=== PATIENT | female | born 1965 | race Caucasian/White ===

== ENCOUNTER → 2018-06-18 11:02 | Outpatient (CLI) | payer OTHER, SELFPAY ==
--- NOTE | 2018-06-18 11:03 | DI.RAD.S_ITS ---
PROCEDURE: XR FOOT LT MIN 3V INDICATIONS: heel pain TECHNIQUE: 3 views of the foot were acquired. COMPARISON: None. FINDINGS: Bones: No fractures or dislocations. No suspicious bony lesions. Small os navicularis is seen. Tiny plantar enthesophyte is seen. Soft tissues: No tibiotalar joint effusion. Achilles tendon appears normal. IMPRESSION: Tiny plantar calcaneal enthesophyte. Otherwise unremarkable radiographic examination of left foot. Dictated by: Mehul Quevedo M.D. on 06/18/2018 at 12:14 Approved by: Mehul Quevedo M.D. on 06/18/2018 at 12:18
--- NOTE | 2018-06-18 11:03 | DI.RAD.S_ITS ---
PROCEDURE: XR FOOT RT MIN 3V INDICATIONS: heel pain TECHNIQUE: 3 views of the foot were acquired. COMPARISON: None. FINDINGS: Bones: No fractures or dislocations. No suspicious bony lesions. Corticated calcification adjacent to medial aspect of talonavicular joint, likely representing small ossicle versus old avulsion injury. Small plantar calcaneal enthesophyte is seen. Soft tissues: No tibiotalar joint effusion. Achilles tendon appears normal. IMPRESSION: No acute fracture or dislocation. Small plantar calcaneal enthesophyte. Old injury versus accessory ossicle adjacent to medial aspect of talonavicular joint. Dictated by: Mehul Quevedo M.D. on 06/18/2018 at 12:09 Approved by: Mehul Quevedo M.D. on 06/18/2018 at 12:14
== END ==
PROVIDERS: PCP Internal Medicine; Visit Provider Physician Assistant
DX: M79.672 Pain in left foot (principal); M79.671 Pain in right foot; M77.51 Other enthesopathy of right foot and ankle; M77.52 Other enthesopathy of left foot and ankle
CPT/HCPCS: 73630

== ENCOUNTER → 2018-09-14 08:26 | Outpatient (CLI) | payer OTHER, SELFPAY ==
[2018-09-14 09:19] LABS: Add Manual Diff / Slide Review NO; Basophils Percent Auto 0.4 % (0-2); Eosinophils Percent Auto 1.9 % (2-4); Hematocrit 42.7 % (36-46); Hemoglobin 14.2 g/dL (12.0-16.0); Lymphocytes Percent Auto 23.8 % (25-40); Mean Corpuscular HGB Conc 33.3 % (30-36); Mean Corpuscular Hemoglobin 31.3 PG (26-34); Monocytes Percent Auto 7.2 % (3-14); Neutrophils Absolute Auto 4500 /uL (3000-5900); Neutrophils Percent Auto 66.7 % (50-75); Platelet Count 285 X10^3/uL (150-400); Red Blood Cell Count 4.54 X10^6/uL (4.0-5.2); Red Cell Distribution Width 13.1 % (11.6-14.8); White Blood Cell Count 6.7 X10^3/uL (4.5-11.0)
[2018-09-14 09:39] LABS: Alanine Aminotransferase 26 IU/L (9-52); Albumin 4.3 g/dL (3.5-5.0); Albumin Globulin Ratio 1.3 (1.0-2.8); Alkaline Phosphatase 54 U/L (38-126); Aspartate Aminotransferase 21 IU/L (14-36); BUN Creatinine Ratio 13.8 (6-22); Bilirubin Total 0.6 mg/dL (0.2-1.3); Blood Urea Nitrogen 11 mg/dL (7-17); Carbon Dioxide 24 mmol/L (22-32); Chloride 106 mmol/L (98-107); Estimated Glomerular Filt Rate > 60.0 mL/min (>60); Globulin 3.3 g/dL (1.7-4.1); Glucose 109 mg/dL (70-100); HEMOLYSIS < 15 (0-50); Potassium 4.2 mmol/L (3.4-5.1); Sodium 142 mmol/L (137-145); Total Protein 7.6 g/dL (6.3-8.2)
[2018-09-14 10:08] LABS: Thyroid Stimulating Hormone 1.37 uIU/mL (0.47-4.68)
== END ==
PROVIDERS: PCP Internal Medicine; Visit Provider Specialist
DX: I49.3 Ventricular premature depolarization (principal); R06.09 Other forms of dyspnea
CPT/HCPCS: 36415; 80053; 84443; 85025

== ENCOUNTER → 2019-01-25 09:13 | Outpatient (CLI) | payer OTHER, SELFPAY ==
--- NOTE | 2019-01-25 10:01 | DI.RAD.S_ITS ---
PROCEDURE: XR CHEST 2V INDICATIONS: cough with pain in L lower lung TECHNIQUE: 2 views of the chest were acquired. COMPARISON: [facility], , CHEST 1 VIEW, 09/16/2017, 14:42. FINDINGS: Surgical changes and devices: None. Lungs and pleura: Lungs are clear. No pleural effusions or pneumothorax. Mediastinum: Mediastinal contours are normal. Heart size is normal. Bones and chest wall: No suspicious bony abnormalities. Soft tissues appear unremarkable. IMPRESSION: No acute cardiopulmonary disease. Dictated by: Trey Ambrosio M.D. on 01/25/2019 at 10:29 Approved by: Trey Ambrosio M.D. on 01/25/2019 at 10:30
[2019-01-25 10:26] LABS: Influenza A and B by PCR Rapid Negative (Negative)
[2019-01-25 10:34] LABS: Add Manual Diff / Slide Review NO; Basophils Absolute Auto 0 /uL (0-100); Basophils Percent Auto 0.4 % (0-2); Eosinophils Absolute Auto 200 /uL (0-450); Eosinophils Percent Auto 2.2 % (2-4); Hematocrit 42.7 % (36-46); Hemoglobin 14.2 g/dL (12.0-16.0); Lymphocytes Absolute Auto 1800 /uL (1100-4500); Lymphocytes Percent Auto 23.9 % (25-40); Mean Corpuscular HGB Conc 33.3 % (30-36); Mean Corpuscular Volume 92.9 fL (80-100); Monocytes Absolute Auto 600 /uL (0-900); Neutrophils Absolute Auto 5000 /uL (1500-7000); Neutrophils Percent Auto 65.5 % (50-75); Platelet Count 300 X10^3/uL (150-400); Red Cell Distribution Width 12.7 % (11.6-14.8); White Blood Cell Count 7.7 X10^3/uL (4.5-11.0)
[2019-01-25 10:50] LABS: Alanine Aminotransferase 23 IU/L (9-52); Albumin 4.5 g/dL (3.5-5.0); Albumin Globulin Ratio 1.3 (1.0-2.8); Alkaline Phosphatase 62 U/L (38-126); Aspartate Aminotransferase 20 IU/L (14-36); BUN Creatinine Ratio 13.3 (6-22); Bilirubin Total 0.5 mg/dL (0.2-1.3); Blood Urea Nitrogen 12 mg/dL (7-17); Calcium 9.5 mg/dL (8.4-10.2); Carbon Dioxide 29 mmol/L (22-32); Chloride 102 mmol/L (98-107); Estimated Glomerular Filt Rate > 60.0 mL/min (>60); Globulin 3.6 g/dL (1.7-4.1); Glucose 75 mg/dL (70-100); HEMOLYSIS < 15 (0-50); Lipase 65 U/L (23-300); Potassium 4.1 mmol/L (3.4-5.1); Sodium 139 mmol/L (137-145); Total Protein 8.1 g/dL (6.3-8.2)
[2019-01-25 10:59] LABS: Erythrocyte Sedimentation Rate 28 MM/HR (0-20)
== END ==
PROVIDERS: PCP Internal Medicine; Visit Provider Physician Assistant
DX: R05 Cough (principal); R10.13 Epigastric pain
CPT/HCPCS: 36415; 71046; 80053; 83690; 85025; 85651; 86140; 87400

== ENCOUNTER → 2019-01-25 13:20 | Outpatient (CLI) | payer OTHER, SELFPAY ==
--- NOTE | 2019-01-25 13:21 | DI.US.S_ITS ---
PROCEDURE: US ABDOMEN COMPLETE INDICATIONS: LEFT UPPER QUADRANT PAIN WITH EPIGASTRIC PAIN TECHNIQUE: Real-time scanning was performed of the abdominal and retroperitoneal organs, with image documentation. COMPARISON: None. FINDINGS: Liver: Liver is normal in size and homogeneous in echotexture. Gallbladder: The gallbladder is within normal limits without cholelithiasis or gallbladder wall inflammation. Biliary ducts: Intrahepatic bile ducts are non-dilated. Extrahepatic bile duct caliber measures 3 mm. Normal is 6-7 mm or less in diameter, or 10 mm or less post-cholecystectomy. Pancreas: The pancreas was not adequately seen related to overlying bowel gas. Spleen: Spleen is normal in size and homogeneous in echotexture. Kidneys: Kidneys are normal in size and echotexture. Right kidney measures 10.1 cm long; left kidney measures 10.5 cm long. No hydronephrosis or shadowing nephrolithiasis. No solid masses. Aorta: Visualized aorta is normal in caliber at less than 3 cm. Iliacs: Proximal common iliac arteries are normal in caliber at less than 2.5 cm. IVC: Intrahepatic inferior vena cava is patent. Miscellaneous: No free abdominal fluid. IMPRESSION: Unremarkable abdominal ultrasound. No acute process is suspected. There is no cholelithiasis or cholecystitis. No hydronephrosis. Dictated by: Champ Tran M.D. on 01/25/2019 at 13:35 Approved by: Champ Tran M.D. on 01/25/2019 at 13:36
== END ==
PROVIDERS: PCP Internal Medicine; Visit Provider Physician Assistant
DX: R10.12 Left upper quadrant pain (principal); R10.13 Epigastric pain
CPT/HCPCS: 36415; 71046; 76700; 80053; 83690; 85025; 85651; 86140; 87400

== ENCOUNTER 2019-01-25 15:35 | Emergency (ER) | payer OTHER, SELFPAY ==
[2019-01-25 15:37] VITALS: BP 130/79; PULSE 96; RESP 20; TEMP 36.8; O2SAT 98
--- NOTE | 2019-01-25 17:14 | ED.ABDPAIN ---
HPI - Abdominal Pain <YOBANI Knight - Last Filed: 01/25/19 21:25> General Chief Complaint: Abdominal Pain Stated Complaint: PAIN LEFT UPPER SIDE Time Seen by Provider: 01/25/19 17:14 Source: patient Mode of arrival: ambulatory Limitations: no limitations History of Present Illness HPI narrative: 53-year-old female with history of asthma and is a nonsmoker for complaint of pain into her left lower rib cage and lateral rib cage over the past few days. She has recently been diagnosed with bronchitis and has had a cough for over the last week. She denies any fever. No trauma to the area. She denies any productive cough the she has had only a dry cough. She is tolerating p.o. intake well. No nausea or vomiting. she reports increased pain with palpation to the area. She also reports increased pain with cough. She is able speak full sentences. No acute distress. No other concerns or complaints. she was seen at the walk-in clinic earlier today and obtained a chest x-ray and also an abdominal ultrasound which were negative for any acute findings. She was sent here for further evaluation. Related Data Home Medications Medication Instructions Recorded Confirmed epinephrine 0.3 mg/0.3 mL 0.3 mg IM ONCE 06/18/18 01/25/19 injection, auto-injector montelukast 10 mg tablet 10 mg PO QPM 01/25/19 01/25/19 Previous Rx's Medication Instructions Recorded albuterol sulfate [Proventil HFA] 2 puff INH Q4HP PRN #1 inh 06/09/17 fluticasone propionate [Flonase 0 INTRANASAL QDAY #1 bot 06/09/17 Allergy Relief] norgestimate-ethinyl estradiol 1 tab PO QDAY #3 pac 06/09/17 [Tri-Sprintec (28)] Allergies Allergy/AdvReac Type Severity Reaction Status Date / Time amoxicillin [AMOXICILLIN] Allergy Unknown Verified 01/25/19 09:27 clavulanic acid Allergy Unknown Verified 01/25/19 09:27 [From AUGMENTIN] erythromycin base Allergy Unknown Verified 01/25/19 09:27 [ERYTHROMYCIN BASE] hydrocodone [From VICODIN] Allergy Unknown Verified 01/25/19 09:27 topiramate [From TOPAMAX] Allergy Unknown Verified 01/25/19 09:27 bee venom protein (honey bee) Allergy Anaphylaxis Verified 01/25/19 09:27 sumatriptan [From Imitrex] Allergy Verified 01/25/19 09:27 zolmitriptan [From Zomig] Allergy migrane Verified 01/25/19 09:27 Review of Systems <YOBANI Knight - Last Filed: 01/25/19 21:25> Constitutional Denies chills, Denies fever(s), Denies lethargy and Denies weakness ENT Ears, Nose, Mouth, and Throat: Denies change in voice, Denies neck pain and Denies sore throat Cardiovascular Denies dyspnea and Denies dyspnea on exertion Comments: Left-sided rib pain Respiratory Reports cough, Denies dyspnea, Denies dyspnea on exertion and Denies wheezing Gastrointestinal Gastrointestinal: Denies abdominal pain, Denies change in bowel habits, Denies diarrhea, Denies nausea and Denies vomiting Musculoskeletal Denies neck pain Integumentary/Breasts Denies pruritus, Denies erythema, Denies rash and Denies wounds Neurologic Denies weakness Allergic/Immunologic Denies wheezing PFSH <YOBANI Knight - Last Filed: 01/25/19 21:25> Surgical History History of third molar tooth extraction Family History (Updated 06/29/17 @ 00:00 by Conversion Provider) Father Age: 76 GERD (gastroesophageal reflux disease) Grandmother Age: 85 Emphysema Cancer Mother Essential hypertension Grandfather Age: 81 Colon obstruction Heart disease Social History Smoking Status: Never smoker alcohol intake: current Family History (Updated 06/29/17 @ 00:00 by Conversion Provider) Father Age: 76 GERD (gastroesophageal reflux disease) Grandmother Age: 85 Emphysema Cancer Mother Essential hypertension Grandfather Age: 81 Colon obstruction Heart disease Social History Smoking Status: Never smoker alcohol intake: current Exam <YOBANI Knight - Last Filed: 01/25/19 21:25> Initial Vital Signs Initial Vital Signs: Vital Signs Temperature 98.3 F 01/25/19 15:37 Pulse Rate 96 H 01/25/19 15:37 Respiratory Rate 20 01/25/19 15:37 Blood Pressure 130/79 01/25/19 15:37 Pulse Oximetry 98 01/25/19 15:37 HENLA Mouth: oral mucosae normal and moist mucous membranes Eyes Conjunctivae: conjunctivae normal Sclera: sclerae normal Pupils: PERRL EOM: EOM intact bilaterally Chest Other: Anterior chest wall with no signs of trauma. no ecchymosis. No swelling. No deformities. Tenderness on palpation to the left anterior chest wall and left lateral chest wall. Resp Effort & Inspection: normal respiratory effort, able to speak in complete sentences, no respiratory distress and no use of accessory muscles Auscultation: clear to auscultation bilaterally, no rales, no rhonchi and no wheezes Cardio Rate: regular rate Rhythm: regular rhythm Heart Sounds: no click, no gallops, no murmurs and no rubs Pulses: normal peripheral pulses Skin General: no rashes or lesions noted, No jaundice and No petechiae Neuro General: alert, oriented x3, gait normal and no focal motor deficits Speech: speech normal <Juan Miguel Villalobos DO - Last Filed: 01/25/19 23:55> Initial Vital Signs Initial Vital Signs: Vital Signs Temperature 98.3 F 01/25/19 15:37 Pulse Rate 96 H 01/25/19 15:37 Respiratory Rate 20 01/25/19 15:37 Blood Pressure 130/79 01/25/19 15:37 Pulse Oximetry 98 01/25/19 15:37 Course <YOBANI Knight - Last Filed: 01/25/19 21:25> Orders Ordered: ED Orders 01/25/19 18:01 CT chest w con Stat 01/25/19 18:10 C-Reactive Protein Quant Stat Troponin & CK Cardiac Panel Stat 01/25/19 19:19 EKG-12 Lead Stat Vital Signs - 8 hr 01/25/19 17:16 01/25/19 17:34 01/25/19 19:52 Pulse Rate 71 71 72 Respiratory Rate 18 14 18 Blood Pressure [Left Arm] 139/75 134/76 131/71 Pulse Oximetry 97 98 98 <DO Leonila Gross Last Filed: 01/25/19 23:55> Orders Ordered: ED Orders 01/25/19 18:01 CT chest w con Stat 01/25/19 18:10 C-Reactive Protein Quant Stat Troponin & CK Cardiac Panel Stat 01/25/19 19:19 EKG-12 Lead Stat Vital Signs - 8 hr 01/25/19 17:16 01/25/19 17:34 01/25/19 19:52 Pulse Rate 71 71 72 Respiratory Rate 18 14 18 Blood Pressure [Left Arm] 139/75 134/76 131/71 Pulse Oximetry 97 98 98 MDM - Abdominal Pain <Lm MedinaYOBANI skaggs - Last Filed: 01/25/19 21:25> Lab Data Lab Results 01/25/19 Range/Units 18:10 Total Creatine Kinase 37 (30-135) U/L CK-MB (CK-2) TNP CK-MB (CK-2) Rel Index TNP Troponin I < 0.012 (0.01-0.034) ng/mL C-Reactive Protein 1.0 (<1.0) mg/dL Imaging Data US - abdomen: Radiologist's impression: [address] [address] Ultrasound Report Signed Patient: Lulú Gilmore EMR#: [id number] : 1965Acct:[id number] Age/Sex: 53 / FDate of Service: 01/25/19 Loc: US Accession Number: [id number] Procedure: US abdomen complete Ordering Provider: Melissa Hyatt P.A-C PROCEDURE: US ABDOMEN COMPLETE INDICATIONS: LEFT UPPER QUADRANT PAIN WITH EPIGASTRIC PAIN TECHNIQUE: Real-time scanning was performed of the abdominal and retroperitoneal organs, with image documentation. COMPARISON: None. FINDINGS: Liver: Liver is normal in size and homogeneous in echotexture. Gallbladder: The gallbladder is within normal limits without cholelithiasis or gallbladder wall inflammation. Biliary ducts: Intrahepatic bile ducts are non-dilated. Extrahepatic bile duct caliber measures 3 mm. Normal is 6-7 mm or less in diameter, or 10 mm or less post-cholecystectomy. Pancreas: The pancreas was not adequately seen related to overlying bowel gas. Spleen: Spleen is normal in size and homogeneous in echotexture. Kidneys: Kidneys are normal in size and echotexture. Right kidney measures 10.1 cm long; left kidney measures 10.5 cm long. No hydronephrosis or shadowing nephrolithiasis. No solid masses. Aorta: Visualized aorta is normal in caliber at less than 3 cm. Iliacs: Proximal common iliac arteries are normal in caliber at less than 2.5 cm. IVC: Intrahepatic inferior vena cava is patent. Miscellaneous: No free abdominal fluid. IMPRESSION: Unremarkable abdominal ultrasound. No acute process is suspected. There is no cholelithiasis or cholecystitis. No hydronephrosis. Dictated by: Champ Tran M.D. on 01/25/2019 at 13:35 Approved by: Champ Tran M.D. on 01/25/2019 at 13:36 Chest x-ray: Radiologist's impression: [address] [place] [address] XRay Report Signed Patient: Lulú Gilmore EMR#: [id number] : 1965Acct:[id number] Age/Sex: 53 / FDate of Service: 01/25/19 Loc: LAB Accession Number: [id number] Procedure: XR chest 2V Ordering Provider: Melissa Hyatt P.A-C PROCEDURE: XR CHEST 2V INDICATIONS: cough with pain in L lower lung TECHNIQUE: 2 views of the chest were acquired. COMPARISON: [facility], CHEST 1 VIEW, 09/16/2017, 14:42. FINDINGS: Surgical changes and devices: None. Lungs and pleura: Lungs are clear. No pleural effusions or pneumothorax. Mediastinum: Mediastinal contours are normal. Heart size is normal. Bones and chest wall: No suspicious bony abnormalities. Soft tissues appear unremarkable. IMPRESSION: No acute cardiopulmonary disease. Dictated by: Trey Ambrosio M.D. on 01/25/2019 at 10:29 Approved by: Trey Ambrosio M.D. on 01/25/2019 at 10:30 CT scan - chest: Radiologist's impression: [address] [address] [address] Scan Report Signed Patient: Lulú Gilmore EMR#: [id number] : 1965Acct:[id number] Age/Sex: 53 / FDate of Service: 01/25/19 Loc: ED Accession Number: [id number] Procedure: CT chest w con Ordering Provider: Lm Valdivia PROCEDURE: CT CHEST W CON INDICATIONS: Chest pain TECHNIQUE: After the administration of intravenous contrast, 5 mm thick sections acquired from the pulmonary apices to the posterior costophrenic angles. 7 mm thick coronal and sagittal MIP reformats were acquired. For radiation dose reduction, the following was used: automated exposure control, adjustment of mA and/or kV according to patient size. COMPARISON: [facility], CR, XR CHEST 2V, 01/25/2019, 10:12. FINDINGS: Image quality: Excellent. Lungs and pleura: No acute air space opacities. No pleural effusions or pneumothorax. Central and peripheral airways are patent and normal in caliber. Mediastinum: Heart size is normal. No pericardial effusion. No mediastinal or hilar adenopathy by size criteria. Thoracic aorta and central pulmonary arteries are normal in size. Esophagus is normal in caliber. No hiatal hernia. Bones and chest wall: No suspicious bony lesions. No vertebral body compression fractures. No axillary or supraclavicular adenopathy by size criteria. Thyroid gland is unremarkable. Abdomen: Visualized upper abdominal solid organs appear normal. Upper abdominal bowel loops are normal in caliber. IMPRESSION: 1. No visualized cause of chest pain. Dictated by: Ariella Moreau M.D. on 01/25/2019 at 18:49 Approved by: Ariella Moreau M.D. on 01/25/2019 at 18:50 ECG Data Interpretation: EKG shows normal sinus rhythm with no ST elevation or depression. No ectopy. No ST elevation or depression. No ectopy. Ventricular rate is 69. Pr interval of 134. QRS duration of 86. QTC of 420. MDM Narrative Medical decision making narrative: Laboratory results today were unremarkable. chest x-ray chest CT were obtained were negative for any acute findings. Abdominal ultrasound was obtained was also negative for any acute findings. Signs and symptoms presents as chest wall pain secondary to cough. [id number] ibuprofen as needed for any discomfort. Splint area when coughing to help minimize symptoms. Follow up with her primary care provider. Return emergency room for worsening symptoms. <Juan Miguel Villalobos, DO - Last Filed: 01/25/19 23:55> Lab Data Lab Results 01/25/19 Range/Units 18:10 Total Creatine Kinase 37 (30-135) U/L CK-MB (CK-2) TNP CK-MB (CK-2) Rel Index TNP Troponin I < 0.012 (0.01-0.034) ng/mL C-Reactive Protein 1.0 (<1.0) mg/dL Discharge Plan Departure Patient Disposition: Home Clinical Impression: Acute chest wall pain Discharge Date/Time: 01/25/19 19:54 Interventions: ED Discharge Assessment Last Done: 01/25/19 19:53 Instructions: DI for Atypical Chest Pain Activity Restrictions/Additional Instructions: Laboratory results today and imaging today were unremarkable. signs and symptoms present as a muscle pain into the chest wall. This is most likely secondary to cough. Use [id number] ibuprofen as needed for any discomfort. Splint area while coughing to help minimize symptoms. Follow up with primary care provider. Return emergency room for any worsening symptoms. Prescriptions: No Action montelukast 10 mg tablet 10 mg PO QPM RF: 0 epinephrine 0.3 mg/0.3 mL auto-injector 0.3 mg IM ONCE RF: 0 norgestimate-ethinyl estradiol [Tri-Sprintec (28)] 1 EACH tablet 1 tab PO QDAY Qty: 3 RF: 3 albuterol sulfate [Proventil HFA] 90 MCG/PUFF HFA aerosol inhaler 2 puff INH Q4HP PRNQty: 1 RF: 5 fluticasone propionate [Flonase Allergy Relief] 9.9 ML spray,suspension Intranasal QDAY Qty: 1 RF: 5 Referrals: Nikki Amos [Primary Care Provider] - <Juan Miguel Villalobos DO - Last Filed: 01/25/19 23:55> Cosign ED Attending Iftikhar Attestation: I was immediately available in the department for consultation. Documentation has been reviewed. I agree with assessment and plan.
[2019-01-25 17:16] VITALS: BP 139/75; PULSE 71; RESP 18; O2SAT 97
--- NOTE | 2019-01-25 17:17 | ED_ITS ---
HPI - Abdominal Pain <YOBANI Knight - Last Filed: 01/25/19 21:25> General Chief Complaint: Abdominal Pain Stated Complaint: PAIN LEFT UPPER SIDE Time Seen by Provider: 01/25/19 17:14 Source: patient Mode of arrival: ambulatory Limitations: no limitations History of Present Illness HPI narrative: 53-year-old female with history of asthma and is a nonsmoker for complaint of pain into her left lower rib cage and lateral rib cage over the past few days. She has recently been diagnosed with bronchitis and has had a cough for over the last week. She denies any fever. No trauma to the area. She denies any productive cough the she has had only a dry cough. She is tolerating p.o. intake well. No nausea or vomiting. she reports increased pain with palpation to the area. She also reports increased pain with cough. She is able speak full sentences. No acute distress. No other concerns or complaints. she was seen at the walk-in clinic earlier today and obtained a chest x-ray and also an abdominal ultrasound which were negative for any acute findings. She was sent here for further evaluation. Related Data Home Medications Medication Instructions Recorded Confirmed epinephrine 0.3 mg/0.3 mL 0.3 mg IM ONCE 06/18/18 01/25/19 injection, auto-injector montelukast 10 mg tablet 10 mg PO QPM 01/25/19 01/25/19 Previous Rx's Medication Instructions Recorded albuterol sulfate [Proventil HFA] 2 puff INH Q4HP PRN #1 inh 06/09/17 fluticasone propionate [Flonase 0 INTRANASAL QDAY #1 bot 06/09/17 Allergy Relief] norgestimate-ethinyl estradiol 1 tab PO QDAY #3 pac 06/09/17 [Tri-Sprintec (28)] Allergies Allergy/AdvReac Type Severity Reaction Status Date / Time amoxicillin [AMOXICILLIN] Allergy Unknown Verified 01/25/19 09:27 clavulanic acid Allergy Unknown Verified 01/25/19 09:27 [From AUGMENTIN] erythromycin base Allergy Unknown Verified 01/25/19 09:27 [ERYTHROMYCIN BASE] hydrocodone [From VICODIN] Allergy Unknown Verified 01/25/19 09:27 topiramate [From TOPAMAX] Allergy Unknown Verified 01/25/19 09:27 bee venom protein (honey bee) Allergy Anaphylaxis Verified 01/25/19 09:27 sumatriptan [From Imitrex] Allergy Verified 01/25/19 09:27 zolmitriptan [From Zomig] Allergy migrane Verified 01/25/19 09:27 Review of Systems <YOBANI Knight - Last Filed: 01/25/19 21:25> Constitutional Denies chills, Denies fever(s), Denies lethargy and Denies weakness ENT Ears, Nose, Mouth, and Throat: Denies change in voice, Denies neck pain and Denies sore throat Cardiovascular Denies dyspnea and Denies dyspnea on exertion Comments: Left-sided rib pain Respiratory Reports cough, Denies dyspnea, Denies dyspnea on exertion and Denies wheezing Gastrointestinal Gastrointestinal: Denies abdominal pain, Denies change in bowel habits, Denies diarrhea, Denies nausea and Denies vomiting Musculoskeletal Denies neck pain Integumentary/Breasts Denies pruritus, Denies erythema, Denies rash and Denies wounds Neurologic Denies weakness Allergic/Immunologic Denies wheezing PFSH <YOBANI Knight - Last Filed: 01/25/19 21:25> Surgical History History of third molar tooth extraction Family History (Updated 06/29/17 @ 00:00 by Conversion Provider) Father Age: 76 GERD (gastroesophageal reflux disease) Grandmother Age: 85 Emphysema Cancer Mother Essential hypertension Grandfather Age: 81 Colon obstruction Heart disease Social History Smoking Status: Never smoker alcohol intake: current Family History (Updated 06/29/17 @ 00:00 by Conversion Provider) Father Age: 76 GERD (gastroesophageal reflux disease) Grandmother Age: 85 Emphysema Cancer Mother Essential hypertension Grandfather Age: 81 Colon obstruction Heart disease Social History Smoking Status: Never smoker alcohol intake: current Exam <YOBANI Knight - Last Filed: 01/25/19 21:25> Initial Vital Signs Initial Vital Signs: Vital Signs Temperature 98.3 F 01/25/19 15:37 Pulse Rate 96 H 01/25/19 15:37 Respiratory Rate 20 01/25/19 15:37 Blood Pressure 130/79 01/25/19 15:37 Pulse Oximetry 98 01/25/19 15:37 HENFL Mouth: oral mucosae normal and moist mucous membranes Eyes Conjunctivae: conjunctivae normal Sclera: sclerae normal Pupils: PERRL EOM: EOM intact bilaterally Chest Other: Anterior chest wall with no signs of trauma. no ecchymosis. No swelling. No deformities. Tenderness on palpation to the left anterior chest wall and left lateral chest wall. Resp Effort & Inspection: normal respiratory effort, able to speak in complete sentences, no respiratory distress and no use of accessory muscles Auscultation: clear to auscultation bilaterally, no rales, no rhonchi and no wheezes Cardio Rate: regular rate Rhythm: regular rhythm Heart Sounds: no click, no gallops, no murmurs and no rubs Pulses: normal peripheral pulses Skin General: no rashes or lesions noted, No jaundice and No petechiae Neuro General: alert, oriented x3, gait normal and no focal motor deficits Speech: speech normal <Juan Miguel Villalobos DO - Last Filed: 01/25/19 23:55> Initial Vital Signs Initial Vital Signs: Vital Signs Temperature 98.3 F 01/25/19 15:37 Pulse Rate 96 H 01/25/19 15:37 Respiratory Rate 20 01/25/19 15:37 Blood Pressure 130/79 01/25/19 15:37 Pulse Oximetry 98 01/25/19 15:37 Course <YOBANI Knight - Last Filed: 01/25/19 21:25> Orders Ordered: ED Orders 01/25/19 18:01 CT chest w con Stat 01/25/19 18:10 C-Reactive Protein Quant Stat Troponin & CK Cardiac Panel Stat 01/25/19 19:19 EKG-12 Lead Stat Vital Signs - 8 hr 01/25/19 17:16 01/25/19 17:34 01/25/19 19:52 Pulse Rate 71 71 72 Respiratory Rate 18 14 18 Blood Pressure [Left Arm] 139/75 134/76 131/71 Pulse Oximetry 97 98 98 <DO Leonila Gross Last Filed: 01/25/19 23:55> Orders Ordered: ED Orders 01/25/19 18:01 CT chest w con Stat 01/25/19 18:10 C-Reactive Protein Quant Stat Troponin & CK Cardiac Panel Stat 01/25/19 19:19 EKG-12 Lead Stat Vital Signs - 8 hr 01/25/19 17:16 01/25/19 17:34 01/25/19 19:52 Pulse Rate 71 71 72 Respiratory Rate 18 14 18 Blood Pressure [Left Arm] 139/75 134/76 131/71 Pulse Oximetry 97 98 98 MDM - Abdominal Pain <Lm MedinaYOBANI skaggs - Last Filed: 01/25/19 21:25> Lab Data Lab Results 01/25/19 Range/Units 18:10 Total Creatine Kinase 37 (30-135) U/L CK-MB (CK-2) TNP CK-MB (CK-2) Rel Index TNP Troponin I < 0.012 (0.01-0.034) ng/mL C-Reactive Protein 1.0 (<1.0) mg/dL Imaging Data US - abdomen: Radiologist's impression: [address] [address] Ultrasound Report Signed Patient: Lulú Gilmore EMR#: [id number] : 1965Acct:[id number] Age/Sex: 53 / FDate of Service: 01/25/19 Loc: US Accession Number: [id number] Procedure: US abdomen complete Ordering Provider: Melissa Hyatt P.A-C PROCEDURE: US ABDOMEN COMPLETE INDICATIONS: LEFT UPPER QUADRANT PAIN WITH EPIGASTRIC PAIN TECHNIQUE: Real-time scanning was performed of the abdominal and retroperitoneal organs, with image documentation. COMPARISON: None. FINDINGS: Liver: Liver is normal in size and homogeneous in echotexture. Gallbladder: The gallbladder is within normal limits without cholelithiasis or gallbladder wall inflammation. Biliary ducts: Intrahepatic bile ducts are non-dilated. Extrahepatic bile duct caliber measures 3 mm. Normal is 6-7 mm or less in diameter, or 10 mm or less post-cholecystectomy. Pancreas: The pancreas was not adequately seen related to overlying bowel gas. Spleen: Spleen is normal in size and homogeneous in echotexture. Kidneys: Kidneys are normal in size and echotexture. Right kidney measures 10.1 cm long; left kidney measures 10.5 cm long. No hydronephrosis or shadowing nephrolithiasis. No solid masses. Aorta: Visualized aorta is normal in caliber at less than 3 cm. Iliacs: Proximal common iliac arteries are normal in caliber at less than 2.5 cm. IVC: Intrahepatic inferior vena cava is patent. Miscellaneous: No free abdominal fluid. IMPRESSION: Unremarkable abdominal ultrasound. No acute process is suspected. There is no cholelithiasis or cholecystitis. No hydronephrosis. Dictated by: Champ Tran M.D. on 01/25/2019 at 13:35 Approved by: Champ Tran M.D. on 01/25/2019 at 13:36 Chest x-ray: Radiologist's impression: [address] [place] [address] XRay Report Signed Patient: Lulú Gilmore EMR#: [id number] : 1965Acct:[id number] Age/Sex: 53 / FDate of Service: 01/25/19 Loc: LAB Accession Number: [id number] Procedure: XR chest 2V Ordering Provider: Melissa Hyatt P.A-C PROCEDURE: XR CHEST 2V INDICATIONS: cough with pain in L lower lung TECHNIQUE: 2 views of the chest were acquired. COMPARISON: [facility], CHEST 1 VIEW, 09/16/2017, 14:42. FINDINGS: Surgical changes and devices: None. Lungs and pleura: Lungs are clear. No pleural effusions or pneumothorax. Mediastinum: Mediastinal contours are normal. Heart size is normal. Bones and chest wall: No suspicious bony abnormalities. Soft tissues appear unremarkable. IMPRESSION: No acute cardiopulmonary disease. Dictated by: Trey Ambrosio M.D. on 01/25/2019 at 10:29 Approved by: Trey Ambrosio M.D. on 01/25/2019 at 10:30 CT scan - chest: Radiologist's impression: [address] [address] [address] Scan Report Signed Patient: Lulú Gilmore EMR#: [id number] : 1965Acct:[id number] Age/Sex: 53 / FDate of Service: 01/25/19 Loc: ED Accession Number: [id number] Procedure: CT chest w con Ordering Provider: Lm Valdivia PROCEDURE: CT CHEST W CON INDICATIONS: Chest pain TECHNIQUE: After the administration of intravenous contrast, 5 mm thick sections acquired from the pulmonary apices to the posterior costophrenic angles. 7 mm thick coronal and sagittal MIP reformats were acquired. For radiation dose reduction, the following was used: automated exposure control, adjustment of mA and/or kV according to patient size. COMPARISON: [facility], CR, XR CHEST 2V, 01/25/2019, 10:12. FINDINGS: Image quality: Excellent. Lungs and pleura: No acute air space opacities. No pleural effusions or pneumothorax. Central and peripheral airways are patent and normal in caliber. Mediastinum: Heart size is normal. No pericardial effusion. No mediastinal or hilar adenopathy by size criteria. Thoracic aorta and central pulmonary arteries are normal in size. Esophagus is normal in caliber. No hiatal hernia. Bones and chest wall: No suspicious bony lesions. No vertebral body compression fractures. No axillary or supraclavicular adenopathy by size criteria. Thyroid gland is unremarkable. Abdomen: Visualized upper abdominal solid organs appear normal. Upper abdominal bowel loops are normal in caliber. IMPRESSION: 1. No visualized cause of chest pain. Dictated by: Ariella Moreau M.D. on 01/25/2019 at 18:49 Approved by: Ariella Moreau M.D. on 01/25/2019 at 18:50 ECG Data Interpretation: EKG shows normal sinus rhythm with no ST elevation or depression. No ectopy. No ST elevation or depression. No ectopy. Ventricular rate is 69. Pr interval of 134. QRS duration of 86. QTC of 420. MDM Narrative Medical decision making narrative: Laboratory results today were unremarkable. chest x-ray chest CT were obtained were negative for any acute findings. Abdominal ultrasound was obtained was also negative for any acute findings. Signs and symptoms presents as chest wall pain secondary to cough. [id number] ibuprofen as needed for any discomfort. Splint area when coughing to help minimize symptoms. Follow up with her primary care provider. Return emergency room for worsening symptoms. <Juan Miguel Villalobos, DO - Last Filed: 01/25/19 23:55> Lab Data Lab Results 01/25/19 Range/Units 18:10 Total Creatine Kinase 37 (30-135) U/L CK-MB (CK-2) TNP CK-MB (CK-2) Rel Index TNP Troponin I < 0.012 (0.01-0.034) ng/mL C-Reactive Protein 1.0 (<1.0) mg/dL Discharge Plan Departure Patient Disposition: Home Clinical Impression: Acute chest wall pain Discharge Date/Time: 01/25/19 19:54 Interventions: ED Discharge Assessment Last Done: 01/25/19 19:53 Instructions: DI for Atypical Chest Pain Activity Restrictions/Additional Instructions: Laboratory results today and imaging today were unremarkable. signs and symptoms present as a muscle pain into the chest wall. This is most likely secondary to cough. Use [id number] ibuprofen as needed for any discomfort. Splint area while coughing to help minimize symptoms. Follow up with primary care provider. Return emergency room for any worsening symptoms. Prescriptions: No Action montelukast 10 mg tablet 10 mg PO QPM RF: 0 epinephrine 0.3 mg/0.3 mL auto-injector 0.3 mg IM ONCE RF: 0 norgestimate-ethinyl estradiol [Tri-Sprintec (28)] 1 EACH tablet 1 tab PO QDAY Qty: 3 RF: 3 albuterol sulfate [Proventil HFA] 90 MCG/PUFF HFA aerosol inhaler 2 puff INH Q4HP PRNQty: 1 RF: 5 fluticasone propionate [Flonase Allergy Relief] 9.9 ML spray,suspension Intranasal QDAY Qty: 1 RF: 5 Referrals: Nikki Amos [Primary Care Provider] - <Juan Miguel Villalobos DO - Last Filed: 01/25/19 23:55> Cosign ED Attending Iftikhar Attestation: I was immediately available in the department for consultation. Documentation has been reviewed. I agree with assessment and plan.
[2019-01-25 17:34] VITALS: BP 134/76; PULSE 71; RESP 14; O2SAT 98
--- NOTE | 2019-01-25 18:01 | DI.CT.S_ITS ---
PROCEDURE: CT CHEST W CON INDICATIONS: Chest pain TECHNIQUE: After the administration of intravenous contrast, 5 mm thick sections acquired from the pulmonary apices to the posterior costophrenic angles. 7 mm thick coronal and sagittal MIP reformats were acquired. For radiation dose reduction, the following was used: automated exposure control, adjustment of mA and/or kV according to patient size. COMPARISON: [facility], CR, XR CHEST 2V, 01/25/2019, 10:12. FINDINGS: Image quality: Excellent. Lungs and pleura: No acute air space opacities. No pleural effusions or pneumothorax. Central and peripheral airways are patent and normal in caliber. Mediastinum: Heart size is normal. No pericardial effusion. No mediastinal or hilar adenopathy by size criteria. Thoracic aorta and central pulmonary arteries are normal in size. Esophagus is normal in caliber. No hiatal hernia. Bones and chest wall: No suspicious bony lesions. No vertebral body compression fractures. No axillary or supraclavicular adenopathy by size criteria. Thyroid gland is unremarkable. Abdomen: Visualized upper abdominal solid organs appear normal. Upper abdominal bowel loops are normal in caliber. IMPRESSION: 1. No visualized cause of chest pain. Dictated by: Ariella Moreau M.D. on 01/25/2019 at 18:49 Approved by: Ariella Moreau M.D. on 01/25/2019 at 18:50
[2019-01-25 18:37] LABS: Creatine Kinase 37 U/L (30-135)
[2019-01-25 18:50] LABS: Troponin I < 0.012 ng/mL (0.01-0.034)
[2019-01-25 19:52] VITALS: BP 131/71; PULSE 72; RESP 18; O2SAT 98
== END 2019-01-25 19:54 | disposition home or self-care (01) ==
PROVIDERS: Emergency Provider Nurse Practitioner Family; PCP Internal Medicine
DX: R07.89 Other chest pain (principal); R05 Cough; R10.13 Epigastric pain; R10.12 Left upper quadrant pain
CPT/HCPCS: 36415; 36591; 71046; 71260; 76700; 80053; 82550; 83690; 84484; 85025; 85651; 86140; 87400; 93005; 99283; 99285; Q9967

== ENCOUNTER → 2019-06-02 14:45 | Outpatient (CLI) | payer OTHER, SELFPAY ==
--- NOTE | 2019-06-02 | DI.US.S_ITS ---
PROCEDURE: US PELVIC COMPLETE INDICATIONS: PELVIC AND PERINEAL PAIN TECHNIQUE: Real-time scanning was performed of the pelvic organs, with image documentation. Additional endovaginal scanning was necessary due to incomplete visualization of the adnexal and endometrial structures by transabdominal scanning. COMPARISON: None. FINDINGS: Transabdominal scanning: Limited scanning through the kidneys shows no hydronephrosis. No pathologic free abdominal or pelvic fluid. Endovaginal scanning: Uterus: Uterus is normal in size at 9.3 x 3.8 x 5.2 cm. The endometrium measures 9.1 mm in combined thickness. Minimal endometrial vascularity identified with color flow Doppler. Ovaries: Right ovary is not visualized and left ovary measures 4.8 x 3.9 x 4.3 cm and contains a simple cyst measuring 3.7 x 3.9 x 3.9 cm with an internal simple daughter cyst measuring roughly 1.5 cm. IMPRESSION: 1. Thickening of the endometrial complex which is mildly vascular in this postmenopausal female. Consider endometrial biopsy as early neoplastic process cannot be excluded. 2. 3.9 cm simple left ovarian cyst with simple 1.5 cm daughter cyst. Dictated by: Ej ROCHA Interpreted: Fish Donato MD on 06/02/2019 at 16:16 Approved by: Fish Donato M.D. on 06/02/2019 at 16:47
== END ==
PROVIDERS: Family Provider Internal Medicine; PCP Internal Medicine; Visit Provider Obstetrics & Gynecology
DX: R93.89 Abnormal findings on diagnostic imaging of other specified body structures (principal); Z78.0 Asymptomatic menopausal state; N83.292 Other ovarian cyst, left side; R10.2 Pelvic and perineal pain
CPT/HCPCS: 76830; 76856

== ENCOUNTER 2019-12-30 12:00 | Outpatient (RCR) | payer OTHER, SELFPAY ==
--- NOTE | 2019-06-13 14:30 | PT.OPPOC ---
Current Diagnoses Cervicalgia (06/13/19) Dorsalgia, unspecified (06/13/19) Muscle weakness (generalized) (06/13/19) Abnormal posture (06/13/19) Provider Visit Care Team Role Provider Type Nikki Amos Attending Provider Non-Staff Primary Care Provider Specialty: Medical Address: [address] [place] [address], [id number] Email: Plan Of Care PT-OP-T Assessment and Plan Start: 06/13/19 17:35 Freq: Status: Active Protocol: Document 06/13/19 13:45 DCW (Rec: 06/14/19 14:28 DCW [id number]) Physical Therapy Assessment Rehab Potential Rehabilitation Potential Good Evaluation Complexity Number of Personal Factors/Comorbidities 3 or More Number of Body Systems Impaired 4 or More Clinical Presentation at Evaluation Unstable Goals Four Impairment Medial boarder of scapula 10 cm from spine at rest Long-Term Goal (LTG) Pt to present with less of a rounded shoulder posture by decreasing distance between medial boarder and spine to 6 cm at rest LTG Duration 08/13/19 Three Impairment Pt displays weakness in core muscles 3+/5 Hospital Social Worker Goal (LTG) Pt to display 4/5 MMT of TrA Two Impairment Pt unable to stand longer than 10-15 minutes at [employer] stand Long-Term Goal (LTG) Pt to be able to tolerate standing 45 minutes when working at the [employer] with no increased pain. 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 Pt also presents with core weakness and poor posture. More troubling, however, were pt's complaints of dizziness with head turns. When she first reported this, it was described exactly as above, that she becomes dizzy when I turn my head, and I heard that this could just be from neck injury. However, upon further questioning from the therapist, pt changed her description of it from dizzy to everything starts to go black and I feel like I'm going to pass out. Pt also noted it did not occur when she turned her head back and forth, just when she turned her head to the side and remained there, like when she was waiting for her to catch up to her at [facility]. These symptoms are troubling for a VBI, and pt should receive imaging and further testing before any cervical testing is performed in physical therapy. Pt's referring physician will be contacted by the PT. As long as pt is cleared for further therapy, pt should benefit from decreasing paraspinal tone, improving posture, and core strengthening. Physical Therapy Plan Frequency and Duration Frequency of Treatment 2x/Week Duration of Treatment Two months Plan of Care Start Date 06/13/19 Plan of Care End Date 08/13/19 Therapeutic Interventions Therapeutic Interventions Aquatic Therapy Home Exercise Program Joint Mobilizations Manual Therapy Patient/Caregiver Education Self-Care/Home Management Soft Tissue Mobilization Therapeutic Exercises Modalities Cold Pack/Ice Massage Electric Stimulation Hot Packs Ultrasound Other Referrals/Consults Referrals/Consults Recommended Discuss pt's VBI symptoms with Dr Amos Next Visit Focus/Plan Next Note Type Treatment Note Next Visit Plan Core strengthening, STM, posture training Plan of Care Dates Plan of Care Start Date 06/13/19 Plan of Care End Date 08/13/19 Please Sign and Return: I have reviewed this Plan of Care and certify that the skilled therapy services above are required to meet the patient?s needs. Physician Signature Date Printed Name and Credentials Clinical Instructor Signature Printed Name and Credentials
--- NOTE | 2019-06-13 14:30 | PT.OIE ---
Current Diagnoses Cervicalgia (06/13/19) Dorsalgia, unspecified (06/13/19) Muscle weakness (generalized) (06/13/19) Abnormal posture (06/13/19) Past Surgical History (Last Reviewed 01/25/19 @ 19:15 by YOBANI Knight) History of third molar tooth extraction Provider Visit Care Team Role Provider Type Nikki Amos Attending Provider Non-Staff Primary Care Provider Specialty: Medical Address: [address] [place] [address], [facility] Email: Physical Therapy Initial Evaluation PT-OP-A Visit Information Start: 06/13/19 17:35 Freq: Status: Active Protocol: Document 06/13/19 13:45 DCW (Rec: 06/14/19 14:28 DCW [id number]) Out-Patient Physical Therapy Visit Information Visit Information Visit Type Initial Evaluation Visit Start Time 13:45 Visit Stop Time 14:30 Total Visit Minutes 45 Visit Number 1 Number of HEARING AID ASSEMBLY SUPERVISOR Visits 0 Evaluation Information Evaluation Date 06/13/19 PT-OP-B Current Condition Start: 06/13/19 17:35 Freq: Status: Active Protocol: Document 06/13/19 13:45 DCW (Rec: 06/14/19 14:28 DCW [id number]) Current Condition History of Current Condition Onset Date Multi-year history Current Complaints Pain and stiffness along spine History of Current Condition Pt is a 53 year old female presenting with a long- standing history of progressively worsening pain along her sacral, lumbar, thoracic, and cervical spine. Pt reports she is limited with standing for periods of time longer than 10-15 minutes, and admits she just feels uncomfortable most of the time . Pt notes she has an extensive family history of arthritis, and comes with x- rays today of her sacral, lumbar, and cervical spine, all which note mild degenerative changes. Pt also notes that she gets dizzy when turning her head, and she has been told that some cervical pain can cause dizziness. Pt admits that her sciatic has been acting up here and there. 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 Patient Reported Progress Worse Patient Questionnaires Oswestry Low Back Index Oswestry Score 58% Oswestry Impairment 40 to 59% Impaired (Score 40- 59) OP-PT Pain Assessment Pain Assessment Grid Paper Pain Assessment Grid Completed Yes Location Length of Spine Intensity 8 Scale Used Numeric (1 - 10) Frequency Constant Pain Aggravating Factors Standing PT-OP-F Manual Assessment Start: 06/13/19 17:35 Freq: Status: Active Protocol: Document 06/13/19 13:45 DCW (Rec: 06/14/19 14:28 DCW [id number]) Manual Assessments Soft Tissue Assessment Soft Tissue Mobility Assessment Lumbar paraspinals, QL Moderate tone, tenderness to palpation 3/4: Wincing and withdraw PT-OP-J Posture/Palpation/Skin Start: 06/13/19 17:35 Freq: Status: Active Protocol: Document 06/13/19 13:45 DCW (Rec: 06/14/19 14:28 DCW [id number]) Posture Evaluation Position Sitting Head/C-Spine Posture C-Spine Flattened Forward Head T-Spine Posture Flattened L-Spine Posture Flattened Decreased Lordosis Shoulder Posture (L) Rounded (R) Rounded Scapula Posture (L) Protracted (R) Protracted Comments Posture Comments When pt sits at her normal, bilateral medial boarder of the scapula sits 10 cm from spine. With proper positioning , pt sits with medial boarder of the scapula 6 cm from spine . PT-OP-K Range of Motion Start: 06/13/19 17:35 Freq: Status: Active Protocol: Document 06/13/19 13:45 DCW (Rec: 06/14/19 14:28 DCW [id number]) Cervical Spine Range of Motion Cervical Spine Active Degrees Comments Not tested due to precautions of pt's reported symptoms when turning head. Should not test C-spine until pt has imaging for VBI Lumbar Spine Range of Motion Lumbar Spine Active Degrees Testing Position Standing Flexion 80 Extension 10 Lateral Flexion Left 51 Lateral Flexion Right 49 Comments Lateral flexion measured in cm from finger tips to floor. PT-OP-L Special Tests Start: 06/13/19 17:35 Freq: Status: Active Protocol: Document 06/13/19 13:45 DCW (Rec: 06/14/19 14:28 DCW [id number]) Special Tests Lumbar Spine Special Tests LUIGI Test Results Pain at SI Straight Leg Raise Test Results Pain at SI Other Special Tests Special Tests Cervical special tests not performed due to precautions of pt's reported symptoms when turning head. Should not test C-spine until pt has imaging for VBI PT-OP-M Strength Start: 06/13/19 17:35 Freq: Status: Active Protocol: Document 06/13/19 13:45 DCW (Rec: 06/14/19 14:28 DCW [id number]) Trunk Strength Trunk Manual Muscle Testing Core Stabilization Pt able to contract core properly with instruction in PPT position, however unable to hold position for significant time. TrA MMT 3+/5 Hip Strength Hip Manual Muscle Testing Right Flexion (L2) 5 Normal Abduction 5 Normal Adduction 5 Normal External Rotation 5 Normal Internal Rotation 5 Normal Left Flexion (L2) 5 Normal Abduction 5 Normal Adduction 5 Normal External Rotation 5 Normal Internal Rotation 5 Normal PT-OP-Q Treatments Start: 06/13/19 17:35 Freq: Status: Active Protocol: Document 06/13/19 13:45 DCW (Rec: 06/14/19 14:28 DCW [id number]) Therapeutic Exercises Supine Exercises PPT /c Bicycle Supine Exercise Name PPT /c TrA contraction - Air Bicycle Reps/Minutes 5 hold PPT /c Marching Supine Exercise Name PPT /c TrA contraction - Marching Reps/Minutes 5 hold PPT /c TrA contraction Supine Exercise Name PPT /c TrA contraction Reps/Minutes 5 hold Self-Care/Home Management Treatment Education Patient Education Home Exercise Program Posture PT-OP-T Assessment and Plan Start: 06/13/19 17:35 Freq: Status: Active Protocol: Document 06/13/19 13:45 DCW (Rec: 06/14/19 14:28 DCW [id number]) Physical Therapy Assessment Rehab Potential Rehabilitation Potential Good Evaluation Complexity Number of Personal Factors/Comorbidities 3 or More Number of Body Systems Impaired 4 or More Clinical Presentation at Evaluation Unstable Goals Four Impairment Medial boarder of scapula 10 cm from spine at rest Shelter Goal (LTG) Pt to present with less of a rounded shoulder posture by decreasing distance between medial boarder and spine to 6 cm at rest LTG Duration 08/13/19 Three Impairment Pt displays weakness in core muscles 3+/5 Shelter Goal (LTG) Pt to display 4/5 MMT of TrA Two Impairment Pt unable to stand longer than 10-15 minutes at [employer] stand Director Of Advertising Sales Goal (LTG) Pt to be able to tolerate standing 45 minutes when working at the [employer] with no increased pain. 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 Pt also presents with core weakness and poor posture. More troubling, however, were pt's complaints of dizziness with head turns. When she first reported this, it was described exactly as above, that she becomes dizzy when I turn my head, and I heard that this could just be from neck injury. However, upon further questioning from the therapist, pt changed her description of it from dizzy to everything starts to go black and I feel like I'm going to pass out. Pt also noted it did not occur when she turned her head back and forth, just when she turned her head to the side and remained there, like when she was waiting for her to catch up to her at [facility]. These symptoms are troubling for a VBI, and pt should receive imaging and further testing before any cervical testing is performed in physical therapy. Pt's referring physician will be contacted by the PT. As long as pt is cleared for further therapy, pt should benefit from decreasing paraspinal tone, improving posture, and core strengthening. Physical Therapy Plan Frequency and Duration Frequency of Treatment 2x/Week Duration of Treatment Two months Plan of Care Start Date 06/13/19 Plan of Care End Date 08/13/19 Therapeutic Interventions Therapeutic Interventions Aquatic Therapy Home Exercise Program Joint Mobilizations Manual Therapy Patient/Caregiver Education Self-Care/Home Management Soft Tissue Mobilization Therapeutic Exercises Modalities Cold Pack/Ice Massage Electric Stimulation Hot Packs Ultrasound Other Referrals/Consults Referrals/Consults Recommended Discuss pt's VBI symptoms with Dr Amos Next Visit Focus/Plan Next Note Type Treatment Note Next Visit Plan Core strengthening, STM, posture training
--- NOTE | 2019-06-14 09:36 | PT-OP ANOTE ---
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
--- NOTE | 2019-06-20 17:50 | PT.OTN ---
Current Diagnoses Cervicalgia (06/20/19) Dorsalgia, unspecified (06/20/19) Muscle weakness (generalized) (06/20/19) Abnormal posture (06/20/19) Physical Therapy Treatment Note PT-OP-A Visit Information Start: 06/13/19 17:35 Freq: Status: Active Protocol: Document 06/20/19 14:30 DCW (Rec: 06/20/19 15:14 DCW [id number]) Out-Patient Physical Therapy Visit Information Visit Information Visit Type Treatment Note Visit Start Time 14:30 Visit Stop Time 15:15 Total Visit Minutes 45 Visit Number 2 Number of FANCY SEWER Visits 0 Evaluation Information Evaluation Date 06/13/19 PT-OP-B Current Condition Start: 06/13/19 17:35 Freq: Status: Active Protocol: Document 06/13/19 13:45 DCW (Rec: 06/14/19 14:28 DCW [id number]) Current Condition History of Current Condition Onset Date Multi-year history Current Complaints Pain and stiffness along spine History of Current Condition Pt is a 53 year old female presenting with a long- standing history of progressively worsening pain along her sacral, lumbar, thoracic, and cervical spine. Pt reports she is limited with standing for periods of time longer than 10-15 minutes, and admits she just feels uncomfortable most of the time . Pt notes she has an extensive family history of arthritis, and comes with x- rays today of her sacral, lumbar, and cervical spine, all which note mild degenerative changes. Pt also notes that she gets dizzy when turning her head, and she has been told that some cervical pain can cause dizziness. Pt admits that her sciatic has been acting up here and there. 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 Pt presents with a new referral for plantar fasciitis as well as the original referral for her lumbar and cervical spine. Pt also has an upcoming MRA for possible VBI. PT-OP-F Manual Assessment Start: 06/13/19 17:35 Freq: Status: Active Protocol: Document 06/13/19 13:45 DCW (Rec: 06/14/19 14:28 DCW [id number]) Manual Assessments Soft Tissue Assessment Soft Tissue Mobility Assessment Lumbar paraspinals, QL Moderate tone, tenderness to palpation 3/4: Wincing and withdraw PT-OP-J Posture/Palpation/Skin Start: 06/13/19 17:35 Freq: Status: Active Protocol: Document 06/20/19 14:30 DCW (Rec: 06/20/19 17:50 DCW [id number]) Posture Evaluation Position Standing Ankle/Foot Posture (L) Pronated (R) Pronated Foot Arch (L) Low Arch (R) Low Arch Comments Posture Comments When standing relaxed, pt exhibits pronated feet bilaterally with her navicular bone 2.7 cm (L) and 3.2 cm (R ) from the floor. With proper arch positioning and a neutral forefoot, pt navicular 4.1 cm from floor bilaterally. PT-OP-K Range of Motion Start: 06/13/19 17:35 Freq: Status: Active Protocol: Document 06/20/19 14:30 DCW (Rec: 06/20/19 17:50 DCW [id number]) Ankle and Foot Goniometric Range of Motion Ankle and Foot Right Active Testing Position Sitting Dorsiflexion with Knee Flexed 5 Plantarflexion 45 Inversion 12 Eversion 10 Left Active Testing Position Sitting Dorsiflexion with Knee Flexed 10 Plantarflexion 40 Inversion 18 Eversion 5 PT-OP-L Special Tests Start: 06/13/19 17:35 Freq: Status: Active Protocol: Document 06/13/19 13:45 DCW (Rec: 06/14/19 14:28 DCW [id number]) Special Tests Lumbar Spine Special Tests LUIGI Test Results Pain at SI Straight Leg Raise Test Results Pain at SI Other Special Tests Special Tests Cervical special tests not performed due to precautions of pt's reported symptoms when turning head. Should not test C-spine until pt has imaging for VBI PT-OP-M Strength Start: 06/13/19 17:35 Freq: Status: Active Protocol: Document 06/13/19 13:45 DCW (Rec: 06/14/19 14:28 DCW [id number]) Trunk Strength Trunk Manual Muscle Testing Core Stabilization Pt able to contract core properly with instruction in PPT position, however unable to hold position for significant time. TrA MMT 3+/5 Hip Strength Hip Manual Muscle Testing Right Flexion (L2) 5 Normal Abduction 5 Normal Adduction 5 Normal External Rotation 5 Normal Internal Rotation 5 Normal Left Flexion (L2) 5 Normal Abduction 5 Normal Adduction 5 Normal External Rotation 5 Normal Internal Rotation 5 Normal PT-OP-Q Treatments Start: 06/13/19 17:35 Freq: Status: Active Protocol: Document 06/20/19 14:30 DCW (Rec: 06/20/19 15:14 DCW [id number]) Therapeutic Exercises Sitting Exercises Towel pull Sitting Exercise Name Toe flexion Side bilateral [place] Pick-up Sitting Exercise Name Intrinsic marble pick-up Side bilateral Manual Therapy Treatment Soft Tissue Mobilization QL Body Location Bilateral QL Mobilization Type Sustained Pressure Trigger Point Release Intensity/Depth Moderate Other Other Manual Treatments Assessment of plantar fasciitis PT-OP-T Assessment and Plan Start: 06/13/19 17:35 Freq: Status: Active Protocol: Document 06/20/19 14:30 DCW (Rec: 06/20/19 17:50 DCW [id number]) Physical Therapy Assessment Impairments Impairments Functional Activities Functional Mobility Pain Posture ROM Soft Tissue Mobility Strength Goals Five Impairment Pt navicular bone collapse to 2.7 (L) and 3.2 (R) cm from floor Wood Furniture Assembler Goal (LTG) Pt to stand with neutral forefoot and proper arches with navicular 4.0 cm from floor LTG Duration 08/13/19 Four Impairment Medial boarder of scapula 10 cm from spine at rest Wood Furniture Assembler Goal (LTG) Pt to present with less of a rounded shoulder posture by decreasing distance between medial boarder and spine to 6 cm at rest LTG Duration 08/13/19 Three Impairment Pt displays weakness in core muscles 3+/5 Wood Furniture Assembler Goal (LTG) Pt to display 4/5 MMT of TrA Two Impairment Pt unable to stand longer than 10-15 minutes at [employer] stand Care Home Goal (LTG) Pt to be able to tolerate standing 45 minutes when working at the [employer] with no increased pain. LTG Duration 08/13/19 One Impairment Pt does not have an appropriate home exercise program Short Term Goal (STG) Pt to be independent and compliant with an appropriate HEP STG Duration 07/14/19 Assessment Summary Assessment With addition of plantar fasciitis referral, Physical Therapy should continue to focus on her lumbar pain, increased paraspinal tone, and immobility, however will also work on increasing ankle ROM and improving bilateral arches , decreasing pain with ambulation, and strengthening intrinsic foot musculature. Cervical pain and issues still not addressed at this time, will await clearance following upcoming MRA. Physical Therapy Plan Frequency and Duration Frequency of Treatment 2x/Week Duration of Treatment Two months Plan of Care Start Date 06/20/19 Plan of Care End Date 08/20/19 Therapeutic Interventions Therapeutic Interventions Aquatic Therapy Home Exercise Program Joint Mobilizations Manual Therapy Patient/Caregiver Education Self-Care/Home Management Soft Tissue Mobilization Therapeutic Exercises Modalities Cold Pack/Ice Massage Electric Stimulation Hot Packs Ultrasound Other Referrals/Consults Referrals/Consults Recommended Upcoming MRA Next Visit Focus/Plan Next Note Type Treatment Note Next Visit Plan Core strengthening, STM, posture training, Ankle ROM, foot/arch strengthening
--- NOTE | 2019-06-20 17:50 | PT.OPPOC ---
Current Diagnoses Cervicalgia (06/20/19) Dorsalgia, unspecified (06/20/19) Muscle weakness (generalized) (06/20/19) Abnormal posture (06/20/19) Provider Visit Care Team Role Provider Type Nikki Amos Attending Provider Non-Staff Primary Care Provider Specialty: Medical Address: [address] [place] [address], [id number] Email: Plan Of Care PT-OP-T Assessment and Plan Start: 06/13/19 17:35 Freq: Status: Active Protocol: Document 06/20/19 14:30 DCW (Rec: 06/20/19 17:50 DCW [id number]) Physical Therapy Assessment Impairments Impairments Functional Activities Functional Mobility Pain Posture ROM Soft Tissue Mobility Strength Goals Five Impairment Pt navicular bone collapse to 2.7 (L) and 3.2 (R) cm from floor Retirement Goal (LTG) Pt to stand with neutral forefoot and proper arches with navicular 4.0 cm from floor LTG Duration 08/13/19 Four Impairment Medial boarder of scapula 10 cm from spine at rest Therapy Director Goal (LTG) Pt to present with less of a rounded shoulder posture by decreasing distance between medial boarder and spine to 6 cm at rest LTG Duration 08/13/19 Three Impairment Pt displays weakness in core muscles 3+/5 Therapy Director Goal (LTG) Pt to display 4/5 MMT of TrA Two Impairment Pt unable to stand longer than 10-15 minutes at [employer] stand Retirement Goal (LTG) Pt to be able to tolerate standing 45 minutes when working at the [employer] with no increased pain. LTG Duration 08/13/19 One Impairment Pt does not have an appropriate home exercise program Short Term Goal (STG) Pt to be independent and compliant with an appropriate HEP STG Duration 07/14/19 Assessment Summary Assessment With addition of plantar fasciitis referral, Physical Therapy should continue to focus on her lumbar pain, increased paraspinal tone, and immobility, however will also work on increasing ankle ROM and improving bilateral arches , decreasing pain with ambulation, and strengthening intrinsic foot musculature. Cervical pain and issues still not addressed at this time, will await clearance following upcoming MRA. Physical Therapy Plan Frequency and Duration Frequency of Treatment 2x/Week Duration of Treatment Two months Plan of Care Start Date 06/20/19 Plan of Care End Date 08/20/19 Therapeutic Interventions Therapeutic Interventions Aquatic Therapy Home Exercise Program Joint Mobilizations Manual Therapy Patient/Caregiver Education Self-Care/Home Management Soft Tissue Mobilization Therapeutic Exercises Modalities Cold Pack/Ice Massage Electric Stimulation Hot Packs Ultrasound Other Referrals/Consults Referrals/Consults Recommended Upcoming MRA Next Visit Focus/Plan Next Note Type Treatment Note Next Visit Plan Core strengthening, STM, posture training, Ankle ROM, foot/arch strengthening Plan of Care Dates Plan of Care Start Date 06/20/19 Plan of Care End Date 08/20/19 Please Sign and Return: I have reviewed this Plan of Care and certify that the skilled therapy services above are required to meet the patient?s needs. Physician Signature Date Printed Name and Credentials Clinical Instructor Signature Printed Name and Credentials
--- NOTE | 2019-07-01 17:07 | PT.OTN ---
Current Diagnoses Cervicalgia (07/01/19) Dorsalgia, unspecified (07/01/19) Muscle weakness (generalized) (07/01/19) Abnormal posture (07/01/19) Physical Therapy Treatment Note PT-OP-A Visit Information Start: 06/13/19 17:35 Freq: Status: Active Protocol: Document 07/01/19 14:30 LJ (Rec: 07/01/19 17:07 LJ [email or web address]) Out-Patient Physical Therapy Visit Information Visit Information Visit Type Treatment Note Visit Start Time 14:30 Visit Stop Time 15:15 Total Visit Minutes 45 Visit Number 2 Number of BRUSHING MACHINE OPERATOR Visits 0 Evaluation Information Evaluation Date 06/13/19 PT-OP-B Current Condition Start: 06/13/19 17:35 Freq: Status: Active Protocol: Document 06/13/19 13:45 DCW (Rec: 06/14/19 14:28 DCW [id number]) Current Condition History of Current Condition Onset Date Multi-year history Current Complaints Pain and stiffness along spine History of Current Condition Pt is a 53 year old female presenting with a long- standing history of progressively worsening pain along her sacral, lumbar, thoracic, and cervical spine. Pt reports she is limited with standing for periods of time longer than 10-15 minutes, and admits she just feels uncomfortable most of the time . Pt notes she has an extensive family history of arthritis, and comes with x- rays today of her sacral, lumbar, and cervical spine, all which note mild degenerative changes. Pt also notes that she gets dizzy when turning her head, and she has been told that some cervical pain can cause dizziness. Pt admits that her sciatic has been acting up here and there. 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 Also says she is using foot orthotics but her feet still hurt. She also is interested in getting on the aquatic therapy schedule for one of the ts sessions each week. Start with Fridays at 10:15 PT-OP-F Manual Assessment Start: 06/13/19 17:35 Freq: Status: Active Protocol: Document 06/13/19 13:45 DCW (Rec: 06/14/19 14:28 DCW [id number]) Manual Assessments Soft Tissue Assessment Soft Tissue Mobility Assessment Lumbar paraspinals, QL Moderate tone, tenderness to palpation 3/4: Wincing and withdraw PT-OP-J Posture/Palpation/Skin Start: 06/13/19 17:35 Freq: Status: Active Protocol: Document 06/20/19 14:30 DCW (Rec: 06/20/19 17:50 DCW [id number]) Posture Evaluation Position Standing Ankle/Foot Posture (L) Pronated,(R) Pronated Foot Arch (L) Low Arch,(R) Low Arch Comments Posture Comments When standing relaxed, pt exhibits pronated feet bilaterally with her navicular bone 2.7 cm (L) and 3.2 cm (R ) from the floor. With proper arch positioning and a neutral forefoot, pt navicular 4.1 cm from floor bilaterally. PT-OP-K Range of Motion Start: 06/13/19 17:35 Freq: Status: Active Protocol: Document 06/20/19 14:30 DCW (Rec: 06/20/19 17:50 DCW [id number]) Ankle and Foot Goniometric Range of Motion Ankle and Foot Right Active Testing Position Sitting Dorsiflexion with Knee Flexed 5 Plantarflexion 45 Inversion 12 Eversion 10 Left Active Testing Position Sitting Dorsiflexion with Knee Flexed 10 Plantarflexion 40 Inversion 18 Eversion 5 PT-OP-L Special Tests Start: 06/13/19 17:35 Freq: Status: Active Protocol: Document 06/13/19 13:45 DCW (Rec: 06/14/19 14:28 DCW [id number]) Special Tests Lumbar Spine Special Tests LUIGI Test Results Pain at SI Straight Leg Raise Test Results Pain at SI Other Special Tests Special Tests Cervical special tests not performed due to precautions of pt's reported symptoms when turning head. Should not test C-spine until pt has imaging for VBI PT-OP-M Strength Start: 06/13/19 17:35 Freq: Status: Active Protocol: Document 06/13/19 13:45 DCW (Rec: 06/14/19 14:28 DCW [id number]) Trunk Strength Trunk Manual Muscle Testing Core Stabilization Pt able to contract core properly with instruction in PPT position, however unable to hold position for significant time. TrA MMT 3+/5 Hip Strength Hip Manual Muscle Testing Right Flexion (L2) 5 Normal Abduction 5 Normal Adduction 5 Normal External Rotation 5 Normal Internal Rotation 5 Normal Left Flexion (L2) 5 Normal Abduction 5 Normal Adduction 5 Normal External Rotation 5 Normal Internal Rotation 5 Normal PT-OP-Q Treatments Start: 06/13/19 17:35 Freq: Status: Active Protocol: Document 07/01/19 14:30 LJ (Rec: 07/01/19 17:07 LJ [email or web address]) Therapeutic Exercises Supine Exercises PPT /c Bicycle Supine Exercise Name PPT /c TrA contraction - Air Bicycle Reps/Minutes 5 hold PPT /c Marching Supine Exercise Name PPT /c TrA contraction - Marching Reps/Minutes 5 hold PPT /c TrA contraction Supine Exercise Name PPT /c TrA contraction Reps/Minutes 5 hold Sitting Exercises ball rolliing under foot for fascia release Equipment Used tennis ball Reps/Minutes 3 min Towel pull Sitting Exercise Name Toe flexion Side bilateral [place] Pick-up Sitting Exercise Name Intrinsic marble pick-up Side bilateral Standing Exercises gastroc and soleus stretch Reps/Minutes 2 x45 Comments slant board Manual Therapy Treatment Soft Tissue Mobilization foot massage Body Location both feet focusing on left Mobilization Type Cross-Friction,Myofascial Release,Strumming,Sustained Pressure,Trigger Point Release Intensity/Depth Moderate Body Position Supine Self-Care/Home Management Treatment Education Patient Education Home Exercise Program,Pain Management,Posture Other Education taping and night splint for PF PT-OP-R Modalities Start: 06/13/19 17:35 Freq: Status: Active Protocol: Document 07/01/19 14:30 LJ (Rec: 07/01/19 17:07 LJ [email or web address]) Other Unlisted Modality Treatment ice massage Duration (Minutes) 5 Body Position Supine Comments left foot PT-OP-T Assessment and Plan Start: 06/13/19 17:35 Freq: Status: Active Protocol: Document 07/01/19 14:30 LJ (Rec: 07/01/19 17:07 LJ [email or web address]) Physical Therapy Assessment Rehab Potential Rehabilitation Potential Good Impairments Impairments Functional Activities, Functional Mobility,Pain, Posture,ROM,Soft Tissue Mobility,Strength Goals Five Impairment Pt navicular bone collapse to 2.7 (L) and 3.2 (R) cm from floor Grain Tr[employer] Goal (LTG) Pt to stand with neutral forefoot and proper arches with navicular 4.0 cm from floor LTG Duration 08/13/19 Four Impairment Medial boarder of scapula 10 cm from spine at rest Half-Way Goal (LTG) Pt to present with less of a rounded shoulder posture by decreasing distance between medial boarder and spine to 6 cm at rest LTG Duration 08/13/19 Three Impairment Pt displays weakness in core muscles 3+/5 Half-Way Goal (LTG) Pt to display 4/5 MMT of TrA Two Impairment Pt unable to stand longer than 10-15 minutes at [employer] 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 LTG Duration 08/13/19 One Impairment Pt does not have an appropriate home exercise program Short Term Goal (STG) Pt to be independent and compliant with an appropriate HEP STG Duration 07/14/19 Assessment Summary Assessment Pt tolerated tx well. Given new exercises to perform at home. Pt will look into using a night splint and taping her foot to relieve pain. Instructed pt in self massage with cross friction and deep trigger pt release. Assess gait pattern for left foot pronation Physical Therapy Plan Frequency and Duration Frequency of Treatment 2x/Week Duration of Treatment Two months Plan of Care Start Date 06/20/19 Plan of Care End Date 08/20/19 Therapeutic Interventions Therapeutic Interventions Aquatic Therapy,Home Exercise Program,Joint Mobilizations, Manual Therapy,Patient/ Caregiver Education,Self-Care/ Home Management,Soft Tissue Mobilization,Therapeutic Exercises Modalities Cold Pack/Ice Massage,Electric Stimulation,Hot Packs, Ultrasound Next Visit Focus/Plan Next Note Type Treatment Note Next Visit Plan Refer pt to aquatic therapy for strengthening, stretching, and functional mobility to address issues with LS, CS, and feet
--- NOTE | 2019-07-05 12:47 | PT.OTN ---
Current Diagnoses Cervicalgia (07/05/19) Dorsalgia, unspecified (07/05/19) Muscle weakness (generalized) (07/05/19) Abnormal posture (07/05/19) Physical Therapy Treatment Note PT-OP-A Visit Information Start: 06/13/19 17:35 Freq: Status: Active Protocol: Document 07/05/19 12:00 DCW (Rec: 07/05/19 12:04 DCW [id number]) Out-Patient Physical Therapy Visit Information Visit Information Visit Type Treatment Note Visit Start Time 12:00 Visit Stop Time 12:45 Total Visit Minutes 45 Visit Number 4 Number of PLANT OPERATIONS VICE PRESIDENT Visits 0 Evaluation Information Evaluation Date 06/13/19 PT-OP-B Current Condition Start: 06/13/19 17:35 Freq: Status: Active Protocol: Document 06/13/19 13:45 DCW (Rec: 06/14/19 14:28 DCW [id number]) Current Condition History of Current Condition Onset Date Multi-year history Current Complaints Pain and stiffness along spine History of Current Condition Pt is a 53 year old female presenting with a long- standing history of progressively worsening pain along her sacral, lumbar, thoracic, and cervical spine. Pt reports she is limited with standing for periods of time longer than 10-15 minutes, and admits she just feels uncomfortable most of the time . Pt notes she has an extensive family history of arthritis, and comes with x- rays today of her sacral, lumbar, and cervical spine, all which note mild degenerative changes. Pt also notes that she gets dizzy when turning her head, and she has been told that some cervical pain can cause dizziness. Pt admits that her sciatic has been acting up here and there. 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 Resume cervical testing today. PT-OP-F Manual Assessment Start: 06/13/19 17:35 Freq: Status: Active Protocol: Document 06/13/19 13:45 DCW (Rec: 06/14/19 14:28 DCW [id number]) Manual Assessments Soft Tissue Assessment Soft Tissue Mobility Assessment Lumbar paraspinals, QL Moderate tone, tenderness to palpation 3/4: Wincing and withdraw PT-OP-J Posture/Palpation/Skin Start: 06/13/19 17:35 Freq: Status: Active Protocol: Document 06/20/19 14:30 DCW (Rec: 06/20/19 17:50 DCW [id number]) Posture Evaluation Position Standing Ankle/Foot Posture (L) Pronated,(R) Pronated Foot Arch (L) Low Arch,(R) Low Arch Comments Posture Comments When standing relaxed, pt exhibits pronated feet bilaterally with her navicular bone 2.7 cm (L) and 3.2 cm (R ) from the floor. With proper arch positioning and a neutral forefoot, pt navicular 4.1 cm from floor bilaterally. PT-OP-K Range of Motion Start: 06/13/19 17:35 Freq: Status: Active Protocol: Document 07/05/19 12:00 DCW (Rec: 07/05/19 12:31 DCW [id number]) Cervical Spine Range of Motion Cervical Spine Active Degrees Testing Position Sitting Flexion 30 Extension 50 Rotation Left 63 Rotation Right 75 Lateral Flexion Left 30 Lateral Flexion Right 33 PT-OP-L Special Tests Start: 06/13/19 17:35 Freq: Status: Active Protocol: Document 07/05/19 12:00 DCW (Rec: 07/05/19 12:31 DCW [id number]) Special Tests Cervical Spine Special Tests Spurling's Test Test Results Negative Slump Test Results Negative Passive Neck Flexion Test Results Negative [place] Compression Test Results Negative PT-OP-M Strength Start: 06/13/19 17:35 Freq: Status: Active Protocol: Document 06/13/19 13:45 DCW (Rec: 06/14/19 14:28 DCW [id number]) Trunk Strength Trunk Manual Muscle Testing Core Stabilization Pt able to contract core properly with instruction in PPT position, however unable to hold position for significant time. TrA MMT 3+/5 Hip Strength Hip Manual Muscle Testing Right Flexion (L2) 5 Normal Abduction 5 Normal Adduction 5 Normal External Rotation 5 Normal Internal Rotation 5 Normal Left Flexion (L2) 5 Normal Abduction 5 Normal Adduction 5 Normal External Rotation 5 Normal Internal Rotation 5 Normal PT-OP-Q Treatments Start: 06/13/19 17:35 Freq: Status: Active Protocol: Document 07/05/19 12:00 DCW (Rec: 07/05/19 12:47 DCW [id number]) Therapeutic Exercises Supine Exercises Scalene stretch Supine Exercise Name Scalene stretch Upper Trap stretch Supine Exercise Name UT stretch Hamstring stretch Supine Exercise Name HS stretch Single KtC Supine Exercise Name Single KtC Side bilateral Standing Exercises gastroc and soleus stretch Standing Exercise Name Heelcord stretch Equipment Used JESSIE Manual Therapy Treatment Soft Tissue Mobilization Upper Trap Body Location B Upper trap Mobilization Type Strain/Counterstrain,Strumming ,Sustained Pressure Intensity/Depth Moderate Joint Mobilizations C5 Joint C5 rotated CCW Body Position Hooklying Comments Resisted cervical rotation Manual Traction Cervical Details Cervical traction Body Position Hooklying PT-OP-R Modalities Start: 06/13/19 17:35 Freq: Status: Active Protocol: Document 07/01/19 14:30 LJ (Rec: 07/01/19 17:07 LJ [email or web address]) Other Unlisted Modality Treatment ice massage Duration (Minutes) 5 Body Position Supine Comments left foot PT-OP-T Assessment and Plan Start: 06/13/19 17:35 Freq: Status: Active Protocol: Document 07/05/19 12:00 DCW (Rec: 07/05/19 12:47 DCW [id number]) Physical Therapy Assessment Rehab Potential Rehabilitation Potential Good Impairments Impairments Functional Activities, Functional Mobility,Pain, Posture,ROM,Soft Tissue Mobility,Strength Goals Five Impairment Pt navicular bone collapse to 2.7 (L) and 3.2 (R) cm from floor [facility] Goal (LTG) Pt to stand with neutral forefoot and proper arches with navicular 4.0 cm from floor LTG Duration 08/13/19 Four Impairment Medial boarder of scapula 10 cm from spine at rest Cushion Maker Hand Goal (LTG) Pt to present with less of a rounded shoulder posture by decreasing distance between medial boarder and spine to 6 cm at rest LTG Duration 08/13/19 Three Impairment Pt displays weakness in core muscles 3+/5 Cushion Maker Hand Goal (LTG) Pt to display 4/5 MMT of TrA Two Impairment Pt unable to stand longer than 10-15 minutes at [employer] stand [facility] Goal (LTG) Pt to be able to tolerate standing 45 minutes when working at the [employer] with no increased pain. LTG Duration 08/13/19 One Impairment Pt does not have an appropriate home exercise program Short Term Goal (STG) Pt to be independent and compliant with an appropriate HEP STG Duration 07/14/19 Assessment Summary Assessment Pt tolerated cervical testing and Tx well, no notable structural deficits in her cervical spine, with the exception of her C5 mildly rotated counter-clockwise. Pt should benefit from continued therapy on her low back and feet, as well as addition of cervical STM and stretching Physical Therapy Plan Frequency and Duration Frequency of Treatment 2x/Week Duration of Treatment Two months Plan of Care Start Date 06/20/19 Plan of Care End Date 08/20/19 Therapeutic Interventions Therapeutic Interventions Aquatic Therapy,Home Exercise Program,Joint Mobilizations, Manual Therapy,Patient/ Caregiver Education,Self-Care/ Home Management,Soft Tissue Mobilization,Therapeutic Exercises Modalities Cold Pack/Ice Massage,Electric Stimulation,Hot Packs, Ultrasound Next Visit Focus/Plan Next Note Type Treatment Note Next Visit Plan Core strengthening, STM, posture training, Ankle ROM, foot/arch strengthening
--- NOTE | 2019-07-08 16:38 | PT.OTN ---
Current Diagnoses Cervicalgia (07/08/19) Dorsalgia, unspecified (07/08/19) Muscle weakness (generalized) (07/08/19) Abnormal posture (07/08/19) Physical Therapy Treatment Note PT-OP-A Visit Information Start: 06/13/19 17:35 Freq: Status: Active Protocol: Document 07/08/19 10:15 LJ (Rec: 07/08/19 16:38 LJ [email or web address]) Out-Patient Physical Therapy Visit Information Visit Information Visit Type Aquatic Treatment Note Visit Start Time 10:15 Visit Stop Time 11:00 Total Visit Minutes 45 Visit Number 5 Number of DEALER ACCOUNTS INVESTIGATOR Visits 1 Evaluation Information Evaluation Date 06/13/19 PT-OP-B Current Condition Start: 06/13/19 17:35 Freq: Status: Active Protocol: Document 06/13/19 13:45 DCW (Rec: 06/14/19 14:28 DCW [id number]) Current Condition History of Current Condition Onset Date Multi-year history Current Complaints Pain and stiffness along spine History of Current Condition Pt is a 53 year old female presenting with a long- standing history of progressively worsening pain along her sacral, lumbar, thoracic, and cervical spine. Pt reports she is limited with standing for periods of time longer than 10-15 minutes, and admits she just feels uncomfortable most of the time . Pt notes she has an extensive family history of arthritis, and comes with x- rays today of her sacral, lumbar, and cervical spine, all which note mild degenerative changes. Pt also notes that she gets dizzy when turning her head, and she has been told that some cervical pain can cause dizziness. Pt admits that her sciatic has been acting up here and there. 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 states she enjoyed it and slowed down half way through the workout to save her energy for therapy . PT-OP-F Manual Assessment Start: 06/13/19 17:35 Freq: Status: Active Protocol: Document 06/13/19 13:45 DCW (Rec: 06/14/19 14:28 DCW [id number]) Manual Assessments Soft Tissue Assessment Soft Tissue Mobility Assessment Lumbar paraspinals, QL Moderate tone, tenderness to palpation 3/4: Wincing and withdraw PT-OP-J Posture/Palpation/Skin Start: 06/13/19 17:35 Freq: Status: Active Protocol: Document 06/20/19 14:30 DCW (Rec: 06/20/19 17:50 DCW [id number]) Posture Evaluation Position Standing Ankle/Foot Posture (L) Pronated,(R) Pronated Foot Arch (L) Low Arch,(R) Low Arch Comments Posture Comments When standing relaxed, pt exhibits pronated feet bilaterally with her navicular bone 2.7 cm (L) and 3.2 cm (R ) from the floor. With proper arch positioning and a neutral forefoot, pt navicular 4.1 cm from floor bilaterally. PT-OP-K Range of Motion Start: 06/13/19 17:35 Freq: Status: Active Protocol: Document 07/05/19 12:00 DCW (Rec: 07/05/19 12:31 DCW [id number]) Cervical Spine Range of Motion Cervical Spine Active Degrees Testing Position Sitting Flexion 30 Extension 50 Rotation Left 63 Rotation Right 75 Lateral Flexion Left 30 Lateral Flexion Right 33 PT-OP-L Special Tests Start: 06/13/19 17:35 Freq: Status: Active Protocol: Document 07/05/19 12:00 DCW (Rec: 07/05/19 12:31 DCW [id number]) Special Tests Cervical Spine Special Tests Spurling's Test Test Results Negative Slump Test Results Negative Passive Neck Flexion Test Results Negative Foraminal Compression Test Results Negative PT-OP-M Strength Start: 06/13/19 17:35 Freq: Status: Active Protocol: Document 06/13/19 13:45 DCW (Rec: 06/14/19 14:28 DCW [id number]) Trunk Strength Trunk Manual Muscle Testing Core Stabilization Pt able to contract core properly with instruction in PPT position, however unable to hold position for significant time. TrA MMT 3+/5 Hip Strength Hip Manual Muscle Testing Right Flexion (L2) 5 Normal Abduction 5 Normal Adduction 5 Normal External Rotation 5 Normal Internal Rotation 5 Normal Left Flexion (L2) 5 Normal Abduction 5 Normal Adduction 5 Normal External Rotation 5 Normal Internal Rotation 5 Normal PT-OP-Q Treatments Start: 06/13/19 17:35 Freq: Status: Active Protocol: Document 07/05/19 12:00 DCW (Rec: 07/05/19 12:47 DCW [id number]) Therapeutic Exercises Supine Exercises Scalene stretch Supine Exercise Name Scalene stretch Upper Trap stretch Supine Exercise Name UT stretch Hamstring stretch Supine Exercise Name HS stretch Single KtC Supine Exercise Name Single KtC Side bilateral Standing Exercises gastroc and soleus stretch Standing Exercise Name Heelcord stretch Equipment Used JESSIE Manual Therapy Treatment Soft Tissue Mobilization Upper Trap Body Location B Upper trap Mobilization Type Strain/Counterstrain,Strumming ,Sustained Pressure Intensity/Depth Moderate Joint Mobilizations C5 Joint C5 rotated CCW Body Position Hooklying Comments Resisted cervical rotation Manual Traction Cervical Details Cervical traction Body Position Hooklying PT-OP-R Modalities Start: 06/13/19 17:35 Freq: Status: Active Protocol: Document 07/01/19 14:30 LJ (Rec: 07/01/19 17:07 LJ [email or web address]) Other Unlisted Modality Treatment ice massage Duration (Minutes) 5 Body Position Supine Comments left foot PT-OP-S Aquatic Treatment Start: 07/08/19 16:16 Freq: Status: Active Protocol: Document 07/08/19 10:15 LJ (Rec: 07/08/19 16:38 LJ [email or web address]) Aquatics Treatment Pool Entry/Exit Pool Entry/Exit Method Stairs Assistance Independent Water Walking Monster Walk Water Level Waist Level [place] Water Level Waist Level Sideways Water Level Waist Level Backwards Water Level Waist Level forward Water Level Waist Level Comments heel-toe Lower Extremity Exercises ab/ad Water Level Chest Level Reps/Duration 12x2 bilat flex/ext Water Level Chest Level Reps/Duration 12x2 bilat Lower Extremity Stretches piriformis Details on wall Reps/Duration 2 min spider on wall Reps/Duration 4 min Comments with body rocking HS Details right side Body Position Standing Water Level Waist Level Reps/Duration 2 min gastroc, soleus Body Position Standing Water Level Waist Level Reps/Duration 45x2 Comments rocking foot side to side HC Body Position Standing Water Level Chest Level Reps/Duration 45x3 bilat Comments on stairs with toes against upper step for toe flexion Upper Extremity Exercises scapular retraction, shoulder shrugs Body Position Standing Water Level Chest Level Reps/Duration 15 ea flex,ext, abd, add, Body Position Standing Water Level Chest Level Reps/Duration 15x2 Spinal Exercises cat cow stretch at wall Reps/Duration 2 min SKTC, DKTC Reps/Duration 2 min at wall Manual Techniques Aquatic Massage right foot pin and stretch strumming cross friction PT-OP-T Assessment and Plan Start: 06/13/19 17:35 Freq: Status: Active Protocol: Document 07/08/19 10:15 [email or web address] (Rec: 07/08/19 16:38 [email or web address]) Physical Therapy Assessment Impairments Impairments Functional Activities, Functional Mobility,Pain, Posture,ROM,Soft Tissue Mobility,Strength Goals Five Impairment Pt navicular bone collapse to 2.7 (L) and 3.2 (R) cm from floor Nursing Home Goal (LTG) Pt to stand with neutral forefoot and proper arches with navicular 4.0 cm from floor LTG Duration 08/13/19 Four Impairment Medial boarder of scapula 10 cm from spine at rest Nursing Home Goal (LTG) Pt to present with less of a rounded shoulder posture by decreasing distance between medial boarder and spine to 6 cm at rest LTG Duration 08/13/19 Three Impairment Pt displays weakness in core muscles 3+/5 Nursing Home Goal (LTG) Pt to display 4/5 MMT of TrA Two Impairment Pt unable to stand longer than 10-15 minutes at [employer] stand Disability Benefits Specialist Goal (LTG) Pt to be able to tolerate standing 45 minutes when working at the [employer] with no increased pain. LTG Duration 08/13/19 One Impairment Pt does not have an appropriate home exercise program Short Term Goal (STG) Pt to be independent and compliant with an appropriate HEP STG Duration 07/14/19 Assessment Summary Assessment Pt tolerated aquatic treatment well. No complaints of pain. Physical Therapy Plan Frequency and Duration Frequency of Treatment 2x/Week Duration of Treatment Two months Plan of Care Start Date 06/20/19 Plan of Care End Date 08/20/19 Therapeutic Interventions Therapeutic Interventions Aquatic Therapy,Home Exercise Program,Joint Mobilizations, Manual Therapy,Patient/ Caregiver Education,Self-Care/ Home Management,Soft Tissue Mobilization,Therapeutic Exercises Modalities Cold Pack/Ice Massage,Electric Stimulation,Hot Packs, Ultrasound Next Visit Focus/Plan Next Note Type Treatment Note Next Visit Plan Core strengthening, STM, posture training, Ankle ROM, foot/arch strengthening. Add resistance as tolerated including fins for walking.
--- NOTE | 2019-07-11 15:50 | PT.OTN ---
Current Diagnoses Cervicalgia (07/11/19) Dorsalgia, unspecified (07/11/19) Muscle weakness (generalized) (07/11/19) Abnormal posture (07/11/19) Physical Therapy Treatment Note PT-OP-A Visit Information Start: 06/13/19 17:35 Freq: Status: Active Protocol: Document 07/11/19 12:30 LJ (Rec: 07/11/19 15:50 LJ [id number]) Out-Patient Physical Therapy Visit Information Visit Information Visit Type Aquatic Treatment Note Visit Start Time 12:30 Visit Stop Time 13:15 Total Visit Minutes 45 Visit Number 6 Number of CUTTING MACHINE FIXER Visits 2 Evaluation Information Evaluation Date 06/13/19 PT-OP-B Current Condition Start: 06/13/19 17:35 Freq: Status: Active Protocol: Document 06/13/19 13:45 DCW (Rec: 06/14/19 14:28 DCW [id number]) Current Condition History of Current Condition Onset Date Multi-year history Current Complaints Pain and stiffness along spine History of Current Condition Pt is a 53 year old female presenting with a long- standing history of progressively worsening pain along her sacral, lumbar, thoracic, and cervical spine. Pt reports she is limited with standing for periods of time longer than 10-15 minutes, and admits she just feels uncomfortable most of the time . Pt notes she has an extensive family history of arthritis, and comes with x- rays today of her sacral, lumbar, and cervical spine, all which note mild degenerative changes. Pt also notes that she gets dizzy when turning her head, and she has been told that some cervical pain can cause dizziness. Pt admits that her sciatic has been acting up here and there. 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 States she had excruciating pain in her left heel on Thursday while walking around [employer] after being on her feet much of the day earlier. PT-OP-F Manual Assessment Start: 06/13/19 17:35 Freq: Status: Active Protocol: Document 06/13/19 13:45 DCW (Rec: 06/14/19 14:28 DCW [id number]) Manual Assessments Soft Tissue Assessment Soft Tissue Mobility Assessment Lumbar paraspinals, QL Moderate tone, tenderness to palpation 3/4: Wincing and withdraw PT-OP-J Posture/Palpation/Skin Start: 06/13/19 17:35 Freq: Status: Active Protocol: Document 06/20/19 14:30 DCW (Rec: 06/20/19 17:50 DCW [id number]) Posture Evaluation Position Standing Ankle/Foot Posture (L) Pronated,(R) Pronated Foot Arch (L) Low Arch,(R) Low Arch Comments Posture Comments When standing relaxed, pt exhibits pronated feet bilaterally with her navicular bone 2.7 cm (L) and 3.2 cm (R ) from the floor. With proper arch positioning and a neutral forefoot, pt navicular 4.1 cm from floor bilaterally. PT-OP-K Range of Motion Start: 06/13/19 17:35 Freq: Status: Active Protocol: Document 07/05/19 12:00 DCW (Rec: 07/05/19 12:31 DCW [id number]) Cervical Spine Range of Motion Cervical Spine Active Degrees Testing Position Sitting Flexion 30 Extension 50 Rotation Left 63 Rotation Right 75 Lateral Flexion Left 30 Lateral Flexion Right 33 PT-OP-L Special Tests Start: 06/13/19 17:35 Freq: Status: Active Protocol: Document 07/05/19 12:00 DCW (Rec: 07/05/19 12:31 DCW [id number]) Special Tests Cervical Spine Special Tests Spurling's Test Test Results Negative Slump Test Results Negative Passive Neck Flexion Test Results Negative Foraminal Compression Test Results Negative PT-OP-M Strength Start: 06/13/19 17:35 Freq: Status: Active Protocol: Document 06/13/19 13:45 DCW (Rec: 06/14/19 14:28 DCW [id number]) Trunk Strength Trunk Manual Muscle Testing Core Stabilization Pt able to contract core properly with instruction in PPT position, however unable to hold position for significant time. TrA MMT 3+/5 Hip Strength Hip Manual Muscle Testing Right Flexion (L2) 5 Normal Abduction 5 Normal Adduction 5 Normal External Rotation 5 Normal Internal Rotation 5 Normal Left Flexion (L2) 5 Normal Abduction 5 Normal Adduction 5 Normal External Rotation 5 Normal Internal Rotation 5 Normal PT-OP-Q Treatments Start: 06/13/19 17:35 Freq: Status: Active Protocol: Document 07/05/19 12:00 DCW (Rec: 07/05/19 12:47 DCW [id number]) Therapeutic Exercises Supine Exercises Scalene stretch Supine Exercise Name Scalene stretch Upper Trap stretch Supine Exercise Name UT stretch Hamstring stretch Supine Exercise Name HS stretch Single KtC Supine Exercise Name Single KtC Side bilateral Standing Exercises gastroc and soleus stretch Standing Exercise Name Heelcord stretch Equipment Used JESSIE Manual Therapy Treatment Soft Tissue Mobilization Upper Trap Body Location B Upper trap Mobilization Type Strain/Counterstrain,Strumming ,Sustained Pressure Intensity/Depth Moderate Joint Mobilizations C5 Joint C5 rotated CCW Body Position Hooklying Comments Resisted cervical rotation Manual Traction Cervical Details Cervical traction Body Position Hooklying PT-OP-R Modalities Start: 06/13/19 17:35 Freq: Status: Active Protocol: Document 07/01/19 14:30 LJ (Rec: 07/01/19 17:07 LJ [id number]) Other Unlisted Modality Treatment ice massage Duration (Minutes) 5 Body Position Supine Comments left foot PT-OP-S Aquatic Treatment Start: 07/08/19 16:16 Freq: Status: Active Protocol: Document 07/11/19 12:30 LJ (Rec: 07/11/19 15:50 LJ [id number]) Aquatics Treatment Pool Entry/Exit Pool Entry/Exit Method Stairs Assistance Independent Water Walking Monster Walk Water Level Waist Level Comments cued to raise up on toes for push off [place] December Water Level Waist Level Sideways Water Level Waist Level Backwards Water Level Waist Level forward Water Level Waist Level Comments heel-toe Lower Extremity Exercises heel toe raises Body Position Standing Water Level Chest Level Reps/Duration 20 circumduction Body Position Standing Water Level Chest Level Reps/Duration 2x12 bilat ab/ad Water Level Chest Level Reps/Duration 12x2 bilat flex/ext Water Level Chest Level Reps/Duration 12x2 bilat Lower Extremity Stretches hip flexor and quads Body Position Standing Water Level Chest Level Equipment Large Noodle Reps/Duration 2x45 Comments cueing for standing upright piriformis Details on wall Reps/Duration 2 min spider on wall Reps/Duration 4 min Comments with body swing HS Details right side Body Position Standing Water Level Waist Level Equipment Large Noodle Reps/Duration 2 min gastroc, soleus Body Position Standing Water Level Waist Level Reps/Duration 45x2 Comments rocking foot side to side HC Body Position Standing Water Level Chest Level Reps/Duration 45x3 bilat Comments on stairs with toes against upper step for toe flexion Upper Extremity Exercises scapular retraction, shoulder shrugs Body Position Standing Water Level Chest Level Reps/Duration 15 ea flex,ext, abd, add, Body Position Standing Water Level Chest Level Reps/Duration 15x2 Spinal Exercises cat cow stretch at wall Reps/Duration 2 min SKTC, DKTC Reps/Duration 2 min at wall [place] Activities [place] Activities Bicycle,Bicycle Backwards, Cross Country,Hip Abduction/ Adduction Other Activities corner straight leg raises x10 Equipment waist float Duration 10 Manual Techniques Aquatic Massage right foot pin and stretch strumming cross friction PT-OP-T Assessment and Plan Start: 06/13/19 17:35 Freq: Status: Active Protocol: Document 07/11/19 12:30 [email or web address] (Rec: 07/11/19 15:50 [email or web address] [id number]) Physical Therapy Assessment Rehab Potential Rehabilitation Potential Good Impairments Impairments Functional Activities, Functional Mobility,Pain, Posture,ROM,Soft Tissue Mobility,Strength Goals Five Impairment Pt navicular bone collapse to 2.7 (L) and 3.2 (R) cm from floor Senior Care Goal (LTG) Pt to stand with neutral forefoot and proper arches with navicular 4.0 cm from floor LTG Duration 08/13/19 Four Impairment Medial boarder of scapula 10 cm from spine at rest Senior Care Goal (LTG) Pt to present with less of a rounded shoulder posture by decreasing distance between medial boarder and spine to 6 cm at rest LTG Duration 08/13/19 Three Impairment Pt displays weakness in core muscles 3+/5 Senior Care Goal (LTG) Pt to display 4/5 MMT of TrA Two Impairment Pt unable to stand longer than 10-15 minutes at [employer] stand Senior Care Goal (LTG) Pt to be able to tolerate standing 45 minutes when working at the [employer] with no increased pain. LTG Duration 08/13/19 One Impairment Pt does not have an appropriate home exercise program Short Term Goal (STG) Pt to be independent and compliant with an appropriate HEP STG Duration 07/14/19 Assessment Summary Assessment Pt had no c/o increased pain during or after exercises. Stretched HC prior to exiting pool. Pt is able to increase intensity with deep water exercise. Physical Therapy Plan Frequency and Duration Frequency of Treatment 2x/Week Duration of Treatment Two months Plan of Care Start Date 06/20/19 Plan of Care End Date 08/20/19 Therapeutic Interventions Therapeutic Interventions Aquatic Therapy,Home Exercise Program,Joint Mobilizations, Manual Therapy,Patient/ Caregiver Education,Self-Care/ Home Management,Soft Tissue Mobilization,Therapeutic Exercises Modalities Cold Pack/Ice Massage,Electric Stimulation,Hot Packs, Ultrasound Next Visit Focus/Plan Next Note Type Treatment Note Next Visit Plan Progress core and posterior chain strengthening. Increase intensity as tolerated initiating interval training and stretch cords with light resistance.
--- NOTE | 2019-07-18 11:45 | PT.OTN ---
Current Diagnoses Cervicalgia (07/18/19) Dorsalgia, unspecified (07/18/19) Muscle weakness (generalized) (07/18/19) Abnormal posture (07/18/19) Physical Therapy Treatment Note PT-OP-A Visit Information Start: 06/13/19 17:35 Freq: Status: Active Protocol: Document 07/18/19 11:45 SAK (Rec: 07/19/19 08:44 SAK [id number]) Out-Patient Physical Therapy Visit Information Visit Information Visit Type Aquatic Treatment Note Visit Start Time 12:30 Visit Stop Time 13:15 Total Visit Minutes 45 Visit Number 7 Number of ACETONE RECOVERY WORKER Visits 0 Evaluation Information Evaluation Date 06/13/19 PT-OP-B Current Condition Start: 06/13/19 17:35 Freq: Status: Active Protocol: Document 06/13/19 13:45 DCW (Rec: 06/14/19 14:28 DCW [id number]) Current Condition History of Current Condition Onset Date Multi-year history Current Complaints Pain and stiffness along spine History of Current Condition Pt is a 53 year old female presenting with a long- standing history of progressively worsening pain along her sacral, lumbar, thoracic, and cervical spine. Pt reports she is limited with standing for periods of time longer than 10-15 minutes, and admits she just feels uncomfortable most of the time . Pt notes she has an extensive family history of arthritis, and comes with x- rays today of her sacral, lumbar, and cervical spine, all which note mild degenerative changes. Pt also notes that she gets dizzy when turning her head, and she has been told that some cervical pain can cause dizziness. Pt admits that her sciatic has been acting up here and there. 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 PT-OP-F Manual Assessment Start: 06/13/19 17:35 Freq: Status: Active Protocol: Document 06/13/19 13:45 DCW (Rec: 06/14/19 14:28 DCW [id number]) Manual Assessments Soft Tissue Assessment Soft Tissue Mobility Assessment Lumbar paraspinals, QL Moderate tone, tenderness to palpation 3/4: Wincing and withdraw PT-OP-J Posture/Palpation/Skin Start: 06/13/19 17:35 Freq: Status: Active Protocol: Document 06/20/19 14:30 DCW (Rec: 06/20/19 17:50 DCW [id number]) Posture Evaluation Position Standing Ankle/Foot Posture (L) Pronated,(R) Pronated Foot Arch (L) Low Arch,(R) Low Arch Comments Posture Comments When standing relaxed, pt exhibits pronated feet bilaterally with her navicular bone 2.7 cm (L) and 3.2 cm (R ) from the floor. With proper arch positioning and a neutral forefoot, pt navicular 4.1 cm from floor bilaterally. PT-OP-K Range of Motion Start: 06/13/19 17:35 Freq: Status: Active Protocol: Document 07/05/19 12:00 DCW (Rec: 07/05/19 12:31 DCW [id number]) Cervical Spine Range of Motion Cervical Spine Active Degrees Testing Position Sitting Flexion 30 Extension 50 Rotation Left 63 Rotation Right 75 Lateral Flexion Left 30 Lateral Flexion Right 33 PT-OP-L Special Tests Start: 06/13/19 17:35 Freq: Status: Active Protocol: Document 07/05/19 12:00 DCW (Rec: 07/05/19 12:31 DCW [id number]) Special Tests Cervical Spine Special Tests Spurling's Test Test Results Negative Slump Test Results Negative Passive Neck Flexion Test Results Negative Foraminal Compression Test Results Negative PT-OP-M Strength Start: 06/13/19 17:35 Freq: Status: Active Protocol: Document 06/13/19 13:45 DCW (Rec: 06/14/19 14:28 DCW [id number]) Trunk Strength Trunk Manual Muscle Testing Core Stabilization Pt able to contract core properly with instruction in PPT position, however unable to hold position for significant time. TrA MMT 3+/5 Hip Strength Hip Manual Muscle Testing Right Flexion (L2) 5 Normal Abduction 5 Normal Adduction 5 Normal External Rotation 5 Normal Internal Rotation 5 Normal Left Flexion (L2) 5 Normal Abduction 5 Normal Adduction 5 Normal External Rotation 5 Normal Internal Rotation 5 Normal PT-OP-Q Treatments Start: 06/13/19 17:35 Freq: Status: Active Protocol: Document 07/05/19 12:00 DCW (Rec: 07/05/19 12:47 DCW [id number]) Therapeutic Exercises Supine Exercises Scalene stretch Supine Exercise Name Scalene stretch Upper Trap stretch Supine Exercise Name UT stretch Hamstring stretch Supine Exercise Name HS stretch Single KtC Supine Exercise Name Single KtC Side bilateral Standing Exercises gastroc and soleus stretch Standing Exercise Name Heelcord stretch Equipment Used JESSIE Manual Therapy Treatment Soft Tissue Mobilization Upper Trap Body Location B Upper trap Mobilization Type Strain/Counterstrain,Strumming ,Sustained Pressure Intensity/Depth Moderate Joint Mobilizations C5 Joint C5 rotated CCW Body Position Hooklying Comments Resisted cervical rotation Manual Traction Cervical Details Cervical traction Body Position Hooklying PT-OP-R Modalities Start: 06/13/19 17:35 Freq: Status: Active Protocol: Document 07/01/19 14:30 LJ (Rec: 07/01/19 17:07 LJ [id number]) Other Unlisted Modality Treatment ice massage Duration (Minutes) 5 Body Position Supine Comments left foot PT-OP-S Aquatic Treatment Start: 07/08/19 16:16 Freq: Status: Active Protocol: Document 07/18/19 11:45 SAK (Rec: 07/19/19 08:44 SAK [id number]) Aquatics Treatment Pool Entry/Exit Pool Entry/Exit Method Stairs Assistance Independent Water Walking Sideways Water Level Waist Level Backwards Water Level Waist Level forward Water Level Waist Level Comments heel-toe Lower Extremity Stretches spider on wall Reps/Duration 4 min Comments with body swing HS Comments deep; modified downward dog Spinal Exercises cat cow stretch at wall Water Level [place] Reps/Duration 2 min SKTC, DKTC Water Level [place] Reps/Duration 2 min at wall [place] Activities [place] Activities Bicycle,Bicycle Backwards, Cross Country,Hip Abduction/ Adduction Other Activities corner straight leg raises x10 Equipment waist float Duration 10 Manual Techniques Bad Ragaz supine passive for trunk flexibility; black neck float, small LE floats Aquatic Massage [place], thoracic and lumbar paraspinals, piriformis jenn; supine with black neck float and small LE floats PT-OP-T Assessment and Plan Start: 06/13/19 17:35 Freq: Status: Active Protocol: Document 07/18/19 11:45 SAK (Rec: 07/19/19 08:44 [facility] [id number]) Physical Therapy Assessment Impairments Impairments Functional Activities, Functional Mobility,Pain, Posture,ROM,Soft Tissue Mobility,Strength Goals Five Impairment Pt navicular bone collapse to 2.7 (L) and 3.2 (R) cm from floor Ham Facer Goal (LTG) Pt to stand with neutral forefoot and proper arches with navicular 4.0 cm from floor LTG Duration 08/13/19 Four Impairment Medial boarder of scapula 10 cm from spine at rest [facility] Goal (LTG) Pt to present with less of a rounded shoulder posture by decreasing distance between medial boarder and spine to 6 cm at rest LTG Duration 08/13/19 Three Impairment Pt displays weakness in core muscles 3+/5 [facility] Goal (LTG) Pt to display 4/5 MMT of TrA Two Impairment Pt unable to stand longer than 10-15 minutes at [employer] stand Ham Facer Goal (LTG) Pt to be able to tolerate standing 45 minutes when working at the [employer] with no increased pain. LTG Duration 08/13/19 One Impairment Pt does not have an appropriate home exercise program Short Term Goal (STG) Pt to be independent and compliant with an appropriate HEP STG Duration 07/14/19 Assessment Summary Assessment Decreased tolerance for aquatic therapy noted today after heavy weekend of work. Trial manual techniques to decrease muscle tension and pain. Physical Therapy Plan Frequency and Duration Frequency of Treatment 2x/Week Duration of Treatment Two months Plan of Care Start Date 06/20/19 Plan of Care End Date 08/20/19 Therapeutic Interventions Therapeutic Interventions Aquatic Therapy,Home Exercise Program,Joint Mobilizations, Manual Therapy,Patient/ Caregiver Education,Self-Care/ Home Management,Soft Tissue Mobilization,Therapeutic Exercises Modalities Cold Pack/Ice Massage,Electric Stimulation,Hot Packs, Ultrasound Next Visit Focus/Plan Next Note Type Treatment Note Next Visit Plan Evaluate response to last session. Resume further core and posterior chain strengthening. Increase intensity as tolerated initiating interval training and stretch cords with light resistance. Intrinsic foot strengthening.
--- NOTE | 2019-07-20 17:01 | PT.OTN ---
Current Diagnoses Cervicalgia (07/20/19) Dorsalgia, unspecified (07/20/19) Muscle weakness (generalized) (07/20/19) Abnormal posture (07/20/19) Physical Therapy Treatment Note PT-OP-A Visit Information Start: 06/13/19 17:35 Freq: Status: Active Protocol: Document 07/20/19 16:43 LJ (Rec: 07/20/19 17:00 LJ [id number]) Out-Patient Physical Therapy Visit Information Visit Information Visit Type Treatment Note Visit Start Time 09:03 Visit Stop Time 09:45 Total Visit Minutes 42 Visit Number 8 Number of MISSILE TRACKING TECHNICIAN Visits 1 Evaluation Information Evaluation Date 06/13/19 PT-OP-B Current Condition Start: 06/13/19 17:35 Freq: Status: Active Protocol: Document 06/13/19 13:45 DCW (Rec: 06/14/19 14:28 DCW [id number]) Current Condition History of Current Condition Onset Date Multi-year history Current Complaints Pain and stiffness along spine History of Current Condition Pt is a 53 year old female presenting with a long- standing history of progressively worsening pain along her sacral, lumbar, thoracic, and cervical spine. Pt reports she is limited with standing for periods of time longer than 10-15 minutes, and admits she just feels uncomfortable most of the time . Pt notes she has an extensive family history of arthritis, and comes with x- rays today of her sacral, lumbar, and cervical spine, all which note mild degenerative changes. Pt also notes that she gets dizzy when turning her head, and she has been told that some cervical pain can cause dizziness. Pt admits that her sciatic has been acting up here and there. 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 She believes what she is eating is causing an inflammatory response and she is trying to figure it out PT-OP-F Manual Assessment Start: 06/13/19 17:35 Freq: Status: Active Protocol: Document 06/13/19 13:45 DCW (Rec: 06/14/19 14:28 DCW [id number]) Manual Assessments Soft Tissue Assessment Soft Tissue Mobility Assessment Lumbar paraspinals, QL Moderate tone, tenderness to palpation 3/4: Wincing and withdraw PT-OP-J Posture/Palpation/Skin Start: 06/13/19 17:35 Freq: Status: Active Protocol: Document 06/20/19 14:30 DCW (Rec: 06/20/19 17:50 DCW [id number]) Posture Evaluation Position Standing Ankle/Foot Posture (L) Pronated,(R) Pronated Foot Arch (L) Low Arch,(R) Low Arch Comments Posture Comments When standing relaxed, pt exhibits pronated feet bilaterally with her navicular bone 2.7 cm (L) and 3.2 cm (R ) from the floor. With proper arch positioning and a neutral forefoot, pt navicular 4.1 cm from floor bilaterally. PT-OP-K Range of Motion Start: 06/13/19 17:35 Freq: Status: Active Protocol: Document 07/05/19 12:00 DCW (Rec: 07/05/19 12:31 DCW [id number]) Cervical Spine Range of Motion Cervical Spine Active Degrees Testing Position Sitting Flexion 30 Extension 50 Rotation Left 63 Rotation Right 75 Lateral Flexion Left 30 Lateral Flexion Right 33 PT-OP-L Special Tests Start: 06/13/19 17:35 Freq: Status: Active Protocol: Document 07/05/19 12:00 DCW (Rec: 07/05/19 12:31 DCW [id number]) Special Tests Cervical Spine Special Tests Spurling's Test Test Results Negative Slump Test Results Negative Passive Neck Flexion Test Results Negative Foraminal Compression Test Results Negative PT-OP-M Strength Start: 06/13/19 17:35 Freq: Status: Active Protocol: Document 06/13/19 13:45 DCW (Rec: 06/14/19 14:28 DCW [id number]) Trunk Strength Trunk Manual Muscle Testing Core Stabilization Pt able to contract core properly with instruction in PPT position, however unable to hold position for significant time. TrA MMT 3+/5 Hip Strength Hip Manual Muscle Testing Right Flexion (L2) 5 Normal Abduction 5 Normal Adduction 5 Normal External Rotation 5 Normal Internal Rotation 5 Normal Left Flexion (L2) 5 Normal Abduction 5 Normal Adduction 5 Normal External Rotation 5 Normal Internal Rotation 5 Normal PT-OP-Q Treatments Start: 06/13/19 17:35 Freq: Status: Active Protocol: Document 07/20/19 16:43 LJ (Rec: 07/20/19 17:00 LJ [id number]) Cardio Equipment Recumbent Elliptical ([employer]) Duration (Minutes) 8 Resistance 2 Therapeutic Exercises Supine Exercises bridges Reps/Minutes 10 Comments segmentally and slowly Single KtC Supine Exercise Name Single KtC Side bilateral PPT /c Marching Supine Exercise Name PPT /c TrA contraction - Marching Reps/Minutes 5 hold Manual Therapy Treatment Soft Tissue Mobilization Upper Trap Body Location B Upper trap Mobilization Type Strain/Counterstrain,Strumming ,Sustained Pressure Intensity/Depth Moderate QL Body Location Bilateral QL Mobilization Type Sustained Pressure,Trigger Point Release Intensity/Depth Moderate Self-Care/Home Management Treatment Education Patient Education Home Exercise Program,Pain Management Other Education rolling with ball against wall for trigger pt release and self massage PT-OP-R Modalities Start: 06/13/19 17:35 Freq: Status: Active Protocol: Document 07/01/19 14:30 LJ (Rec: 07/01/19 17:07 LJ [email or web address]) Other Unlisted Modality Treatment ice massage Duration (Minutes) 5 Body Position Supine Comments left foot PT-OP-S Aquatic Treatment Start: 07/08/19 16:16 Freq: Status: Active Protocol: Document 07/18/19 11:45 SAK (Rec: 07/19/19 08:44 SAK [id number]) Aquatics Treatment Pool Entry/Exit Pool Entry/Exit Method Stairs Assistance Independent Water Walking Sideways Water Level Waist Level Backwards Water Level Waist Level forward Water Level Waist Level Comments heel-toe Lower Extremity Stretches spider on wall Reps/Duration 4 min Comments with body swing HS Comments deep; modified downward dog Spinal Exercises cat cow stretch at wall Water Level [place] Reps/Duration 2 min SKTC, DKTC Water Level [place] Reps/Duration 2 min at wall [place] Activities [place] Activities Bicycle,Bicycle Backwards, Cross Country,Hip Abduction/ Adduction Other Activities corner straight leg raises x10 Equipment waist float Duration 10 Manual Techniques Bad Ragaz supine passive for trunk flexibility; black neck float, small LE floats Aquatic Massage [place], thoracic and lumbar paraspinals, piriformis jenn; supine with black neck float and small LE floats PT-OP-T Assessment and Plan Start: 06/13/19 17:35 Freq: Status: Active Protocol: Document 07/20/19 16:43 [email or web address] (Rec: 07/20/19 17:00 [email or web address] [email or web address]) Physical Therapy Assessment Rehab Potential Rehabilitation Potential Good Impairments Impairments Functional Activities, Functional Mobility,Pain, Posture,ROM,Soft Tissue Mobility,Strength Goals Five Impairment Pt navicular bone collapse to 2.7 (L) and 3.2 (R) cm from floor Machining Engineer Goal (LTG) Pt to stand with neutral forefoot and proper arches with navicular 4.0 cm from floor LTG Duration 08/13/19 Four Impairment Medial boarder of scapula 10 cm from spine at rest Machining Engineer Goal (LTG) Pt to present with less of a rounded shoulder posture by decreasing distance between medial boarder and spine to 6 cm at rest LTG Duration 08/13/19 Three Impairment Pt displays weakness in core muscles 3+/5 Snf Goal (LTG) Pt to display 4/5 MMT of TrA Two Impairment Pt unable to stand longer than 10-15 minutes at [employer] stand Snf Goal (LTG) Pt to be able to tolerate standing 45 minutes when working at the [employer] with no increased pain. LTG Duration 08/13/19 One Impairment Pt does not have an appropriate home exercise program Short Term Goal (STG) Pt to be independent and compliant with an appropriate HEP STG Duration 07/14/19 Assessment Summary Assessment Pt required less intense exercise today due to back strain over the weekend. Manual technique and self care massage showed some relief of tightness in [place] area Physical Therapy Plan Frequency and Duration Frequency of Treatment 2x/Week Duration of Treatment Two months Plan of Care Start Date 06/20/19 Plan of Care End Date 08/20/19 Therapeutic Interventions Therapeutic Interventions Aquatic Therapy,Home Exercise Program,Joint Mobilizations, Manual Therapy,Patient/ Caregiver Education,Self-Care/ Home Management,Soft Tissue Mobilization,Therapeutic Exercises Modalities Cold Pack/Ice Massage,Electric Stimulation,Hot Packs, Ultrasound Next Visit Focus/Plan Next Note Type Treatment Note Next Visit Plan Evaluate response to last session. Resume further core and posterior chain strengthening. Increase intensity as tolerated initiating interval training and stretch cords with light resistance. Intrinsic foot strengthening. Include stability and balance exercises with proper mechanics in clinic sessions
--- NOTE | 2019-07-25 16:27 | PT.OTN ---
Current Diagnoses Cervicalgia (07/25/19) Dorsalgia, unspecified (07/25/19) Muscle weakness (generalized) (07/25/19) Abnormal posture (07/25/19) Physical Therapy Treatment Note PT-OP-A Visit Information Start: 06/13/19 17:35 Freq: Status: Active Protocol: Document 07/25/19 15:15 DCW (Rec: 07/25/19 16:27 DCW [id number]) Out-Patient Physical Therapy Visit Information Visit Information Visit Type Treatment Note Visit Start Time 15:15 Visit Stop Time 16:00 Total Visit Minutes 45 Visit Number 9 Number of MANAGER OF HOUSEKEEPING Visits 0 Evaluation Information Evaluation Date 06/13/19 PT-OP-B Current Condition Start: 06/13/19 17:35 Freq: Status: Active Protocol: Document 06/13/19 13:45 DCW (Rec: 06/14/19 14:28 DCW [id number]) Current Condition History of Current Condition Onset Date Multi-year history Current Complaints Pain and stiffness along spine History of Current Condition Pt is a 53 year old female presenting with a long- standing history of progressively worsening pain along her sacral, lumbar, thoracic, and cervical spine. Pt reports she is limited with standing for periods of time longer than 10-15 minutes, and admits she just feels uncomfortable most of the time . Pt notes she has an extensive family history of arthritis, and comes with x- rays today of her sacral, lumbar, and cervical spine, all which note mild degenerative changes. Pt also notes that she gets dizzy when turning her head, and she has been told that some cervical pain can cause dizziness. Pt admits that her sciatic has been acting up here and there. 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 PT-OP-F Manual Assessment Start: 06/13/19 17:35 Freq: Status: Active Protocol: Document 06/13/19 13:45 DCW (Rec: 06/14/19 14:28 DCW [id number]) Manual Assessments Soft Tissue Assessment Soft Tissue Mobility Assessment Lumbar paraspinals, QL Moderate tone, tenderness to palpation 3/4: Wincing and withdraw PT-OP-J Posture/Palpation/Skin Start: 06/13/19 17:35 Freq: Status: Active Protocol: Document 06/20/19 14:30 DCW (Rec: 06/20/19 17:50 DCW [id number]) Posture Evaluation Position Standing Ankle/Foot Posture (L) Pronated,(R) Pronated Foot Arch (L) Low Arch,(R) Low Arch Comments Posture Comments When standing relaxed, pt exhibits pronated feet bilaterally with her navicular bone 2.7 cm (L) and 3.2 cm (R ) from the floor. With proper arch positioning and a neutral forefoot, pt navicular 4.1 cm from floor bilaterally. PT-OP-K Range of Motion Start: 06/13/19 17:35 Freq: Status: Active Protocol: Document 07/05/19 12:00 DCW (Rec: 07/05/19 12:31 DCW [id number]) Cervical Spine Range of Motion Cervical Spine Active Degrees Testing Position Sitting Flexion 30 Extension 50 Rotation Left 63 Rotation Right 75 Lateral Flexion Left 30 Lateral Flexion Right 33 PT-OP-L Special Tests Start: 06/13/19 17:35 Freq: Status: Active Protocol: Document 07/05/19 12:00 DCW (Rec: 07/05/19 12:31 DCW [id number]) Special Tests Cervical Spine Special Tests Spurling's Test Test Results Negative Slump Test Results Negative Passive Neck Flexion Test Results Negative Foraminal Compression Test Results Negative PT-OP-M Strength Start: 06/13/19 17:35 Freq: Status: Active Protocol: Document 06/13/19 13:45 DCW (Rec: 06/14/19 14:28 DCW [id number]) Trunk Strength Trunk Manual Muscle Testing Core Stabilization Pt able to contract core properly with instruction in PPT position, however unable to hold position for significant time. TrA MMT 3+/5 Hip Strength Hip Manual Muscle Testing Right Flexion (L2) 5 Normal Abduction 5 Normal Adduction 5 Normal External Rotation 5 Normal Internal Rotation 5 Normal Left Flexion (L2) 5 Normal Abduction 5 Normal Adduction 5 Normal External Rotation 5 Normal Internal Rotation 5 Normal PT-OP-Q Treatments Start: 06/13/19 17:35 Freq: Status: Active Protocol: Document 07/25/19 15:15 DCW (Rec: 07/25/19 15:57 DCW [id number]) Therapeutic Exercises Supine Exercises bridges Reps/Minutes 10 Comments segmentally and slowly Scalene stretch Supine Exercise Name Scalene stretch Upper Trap stretch Supine Exercise Name UT stretch Hamstring stretch Supine Exercise Name HS stretch Single KtC Supine Exercise Name Single KtC Side bilateral Manual Therapy Treatment Soft Tissue Mobilization Upper Trap Body Location B Upper trap Mobilization Type Strain/Counterstrain,Strumming ,Sustained Pressure Intensity/Depth Moderate QL Body Location Bilateral QL Mobilization Type Sustained Pressure,Trigger Point Release Intensity/Depth Moderate Joint Mobilizations Thoracic Vertebae Joint T-spine Direction P->A Grade III Body Position Sidelying Manual Traction Cervical Details Cervical traction Body Position Hooklying PT-OP-R Modalities Start: 06/13/19 17:35 Freq: Status: Active Protocol: Document 07/01/19 14:30 LJ (Rec: 07/01/19 17:07 LJ [id number]) Other Unlisted Modality Treatment ice massage Duration (Minutes) 5 Body Position Supine Comments left foot PT-OP-S Aquatic Treatment Start: 07/08/19 16:16 Freq: Status: Active Protocol: Document 07/18/19 11:45 SAK (Rec: 07/19/19 08:44 SAK [id number]) Aquatics Treatment Pool Entry/Exit Pool Entry/Exit Method Stairs Assistance Independent Water Walking Sideways Water Level Waist Level Backwards Water Level Waist Level forward Water Level Waist Level Comments heel-toe Lower Extremity Stretches spider on wall Reps/Duration 4 min Comments with body swing HS Comments deep; modified downward dog Spinal Exercises cat cow stretch at wall Water Level [place] Reps/Duration 2 min SKTC, DKTC Water Level [place] Reps/Duration 2 min at wall [place] Activities [place] Activities Bicycle,Bicycle Backwards, Cross Country,Hip Abduction/ Adduction Other Activities corner straight leg raises x10 Equipment waist float Duration 10 Manual Techniques Bad Ragaz supine passive for trunk flexibility; black neck float, small LE floats Aquatic Massage UT, thoracic and lumbar paraspinals, piriformis jenn; supine with black neck float and small LE floats PT-OP-T Assessment and Plan Start: 06/13/19 17:35 Freq: Status: Active Protocol: Document 07/25/19 15:15 DCW (Rec: 07/25/19 16:27 DCW [id number]) Physical Therapy Assessment Impairments Impairments Functional Activities, Functional Mobility,Pain, Posture,ROM,Soft Tissue Mobility,Strength Goals Five Impairment Pt navicular bone collapse to 2.7 (L) and 3.2 (R) cm from floor Glass Block Installer Goal (LTG) Pt to stand with neutral forefoot and proper arches with navicular 4.0 cm from floor LTG Duration 08/13/19 Four Impairment Medial boarder of scapula 10 cm from spine at rest Detention Goal (LTG) Pt to present with less of a rounded shoulder posture by decreasing distance between medial boarder and spine to 6 cm at rest LTG Duration 08/13/19 Three Impairment Pt displays weakness in core muscles 3+/5 Detention Goal (LTG) Pt to display 4/5 MMT of TrA Two Impairment Pt unable to stand longer than 10-15 minutes at [employer] stand Glass Block Installer Goal (LTG) Pt to be able to tolerate standing 45 minutes when working at the [employer] with no increased pain. LTG Duration 08/13/19 One Impairment Pt does not have an appropriate home exercise program Short Term Goal (STG) Pt to be independent and compliant with an appropriate HEP STG Duration 07/14/19 Assessment Summary Assessment Pt's ambulation and feet have been feeling much better recently, and feels like aquatic therapy has been helping her back pain. Pt showing improved mobililty and lower overall tone. No indications of rigidity or clonus, which she was worried about after reading up on stiffness online. Physical Therapy Plan Frequency and Duration Frequency of Treatment 2x/Week Duration of Treatment Two months Plan of Care Start Date 06/20/19 Plan of Care End Date 08/20/19 Therapeutic Interventions Therapeutic Interventions Aquatic Therapy,Home Exercise Program,Joint Mobilizations, Manual Therapy,Patient/ Caregiver Education,Self-Care/ Home Management,Soft Tissue Mobilization,Therapeutic Exercises Modalities Cold Pack/Ice Massage,Electric Stimulation,Hot Packs, Ultrasound Next Visit Focus/Plan Next Note Type Treatment Note Next Visit Plan Evaluate response to last session. Resume further core and posterior chain strengthening. Increase intensity as tolerated initiating interval training and stretch cords with light resistance. Intrinsic foot strengthening. Include stability and balance exercises with proper mechanics in clinic sessions
--- NOTE | 2019-07-29 14:11 | PT.OTN ---
Current Diagnoses Cervicalgia (07/29/19) Dorsalgia, unspecified (07/29/19) Muscle weakness (generalized) (07/29/19) Abnormal posture (07/29/19) Physical Therapy Treatment Note PT-OP-A Visit Information Start: 06/13/19 17:35 Freq: Status: Active Protocol: Document 07/29/19 10:15 LJ (Rec: 07/29/19 14:11 LJ [email or web address]) Out-Patient Physical Therapy Visit Information Visit Information Visit Type Aquatic Treatment Note Visit Start Time 10:15 Visit Stop Time 11:00 Total Visit Minutes 45 Visit Number 10 PT-OP-B Current Condition Start: 06/13/19 17:35 Freq: Status: Active Protocol: Document 06/13/19 13:45 DCW (Rec: 06/14/19 14:28 DCW [id number]) Current Condition History of Current Condition Onset Date Multi-year history Current Complaints Pain and stiffness along spine History of Current Condition Pt is a 53 year old female presenting with a long- standing history of progressively worsening pain along her sacral, lumbar, thoracic, and cervical spine. Pt reports she is limited with standing for periods of time longer than 10-15 minutes, and admits she just feels uncomfortable most of the time . Pt notes she has an extensive family history of arthritis, and comes with x- rays today of her sacral, lumbar, and cervical spine, all which note mild degenerative changes. Pt also notes that she gets dizzy when turning her head, and she has been told that some cervical pain can cause dizziness. Pt admits that her sciatic has been acting up here and there. 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 States she is getting a night splint today to use for plantar fascitis. She feels that therapy, particularly aquatic therapy, is helping a lot. PT-OP-F Manual Assessment Start: 06/13/19 17:35 Freq: Status: Active Protocol: Document 06/13/19 13:45 DCW (Rec: 06/14/19 14:28 DCW [id number]) Manual Assessments Soft Tissue Assessment Soft Tissue Mobility Assessment Lumbar paraspinals, QL Moderate tone, tenderness to palpation 3/4: Wincing and withdraw PT-OP-J Posture/Palpation/Skin Start: 06/13/19 17:35 Freq: Status: Active Protocol: Document 06/20/19 14:30 DCW (Rec: 06/20/19 17:50 DCW [id number]) Posture Evaluation Position Standing Ankle/Foot Posture (L) Pronated,(R) Pronated Foot Arch (L) Low Arch,(R) Low Arch Comments Posture Comments When standing relaxed, pt exhibits pronated feet bilaterally with her navicular bone 2.7 cm (L) and 3.2 cm (R ) from the floor. With proper arch positioning and a neutral forefoot, pt navicular 4.1 cm from floor bilaterally. PT-OP-K Range of Motion Start: 06/13/19 17:35 Freq: Status: Active Protocol: Document 07/05/19 12:00 DCW (Rec: 07/05/19 12:31 DCW [id number]) Cervical Spine Range of Motion Cervical Spine Active Degrees Testing Position Sitting Flexion 30 Extension 50 Rotation Left 63 Rotation Right 75 Lateral Flexion Left 30 Lateral Flexion Right 33 PT-OP-L Special Tests Start: 06/13/19 17:35 Freq: Status: Active Protocol: Document 07/05/19 12:00 DCW (Rec: 07/05/19 12:31 DCW [id number]) Special Tests Cervical Spine Special Tests Spurling's Test Test Results Negative Slump Test Results Negative Passive Neck Flexion Test Results Negative Foraminal Compression Test Results Negative PT-OP-M Strength Start: 06/13/19 17:35 Freq: Status: Active Protocol: Document 06/13/19 13:45 DCW (Rec: 06/14/19 14:28 DCW [id number]) Trunk Strength Trunk Manual Muscle Testing Core Stabilization Pt able to contract core properly with instruction in PPT position, however unable to hold position for significant time. TrA MMT 3+/5 Hip Strength Hip Manual Muscle Testing Right Flexion (L2) 5 Normal Abduction 5 Normal Adduction 5 Normal External Rotation 5 Normal Internal Rotation 5 Normal Left Flexion (L2) 5 Normal Abduction 5 Normal Adduction 5 Normal External Rotation 5 Normal Internal Rotation 5 Normal PT-OP-Q Treatments Start: 06/13/19 17:35 Freq: Status: Active Protocol: Document 07/25/19 15:15 DCW (Rec: 07/25/19 15:57 DCW [id number]) Therapeutic Exercises Supine Exercises bridges Reps/Minutes 10 Comments segmentally and slowly Scalene stretch Supine Exercise Name Scalene stretch Upper Trap stretch Supine Exercise Name UT stretch Hamstring stretch Supine Exercise Name HS stretch Single KtC Supine Exercise Name Single KtC Side bilateral Manual Therapy Treatment Soft Tissue Mobilization Upper Trap Body Location B Upper trap Mobilization Type Strain/Counterstrain,Strumming ,Sustained Pressure Intensity/Depth Moderate QL Body Location Bilateral QL Mobilization Type Sustained Pressure,Trigger Point Release Intensity/Depth Moderate Joint Mobilizations Thoracic Vertebae Joint T-spine Direction P->A Grade III Body Position Sidelying Manual Traction Cervical Details Cervical traction Body Position Hooklying PT-OP-R Modalities Start: 06/13/19 17:35 Freq: Status: Active Protocol: Document 07/01/19 14:30 [email or web address] (Rec: 07/01/19 17:07 LJ [id number]) Other Unlisted Modality Treatment ice massage Duration (Minutes) 5 Body Position Supine Comments left foot PT-OP-S Aquatic Treatment Start: 07/08/19 16:16 Freq: Status: Active Protocol: Document 07/29/19 10:15 [email or web address] (Rec: 07/29/19 14:11 LJ [email or web address]) Aquatics Treatment Pool Entry/Exit Pool Entry/Exit Method Stairs Assistance Independent Water Walking forward with reverse breast stroke Water Level Chest Level Comments cues for core involvement Monster Walk Water Level Waist Level Comments cued to raise up on toes for push off [place] Water Level Waist Level Sideways Water Level Waist Level Backwards Water Level Waist Level forward Water Level Waist Level Comments heel-toe Lower Extremity Stretches hip flexor and quads Body Position Standing Water Level Chest Level Equipment Large Noodle Reps/Duration 2x45 Comments cueing for standing upright spider on wall Reps/Duration 2 min Comments with body swing HS Comments deep; modified downward dog gastroc, soleus Body Position Standing Water Level Waist Level Reps/Duration 45x2 Comments rocking foot side to side HC Body Position Standing Water Level Chest Level Reps/Duration 45x3 bilat Comments on stairs with toes against upper step for toe flexion Manual Techniques Bad Ragaz supine passive for trunk flexibility; black neck float, small LE floats Aquatic Massage UT, thoracic and lumbar paraspinals, piriformis jenn; supine with black neck float and small LE floats PT-OP-T Assessment and Plan Start: 06/13/19 17:35 Freq: Status: Active Protocol: Document 07/29/19 10:15 [email or web address] (Rec: 07/29/19 14:11 [email or web address] [email or web address]) Physical Therapy Assessment Impairments Impairments Functional Activities, Functional Mobility,Pain, Posture,ROM,Soft Tissue Mobility,Strength Goals Five Impairment Pt navicular bone collapse to 2.7 (L) and 3.2 (R) cm from floor Nursing Home Goal (LTG) Pt to stand with neutral forefoot and proper arches with navicular 4.0 cm from floor LTG Duration 08/13/19 Four Impairment Medial boarder of scapula 10 cm from spine at rest Nursing Home Goal (LTG) Pt to present with less of a rounded shoulder posture by decreasing distance between medial boarder and spine to 6 cm at rest LTG Duration 08/13/19 Three Impairment Pt displays weakness in core muscles 3+/5 In[employer] Goal (LTG) Pt to display 4/5 MMT of TrA Two Impairment Pt unable to stand longer than 10-15 minutes at [employer] stand Nursing Home Goal (LTG) Pt to be able to tolerate standing 45 minutes when working at the [employer] with no increased pain. LTG Duration 08/13/19 One Impairment Pt does not have an appropriate home exercise program Short Term Goal (STG) Pt to be independent and compliant with an appropriate HEP STG Duration 07/14/19 Assessment Summary Assessment Pt has experienced a reduction in pain and improvement in strength and flexibility. Was given lateral stretching exercise to do at home for improved spine flexibility. Physical Therapy Plan Frequency and Duration Frequency of Treatment 2x/Week Duration of Treatment Two months Plan of Care Start Date 06/20/19 Plan of Care End Date 08/20/19 Therapeutic Interventions Therapeutic Interventions Aquatic Therapy,Home Exercise Program,Joint Mobilizations, Manual Therapy,Patient/ Caregiver Education,Self-Care/ Home Management,Soft Tissue Mobilization,Therapeutic Exercises Modalities Cold Pack/Ice Massage,Electric Stimulation,Hot Packs, Ultrasound Next Visit Focus/Plan Next Note Type Treatment Note Next Visit Plan Continue with core exercises and HEP education to improve strength and function. Progress aquatic exercise adding resistance and increasing intensity as tolerated.
--- NOTE | 2019-08-01 15:58 | PT.OTN ---
Current Diagnoses Cervicalgia (08/01/19) Dorsalgia, unspecified (08/01/19) Muscle weakness (generalized) (08/01/19) Abnormal posture (08/01/19) Physical Therapy Treatment Note PT-OP-A Visit Information Start: 06/13/19 17:35 Freq: Status: Active Protocol: Document 08/01/19 14:30 LJ (Rec: 08/01/19 15:58 LJ [email or web address]) Out-Patient Physical Therapy Visit Information Visit Information Visit Type Treatment Note Visit Start Time 14:30 Visit Stop Time 15:17 Total Visit Minutes 47 Visit Number 11 Number of HOUSING DIRECTOR Visits 1 PT-OP-B Current Condition Start: 06/13/19 17:35 Freq: Status: Active Protocol: Document 06/13/19 13:45 DCW (Rec: 06/14/19 14:28 DCW [id number]) Current Condition History of Current Condition Onset Date Multi-year history Current Complaints Pain and stiffness along spine History of Current Condition Pt is a 53 year old female presenting with a long- standing history of progressively worsening pain along her sacral, lumbar, thoracic, and cervical spine. Pt reports she is limited with standing for periods of time longer than 10-15 minutes, and admits she just feels uncomfortable most of the time . Pt notes she has an extensive family history of arthritis, and comes with x- rays today of her sacral, lumbar, and cervical spine, all which note mild degenerative changes. Pt also notes that she gets dizzy when turning her head, and she has been told that some cervical pain can cause dizziness. Pt admits that her sciatic has been acting up here and there. 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 Also states she ate gluten which she feels makes her muscles tighten up. PT-OP-F Manual Assessment Start: 06/13/19 17:35 Freq: Status: Active Protocol: Document 06/13/19 13:45 DCW (Rec: 06/14/19 14:28 DCW [id number]) Manual Assessments Soft Tissue Assessment Soft Tissue Mobility Assessment Lumbar paraspinals, QL Moderate tone, tenderness to palpation 3/4: Wincing and withdraw PT-OP-J Posture/Palpation/Skin Start: 06/13/19 17:35 Freq: Status: Active Protocol: Document 06/20/19 14:30 DCW (Rec: 06/20/19 17:50 DCW [id number]) Posture Evaluation Position Standing Ankle/Foot Posture (L) Pronated,(R) Pronated Foot Arch (L) Low Arch,(R) Low Arch Comments Posture Comments When standing relaxed, pt exhibits pronated feet bilaterally with her navicular bone 2.7 cm (L) and 3.2 cm (R ) from the floor. With proper arch positioning and a neutral forefoot, pt navicular 4.1 cm from floor bilaterally. PT-OP-K Range of Motion Start: 06/13/19 17:35 Freq: Status: Active Protocol: Document 07/05/19 12:00 DCW (Rec: 07/05/19 12:31 DCW [id number]) Cervical Spine Range of Motion Cervical Spine Active Degrees Testing Position Sitting Flexion 30 Extension 50 Rotation Left 63 Rotation Right 75 Lateral Flexion Left 30 Lateral Flexion Right 33 PT-OP-L Special Tests Start: 06/13/19 17:35 Freq: Status: Active Protocol: Document 07/05/19 12:00 DCW (Rec: 07/05/19 12:31 DCW [id number]) Special Tests Cervical Spine Special Tests Spurling's Test Test Results Negative Slump Test Results Negative Passive Neck Flexion Test Results Negative Foraminal Compression Test Results Negative PT-OP-M Strength Start: 06/13/19 17:35 Freq: Status: Active Protocol: Document 06/13/19 13:45 DCW (Rec: 06/14/19 14:28 DCW [id number]) Trunk Strength Trunk Manual Muscle Testing Core Stabilization Pt able to contract core properly with instruction in PPT position, however unable to hold position for significant time. TrA MMT 3+/5 Hip Strength Hip Manual Muscle Testing Right Flexion (L2) 5 Normal Abduction 5 Normal Adduction 5 Normal External Rotation 5 Normal Internal Rotation 5 Normal Left Flexion (L2) 5 Normal Abduction 5 Normal Adduction 5 Normal External Rotation 5 Normal Internal Rotation 5 Normal PT-OP-Q Treatments Start: 06/13/19 17:35 Freq: Status: Active Protocol: Document 08/01/19 14:30 LJ (Rec: 08/01/19 15:58 LJ [email or web address]) Gym Equipment Therapeutic Ball 75 cm prone stretch Exercise Details prone over ball Ball Size/Color 75 cm/red Body Position Prone Reps/Duration 4 min Comments thoracic through lumbar stretch Therapeutic Exercises Supine Exercises LTR-lumbar trunk rotation Side bilateral Reps/Minutes 2x2 min bilat Upper Trap stretch Supine Exercise Name UT stretch Hamstring stretch Supine Exercise Name HS stretch Single KtC Supine Exercise Name Single KtC Side bilateral Sidelying Exercises open book Side bilateral Reps/Minutes 2x2min Manual Therapy Treatment Soft Tissue Mobilization lumbar Body Location lumbar/sacrum Mobilization Type Cross-Friction,Strain/ Counterstrain,Sustained Pressure,Trigger Point Release Intensity/Depth Moderate Body Position Prone Upper Trap Body Location B Upper trap Mobilization Type Strain/Counterstrain,Strumming ,Sustained Pressure Intensity/Depth Moderate Joint Mobilizations Thoracic Vertebae Joint T-spine Direction P->A Grade III Body Position Prone PT-OP-R Modalities Start: 06/13/19 17:35 Freq: Status: Active Protocol: Document 07/01/19 14:30 LJ (Rec: 07/01/19 17:07 LJ [email or web address]) Other Unlisted Modality Treatment ice massage Duration (Minutes) 5 Body Position Supine Comments left foot PT-OP-S Aquatic Treatment Start: 07/08/19 16:16 Freq: Status: Active Protocol: Document 07/29/19 10:15 LJ (Rec: 07/29/19 14:11 LJ [email or web address]) Aquatics Treatment Pool Entry/Exit Pool Entry/Exit Method Stairs Assistance Independent Water Walking forward with reverse breast stroke Water Level Chest Level Comments cues for core involvement Monster Walk Water Level Waist Level Comments cued to raise up on toes for push off [place] December Water Level Waist Level Sideways Water Level Waist Level Backwards Water Level Waist Level forward Water Level Waist Level Comments heel-toe Lower Extremity Stretches hip flexor and quads Body Position Standing Water Level Chest Level Equipment Large Noodle Reps/Duration 2x45 Comments cueing for standing upright spider on wall Reps/Duration 2 min Comments with body swing HS Comments deep; modified downward dog gastroc, soleus Body Position Standing Water Level Waist Level Reps/Duration 45x2 Comments rocking foot side to side HC Body Position Standing Water Level Chest Level Reps/Duration 45x3 bilat Comments on stairs with toes against upper step for toe flexion Manual Techniques Bad Ragaz supine passive for trunk flexibility; black neck float, small LE floats Aquatic Massage UT, thoracic and lumbar paraspinals, piriformis jenn; supine with black neck float and small LE floats PT-OP-T Assessment and Plan Start: 06/13/19 17:35 Freq: Status: Active Protocol: Document 08/01/19 14:30 LJ (Rec: 08/01/19 15:58 LJ [email or web address]) Physical Therapy Assessment Impairments Impairments Functional Activities, Functional Mobility,Pain, Posture,ROM,Soft Tissue Mobility,Strength Goals Five Impairment Pt navicular bone collapse to 2.7 (L) and 3.2 (R) cm from floor Usp Goal (LTG) Pt to stand with neutral forefoot and proper arches with navicular 4.0 cm from floor LTG Duration 08/13/19 Four Impairment Medial boarder of scapula 10 cm from spine at rest Principal Clerk Goal (LTG) Pt to present with less of a rounded shoulder posture by decreasing distance between medial boarder and spine to 6 cm at rest LTG Duration 08/13/19 Three Impairment Pt displays weakness in core muscles 3+/5 Principal Clerk Goal (LTG) Pt to display 4/5 MMT of TrA Two Impairment Pt unable to stand longer than 10-15 minutes at [employer] stand Usp Goal (LTG) Pt to be able to tolerate standing 45 minutes when working at the [employer] with no increased pain. LTG Duration 08/13/19 One Impairment Pt does not have an appropriate home exercise program Short Term Goal (STG) Pt to be independent and compliant with an appropriate HEP STG Duration 07/14/19 Assessment Summary Assessment Pain in feet has been managed well with stretching and splinting at night. Pt responded well to massage therapy loosening thoracic and lumbar spine. Upon standing pt felt that she could breathe deeper and pain was lessened. Physical Therapy Plan Frequency and Duration Frequency of Treatment 2x/Week Duration of Treatment Two months Plan of Care Start Date 06/20/19 Plan of Care End Date 08/20/19 Therapeutic Interventions Therapeutic Interventions Aquatic Therapy,Home Exercise Program,Joint Mobilizations, Manual Therapy,Patient/ Caregiver Education,Self-Care/ Home Management,Soft Tissue Mobilization,Therapeutic Exercises Modalities Cold Pack/Ice Massage,Electric Stimulation,Hot Packs, Ultrasound Other Referrals/Consults Referrals/Consults Recommended Upcoming MRA Next Visit Focus/Plan Next Note Type Treatment Note Next Visit Plan Continue with manual therapy, stretching, and cervical traction in clinic with focus on strengthening in aquatic sessions. Transition strengthening onto land in near future.
--- NOTE | 2019-08-12 16:05 | PT.OTN ---
Current Diagnoses Cervicalgia (08/12/19) Dorsalgia, unspecified (08/12/19) Muscle weakness (generalized) (08/12/19) Abnormal posture (08/12/19) Physical Therapy Treatment Note PT-OP-A Visit Information Start: 06/13/19 17:35 Freq: Status: Active Protocol: Document 08/12/19 14:30 LJ (Rec: 08/12/19 15:49 LJ [id number]) Out-Patient Physical Therapy Visit Information Visit Information Visit Type Treatment Note Visit Start Time 14:30 Visit Stop Time 15:23 Total Visit Minutes 53 Visit Number 12 Number of ELECTROTYPER HELPER Visits 3 PT-OP-B Current Condition Start: 06/13/19 17:35 Freq: Status: Active Protocol: Document 06/13/19 13:45 DCW (Rec: 06/14/19 14:28 DCW [id number]) Current Condition History of Current Condition Onset Date Multi-year history Current Complaints Pain and stiffness along spine History of Current Condition Pt is a 53 year old female presenting with a long- standing history of progressively worsening pain along her sacral, lumbar, thoracic, and cervical spine. Pt reports she is limited with standing for periods of time longer than 10-15 minutes, and admits she just feels uncomfortable most of the time . Pt notes she has an extensive family history of arthritis, and comes with x- rays today of her sacral, lumbar, and cervical spine, all which note mild degenerative changes. Pt also notes that she gets dizzy when turning her head, and she has been told that some cervical pain can cause dizziness. Pt admits that her sciatic has been acting up here and there. 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 Her trip did not increase her pain and the PF is much less painful bc she continues to stretch regularly. She has an upcoming test which will entail hiking on even ground for 2 miles carrying a #45 pack in under 30 min PT-OP-F Manual Assessment Start: 06/13/19 17:35 Freq: Status: Active Protocol: Document 06/13/19 13:45 DCW (Rec: 06/14/19 14:28 DCW [id number]) Manual Assessments Soft Tissue Assessment Soft Tissue Mobility Assessment Lumbar paraspinals, QL Moderate tone, tenderness to palpation 3/4: Wincing and withdraw PT-OP-J Posture/Palpation/Skin Start: 06/13/19 17:35 Freq: Status: Active Protocol: Document 06/20/19 14:30 DCW (Rec: 06/20/19 17:50 DCW [id number]) Posture Evaluation Position Standing Ankle/Foot Posture (L) Pronated,(R) Pronated Foot Arch (L) Low Arch,(R) Low Arch Comments Posture Comments When standing relaxed, pt exhibits pronated feet bilaterally with her navicular bone 2.7 cm (L) and 3.2 cm (R ) from the floor. With proper arch positioning and a neutral forefoot, pt navicular 4.1 cm from floor bilaterally. PT-OP-K Range of Motion Start: 06/13/19 17:35 Freq: Status: Active Protocol: Document 07/05/19 12:00 DCW (Rec: 07/05/19 12:31 DCW [id number]) Cervical Spine Range of Motion Cervical Spine Active Degrees Testing Position Sitting Flexion 30 Extension 50 Rotation Left 63 Rotation Right 75 Lateral Flexion Left 30 Lateral Flexion Right 33 PT-OP-L Special Tests Start: 06/13/19 17:35 Freq: Status: Active Protocol: Document 07/05/19 12:00 DCW (Rec: 07/05/19 12:31 DCW [id number]) Special Tests Cervical Spine Special Tests Spurling's Test Test Results Negative Slump Test Results Negative Passive Neck Flexion Test Results Negative Foraminal Compression Test Results Negative PT-OP-M Strength Start: 06/13/19 17:35 Freq: Status: Active Protocol: Document 06/13/19 13:45 DCW (Rec: 06/14/19 14:28 DCW [id number]) Trunk Strength Trunk Manual Muscle Testing Core Stabilization Pt able to contract core properly with instruction in PPT position, however unable to hold position for significant time. TrA MMT 3+/5 Hip Strength Hip Manual Muscle Testing Right Flexion (L2) 5 Normal Abduction 5 Normal Adduction 5 Normal External Rotation 5 Normal Internal Rotation 5 Normal Left Flexion (L2) 5 Normal Abduction 5 Normal Adduction 5 Normal External Rotation 5 Normal Internal Rotation 5 Normal PT-OP-Q Treatments Start: 06/13/19 17:35 Freq: Status: Active Protocol: Document 08/12/19 15:50 LJ (Rec: 08/12/19 16:05 LJ [id number]) Cardio Equipment Recumbent Elliptical (daPulse) Duration (Minutes) 8 Resistance 2 Seat Position 14 Therapeutic Exercises Supine Exercises LTR-lumbar trunk rotation Side bilateral Reps/Minutes 3x2 min bilat Scalene stretch Supine Exercise Name Scalene stretch Upper Trap stretch Supine Exercise Name UT stretch Single KtC Supine Exercise Name Single KtC Side bilateral PPT /c Bicycle Supine Exercise Name PPT /c TrA contraction - Air Bicycle Reps/Minutes 5 hold PPT /c Marching Supine Exercise Name PPT /c TrA contraction - Marching Reps/Minutes 5 hold PPT /c TrA contraction Supine Exercise Name PPT /c TrA contraction Reps/Minutes 5 hold Sidelying Exercises open book Side bilateral Reps/Minutes 2x2min Sitting Exercises SCM Side bilateral Reps/Minutes 2x30 UT stretch Side bilateral Reps/Minutes 2x30 cervical rotation stretch Side bilateral Reps/Minutes 2x30 sec Manual Therapy Treatment Soft Tissue Mobilization Upper Trap Body Location B Upper trap Mobilization Type Myofascial Release,Strain/ Counterstrain,Strumming, Sustained Pressure Intensity/Depth Moderate Joint Mobilizations Thoracic Vertebae Joint T-spine Direction P->A Grade III Body Position Prone PT-OP-R Modalities Start: 06/13/19 17:35 Freq: Status: Active Protocol: Document 08/12/19 15:50 LJ (Rec: 08/12/19 16:05 LJ [id number]) Hot Pack/Cold Pack Treatment thoracic spine Patient Position Prone Treatment Duration (minutes) 10 Patient Tolerance Good PT-OP-S Aquatic Treatment Start: 07/08/19 16:16 Freq: Status: Active Protocol: Document 07/29/19 10:15 [email or web address] (Rec: 07/29/19 14:11 [email or web address] [email or web address]) Aquatics Treatment Pool Entry/Exit Pool Entry/Exit Method Stairs Assistance Independent Water Walking forward with reverse breast stroke Water Level Chest Level Comments cues for core involvement Monster Walk Water Level Waist Level Comments cued to raise up on toes for push off [place] March Water Level Waist Level Sideways Water Level Waist Level Backwards Water Level Waist Level forward Water Level Waist Level Comments heel-toe Lower Extremity Stretches hip flexor and quads Body Position Standing Water Level Chest Level Equipment Large Noodle Reps/Duration 2x45 Comments cueing for standing upright spider on wall Reps/Duration 2 min Comments with body swing HS Comments deep; modified downward dog gastroc, soleus Body Position Standing Water Level Waist Level Reps/Duration 45x2 Comments rocking foot side to side HC Body Position Standing Water Level Chest Level Reps/Duration 45x3 bilat Comments on stairs with toes against upper step for toe flexion Manual Techniques Bad Ragaz supine passive for trunk flexibility; black neck float, small LE floats Aquatic Massage UT, thoracic and lumbar paraspinals, piriformis jenn; supine with black neck float and small LE floats PT-OP-T Assessment and Plan Start: 06/13/19 17:35 Freq: Status: Active Protocol: Document 08/12/19 15:50 [email or web address] (Rec: 08/12/19 16:05 [email or web address] [id number]) Physical Therapy Assessment Rehab Potential Rehabilitation Potential Good Impairments Impairments Functional Activities, Functional Mobility,Pain, Posture,ROM,Soft Tissue Mobility,Strength Goals Five Impairment Pt navicular bone collapse to 2.7 (L) and 3.2 (R) cm from floor Senior Living Goal (LTG) Pt to stand with neutral forefoot and proper arches with navicular 4.0 cm from floor LTG Duration 08/13/19 Four Impairment Medial boarder of scapula 10 cm from spine at rest Environmental Health Nurse Goal (LTG) Pt to present with less of a rounded shoulder posture by decreasing distance between medial boarder and spine to 6 cm at rest LTG Duration 08/13/19 Three Impairment Pt displays weakness in core muscles 3+/5 Senior Living Goal (LTG) Pt to display 4/5 MMT of TrA Two Impairment Pt unable to stand longer than 10-15 minutes at [employer] stand Environmental Health Nurse Goal (LTG) Pt to be able to tolerate standing 45 minutes when working at the [employer] with no increased pain. LTG Duration 08/13/19 One Impairment Pt does not have an appropriate home exercise program Short Term Goal (STG) Pt to be independent and compliant with an appropriate HEP STG Duration 07/14/19 Assessment Summary Assessment Pain in feet has been managed well resulting in very little pain currently. Pt somewhat restricted in UT/ cervical spine R>L which ws alleviated after massage and heat. Pt able to achieve greater ROM in cervical and thoracic spine. Physical Therapy Plan Frequency and Duration Frequency of Treatment 2x/Week Duration of Treatment Two months Plan of Care Start Date 06/20/19 Plan of Care End Date 08/20/19 Therapeutic Interventions Therapeutic Interventions Aquatic Therapy,Home Exercise Program,Joint Mobilizations, Manual Therapy,Patient/ Caregiver Education,Self-Care/ Home Management,Soft Tissue Mobilization,Therapeutic Exercises Modalities Cold Pack/Ice Massage,Electric Stimulation,Hot Packs, Ultrasound Next Visit Focus/Plan Next Note Type Treatment Note Next Visit Plan Continue with manual therapy in thoracic and cervical spine . Incorporate core strengthening in clinic and pool sessions.
--- NOTE | 2019-08-15 16:12 | PT.OTN ---
Current Diagnoses Cervicalgia (08/12/19) Dorsalgia, unspecified (08/12/19) Muscle weakness (generalized) (08/12/19) Abnormal posture (08/12/19) Physical Therapy Treatment Note PT-OP-A Visit Information Start: 06/13/19 17:35 Freq: Status: Active Protocol: Document 08/15/19 11:00 LJ (Rec: 08/15/19 16:12 LJ [id number]) Out-Patient Physical Therapy Visit Information Visit Information Visit Type Aquatic Treatment Note Visit Start Time 11:00 Visit Stop Time 11:45 Total Visit Minutes 45 Visit Number 13 PT-OP-B Current Condition Start: 06/13/19 17:35 Freq: Status: Active Protocol: Document 06/13/19 13:45 DCW (Rec: 06/14/19 14:28 DCW [id number]) Current Condition History of Current Condition Onset Date Multi-year history Current Complaints Pain and stiffness along spine History of Current Condition Pt is a 53 year old female presenting with a long- standing history of progressively worsening pain along her sacral, lumbar, thoracic, and cervical spine. Pt reports she is limited with standing for periods of time longer than 10-15 minutes, and admits she just feels uncomfortable most of the time . Pt notes she has an extensive family history of arthritis, and comes with x- rays today of her sacral, lumbar, and cervical spine, all which note mild degenerative changes. Pt also notes that she gets dizzy when turning her head, and she has been told that some cervical pain can cause dizziness. Pt admits that her sciatic has been acting up here and there. 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 States she had mild pain of PF but no back or neck pain . PT-OP-F Manual Assessment Start: 06/13/19 17:35 Freq: Status: Active Protocol: Document 06/13/19 13:45 DCW (Rec: 06/14/19 14:28 DCW [id number]) Manual Assessments Soft Tissue Assessment Soft Tissue Mobility Assessment Lumbar paraspinals, QL Moderate tone, tenderness to palpation 3/4: Wincing and withdraw PT-OP-J Posture/Palpation/Skin Start: 06/13/19 17:35 Freq: Status: Active Protocol: Document 06/20/19 14:30 DCW (Rec: 06/20/19 17:50 DCW [id number]) Posture Evaluation Position Standing Ankle/Foot Posture (L) Pronated,(R) Pronated Foot Arch (L) Low Arch,(R) Low Arch Comments Posture Comments When standing relaxed, pt exhibits pronated feet bilaterally with her navicular bone 2.7 cm (L) and 3.2 cm (R ) from the floor. With proper arch positioning and a neutral forefoot, pt navicular 4.1 cm from floor bilaterally. PT-OP-K Range of Motion Start: 06/13/19 17:35 Freq: Status: Active Protocol: Document 07/05/19 12:00 DCW (Rec: 07/05/19 12:31 DCW [id number]) Cervical Spine Range of Motion Cervical Spine Active Degrees Testing Position Sitting Flexion 30 Extension 50 Rotation Left 63 Rotation Right 75 Lateral Flexion Left 30 Lateral Flexion Right 33 PT-OP-L Special Tests Start: 06/13/19 17:35 Freq: Status: Active Protocol: Document 07/05/19 12:00 DCW (Rec: 07/05/19 12:31 DCW [id number]) Special Tests Cervical Spine Special Tests Spurling's Test Test Results Negative Slump Test Results Negative Passive Neck Flexion Test Results Negative Foraminal Compression Test Results Negative PT-OP-M Strength Start: 06/13/19 17:35 Freq: Status: Active Protocol: Document 06/13/19 13:45 DCW (Rec: 06/14/19 14:28 DCW [id number]) Trunk Strength Trunk Manual Muscle Testing Core Stabilization Pt able to contract core properly with instruction in PPT position, however unable to hold position for significant time. TrA MMT 3+/5 Hip Strength Hip Manual Muscle Testing Right Flexion (L2) 5 Normal Abduction 5 Normal Adduction 5 Normal External Rotation 5 Normal Internal Rotation 5 Normal Left Flexion (L2) 5 Normal Abduction 5 Normal Adduction 5 Normal External Rotation 5 Normal Internal Rotation 5 Normal PT-OP-Q Treatments Start: 06/13/19 17:35 Freq: Status: Active Protocol: Document 08/12/19 15:50 LJ (Rec: 08/12/19 16:05 LJ [id number]) Cardio Equipment Recumbent Elliptical (Pinoccio) Duration (Minutes) 8 Resistance 2 Seat Position 14 Therapeutic Exercises Supine Exercises LTR-lumbar trunk rotation Side bilateral Reps/Minutes 3x2 min bilat Scalene stretch Supine Exercise Name Scalene stretch Upper Trap stretch Supine Exercise Name UT stretch Single KtC Supine Exercise Name Single KtC Side bilateral PPT /c Bicycle Supine Exercise Name PPT /c TrA contraction - Air Bicycle Reps/Minutes 5 hold PPT /c Marching Supine Exercise Name PPT /c TrA contraction - Marching Reps/Minutes 5 hold PPT /c TrA contraction Supine Exercise Name PPT /c TrA contraction Reps/Minutes 5 hold Sidelying Exercises open book Side bilateral Reps/Minutes 2x2min Sitting Exercises SCM Side bilateral Reps/Minutes 2x30 UT stretch Side bilateral Reps/Minutes 2x30 cervical rotation stretch Side bilateral Reps/Minutes 2x30 sec Manual Therapy Treatment Soft Tissue Mobilization Upper Trap Body Location B Upper trap Mobilization Type Myofascial Release,Strain/ Counterstrain,Strumming, Sustained Pressure Intensity/Depth Moderate Joint Mobilizations Thoracic Vertebae Joint T-spine Direction P->A Grade III Body Position Prone PT-OP-R Modalities Start: 06/13/19 17:35 Freq: Status: Active Protocol: Document 08/12/19 15:50 LJ (Rec: 08/12/19 16:05 LJ [id number]) Hot Pack/Cold Pack Treatment thoracic spine Patient Position Prone Treatment Duration (minutes) 10 Patient Tolerance Good PT-OP-S Aquatic Treatment Start: 07/08/19 16:16 Freq: Status: Active Protocol: Document 08/15/19 11:00 GUANAKITO (Rec: 08/15/19 16:12 LJ [id number]) Aquatics Treatment Pool Entry/Exit Pool Entry/Exit Method Stairs Assistance Independent Water Walking forward with reverse breast stroke Water Level Chest Level Comments cues for core involvement Monster Walk Water Level Waist Level Comments cued to raise up on toes for push off Marty December Water Level Waist Level Comments arms reaching to opp side Sideways Water Level Waist Level Backwards Water Level Waist Level forward Water Level Waist Level Comments heel-toe Lower Extremity Exercises kick backs Body Position Standing Water Level Waist Level Reps/Duration 15x2 bilat Comments at wall heel toe raises Body Position Standing Water Level Chest Level Reps/Duration 20 circumduction Body Position Standing Water Level Chest Level Reps/Duration 2x12 bilat ab/ad Water Level Chest Level Reps/Duration 12x2 bilat flex/ext Water Level Chest Level Reps/Duration 12x2 bilat Lower Extremity Stretches hip flexor and quads Body Position Standing Water Level Chest Level Equipment Large Noodle Reps/Duration 2x45 Comments cueing for standing upright piriformis Details on wall Reps/Duration 2 min spider on wall Reps/Duration 2 min Comments with body swing HS Comments deep; modified downward dog gastroc, soleus Body Position Standing Water Level Waist Level Reps/Duration 45x2 Comments rocking foot side to side HC Body Position Standing Water Level Chest Level Reps/Duration 45x3 bilat Comments on stairs with toes against upper step for toe flexion Upper Extremity Exercises flex,ext, abd, add, Body Position Standing Water Level Chest Level Equipment UE paddles Reps/Duration 10x each bilat Upper Extremity Stretches pec stretch Body Position Standing Water Level Chest Level Equipment UE paddles Reps/Duration 2 min Comments rotating side to side Spinal Exercises cat cow stretch at wall Water Level [place] Reps/Duration 2 min SKTC, DKTC Water Level [place] Reps/Duration 2 min at wall [place] Activities [place] Activities Bicycle,Bicycle Backwards, Cross Country,Hip Abduction/ Adduction Other Activities pendulum forward backward shoot thru abdominal curls (knees to chest one vert. at a time Equipment waist float Duration 10 PT-OP-T Assessment and Plan Start: 06/13/19 17:35 Freq: Status: Active Protocol: Document 08/15/19 11:00 GUANAKITO (Rec: 08/15/19 16:12 [email or web address] [id number]) Physical Therapy Assessment Rehab Potential Rehabilitation Potential Good Evaluation Complexity Number of Personal Factors/Comorbidities 3 or More Number of Body Systems Impaired 4 or More Clinical Presentation at Evaluation Unstable Impairments Impairments Functional Activities, Functional Mobility,Pain, Posture,ROM,Soft Tissue Mobility,Strength Goals Five Impairment Pt navicular bone collapse to 2.7 (L) and 3.2 (R) cm from floor [employer] Goal (LTG) Pt to stand with neutral forefoot and proper arches with navicular 4.0 cm from floor LTG Duration 08/13/19 Four Impairment Medial boarder of scapula 10 cm from spine at rest Retirement Goal (LTG) Pt to present with less of a rounded shoulder posture by decreasing distance between medial boarder and spine to 6 cm at rest LTG Duration 08/13/19 Three Impairment Pt displays weakness in core muscles 3+/5 [employer] Goal (LTG) Pt to display 4/5 MMT of TrA Two Impairment Pt unable to stand longer than 10-15 minutes at [employer] stand Retirement Goal (LTG) Pt to be able to tolerate standing 45 minutes when working at the [employer] with no increased pain. LTG Duration 08/13/19 One Impairment Pt does not have an appropriate home exercise program Short Term Goal (STG) Pt to be independent and compliant with an appropriate HEP STG Duration 07/14/19 Assessment Summary Assessment Pt responding well to exercises. No c/o pain or fatigue. Improving posture with walking and standing exercises. Physical Therapy Plan Frequency and Duration Frequency of Treatment 2x/Week Duration of Treatment Two months Plan of Care Start Date 06/20/19 Plan of Care End Date 08/20/19 Therapeutic Interventions Therapeutic Interventions Aquatic Therapy,Home Exercise Program,Joint Mobilizations, Manual Therapy,Patient/ Caregiver Education,Self-Care/ Home Management,Soft Tissue Mobilization,Therapeutic Exercises Modalities Cold Pack/Ice Massage,Electric Stimulation,Hot Packs, Ultrasound Next Visit Focus/Plan Next Note Type Treatment Note Next Visit Plan Continue with manual therapy in thoracic and cervical spine . Incorporate core strengthening in clinic and pool sessions. Add resistance equipment and/or wts in pool for LE strengthening. Increase intensity in deep water activities as tolerated.
--- NOTE | 2019-09-02 14:37 | PT.OIE ---
Current Diagnoses Cervicalgia (09/02/19) Dorsalgia, unspecified (09/02/19) Muscle weakness (generalized) (09/02/19) Abnormal posture (09/02/19) Past Surgical History (Last Reviewed 01/25/19 @ 19:15 by YOBANI Knight) History of third molar tooth extraction Visit Care Team Role Provider Type Nikki Amos Attending Provider Non-Staff Primary Care Provider Specialty: Medical Address: [address] [place] [address], [facility] Email: Physical Therapy Initial Evaluation PT-OP-A Visit Information Start: 06/13/19 17:35 Freq: Status: Active Protocol: Document 09/02/19 10:31 LRN (Rec: 09/02/19 12:46 LRN [id number]) Out-Patient Physical Therapy Visit Information Visit Information Visit Type Re-Evaluation Visit Start Time 10:32 Visit Stop Time 11:34 Total Visit Minutes 62 Visit Number 14 Number of PICKLING OPERATOR Visits 0 Evaluation Information Evaluation Date 06/13/19 Precautions Precautions X-ray of 02/28/19: Loss of Lordosis & mild DDD C5-C6, mild [place] lumbar DDD and levocurvature, trace retrolisthesis L2-L3, L3-L4. Arthralgia, Mitral Valve regurgitation, Heel Bone spurs , Asthma. PT-OP-B Current Condition Start: 06/13/19 17:35 Freq: Status: Active Protocol: Document 09/02/19 10:31 LRN (Rec: 09/02/19 12:46 LRN [id number]) Current Condition History of Current Condition Onset Date 2015 Current Complaints Can't walk far due to extreme sharp stabbing pain feet. History of Current Condition States her connective tissue is shortened in back and going down to feet. Notes diet and sleep changes due to arthritis. Wants to do back therapy as well, because finds it very helpful. Knows she must do stretching daily forever and is addressing diet . Sugar, gluten, and carb free. Notices w/o sugar moves better. Pain is like a red hot poker. Prior Treatments and Tests 1 cortisone shot in 1 foot, unable to recall which foot, was not helpful. 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 Does pack test carrying 45# for 3 minutes on flat surface yearly , recently performed test and passed. Treatment Goals Patient/Caregiver Goals Pt goal is to reverse the plantar fasciitis and heal all pain from walking. Prior Functional Status Baseline Function- ADL's Independent Baseline Function- Mobility Independent Baseline Function- Gait 3 yrs ago walked without pain. Worsened 2 yrs ago & started seeking care. 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 Current Functional Impairments (Reported) Functional Limitations- ADL's Decreased tolerance to stair ambulation. Support with standing upon waking. Functional Limitations- Mobility/Gait Walking > 20' Functional Limitations- Work/School Limited in work tolerance. Functional Limitations- Other 1st in AM upon standing painful. Extreme pain with standing for her personal business for any length of time. Walk a block before starting to get extreme pain in the feet, one or both. If keep going, then must stop and offload foot hurting. Personal Factors Other Personal Factors That May Effect PMH: Pelvic pain and bloating Therapy/Recovery - progressively worsening in last 6 month. Has uterine polyp being removed 10/13, and ovarian cysts. Endoscopy and colonoscopy test scheduled 09/29/19, due to pelvic pain and routine. PT-OP-C Subjective Start: 06/13/19 17:35 Freq: Status: Active Protocol: Document 09/02/19 10:31 LRN (Rec: 09/02/19 12:46 LRN [id number]) OP-PT Subjective Patient Comments Patient Comments States she ordered a night splint that didn't fit and is going to order a new one once she gets repayment for initial one, and will be ordering a wedge to do home stretches. Patient Questionnaires Lower Extremity Functional Scale LEFS Score 38 LEFS Impairment 40 to 59% Impaired (Score 32- 47) Other Questionnaire Name and Score Lower Limb Questionaire: Extremely painful walking on flat surfaces (after being on feet 20') and going up/down stairs. Uses cane for long distances and needs support upon waking. PT-OP-F Manual Assessment Start: 06/13/19 17:35 Freq: Status: Active Protocol: Document 06/13/19 13:45 DCW (Rec: 06/14/19 14:28 DCW [id number]) Manual Assessments Soft Tissue Assessment Soft Tissue Mobility Assessment Lumbar paraspinals, QL Moderate tone, tenderness to palpation 3/4: Wincing and withdraw PT-OP-J Posture/Palpation/Skin Start: 06/13/19 17:35 Freq: Status: Active Protocol: Document 09/02/19 10:31 LRN (Rec: 09/02/19 12:46 LRN [id number]) Posture Evaluation Position Standing no shoes Evaluation View All positions Head/C-Spine Posture Forward Head T-Spine Posture Flattened,Flexible Scoliosis on (L) Shoulder Posture (R) Elevated Pelvis Posture (L) Iliac Crest Inferior Knee Posture (L) Genu Valgus,(R) Genu Valgus Ankle/Foot Posture (L) Calcaneal Eversion Foot Arch (L) Low Arch,(R) Low Arch Palpation Assessment Location L foot Palpation Location Lateral Plantar aspect of foot and heel Palpation Findings Tenderness R foot Palpation Location Lateral Plantar aspect of foot and heel Palpation Findings Tenderness PT-OP-K Range of Motion Start: 06/13/19 17:35 Freq: Status: Active Protocol: Document 09/02/19 10:31 LRN (Rec: 09/02/19 12:46 LRN [id number]) Knee Goniometric Range of Motion Knee Right Knee ROM WFL Yes Left Knee ROM WFL Yes Ankle and Foot Goniometric Range of Motion Ankle and Foot Right Active Testing Position Supine Dorsiflexion with Knee Extended 7 Plantarflexion 58 Inversion 26 Eversion 22 Left Active Testing Position Supine Dorsiflexion with Knee Extended 6 Plantarflexion 54 Inversion 27 Eversion 14 Ankle and Foot ROM Limitations Comments Active ankle DF causes gastrocnemius pain complaints bilaterally, and LBP on the right. Toe Range of Motion Toe Left Great Toe MTP Extension Active (degrees) 50 Right Great Toe MTP Extension Active (degrees) 40 Toes ROM Limitations Toe ROM Limitations Soft Tissue Tightness Comments Big Toe Extension: 50 left, 40 right. PT-OP-L Special Tests Start: 06/13/19 17:35 Freq: Status: Active Protocol: Document 07/05/19 12:00 DCW (Rec: 07/05/19 12:31 DCW [id number]) Special Tests Cervical Spine Special Tests Spurling's Test Test Results Negative Slump Test Results Negative Passive Neck Flexion Test Results Negative Foraminal Compression Test Results Negative PT-OP-M Strength Start: 06/13/19 17:35 Freq: Status: Active Protocol: Document 09/02/19 10:31 LRN (Rec: 09/02/19 12:46 LRN [id number]) Trunk Strength Trunk Manual Muscle Testing Testing Position Supine Core Stabilization Pt was not able to maintain core stabilization with sitting or supine movement/leg resistance. Knee Strength Knee Manual Muscle Testing Right Flexion (S2) 4+ Good+ Extension (L3) 5 Normal Left Flexion (S2) 3 Fair Extension (L3) 5 Normal Ankle/Foot Strength Ankle and Foot Manual Muscle Testing Right Dorsiflexion (L4) 4 Good Plantarflexion (S1) 4 Good Inversion 5 Normal Eversion (S1) 5 Normal Left Dorsiflexion (L4) 3 Fair Plantarflexion (S1) 4 Good Inversion 5 Normal Eversion (S1) 5 Normal Comments L knee pain with Quadriceps testing. PT-OP-Q Treatments Start: 06/13/19 17:35 Freq: Status: Active Protocol: Document 09/02/19 10:31 LRN (Rec: 09/02/19 12:46 LRN [id number]) Self-Care/Home Management Treatment Education Patient Education Joint Protection,Pain Management Other Education Discussed at length proper foot care (wearing foot arch supports at all times, icing with pain or offloading of weight on feet, STM with use of golf ball, and possible use of MH for pain, decreasing activity on feet, decreasing standing and lifting activities). Activities Self-Care/Home Management Activities I/S pt in exercises to do prior to getting out of bed. Trial 1: Ankle AROM ex's PF/ DF/IV/EV/Circles x 10 each if tolerated x 2 days. Trial 2: Isometric Plantar arch contract/relax x 10 and stand gastroc stretch. PT-OP-R Modalities Start: 06/13/19 17:35 Freq: Status: Active Protocol: Document 08/12/19 15:50 LJ (Rec: 08/12/19 16:05 LJ [id number]) Hot Pack/Cold Pack Treatment thoracic spine Patient Position Prone Treatment Duration (minutes) 10 Patient Tolerance Good PT-OP-T Assessment and Plan Start: 06/13/19 17:35 Freq: Status: Active Protocol: Document 09/02/19 10:31 LRN (Rec: 09/02/19 12:46 LRN [id number]) Physical Therapy Assessment Rehab Potential Rehabilitation Potential Good Evaluation Complexity Number of Personal Factors/Comorbidities 3 or More Number of Body Systems Impaired 4 or More Clinical Presentation at Evaluation Unstable Impairments Impairments Activity Tolerance,Edema, Functional Activities, Functional Mobility,Pain, Posture,ROM,Soft Tissue Mobility,Strength Goals Seven Impairment Foot pain bilaterally limiting ability to walk > 1 block Short Term Goal (STG) Pt will be able to walk > 1 block without extreme foot pain (L or R) 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 LTG Duration 12/01/19 Six Impairment Bilateral Foot pain rated 7-8/ 10 Short Term Goal (STG) Decrease bilateral foot pain on first standing in the morning to no greater than 1/ 10. 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 LTG Duration 12/01/19 Five Impairment Pt navicular bone collapse to 2.7 (L) and 3.2 (R) cm from floor Correction Goal (LTG) Pt to stand with neutral forefoot and proper arches with navicular 4.0 cm from floor LTG Duration 12/01/19 (09/02/19: Goal not assessed) Four Impairment Medial boarder of scapula 10 cm from spine at rest Correction Goal (LTG) Pt to present with less of a rounded shoulder posture by decreasing distance between medial boarder and spine to 6 cm at rest LTG Duration 12/01/19 (09/02/19: Progressing) Three Impairment Pt displays weakness in core muscles 3+/5 Pile Trimmer Goal (LTG) Pt to display 4/5 MMT of TrA LTG Duration 12/01/19 (09/02/19: GOAL NOT MET, last 2 weeks increased weakness) Two Impairment Pt unable to stand longer than 10-15 minutes at [employer] stand Pile Trimmer Goal (LTG) Pt to be able to tolerate standing 45 minutes when working at the [employer] with no increased pain. LTG Duration 12/01/19 (09/02/19: GOAL NOT MET, NO CHANGE) One Impairment Pt does not have an appropriate home exercise program Short Term Goal (STG) Pt to be independent and compliant with an appropriate HEP STG Duration 07/14/19 (09/02/19: GOAL MET to date for her back care, further care needed) Pile Trimmer Goal (LTG) Pt will be independent with a self care HEP of foot/ankle exercises and educated in proper foot care for management of her pain. LTG Duration 12/01/19 Progress Towards Goals Progress Towards Goals Progressing Toward Goals,Slow Progress due to Medical Issues ,Slow Progress - Other Progress Comments Pt has met STG 1 as associated to her back pain. She has not had much success meeting goal 2 due to feet pain. Goal 3 has not been met due to new onset of core weakness, and Goal 4 & 5 were not formally assessed. With Goal 4, she appears to have less rounding of her shoulders in standing upon postural assessment. Assessment Summary Assessment Pt presents with new referral for plantar fasciitis of feet. Pt has been receiving physical therapy for back pain that has progressed with a self care aquatic program. Further therapy is needed for her back but the pt is willing to change focus of her therapy to her feet for the next 4 weeks in order to attempt further progress on her back rehabilitation. The pt presents with soft tissue dysfunction of the feet and mechanical dysfunction of the back and LE's hindering her rehabilitation progress. The pt appears to have back involvement of her L foot pain with a +PSLR, weakness with L ankle DF (L4) and hamstrings (S3) and possible pelvic obliquity vs leg length discrepancy (L LE short). The pt's jobs and requirements for her jobs appear to be hindering her progress at this time. The pt will benefit from skilled physical therapy to help the pt adjust the mechanics of her job, for pt education of proper foot/LE care to minimize her pain, and for rehabilitation of her plantar fasciitis and continued therapy for her back once focus on her feet can be shifted to her back to coordinate recovery and return to work at prior level of function. Physical Therapy Plan Frequency and Duration Frequency of Treatment 2x/Week Duration of Treatment Two months Plan of Care Start Date 09/02/19 Plan of Care End Date 12/01/19 Therapeutic Interventions Therapeutic Interventions Aquatic Therapy,Home Exercise Program,Joint Mobilizations, Manual Therapy,Patient/ Caregiver Education,Self-Care/ Home Management,Soft Tissue Mobilization,Therapeutic Exercises Modalities Cold Pack/Ice Massage,Electric Stimulation,Hot Packs, Iontophoresis,Ultrasound Other Therapeutic Interventions Iontophoresis with 4mg/ml Dexamethosone with Sodium Phosphate. Next Visit Focus/Plan Next Note Type Treatment Note Next Visit Plan Check for leg length discrepancy, add HEP: LE neural stretch, initiate core/ pelvic stabilization and start US and DTM to plantar fascia, achilles stretch jenn, L ankle EV stretch, Big toe ext stretch; plantar arch strengthening. Iontophoresis when POC returned. Hold manual therapy and pool sessions for thoracic and cervical spine ex's/core stabilization until focus of therapy changes from feet to back. When returning to pool, can add resistance equipment and/or wts in pool for LE strengthening and increase intensity in deep water activities as tolerated, if still appropriate.
--- NOTE | 2019-09-02 14:41 | PT.OTRE ---
Current Diagnoses Cervicalgia (09/02/19) Dorsalgia, unspecified (09/02/19) Muscle weakness (generalized) (09/02/19) Abnormal posture (09/02/19) Surgical History (Last Reviewed 01/25/19 @ 19:15 by YOBANI Knight) History of third molar tooth extraction Visit Care Team Role Provider Type Nikki Amos Attending Provider Non-Staff Primary Care Provider Specialty: Medical Address: [address] [place] [address], [id number] Email: Physical Therapy Re-Evaluation PT-OP-A Visit Information Start: 06/13/19 17:35 Freq: Status: Active Protocol: Document 09/02/19 10:31 LRN (Rec: 09/02/19 12:46 LRN [id number]) Out-Patient Physical Therapy Visit Information Visit Information Visit Type Re-Evaluation Visit Start Time 10:32 Visit Stop Time 11:34 Total Visit Minutes 62 Visit Number 14 Number of FIRE PREVENTION CHIEF Visits 0 Evaluation Information Evaluation Date 06/13/19 Precautions Precautions X-ray of 02/28/19: Loss of Lordosis & mild DDD C5-C6, mild [place] lumbar DDD and levocurvature, trace retrolisthesis L2-L3, L3-L4. Arthralgia, Mitral Valve regurgitation, Heel Bone spurs , Asthma. PT-OP-B Current Condition Start: 06/13/19 17:35 Freq: Status: Active Protocol: Document 09/02/19 10:31 LRN (Rec: 09/02/19 12:46 LRN [id number]) Current Condition History of Current Condition Onset Date 2015 Current Complaints Can't walk far due to extreme sharp stabbing pain feet. History of Current Condition States her connective tissue is shortened in back and going down to feet. Notes diet and sleep changes due to arthritis. Wants to do back therapy as well, because finds it very helpful. Knows she must do stretching daily forever and is addressing diet . Sugar, gluten, and carb free. Notices w/o sugar moves better. Pain is like a red hot poker. Prior Treatments and Tests 1 cortisone shot in 1 foot, unable to recall which foot, was not helpful. 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 Does pack test carrying 45# for 3 minutes on flat surface yearly , recently performed test and passed. Treatment Goals Patient/Caregiver Goals Pt goal is to reverse the plantar fasciitis and heal all pain from walking. Prior Functional Status Baseline Function- ADL's Independent Baseline Function- Mobility Independent Baseline Function- Gait 3 yrs ago walked without pain. Worsened 2 yrs ago & started seeking care. 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 Current Functional Impairments (Reported) Functional Limitations- ADL's Decreased tolerance to stair ambulation. Support with standing upon waking. Functional Limitations- Mobility/Gait Walking > 20' Functional Limitations- Work/School Limited in work tolerance. Functional Limitations- Other 1st in AM upon standing painful. Extreme pain with standing for her personal business for any length of time. Walk a block before starting to get extreme pain in the feet, one or both. If keep going, then must stop and offload foot hurting. Personal Factors Other Personal Factors That May Effect PMH: Pelvic pain and bloating Therapy/Recovery - progressively worsening in last 6 month. Has uterine polyp being removed 10/13, and ovarian cysts. Endoscopy and colonoscopy test scheduled 09/29/19, due to pelvic pain and routine. PT-OP-C Subjective Start: 06/13/19 17:35 Freq: Status: Active Protocol: Document 09/02/19 10:31 LRN (Rec: 09/02/19 12:46 LRN [id number]) OP-PT Subjective Patient Comments Patient Comments States she ordered a night splint that didn't fit and is going to order a new one once she gets repayment for initial one, and will be ordering a wedge to do home stretches. Patient Questionnaires Lower Extremity Functional Scale LEFS Score 38 LEFS Impairment 40 to 59% Impaired (Score 32- 47) Other Questionnaire Name and Score Lower Limb Questionaire: Extremely painful walking on flat surfaces (after being on feet 20') and going up/down stairs. Uses cane for long distances and needs support upon waking. PT-OP-F Manual Assessment Start: 06/13/19 17:35 Freq: Status: Active Protocol: Document 06/13/19 13:45 DCW (Rec: 06/14/19 14:28 DCW [id number]) Manual Assessments Soft Tissue Assessment Soft Tissue Mobility Assessment Lumbar paraspinals, QL Moderate tone, tenderness to palpation 3/4: Wincing and withdraw PT-OP-J Posture/Palpation/Skin Start: 06/13/19 17:35 Freq: Status: Active Protocol: Document 09/02/19 10:31 LRN (Rec: 09/02/19 12:46 LRN [id number]) Posture Evaluation Position Standing no shoes Evaluation View All positions Head/C-Spine Posture Forward Head T-Spine Posture Flattened,Flexible Scoliosis on (L) Shoulder Posture (R) Elevated Pelvis Posture (L) Iliac Crest Inferior Knee Posture (L) Genu Valgus,(R) Genu Valgus Ankle/Foot Posture (L) Calcaneal Eversion Foot Arch (L) Low Arch,(R) Low Arch Palpation Assessment Location L foot Palpation Location Lateral Plantar aspect of foot and heel Palpation Findings Tenderness R foot Palpation Location Lateral Plantar aspect of foot and heel Palpation Findings Tenderness PT-OP-K Range of Motion Start: 06/13/19 17:35 Freq: Status: Active Protocol: Document 09/02/19 10:31 LRN (Rec: 09/02/19 12:46 LRN [id number]) Knee Goniometric Range of Motion Knee Measured in Degrees Right Knee ROM WFL Yes Left Knee ROM WFL Yes Ankle and Foot Goniometric Range of Motion Ankle and Foot Measured in Degrees Right Active Testing Position Supine Dorsiflexion with Knee Extended 7 Plantarflexion 58 Inversion 26 Eversion 22 Left Active Testing Position Supine Dorsiflexion with Knee Extended 6 Plantarflexion 54 Inversion 27 Eversion 14 Ankle and Foot ROM Limitations Comments Active ankle DF causes gastrocnemius pain complaints bilaterally, and LBP on the right. Toe Range of Motion Toe Measured in Degrees Left Great Toe MTP Extension Active (degrees) 50 Right Great Toe MTP Extension Active (degrees) 40 Toes ROM Limitations Toe ROM Limitations Soft Tissue Tightness Comments Big Toe Extension: 50 left, 40 right. PT-OP-L Special Tests Start: 06/13/19 17:35 Freq: Status: Active Protocol: Document 07/05/19 12:00 DCW (Rec: 07/05/19 12:31 DCW [id number]) Special Tests Cervical Spine Special Tests Spurling's Test Test Results Negative Slump Test Results Negative Passive Neck Flexion Test Results Negative Foraminal Compression Test Results Negative PT-OP-M Strength Start: 06/13/19 17:35 Freq: Status: Active Protocol: Document 09/02/19 10:31 LRN (Rec: 09/02/19 12:46 LRN [id number]) Trunk Strength Trunk Manual Muscle Testing Testing Position Supine Core Stabilization Pt was not able to maintain core stabilization with sitting or supine movement/leg resistance. Knee Strength Knee Manual Muscle Testing Right Flexion (S2) 4+ Good+ Extension (L3) 5 Normal Left Flexion (S2) 3 Fair Extension (L3) 5 Normal Ankle/Foot Strength Ankle and Foot Manual Muscle Testing Right Dorsiflexion (L4) 4 Good Plantarflexion (S1) 4 Good Inversion 5 Normal Eversion (S1) 5 Normal Left Dorsiflexion (L4) 3 Fair Plantarflexion (S1) 4 Good Inversion 5 Normal Eversion (S1) 5 Normal Comments L knee pain with Quadriceps testing. PT-OP-Q Treatments Start: 06/13/19 17:35 Freq: Status: Active Protocol: Document 09/02/19 10:31 LRN (Rec: 09/02/19 12:46 LRN [id number]) Self-Care/Home Management Treatment Education Patient Education Joint Protection,Pain Management Other Education Discussed at length proper foot care (wearing foot arch supports at all times, icing with pain or offloading of weight on feet, STM with use of golf ball, and possible use of MH for pain, decreasing activity on feet, decreasing standing and lifting activities). Activities Self-Care/Home Management Activities I/S pt in exercises to do prior to getting out of bed. Trial 1: Ankle AROM ex's PF/ DF/IV/EV/Circles x 10 each if tolerated x 2 days. Trial 2: Isometric Plantar arch contract/relax x 10 and stand gastroc stretch. PT-OP-R Modalities Start: 06/13/19 17:35 Freq: Status: Active Protocol: Document 08/12/19 15:50 LJ (Rec: 08/12/19 16:05 LJ [id number]) Hot Pack/Cold Pack Treatment thoracic spine Patient Position Prone Treatment Duration (minutes) 10 Patient Tolerance Good PT-OP-T Assessment and Plan Start: 06/13/19 17:35 Freq: Status: Active Protocol: Document 09/02/19 10:31 LRN (Rec: 09/02/19 12:46 LRN [id number]) Physical Therapy Assessment Rehab Potential Rehabilitation Potential Good Evaluation Complexity Number of Personal Factors/Comorbidities 3 or More Number of Body Systems Impaired 4 or More Clinical Presentation at Evaluation Unstable Impairments Impairments Activity Tolerance,Edema, Functional Activities, Functional Mobility,Pain, Posture,ROM,Soft Tissue Mobility,Strength Goals Seven Impairment Foot pain bilaterally limiting ability to walk > 1 block Short Term Goal (STG) Pt will be able to walk > 1 block without extreme foot pain (L or R) 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 LTG Duration 12/01/19 Six Impairment Bilateral Foot pain rated 7-8/ 10 Short Term Goal (STG) Decrease bilateral foot pain on first standing in the morning to no greater than 1/ 10. 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 LTG Duration 12/01/19 Five Impairment Pt navicular bone collapse to 2.7 (L) and 3.2 (R) cm from floor Cardiovascular Tech Goal (LTG) Pt to stand with neutral forefoot and proper arches with navicular 4.0 cm from floor LTG Duration 12/01/19 (09/02/19: Goal not assessed) Four Impairment Medial boarder of scapula 10 cm from spine at rest [facility]ci Goal (LTG) Pt to present with less of a rounded shoulder posture by decreasing distance between medial boarder and spine to 6 cm at rest LTG Duration 12/01/19 (09/02/19: Progressing) Three Impairment Pt displays weakness in core muscles 3+/5 [facility] Goal (LTG) Pt to display 4/5 MMT of TrA LTG Duration 12/01/19 (09/02/19: GOAL NOT MET, last 2 weeks increased weakness) Two Impairment Pt unable to stand longer than 10-15 minutes at [employer] stand Cardiovascular Tech Goal (LTG) Pt to be able to tolerate standing 45 minutes when working at the [employer] with no increased pain. LTG Duration 12/01/19 (09/02/19: GOAL NOT MET, NO CHANGE) One Impairment Pt does not have an appropriate home exercise program Short Term Goal (STG) Pt to be independent and compliant with an appropriate HEP STG Duration 07/14/19 (09/02/19: GOAL MET to date for her back care, further care needed) Cardiovascular Tech Goal (LTG) Pt will be independent with a self care HEP of foot/ankle exercises and educated in proper foot care for management of her pain. LTG Duration 12/01/19 Progress Towards Goals Progress Towards Goals Progressing Toward Goals,Slow Progress due to Medical Issues ,Slow Progress - Other Progress Comments Pt has met STG 1 as associated to her back pain. She has not had much success meeting goal 2 due to feet pain. Goal 3 has not been met due to new onset of core weakness, and Goal 4 & 5 were not formally assessed. With Goal 4, she appears to have less rounding of her shoulders in standing upon postural assessment. Assessment Summary Assessment Pt presents with new referral for plantar fasciitis of feet. Pt has been receiving physical therapy for back pain that has progressed with a self care aquatic program. Further therapy is needed for her back but the pt is willing to change focus of her therapy to her feet for the next 4 weeks in order to attempt further progress on her back rehabilitation. The pt presents with soft tissue dysfunction of the feet and mechanical dysfunction of the back and LE's hindering her rehabilitation progress. The pt appears to have back involvement of her L foot pain with a +PSLR, weakness with L ankle DF (L4) and hamstrings (S3) and possible pelvic obliquity vs leg length discrepancy (L LE short). The pt's jobs and requirements for her jobs appear to be hindering her progress at this time. The pt will benefit from skilled physical therapy to help the pt adjust the mechanics of her job, for pt education of proper foot/LE care to minimize her pain, and for rehabilitation of her plantar fasciitis and continued therapy for her back once focus on her feet can be shifted to her back to coordinate recovery and return to work at prior level of function. Physical Therapy Plan Frequency and Duration Frequency of Treatment 2x/Week Duration of Treatment Two months Plan of Care Start Date 09/02/19 Plan of Care End Date 12/01/19 Therapeutic Interventions Therapeutic Interventions Aquatic Therapy,Home Exercise Program,Joint Mobilizations, Manual Therapy,Patient/ Caregiver Education,Self-Care/ Home Management,Soft Tissue Mobilization,Therapeutic Exercises Modalities Cold Pack/Ice Massage,Electric Stimulation,Hot Packs, Iontophoresis,Ultrasound Other Therapeutic Interventions Iontophoresis with 4mg/ml Dexamethosone with Sodium Phosphate. Next Visit Focus/Plan Next Note Type Treatment Note Next Visit Plan Check for leg length discrepancy, add HEP: LE neural stretch, initiate core/ pelvic stabilization and start US and DTM to plantar fascia, achilles stretch jenn, L ankle EV stretch, Big toe ext stretch; plantar arch strengthening. Iontophoresis when POC returned. Hold manual therapy and pool sessions for thoracic and cervical spine ex's/core stabilization until focus of therapy changes from feet to back. When returning to pool, can add resistance equipment and/or wts in pool for LE strengthening and increase intensity in deep water activities as tolerated, if still appropriate.
--- NOTE | 2019-09-09 17:53 | PT.OTN ---
Current Diagnoses Cervicalgia (09/09/19) Dorsalgia, unspecified (09/09/19) Muscle weakness (generalized) (09/09/19) Abnormal posture (09/09/19) Physical Therapy Treatment Note PT-OP-A Visit Information Start: 06/13/19 17:35 Freq: Status: Active Protocol: Document 09/09/19 12:46 LRN (Rec: 09/09/19 13:37 LRN [id number]) Out-Patient Physical Therapy Visit Information Visit Information Visit Type Treatment Note Visit Start Time 12:46 Visit Stop Time 13:37 Total Visit Minutes 51 Visit Number 15 Number of [employer] Visits 0 Evaluation Information Evaluation Date 06/13/19 Precautions Precautions X-ray of 02/28/19: Loss of Lordosis & mild DDD C5-C6, mild [place] lumbar DDD and levocurvature, trace retrolisthesis L2-L3, L3-L4. Arthralgia, Mitral Valve regurgitation, Heel Bone spurs , Asthma. PT-OP-B Current Condition Start: 06/13/19 17:35 Freq: Status: Active Protocol: Document 09/02/19 10:31 LRN (Rec: 09/02/19 12:46 LRN [id number]) Current Condition History of Current Condition Onset Date 2015 Current Complaints Can't walk far due to extreme sharp stabbing pain feet. History of Current Condition States her connective tissue is shortened in back and going down to feet. Notes diet and sleep changes due to arthritis. Wants to do back therapy as well, because finds it very helpful. Knows she must do stretching daily forever and is addressing diet . Sugar, gluten, and carb free. Notices w/o sugar moves better. Pain is like a red hot poker. Prior Treatments and Tests 1 cortisone shot in 1 foot, unable to recall which foot, was not helpful. 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 Does pack test carrying 45# for 3 minutes on flat surface yearly , recently performed test and passed. Treatment Goals Patient/Caregiver Goals Pt goal is to reverse the plantar fasciitis and heal all pain from walking. Prior Functional Status Baseline Function- ADL's Independent Baseline Function- Mobility Independent Baseline Function- Gait 3 yrs ago walked without pain. Worsened 2 yrs ago & started seeking care. 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 Current Functional Impairments (Reported) Functional Limitations- ADL's Decreased tolerance to stair ambulation. Support with standing upon waking. Functional Limitations- Mobility/Gait Walking > 20' Functional Limitations- Work/School Limited in work tolerance. Functional Limitations- Other 1st in AM upon standing painful. Extreme pain with standing for her personal business for any length of time. Walk a block before starting to get extreme pain in the feet, one or both. If keep going, then must stop and offload foot hurting. Personal Factors Other Personal Factors That May Effect PMH: Pelvic pain and bloating Therapy/Recovery - progressively worsening in last 6 month. Has uterine polyp being removed 10/13, and ovarian cysts. Endoscopy and colonoscopy test scheduled 09/29/19, due to pelvic pain and routine. PT-OP-C Subjective Start: 06/13/19 17:35 Freq: Status: Active Protocol: Document 09/09/19 12:46 LRN (Rec: 09/09/19 13:37 LRN [id number]) OP-PT Subjective Patient Comments Patient Comments Dancing 2 weeks ago for [place]. water on the R knee because stiff. No change in pain. PT-OP-F Manual Assessment Start: 06/13/19 17:35 Freq: Status: Active Protocol: Document 06/13/19 13:45 DCW (Rec: 06/14/19 14:28 DCW [id number]) Manual Assessments Soft Tissue Assessment Soft Tissue Mobility Assessment Lumbar paraspinals, QL Moderate tone, tenderness to palpation 3/4: Wincing and withdraw PT-OP-J Posture/Palpation/Skin Start: 06/13/19 17:35 Freq: Status: Active Protocol: Document 09/02/19 10:31 LRN (Rec: 09/02/19 12:46 LRN [id number]) Posture Evaluation Position Standing no shoes Evaluation View All positions Head/C-Spine Posture Forward Head T-Spine Posture Flattened,Flexible Scoliosis on (L) Shoulder Posture (R) Elevated Pelvis Posture (L) Iliac Crest Inferior Knee Posture (L) Genu Valgus,(R) Genu Valgus Ankle/Foot Posture (L) Calcaneal Eversion Foot Arch (L) Low Arch,(R) Low Arch Palpation Assessment Location L foot Palpation Location Lateral Plantar aspect of foot and heel Palpation Findings Tenderness R foot Palpation Location Lateral Plantar aspect of foot and heel Palpation Findings Tenderness PT-OP-K Range of Motion Start: 06/13/19 17:35 Freq: Status: Active Protocol: Document 09/02/19 10:31 LRN (Rec: 09/02/19 12:46 LRN [id number]) Knee Goniometric Range of Motion Knee Right Knee ROM WFL Yes Left Knee ROM WFL Yes Ankle and Foot Goniometric Range of Motion Ankle and Foot Right Active Testing Position Supine Dorsiflexion with Knee Extended 7 Plantarflexion 58 Inversion 26 Eversion 22 Left Active Testing Position Supine Dorsiflexion with Knee Extended 6 Plantarflexion 54 Inversion 27 Eversion 14 Ankle and Foot ROM Limitations Comments Active ankle DF causes gastrocnemius pain complaints bilaterally, and LBP on the right. Toe Range of Motion Toe Left Great Toe MTP Extension Active (degrees) 50 Right Great Toe MTP Extension Active (degrees) 40 Toes ROM Limitations Toe ROM Limitations Soft Tissue Tightness Comments Big Toe Extension: 50 left, 40 right. PT-OP-L Special Tests Start: 06/13/19 17:35 Freq: Status: Active Protocol: Document 07/05/19 12:00 DCW (Rec: 07/05/19 12:31 DCW [id number]) Special Tests Cervical Spine Special Tests Spurling's Test Test Results Negative Slump Test Results Negative Passive Neck Flexion Test Results Negative Foraminal Compression Test Results Negative PT-OP-M Strength Start: 06/13/19 17:35 Freq: Status: Active Protocol: Document 09/02/19 10:31 LRN (Rec: 09/02/19 12:46 LRN [id number]) Trunk Strength Trunk Manual Muscle Testing Testing Position Supine Core Stabilization Pt was not able to maintain core stabilization with sitting or supine movement/leg resistance. Knee Strength Knee Manual Muscle Testing Right Flexion (S2) 4+ Good+ Extension (L3) 5 Normal Left Flexion (S2) 3 Fair Extension (L3) 5 Normal Ankle/Foot Strength Ankle and Foot Manual Muscle Testing Right Dorsiflexion (L4) 4 Good Plantarflexion (S1) 4 Good Inversion 5 Normal Eversion (S1) 5 Normal Left Dorsiflexion (L4) 3 Fair Plantarflexion (S1) 4 Good Inversion 5 Normal Eversion (S1) 5 Normal Comments L knee pain with Quadriceps testing. PT-OP-Q Treatments Start: 06/13/19 17:35 Freq: Status: Active Protocol: Document 09/09/19 12:46 LRN (Rec: 09/09/19 13:37 LRN [id number]) Therapeutic Exercises Supine Exercises TA in neutral spine Supine Exercise Name TA in neutral spine Reps/Minutes 10' Hamstring stretch Supine Exercise Name Hamstring stretch/LE neural stretch Side bilateral Reps/Minutes 3x Comments Pt needed repeated explanation of exercise on both sides. Manual Therapy Treatment Soft Tissue Mobilization Foot STM Body Location Bilateral feet Mobilization Type Cross-Friction,Instrument Assisted,Sustained Pressure Intensity/Depth Moderate Body Position Supine PT-OP-R Modalities Start: 06/13/19 17:35 Freq: Status: Active Protocol: Document 09/09/19 12:46 LRN (Rec: 09/09/19 17:45 LRN [id number]) Ultrasound Therapy Treatment L foot plantar fascia Treatment Duration (minutes) 8 Patient Position Supine Mode Setting Pulsed Duty Cycle 50% Intensity Setting (w/cm2) 1.5 R foot plantar fascia Treatment Duration (minutes) 8 Patient Position Supine Mode Setting Pulsed Duty Cycle 50% Intensity Setting (w/cm2) 1.0 PT-OP-S Aquatic Treatment Start: 07/08/19 16:16 Freq: Status: Active Protocol: Document 08/15/19 11:00 [id number] (Rec: 08/15/19 16:12 LJ [id number]) Aquatics Treatment Pool Entry/Exit Pool Entry/Exit Method Stairs Assistance Independent Water Walking forward with reverse breast stroke Water Level Chest Level Comments cues for core involvement Monster Walk Water Level Waist Level Comments cued to raise up on toes for push off [place] December Water Level Waist Level Comments arms reaching to opp side Sideways Water Level Waist Level Backwards Water Level Waist Level forward Water Level Waist Level Comments heel-toe Lower Extremity Exercises kick backs Body Position Standing Water Level Waist Level Reps/Duration 15x2 bilat Comments at wall heel toe raises Body Position Standing Water Level Chest Level Reps/Duration 20 circumduction Body Position Standing Water Level Chest Level Reps/Duration 2x12 bilat ab/ad Water Level Chest Level Reps/Duration 12x2 bilat flex/ext Water Level Chest Level Reps/Duration 12x2 bilat Lower Extremity Stretches hip flexor and quads Body Position Standing Water Level Chest Level Equipment Large Noodle Reps/Duration 2x45 Comments cueing for standing upright piriformis Details on wall Reps/Duration 2 min spider on wall Reps/Duration 2 min Comments with body swing HS Comments deep; modified downward dog gastroc, soleus Body Position Standing Water Level Waist Level Reps/Duration 45x2 Comments rocking foot side to side HC Body Position Standing Water Level Chest Level Reps/Duration 45x3 bilat Comments on stairs with toes against upper step for toe flexion Upper Extremity Exercises flex,ext, abd, add, Body Position Standing Water Level Chest Level Equipment UE paddles Reps/Duration 10x each bilat Upper Extremity Stretches pec stretch Body Position Standing Water Level Chest Level Equipment UE paddles Reps/Duration 2 min Comments rotating side to side Spinal Exercises cat cow stretch at wall Water Level [place] Reps/Duration 2 min SKTC, DKTC Water Level [place] Reps/Duration 2 min at wall [place] Activities [place] Activities Bicycle,Bicycle Backwards, Cross Country,Hip Abduction/ Adduction Other Activities pendulum forward backward shoot thru abdominal curls (knees to chest one vert. at a time Equipment waist float Duration 10 PT-OP-T Assessment and Plan Start: 06/13/19 17:35 Freq: Status: Active Protocol: Document 09/09/19 12:46 LRN (Rec: 09/09/19 17:45 LRN [id number]) Physical Therapy Assessment Assessment Summary Assessment Pt requires multiple training instructions and directions. She asks same questions repeatedly; therefore unsure of pt's understanding of HEP. She doesn't appear to be consistent with doing self care. She has not iced her feet and appears to be doing standing work activities. Her pelvis appears symmetrical today. Physical Therapy Plan Frequency and Duration Frequency of Treatment 2x/Week Duration of Treatment Two months Plan of Care Start Date 09/02/19 Plan of Care End Date 12/01/19 Next Visit Focus/Plan Next Note Type Treatment Note Next Visit Plan Monitor for leg length discrepancy, initiate core/ pelvic stabilization and cont US and DTM to plantar fascia, add achilles stretch jenn, L ankle EV stretch, Big toe ext stretch; plantar arch strengthening. Iontophoresis when POC returned. K-tape if pain doesn't decrease. Hold manual therapy and pool sessions for thoracic and cervical spine ex's/core stabilization until focus of therapy changes from feet to back. When returning to pool, can add resistance equipment and/or wts in pool for LE strengthening and increase intensity in deep water activities as tolerated, if still appropriate.
--- NOTE | 2019-09-09 18:02 | PT-OP ANOTE ---
Late Entry on return of pt Questionnaires. EVE Score - 23/50, FAAM ADL pg 1 score is 29, pg 2 score is 7.
--- NOTE | 2019-09-15 11:17 | PT.OTN ---
Current Diagnoses Cervicalgia (09/15/19) Dorsalgia, unspecified (09/15/19) Muscle weakness (generalized) (09/15/19) Abnormal posture (09/15/19) Physical Therapy Treatment Note PT-OP-A Visit Information Start: 06/13/19 17:35 Freq: Status: Active Protocol: Document 09/15/19 10:30 DCW (Rec: 09/15/19 11:17 DCW [id number]) Out-Patient Physical Therapy Visit Information Visit Information Visit Type Treatment Note Visit Start Time 10:30 Visit Stop Time 11:15 Total Visit Minutes 45 Visit Number 16 Number of CARE TRANSITION MANAGER Visits 0 Evaluation Information Evaluation Date 06/13/19 Precautions Precautions X-ray of 02/28/19: Loss of Lordosis & mild DDD C5-C6, mild [place] lumbar DDD and levocurvature, trace retrolisthesis L2-L3, L3-L4. Arthralgia, Mitral Valve regurgitation, Heel Bone spurs , Asthma. PT-OP-B Current Condition Start: 06/13/19 17:35 Freq: Status: Active Protocol: Document 09/02/19 10:31 LRN (Rec: 09/02/19 12:46 LRN [id number]) Current Condition History of Current Condition Onset Date 2015 Current Complaints Can't walk far due to extreme sharp stabbing pain feet. History of Current Condition States her connective tissue is shortened in back and going down to feet. Notes diet and sleep changes due to arthritis. Wants to do back therapy as well, because finds it very helpful. Knows she must do stretching daily forever and is addressing diet . Sugar, gluten, and carb free. Notices w/o sugar moves better. Pain is like a red hot poker. Prior Treatments and Tests 1 cortisone shot in 1 foot, unable to recall which foot, was not helpful. 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 Does pack test carrying 45# for 3 minutes on flat surface yearly , recently performed test and passed. Treatment Goals Patient/Caregiver Goals Pt goal is to reverse the plantar fasciitis and heal all pain from walking. Prior Functional Status Baseline Function- ADL's Independent Baseline Function- Mobility Independent Baseline Function- Gait 3 yrs ago walked without pain. Worsened 2 yrs ago & started seeking care. 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 Current Functional Impairments (Reported) Functional Limitations- ADL's Decreased tolerance to stair ambulation. Support with standing upon waking. Functional Limitations- Mobility/Gait Walking > 20' Functional Limitations- Work/School Limited in work tolerance. Functional Limitations- Other 1st in AM upon standing painful. Extreme pain with standing for her personal business for any length of time. Walk a block before starting to get extreme pain in the feet, one or both. If keep going, then must stop and offload foot hurting. Personal Factors Other Personal Factors That May Effect PMH: Pelvic pain and bloating Therapy/Recovery - progressively worsening in last 6 month. Has uterine polyp being removed 10/13, and ovarian cysts. Endoscopy and colonoscopy test scheduled 09/29/19, due to pelvic pain and routine. PT-OP-C Subjective Start: 06/13/19 17:35 Freq: Status: Active Protocol: Document 09/15/19 10:30 DCW (Rec: 09/15/19 11:17 DCW [id number]) OP-PT Subjective Patient Comments Patient Comments I've been trying treally hard to stay off my feet as much as possible, but it's hard. PT-OP-F Manual Assessment Start: 06/13/19 17:35 Freq: Status: Active Protocol: Document 06/13/19 13:45 DCW (Rec: 06/14/19 14:28 DCW [id number]) Manual Assessments Soft Tissue Assessment Soft Tissue Mobility Assessment Lumbar paraspinals, QL Moderate tone, tenderness to palpation 3/4: Wincing and withdraw PT-OP-J Posture/Palpation/Skin Start: 06/13/19 17:35 Freq: Status: Active Protocol: Document 09/02/19 10:31 LRN (Rec: 09/02/19 12:46 LRN [id number]) Posture Evaluation Position Standing no shoes Evaluation View All positions Head/C-Spine Posture Forward Head T-Spine Posture Flattened,Flexible Scoliosis on (L) Shoulder Posture (R) Elevated Pelvis Posture (L) Iliac Crest Inferior Knee Posture (L) Genu Valgus,(R) Genu Valgus Ankle/Foot Posture (L) Calcaneal Eversion Foot Arch (L) Low Arch,(R) Low Arch Palpation Assessment Location L foot Palpation Location Lateral Plantar aspect of foot and heel Palpation Findings Tenderness R foot Palpation Location Lateral Plantar aspect of foot and heel Palpation Findings Tenderness PT-OP-K Range of Motion Start: 06/13/19 17:35 Freq: Status: Active Protocol: Document 09/02/19 10:31 LRN (Rec: 09/02/19 12:46 LRN [id number]) Knee Goniometric Range of Motion Knee Right Knee ROM WFL Yes Left Knee ROM WFL Yes Ankle and Foot Goniometric Range of Motion Ankle and Foot Right Active Testing Position Supine Dorsiflexion with Knee Extended 7 Plantarflexion 58 Inversion 26 Eversion 22 Left Active Testing Position Supine Dorsiflexion with Knee Extended 6 Plantarflexion 54 Inversion 27 Eversion 14 Ankle and Foot ROM Limitations Comments Active ankle DF causes gastrocnemius pain complaints bilaterally, and LBP on the right. Toe Range of Motion Toe Left Great Toe MTP Extension Active (degrees) 50 Right Great Toe MTP Extension Active (degrees) 40 Toes ROM Limitations Toe ROM Limitations Soft Tissue Tightness Comments Big Toe Extension: 50 left, 40 right. PT-OP-L Special Tests Start: 06/13/19 17:35 Freq: Status: Active Protocol: Document 07/05/19 12:00 DCW (Rec: 07/05/19 12:31 DCW [id number]) Special Tests Cervical Spine Special Tests Spurling's Test Test Results Negative Slump Test Results Negative Passive Neck Flexion Test Results Negative Foraminal Compression Test Results Negative PT-OP-M Strength Start: 06/13/19 17:35 Freq: Status: Active Protocol: Document 09/02/19 10:31 LRN (Rec: 09/02/19 12:46 LRN [id number]) Trunk Strength Trunk Manual Muscle Testing Testing Position Supine Core Stabilization Pt was not able to maintain core stabilization with sitting or supine movement/leg resistance. Knee Strength Knee Manual Muscle Testing Right Flexion (S2) 4+ Good+ Extension (L3) 5 Normal Left Flexion (S2) 3 Fair Extension (L3) 5 Normal Ankle/Foot Strength Ankle and Foot Manual Muscle Testing Right Dorsiflexion (L4) 4 Good Plantarflexion (S1) 4 Good Inversion 5 Normal Eversion (S1) 5 Normal Left Dorsiflexion (L4) 3 Fair Plantarflexion (S1) 4 Good Inversion 5 Normal Eversion (S1) 5 Normal Comments L knee pain with Quadriceps testing. PT-OP-Q Treatments Start: 06/13/19 17:35 Freq: Status: Active Protocol: Document 09/15/19 10:30 DCW (Rec: 09/15/19 11:17 DCW [id number]) Manual Therapy Treatment Soft Tissue Mobilization Gastrosoleus Body Location B Calf Mobilization Type Cross-Friction,Strumming, Sustained Pressure,Trigger Point Release Body Position Prone Foot STM Body Location Bilateral feet Mobilization Type Cross-Friction,Instrument Assisted,Sustained Pressure Intensity/Depth Moderate Body Position Prone PT-OP-R Modalities Start: 06/13/19 17:35 Freq: Status: Active Protocol: Document 09/15/19 10:30 DCW (Rec: 09/15/19 11:17 DCW [id number]) Ultrasound Therapy Treatment L foot plantar fascia Treatment Duration (minutes) 5 Patient Position Supine Mode Setting Pulsed Duty Cycle 50% Intensity Setting (w/cm2) 1.5 R foot plantar fascia Treatment Duration (minutes) 5 Patient Position Supine Mode Setting Pulsed Duty Cycle 50% Intensity Setting (w/cm2) 1.0 PT-OP-S Aquatic Treatment Start: 07/08/19 16:16 Freq: Status: Active Protocol: Document 08/15/19 11:00 [id number] (Rec: 08/15/19 16:12 LJ [id number]) Aquatics Treatment Pool Entry/Exit Pool Entry/Exit Method Stairs Assistance Independent Water Walking forward with reverse breast stroke Water Level Chest Level Comments cues for core involvement Monster Walk Water Level Waist Level Comments cued to raise up on toes for push off December Water Level Waist Level Comments arms reaching to opp side Sideways Water Level Waist Level Backwards Water Level Waist Level forward Water Level Waist Level Comments heel-toe Lower Extremity Exercises kick backs Body Position Standing Water Level Waist Level Reps/Duration 15x2 bilat Comments at wall heel toe raises Body Position Standing Water Level Chest Level Reps/Duration 20 circumduction Body Position Standing Water Level Chest Level Reps/Duration 2x12 bilat ab/ad Water Level Chest Level Reps/Duration 12x2 bilat flex/ext Water Level Chest Level Reps/Duration 12x2 bilat Lower Extremity Stretches hip flexor and quads Body Position Standing Water Level Chest Level Equipment Large Noodle Reps/Duration 2x45 Comments cueing for standing upright piriformis Details on wall Reps/Duration 2 min spider on wall Reps/Duration 2 min Comments with body swing HS Comments deep; modified downward dog gastroc, soleus Body Position Standing Water Level Waist Level Reps/Duration 45x2 Comments rocking foot side to side HC Body Position Standing Water Level Chest Level Reps/Duration 45x3 bilat Comments on stairs with toes against upper step for toe flexion Upper Extremity Exercises flex,ext, abd, add, Body Position Standing Water Level Chest Level Equipment UE paddles Reps/Duration 10x each bilat Upper Extremity Stretches pec stretch Body Position Standing Water Level Chest Level Equipment UE paddles Reps/Duration 2 min Comments rotating side to side Spinal Exercises cat cow stretch at wall Water Level Davis Reps/Duration 2 min SKTC, DKTC Water Level Davis Reps/Duration 2 min at wall Davis Activities Davis Activities Bicycle,Bicycle Backwards, Cross Country,Hip Abduction/ Adduction Other Activities pendulum forward backward shoot thru abdominal curls (knees to chest one vert. 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 LTG Duration 12/01/19 Six Impairment Bilateral Foot pain rated 7-8/ 10 Short Term Goal (STG) Decrease bilateral foot pain on first standing in the morning to no greater than 1/ 10. 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 LTG Duration 12/01/19 Five Impairment Pt navicular bone collapse to 2.7 (L) and 3.2 (R) cm from floor Snf Goal (LTG) Pt to stand with neutral forefoot and proper arches with navicular 4.0 cm from floor LTG Duration 12/01/19 (09/02/19: Goal not assessed) Four Impairment Medial boarder of scapula 10 cm from spine at rest [place] Measurer Goal (LTG) Pt to present with less of a rounded shoulder posture by decreasing distance between medial boarder and spine to 6 cm at rest LTG Duration 12/01/19 (09/02/19: Progressing) Three Impairment Pt displays weakness in core muscles 3+/5 Snf Goal (LTG) Pt to display 4/5 MMT of TrA LTG Duration 12/01/19 (09/02/19: GOAL NOT MET, last 2 weeks increased weakness) Two Impairment Pt unable to stand longer than 10-15 minutes at [employer] stand Snf Goal (LTG) Pt to be able to tolerate standing 45 minutes when working at the [employer] with no increased pain. LTG Duration 12/01/19 (09/02/19: GOAL NOT MET, NO CHANGE) One Impairment Pt does not have an appropriate home exercise program Short Term Goal (STG) Pt to be independent and compliant with an appropriate HEP STG Duration 07/14/19 (09/02/19: GOAL MET to date for her back care, further care needed) Snf Goal (LTG) Pt will be independent with a self care HEP of foot/ankle exercises and educated in proper foot care for management of her pain. 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 Physical Therapy Plan Frequency and Duration Frequency of Treatment 2x/Week Duration of Treatment Two months Plan of Care Start Date 09/02/19 Plan of Care End Date 12/01/19 Therapeutic Interventions Therapeutic Interventions Aquatic Therapy,Home Exercise Program,Joint Mobilizations, Manual Therapy,Patient/ Caregiver Education,Self-Care/ Home Management,Soft Tissue Mobilization,Therapeutic Exercises Modalities Cold Pack/Ice Massage,Electric Stimulation,Hot Packs, Iontophoresis,Ultrasound Other Therapeutic Interventions Iontophoresis with 4mg/ml Dexamethosone with Sodium Phosphate. Next Visit Focus/Plan Next Note Type Treatment Note Next Visit Plan Monitor for leg length discrepancy, initiate core/ pelvic stabilization and cont US and DTM to plantar fascia, add achilles stretch jenn, L ankle EV stretch, Big toe ext stretch; plantar arch strengthening. Iontophoresis when POC returned. K-tape if pain doesn't decrease. Hold manual therapy and pool sessions for thoracic and cervical spine ex's/core stabilization until focus of therapy changes from feet to back. When returning to pool, can add resistance equipment and/or wts in pool for LE strengthening and increase intensity in deep water activities as tolerated, if still appropriate.
--- NOTE | 2019-09-20 16:08 | PT.OTN ---
Current Diagnoses Cervicalgia (09/20/19) Dorsalgia, unspecified (09/20/19) Muscle weakness (generalized) (09/20/19) Abnormal posture (09/20/19) Physical Therapy Treatment Note PT-OP-A Visit Information Start: 06/13/19 17:35 Freq: Status: Active Protocol: Document 09/20/19 15:15 DCW (Rec: 09/20/19 16:08 DCW [id number]) Out-Patient Physical Therapy Visit Information Visit Information Visit Type Treatment Note Visit Start Time 15:15 Visit Stop Time 16:00 Total Visit Minutes 45 Visit Number 17 Number of OFFICE CHAIR ASSEMBLER Visits 0 Evaluation Information Evaluation Date 06/13/19 Precautions Precautions X-ray of 02/28/19: Loss of Lordosis & mild DDD C5-C6, mild [place] lumbar DDD and levocurvature, trace retrolisthesis L2-L3, L3-L4. Arthralgia, Mitral Valve regurgitation, Heel Bone spurs , Asthma. PT-OP-B Current Condition Start: 06/13/19 17:35 Freq: Status: Active Protocol: Document 09/02/19 10:31 LRN (Rec: 09/02/19 12:46 LRN [id number]) Current Condition History of Current Condition Onset Date 2015 Current Complaints Can't walk far due to extreme sharp stabbing pain feet. History of Current Condition States her connective tissue is shortened in back and going down to feet. Notes diet and sleep changes due to arthritis. Wants to do back therapy as well, because finds it very helpful. Knows she must do stretching daily forever and is addressing diet . Sugar, gluten, and carb free. Notices w/o sugar moves better. Pain is like a red hot poker. Prior Treatments and Tests 1 cortisone shot in 1 foot, unable to recall which foot, was not helpful. 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 Does pack test carrying 45# for 3 minutes on flat surface yearly , recently performed test and passed. Treatment Goals Patient/Caregiver Goals Pt goal is to reverse the plantar fasciitis and heal all pain from walking. Prior Functional Status Baseline Function- ADL's Independent Baseline Function- Mobility Independent Baseline Function- Gait 3 yrs ago walked without pain. Worsened 2 yrs ago & started seeking care. 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 Current Functional Impairments (Reported) Functional Limitations- ADL's Decreased tolerance to stair ambulation. Support with standing upon waking. Functional Limitations- Mobility/Gait Walking > 20' Functional Limitations- Work/School Limited in work tolerance. Functional Limitations- Other 1st in AM upon standing painful. Extreme pain with standing for her personal business for any length of time. Walk a block before starting to get extreme pain in the feet, one or both. If keep going, then must stop and offload foot hurting. Personal Factors Other Personal Factors That May Effect PMH: Pelvic pain and bloating Therapy/Recovery - progressively worsening in last 6 month. Has uterine polyp being removed 10/13, and ovarian cysts. Endoscopy and colonoscopy test scheduled 09/29/19, due to pelvic pain and routine. PT-OP-C Subjective Start: 06/13/19 17:35 Freq: Status: Active Protocol: Document 09/20/19 15:15 DCW (Rec: 09/20/19 16:08 DCW [id number]) OP-PT Subjective Patient Comments Patient Comments Pt reports she has seen improvement with therapy, but [place], and spent as much of the time as she could using crutches, but still did a lot to aggravate her feet. PT-OP-F Manual Assessment Start: 06/13/19 17:35 Freq: Status: Active Protocol: Document 06/13/19 13:45 DCW (Rec: 06/14/19 14:28 DCW [id number]) Manual Assessments Soft Tissue Assessment Soft Tissue Mobility Assessment Lumbar paraspinals, QL Moderate tone, tenderness to palpation 3/4: Wincing and withdraw PT-OP-J Posture/Palpation/Skin Start: 06/13/19 17:35 Freq: Status: Active Protocol: Document 09/02/19 10:31 LRN (Rec: 09/02/19 12:46 LRN [id number]) Posture Evaluation Position Standing no shoes Evaluation View All positions Head/C-Spine Posture Forward Head T-Spine Posture Flattened,Flexible Scoliosis on (L) Shoulder Posture (R) Elevated Pelvis Posture (L) Iliac Crest Inferior Knee Posture (L) Genu Valgus,(R) Genu Valgus Ankle/Foot Posture (L) Calcaneal Eversion Foot Arch (L) Low Arch,(R) Low Arch Palpation Assessment Location L foot Palpation Location Lateral Plantar aspect of foot and heel Palpation Findings Tenderness R foot Palpation Location Lateral Plantar aspect of foot and heel Palpation Findings Tenderness PT-OP-K Range of Motion Start: 06/13/19 17:35 Freq: Status: Active Protocol: Document 09/02/19 10:31 LRN (Rec: 09/02/19 12:46 LRN [id number]) Knee Goniometric Range of Motion Knee Right Knee ROM WFL Yes Left Knee ROM WFL Yes Ankle and Foot Goniometric Range of Motion Ankle and Foot Right Active Testing Position Supine Dorsiflexion with Knee Extended 7 Plantarflexion 58 Inversion 26 Eversion 22 Left Active Testing Position Supine Dorsiflexion with Knee Extended 6 Plantarflexion 54 Inversion 27 Eversion 14 Ankle and Foot ROM Limitations Comments Active ankle DF causes gastrocnemius pain complaints bilaterally, and LBP on the right. Toe Range of Motion Toe Left Great Toe MTP Extension Active (degrees) 50 Right Great Toe MTP Extension Active (degrees) 40 Toes ROM Limitations Toe ROM Limitations Soft Tissue Tightness Comments Big Toe Extension: 50 left, 40 right. PT-OP-L Special Tests Start: 06/13/19 17:35 Freq: Status: Active Protocol: Document 07/05/19 12:00 DCW (Rec: 07/05/19 12:31 DCW [id number]) Special Tests Cervical Spine Special Tests Spurling's Test Test Results Negative Slump Test Results Negative Passive Neck Flexion Test Results Negative Foraminal Compression Test Results Negative PT-OP-M Strength Start: 06/13/19 17:35 Freq: Status: Active Protocol: Document 09/02/19 10:31 LRN (Rec: 09/02/19 12:46 LRN [id number]) Trunk Strength Trunk Manual Muscle Testing Testing Position Supine Core Stabilization Pt was not able to maintain core stabilization with sitting or supine movement/leg resistance. Knee Strength Knee Manual Muscle Testing Right Flexion (S2) 4+ Good+ Extension (L3) 5 Normal Left Flexion (S2) 3 Fair Extension (L3) 5 Normal Ankle/Foot Strength Ankle and Foot Manual Muscle Testing Right Dorsiflexion (L4) 4 Good Plantarflexion (S1) 4 Good Inversion 5 Normal Eversion (S1) 5 Normal Left Dorsiflexion (L4) 3 Fair Plantarflexion (S1) 4 Good Inversion 5 Normal Eversion (S1) 5 Normal Comments L knee pain with Quadriceps testing. PT-OP-Q Treatments Start: 06/13/19 17:35 Freq: Status: Active Protocol: Document 09/20/19 15:15 DCW (Rec: 09/20/19 16:08 DCW [id number]) Manual Therapy Treatment Soft Tissue Mobilization Gastrosoleus Body Location B Calf Mobilization Type Cross-Friction,Strumming, Sustained Pressure,Trigger Point Release Body Position Prone Foot STM Body Location Bilateral feet Mobilization Type Cross-Friction,Instrument Assisted,Sustained Pressure Intensity/Depth Moderate Body Position Prone PT-OP-R Modalities Start: 06/13/19 17:35 Freq: Status: Active Protocol: Document 09/20/19 15:15 DCW (Rec: 09/20/19 16:08 DCW [id number]) Ultrasound Therapy Treatment L foot plantar fascia Treatment Duration (minutes) 5 Patient Position Supine Mode Setting Pulsed Duty Cycle 50% Intensity Setting (w/cm2) 1.5 R foot plantar fascia Treatment Duration (minutes) 5 Patient Position Supine Mode Setting Pulsed Duty Cycle 50% Intensity Setting (w/cm2) 1.0 PT-OP-S Aquatic Treatment Start: 07/08/19 16:16 Freq: Status: Active Protocol: Document 08/15/19 11:00 [id number] (Rec: 08/15/19 16:12 LJ [id number]) Aquatics Treatment Pool Entry/Exit Pool Entry/Exit Method Stairs Assistance Independent Water Walking forward with reverse breast stroke Water Level Chest Level Comments cues for core involvement Monster Walk Water Level Waist Level Comments cued to raise up on toes for push off [place] December Water Level Waist Level Comments arms reaching to opp side Sideways Water Level Waist Level Backwards Water Level Waist Level forward Water Level Waist Level Comments heel-toe Lower Extremity Exercises kick backs Body Position Standing Water Level Waist Level Reps/Duration 15x2 bilat Comments at wall heel toe raises Body Position Standing Water Level Chest Level Reps/Duration 20 circumduction Body Position Standing Water Level Chest Level Reps/Duration 2x12 bilat ab/ad Water Level Chest Level Reps/Duration 12x2 bilat flex/ext Water Level Chest Level Reps/Duration 12x2 bilat Lower Extremity Stretches hip flexor and quads Body Position Standing Water Level Chest Level Equipment Large Noodle Reps/Duration 2x45 Comments cueing for standing upright piriformis Details on wall Reps/Duration 2 min spider on wall Reps/Duration 2 min Comments with body swing HS Comments deep; modified downward dog gastroc, soleus Body Position Standing Water Level Waist Level Reps/Duration 45x2 Comments rocking foot side to side HC Body Position Standing Water Level Chest Level Reps/Duration 45x3 bilat Comments on stairs with toes against upper step for toe flexion Upper Extremity Exercises flex,ext, abd, add, Body Position Standing Water Level Chest Level Equipment UE paddles Reps/Duration 10x each bilat Upper Extremity Stretches pec stretch Body Position Standing Water Level Chest Level Equipment UE paddles Reps/Duration 2 min Comments rotating side to side Spinal Exercises cat cow stretch at wall Water Level [place] Reps/Duration 2 min SKTC, DKTC Water Level [place] Reps/Duration 2 min at wall [place] Activities [place] Activities Bicycle,Bicycle Backwards, Cross Country,Hip Abduction/ Adduction Other Activities pendulum forward backward shoot thru abdominal curls (knees to chest one vert. 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 LTG Duration 12/01/19 Six Impairment Bilateral Foot pain rated 7-8 10 Short Term Goal (STG) Decrease bilateral foot pain on first standing in the morning to no greater than 1/ 10. 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 LTG Duration 12/01/19 Five Impairment Pt navicular bone collapse to 2.7 (L) and 3.2 (R) cm from floor Data Center Architect Goal (LTG) Pt to stand with neutral forefoot and proper arches with navicular 4.0 cm from floor LTG Duration 12/01/19 (09/02/19: Goal not assessed) Four Impairment Medial boarder of scapula 10 cm from spine at rest Correction Goal (LTG) Pt to present with less of a rounded shoulder posture by decreasing distance between medial boarder and spine to 6 cm at rest LTG Duration 12/01/19 (09/02/19: Progressing) Three Impairment Pt displays weakness in core muscles 3+/5 Correction Goal (LTG) Pt to display 4/5 MMT of TrA LTG Duration 12/01/19 (09/02/19: GOAL NOT MET, last 2 weeks increased weakness) Two Impairment Pt unable to stand longer than 10-15 minutes at [employer] stand Correction Goal (LTG) Pt to be able to tolerate standing 45 minutes when working at the [employer] with no increased pain. LTG Duration 12/01/19 (09/02/19: GOAL NOT MET, NO CHANGE) One Impairment Pt does not have an appropriate home exercise program Short Term Goal (STG) Pt to be independent and compliant with an appropriate HEP STG Duration 07/14/19 (09/02/19: GOAL MET to date for her back care, further care needed) Correction Goal (LTG) Pt will be independent with a self care HEP of foot/ankle exercises and educated in proper foot care for management of her pain. LTG Duration 12/01/19 Assessment Summary Assessment Pt appears to be improving with her plantar fasciitis, has been fairly consistent trying to stay off her feet and icing, at least when able to around work. Decreased tenderness along plantar surface, and pt presents with decreased tone through her gastrosoleus today. Physical Therapy Plan Frequency and Duration Frequency of Treatment 2x/Week Duration of Treatment Two months Plan of Care Start Date 09/02/19 Plan of Care End Date 12/01/19 Therapeutic Interventions Therapeutic Interventions Aquatic Therapy,Home Exercise Program,Joint Mobilizations, Manual Therapy,Patient/ Caregiver Education,Self-Care/ Home Management,Soft Tissue Mobilization,Therapeutic Exercises Modalities Cold Pack/Ice Massage,Electric Stimulation,Hot Packs, Iontophoresis,Ultrasound Other Therapeutic Interventions Iontophoresis with 4mg/ml Dexamethosone with Sodium Phosphate. Next Visit Focus/Plan Next Note Type Treatment Note Next Visit Plan Monitor for leg length discrepancy, initiate core/ pelvic stabilization and cont US and DTM to plantar fascia, add achilles stretch jenn, L ankle EV stretch, Big toe ext stretch; plantar arch strengthening. Iontophoresis when POC returned. K-tape if pain doesn't decrease. Hold manual therapy and pool sessions for thoracic and cervical spine ex's/core stabilization until focus of therapy changes from feet to back. When returning to pool, can add resistance equipment and/or wts in pool for LE strengthening and increase intensity in deep water activities as tolerated, if still appropriate.
--- NOTE | 2019-09-26 15:34 | PT.OTN ---
Current Diagnoses Cervicalgia (09/26/19) Dorsalgia, unspecified (09/26/19) Muscle weakness (generalized) (09/26/19) Abnormal posture (09/26/19) Physical Therapy Treatment Note PT-OP-A Visit Information Start: 06/13/19 17:35 Freq: Status: Active Protocol: Document 09/26/19 09:46 LRN (Rec: 09/26/19 10:34 LRN [id number]) Out-Patient Physical Therapy Visit Information Visit Information Visit Type Treatment Note Visit Start Time 09:46 Visit Stop Time 10:30 Total Visit Minutes 44 Visit Number 18 Number of TECHNICAL SOLUTIONS DIRECTOR Visits 0 Evaluation Information Evaluation Date 06/13/19 Precautions Precautions X-ray of 02/28/19: Loss of Lordosis & mild DDD C5-C6, mild [place] lumbar DDD and levocurvature, trace retrolisthesis L2-L3, L3-L4. Arthralgia, Mitral Valve regurgitation, Heel Bone spurs , Asthma. PT-OP-B Current Condition Start: 06/13/19 17:35 Freq: Status: Active Protocol: Document 09/02/19 10:31 LRN (Rec: 09/02/19 12:46 LRN [id number]) Current Condition History of Current Condition Onset Date 2015 Current Complaints Can't walk far due to extreme sharp stabbing pain feet. History of Current Condition States her connective tissue is shortened in back and going down to feet. Notes diet and sleep changes due to arthritis. Wants to do back therapy as well, because finds it very helpful. Knows she must do stretching daily forever and is addressing diet . Sugar, gluten, and carb free. Notices w/o sugar moves better. Pain is like a red hot poker. Prior Treatments and Tests 1 cortisone shot in 1 foot, unable to recall which foot, was not helpful. 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 Does pack test carrying 45# for 3 minutes on flat surface yearly , recently performed test and passed. Treatment Goals Patient/Caregiver Goals Pt goal is to reverse the plantar fasciitis and heal all pain from walking. Prior Functional Status Baseline Function- ADL's Independent Baseline Function- Mobility Independent Baseline Function- Gait 3 yrs ago walked without pain. Worsened 2 yrs ago & started seeking care. 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 Current Functional Impairments (Reported) Functional Limitations- ADL's Decreased tolerance to stair ambulation. Support with standing upon waking. Functional Limitations- Mobility/Gait Walking > 20' Functional Limitations- Work/School Limited in work tolerance. Functional Limitations- Other 1st in AM upon standing painful. Extreme pain with standing for her personal business for any length of time. Walk a block before starting to get extreme pain in the feet, one or both. If keep going, then must stop and offload foot hurting. Personal Factors Other Personal Factors That May Effect PMH: Pelvic pain and bloating Therapy/Recovery - progressively worsening in last 6 month. Has uterine polyp being removed 10/13, and ovarian cysts. Endoscopy and colonoscopy test scheduled 09/29/19, due to pelvic pain and routine. PT-OP-C Subjective Start: 06/13/19 17:35 Freq: Status: Active Protocol: Document 09/26/19 09:46 LRN (Rec: 09/26/19 16:30 LRN [id number]) OP-PT Subjective Patient Comments Patient Comments States her feet hurts at the heels because she was on her feet for a show for 2 days, then yesterday was able to rest more but didn't ice. Patient Questionnaires Foot & Ankle Ability Measure- ADL and Sports FAAM-ADL Score 36 FAAM-ADL Impairment 40 to 59% Impaired (Score 33- 49) Oswestry Low Back Index Oswestry Score 23 Oswestry Impairment 20 to 39% Impaired (Score 20- 39) PT-OP-F Manual Assessment Start: 06/13/19 17:35 Freq: Status: Active Protocol: Document 06/13/19 13:45 DCW (Rec: 06/14/19 14:28 DCW [id number]) Manual Assessments Soft Tissue Assessment Soft Tissue Mobility Assessment Lumbar paraspinals, QL Moderate tone, tenderness to palpation 3/4: Wincing and withdraw PT-OP-J Posture/Palpation/Skin Start: 06/13/19 17:35 Freq: Status: Active Protocol: Document 09/02/19 10:31 LRN (Rec: 09/02/19 12:46 LRN [id number]) Posture Evaluation Position Standing no shoes Evaluation View All positions Head/C-Spine Posture Forward Head T-Spine Posture Flattened,Flexible Scoliosis on (L) Shoulder Posture (R) Elevated Pelvis Posture (L) Iliac Crest Inferior Knee Posture (L) Genu Valgus,(R) Genu Valgus Ankle/Foot Posture (L) Calcaneal Eversion Foot Arch (L) Low Arch,(R) Low Arch Palpation Assessment Location L foot Palpation Location Lateral Plantar aspect of foot and heel Palpation Findings Tenderness R foot Palpation Location Lateral Plantar aspect of foot and heel Palpation Findings Tenderness PT-OP-K Range of Motion Start: 06/13/19 17:35 Freq: Status: Active Protocol: Document 09/02/19 10:31 LRN (Rec: 09/02/19 12:46 LRN [id number]) Knee Goniometric Range of Motion Knee Right Knee ROM WFL Yes Left Knee ROM WFL Yes Ankle and Foot Goniometric Range of Motion Ankle and Foot Right Active Testing Position Supine Dorsiflexion with Knee Extended 7 Plantarflexion 58 Inversion 26 Eversion 22 Left Active Testing Position Supine Dorsiflexion with Knee Extended 6 Plantarflexion 54 Inversion 27 Eversion 14 Ankle and Foot ROM Limitations Comments Active ankle DF causes gastrocnemius pain complaints bilaterally, and LBP on the right. Toe Range of Motion Toe Left Great Toe MTP Extension Active (degrees) 50 Right Great Toe MTP Extension Active (degrees) 40 Toes ROM Limitations Toe ROM Limitations Soft Tissue Tightness Comments Big Toe Extension: 50 left, 40 right. PT-OP-L Special Tests Start: 06/13/19 17:35 Freq: Status: Active Protocol: Document 07/05/19 12:00 DCW (Rec: 07/05/19 12:31 DCW [id number]) Special Tests Cervical Spine Special Tests Spurling's Test Test Results Negative Slump Test Results Negative Passive Neck Flexion Test Results Negative Foraminal Compression Test Results Negative PT-OP-M Strength Start: 06/13/19 17:35 Freq: Status: Active Protocol: Document 09/02/19 10:31 LRN (Rec: 09/02/19 12:46 LRN [id number]) Trunk Strength Trunk Manual Muscle Testing Testing Position Supine Core Stabilization Pt was not able to maintain core stabilization with sitting or supine movement/leg resistance. Knee Strength Knee Manual Muscle Testing Right Flexion (S2) 4+ Good+ Extension (L3) 5 Normal Left Flexion (S2) 3 Fair Extension (L3) 5 Normal Ankle/Foot Strength Ankle and Foot Manual Muscle Testing Right Dorsiflexion (L4) 4 Good Plantarflexion (S1) 4 Good Inversion 5 Normal Eversion (S1) 5 Normal Left Dorsiflexion (L4) 3 Fair Plantarflexion (S1) 4 Good Inversion 5 Normal Eversion (S1) 5 Normal Comments L knee pain with Quadriceps testing. PT-OP-Q Treatments Start: 06/13/19 17:35 Freq: Status: Active Protocol: Document 09/26/19 09:46 LRN (Rec: 09/26/19 10:34 [facility] [id number]) Therapeutic Exercises Supine Exercises TA in neutral spine Supine Exercise Name TA with Shush and cough Reps/Minutes 3' Sitting Exercises Plantar Arch Jono Sitting Exercise Name Long foot flexor strengthening Side bilateral Reps/Minutes 5' Comments Pt to focus on L side contraction, visible R contraction Standing Exercises gastroc and soleus stretch Standing Exercise Name Heelcord stretch, standing Side bilateral Reps/Minutes 30 x 2 Comments Explained to pt purpose of timing of stretch. Manual Therapy Treatment Soft Tissue Mobilization Gastrosoleus Body Location R calf Mobilization Type Cross-Friction,Strumming Body Position Prone Foot STM Body Location Bilateral feet, focusing on left Mobilization Type Cross-Friction,Instrument Assisted,Sustained Pressure Intensity/Depth Moderate Body Position Prone Self-Care/Home Management Treatment Education Patient Education Pain Management Other Education Discussed ways pt can modify her home ex's when she becomes aware of her pain and reinforced at length use of cryotherapy and how she can identify when to use and how long. Discussed options for use of crutches when needing to bring items along (use of overshoulder bag or another person). PT-OP-R Modalities Start: 06/13/19 17:35 Freq: Status: Active Protocol: Document 09/26/19 09:46 LRN (Rec: 09/26/19 10:34 [facility] [id number]) Ultrasound Therapy Treatment L foot plantar fascia Treatment Duration (minutes) 5 Patient Position Supine Mode Setting Pulsed Duty Cycle 50% Intensity Setting (w/cm2) 1.5 R foot plantar fascia Treatment Duration (minutes) 5 Patient Position Supine Mode Setting Pulsed Duty Cycle 50% Intensity Setting (w/cm2) 1.0 PT-OP-S Aquatic Treatment Start: 07/08/19 16:16 Freq: Status: Active Protocol: Document 08/15/19 11:00 GUANAKITO (Rec: 08/15/19 16:12 [facility] [id number]) Aquatics Treatment Pool Entry/Exit Pool Entry/Exit Method Stairs Assistance Independent Water Walking forward with reverse breast stroke Water Level Chest Level Comments cues for core involvement Monster Walk Water Level Waist Level Comments cued to raise up on toes for push off [place] December Water Level Waist Level Comments arms reaching to opp side Sideways Water Level Waist Level Backwards Water Level Waist Level forward Water Level Waist Level Comments heel-toe Lower Extremity Exercises kick backs Body Position Standing Water Level Waist Level Reps/Duration 15x2 bilat Comments at wall heel toe raises Body Position Standing Water Level Chest Level Reps/Duration 20 circumduction Body Position Standing Water Level Chest Level Reps/Duration 2x12 bilat ab/ad Water Level Chest Level Reps/Duration 12x2 bilat flex/ext Water Level Chest Level Reps/Duration 12x2 bilat Lower Extremity Stretches hip flexor and quads Body Position Standing Water Level Chest Level Equipment Large Noodle Reps/Duration 2x45 Comments cueing for standing upright piriformis Details on wall Reps/Duration 2 min spider on wall Reps/Duration 2 min Comments with body swing HS Comments deep; modified downward dog gastroc, soleus Body Position Standing Water Level Waist Level Reps/Duration 45x2 Comments rocking foot side to side HC Body Position Standing Water Level Chest Level Reps/Duration 45x3 bilat Comments on stairs with toes against upper step for toe flexion Upper Extremity Exercises flex,ext, abd, add, Body Position Standing Water Level Chest Level Equipment UE paddles Reps/Duration 10x each bilat Upper Extremity Stretches pec stretch Body Position Standing Water Level Chest Level Equipment UE paddles Reps/Duration 2 min Comments rotating side to side Spinal Exercises cat cow stretch at wall Water Level Eddy Reps/Duration 2 min SKTC, DKTC Water Level Eddy Reps/Duration 2 min at wall Eddy Activities Eddy Activities Bicycle,Bicycle Backwards, Cross Country,Hip Abduction/ Adduction Other Activities pendulum forward backward shoot thru abdominal curls (knees to chest one vert. 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 LTG Duration 12/01/19 Six Impairment Bilateral Foot pain rated 7-8/ 10 Short Term Goal (STG) Decrease bilateral foot pain on first standing in the morning to no greater than 1/ 10. STG Duration 10/02/19 Transportation Program Director Goal (LTG) Pt will be able to tolerate selling her wares at the local [employer] by standing periodically with pain no greater than 3/10. LTG Duration 12/01/19 Five Impairment Pt navicular bone collapse to 2.7 (L) and 3.2 (R) cm from floor Transportation Program Director Goal (LTG) Pt to stand with neutral forefoot and proper arches with navicular 4.0 cm from floor LTG Duration 12/01/19 (09/02/19: Goal not assessed) Four Impairment Medial boarder of scapula 10 cm from spine at rest Transportation Program Director Goal (LTG) Pt to present with less of a rounded shoulder posture by decreasing distance between medial boarder and spine to 6 cm at rest LTG Duration 12/01/19 (09/02/19: Progressing) Three Impairment Pt displays weakness in core muscles 3+/5 [facility] Goal (LTG) Pt to display 4/5 MMT of TrA LTG Duration 12/01/19 (09/02/19: GOAL NOT MET, last 2 weeks increased weakness) Two Impairment Pt unable to stand longer than 10-15 minutes at [employer] stand [facility] Goal (LTG) Pt to be able to tolerate standing 45 minutes when working at the [employer] with no increased pain. LTG Duration 12/01/19 (09/02/19: GOAL NOT MET, NO CHANGE) One Impairment Pt does not have an appropriate home exercise program Short Term Goal (STG) Pt to be independent and compliant with an appropriate HEP STG Duration 07/14/19 (09/02/19: GOAL MET to date for her back care, further care needed) Transportation Program Director Goal (LTG) Pt will be independent with a self care HEP of foot/ankle exercises and educated in proper foot care for management of her pain. LTG Duration 12/01/19 Assessment Summary Assessment Pt does not appear to be consistent with use of cryotherapy for pain management. With her business she continues to work on her feet although having pain. She appears to have difficulty making self corrections to her activities and exercise either not changing what she does or working into pain and asks help figuring out what to do. Pt is needing a lot of repetitive training for self care. Late entry for EVE score of 23 & FAAM ADL Score of 36. Physical Therapy Plan Frequency and Duration Frequency of Treatment 2x/Week Duration of Treatment Two months Plan of Care Start Date 09/02/19 Plan of Care End Date 12/01/19 Next Visit Focus/Plan Next Note Type Treatment Note Next Visit Plan Monitor for leg length discrepancy, add L ankle EV stretch. Review performing a TA reflexively, progress core/ pelvic stabilization and cont US and DTM to plantar fascia, review standing achilles stretch jenn & Big toe ext stretch; progress plantar arch strengthening. Iontophoresis if allowed with POC. Try K-tape if pain doesn 't decrease and ionto not being used. Hold manual therapy and pool sessions for thoracic and cervical spine ex's/core stabilization until focus of therapy changes from feet to back. When returning to pool, can add resistance equipment and/or wts in pool for LE strengthening and increase intensity in deep water activities as tolerated, if still appropriate.
--- NOTE | 2019-10-03 17:37 | PT.OTN ---
Current Diagnoses Cervicalgia (10/03/19) Dorsalgia, unspecified (10/03/19) Muscle weakness (generalized) (10/03/19) Abnormal posture (10/03/19) Physical Therapy Treatment Note PT-OP-A Visit Information Start: 06/13/19 17:35 Freq: Status: Active Protocol: Document 10/03/19 16:45 DCW (Rec: 10/03/19 17:37 DCW [id number]) Out-Patient Physical Therapy Visit Information Visit Information Visit Type Treatment Note Visit Start Time 16:45 Visit Stop Time 17:30 Total Visit Minutes 45 Visit Number 19 Number of BAG VALVER Visits 0 Evaluation Information Evaluation Date 06/13/19 Precautions Precautions X-ray of 02/28/19: Loss of Lordosis & mild DDD C5-C6, mild [place] lumbar DDD and levocurvature, trace retrolisthesis L2-L3, L3-L4. Arthralgia, Mitral Valve regurgitation, Heel Bone spurs , Asthma. PT-OP-B Current Condition Start: 06/13/19 17:35 Freq: Status: Active Protocol: Document 09/02/19 10:31 LRN (Rec: 09/02/19 12:46 LRN [id number]) Current Condition History of Current Condition Onset Date 2015 Current Complaints Can't walk far due to extreme sharp stabbing pain feet. History of Current Condition States her connective tissue is shortened in back and going down to feet. Notes diet and sleep changes due to arthritis. Wants to do back therapy as well, because finds it very helpful. Knows she must do stretching daily forever and is addressing diet . Sugar, gluten, and carb free. Notices w/o sugar moves better. Pain is like a red hot poker. Prior Treatments and Tests 1 cortisone shot in 1 foot, unable to recall which foot, was not helpful. 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 Does pack test carrying 45# for 3 minutes on flat surface yearly , recently performed test and passed. Treatment Goals Patient/Caregiver Goals Pt goal is to reverse the plantar fasciitis and heal all pain from walking. Prior Functional Status Baseline Function- ADL's Independent Baseline Function- Mobility Independent Baseline Function- Gait 3 yrs ago walked without pain. Worsened 2 yrs ago & started seeking care. 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 Current Functional Impairments (Reported) Functional Limitations- ADL's Decreased tolerance to stair ambulation. Support with standing upon waking. Functional Limitations- Mobility/Gait Walking > 20' Functional Limitations- Work/School Limited in work tolerance. Functional Limitations- Other 1st in AM upon standing painful. Extreme pain with standing for her personal business for any length of time. Walk a block before starting to get extreme pain in the feet, one or both. If keep going, then must stop and offload foot hurting. Personal Factors Other Personal Factors That May Effect PMH: Pelvic pain and bloating Therapy/Recovery - progressively worsening in last 6 month. Has uterine polyp being removed 10/13, and ovarian cysts. Endoscopy and colonoscopy test scheduled 09/29/19, due to pelvic pain and routine. PT-OP-C Subjective Start: 06/13/19 17:35 Freq: Status: Active Protocol: Document 10/03/19 16:45 DCW (Rec: 10/03/19 17:37 DCW [id number]) OP-PT Subjective Patient Comments Patient Comments Pt reports her feet are slowly getting better. She has been icing them more, and has been wearing her night splints. PT also recently purchased new inserts, which seem to be helping. PT-OP-F Manual Assessment Start: 06/13/19 17:35 Freq: Status: Active Protocol: Document 06/13/19 13:45 DCW (Rec: 06/14/19 14:28 DCW [id number]) Manual Assessments Soft Tissue Assessment Soft Tissue Mobility Assessment Lumbar paraspinals, QL Moderate tone, tenderness to palpation 3/4: Wincing and withdraw PT-OP-J Posture/Palpation/Skin Start: 06/13/19 17:35 Freq: Status: Active Protocol: Document 09/02/19 10:31 LRN (Rec: 09/02/19 12:46 LRN [id number]) Posture Evaluation Position Standing no shoes Evaluation View All positions Head/C-Spine Posture Forward Head T-Spine Posture Flattened,Flexible Scoliosis on (L) Shoulder Posture (R) Elevated Pelvis Posture (L) Iliac Crest Inferior Knee Posture (L) Genu Valgus,(R) Genu Valgus Ankle/Foot Posture (L) Calcaneal Eversion Foot Arch (L) Low Arch,(R) Low Arch Palpation Assessment Location L foot Palpation Location Lateral Plantar aspect of foot and heel Palpation Findings Tenderness R foot Palpation Location Lateral Plantar aspect of foot and heel Palpation Findings Tenderness PT-OP-K Range of Motion Start: 06/13/19 17:35 Freq: Status: Active Protocol: Document 09/02/19 10:31 LRN (Rec: 09/02/19 12:46 LRN [id number]) Knee Goniometric Range of Motion Knee Right Knee ROM WFL Yes Left Knee ROM WFL Yes Ankle and Foot Goniometric Range of Motion Ankle and Foot Right Active Testing Position Supine Dorsiflexion with Knee Extended 7 Plantarflexion 58 Inversion 26 Eversion 22 Left Active Testing Position Supine Dorsiflexion with Knee Extended 6 Plantarflexion 54 Inversion 27 Eversion 14 Ankle and Foot ROM Limitations Comments Active ankle DF causes gastrocnemius pain complaints bilaterally, and LBP on the right. Toe Range of Motion Toe Left Great Toe MTP Extension Active (degrees) 50 Right Great Toe MTP Extension Active (degrees) 40 Toes ROM Limitations Toe ROM Limitations Soft Tissue Tightness Comments Big Toe Extension: 50 left, 40 right. PT-OP-L Special Tests Start: 06/13/19 17:35 Freq: Status: Active Protocol: Document 07/05/19 12:00 DCW (Rec: 07/05/19 12:31 DCW [id number]) Special Tests Cervical Spine Special Tests Spurling's Test Test Results Negative Slump Test Results Negative Passive Neck Flexion Test Results Negative Foraminal Compression Test Results Negative PT-OP-M Strength Start: 06/13/19 17:35 Freq: Status: Active Protocol: Document 09/02/19 10:31 LRN (Rec: 09/02/19 12:46 LRN [id number]) Trunk Strength Trunk Manual Muscle Testing Testing Position Supine Core Stabilization Pt was not able to maintain core stabilization with sitting or supine movement/leg resistance. Knee Strength Knee Manual Muscle Testing Right Flexion (S2) 4+ Good+ Extension (L3) 5 Normal Left Flexion (S2) 3 Fair Extension (L3) 5 Normal Ankle/Foot Strength Ankle and Foot Manual Muscle Testing Right Dorsiflexion (L4) 4 Good Plantarflexion (S1) 4 Good Inversion 5 Normal Eversion (S1) 5 Normal Left Dorsiflexion (L4) 3 Fair Plantarflexion (S1) 4 Good Inversion 5 Normal Eversion (S1) 5 Normal Comments L knee pain with Quadriceps testing. PT-OP-Q Treatments Start: 06/13/19 17:35 Freq: Status: Active Protocol: Document 10/03/19 16:45 DCW (Rec: 10/03/19 17:37 DCW [id number]) Manual Therapy Treatment Soft Tissue Mobilization Gastrosoleus Body Location B Calf Mobilization Type Cross-Friction,Strumming, Sustained Pressure,Trigger Point Release Body Position Prone Foot STM Body Location Bilateral feet Mobilization Type Cross-Friction,Instrument Assisted,Sustained Pressure Intensity/Depth Moderate Body Position Prone PT-OP-R Modalities Start: 06/13/19 17:35 Freq: Status: Active Protocol: Document 10/03/19 16:45 DCW (Rec: 10/03/19 17:37 DCW [id number]) Ultrasound Therapy Treatment L foot plantar fascia Treatment Duration (minutes) 5 Patient Position Supine Mode Setting Pulsed Duty Cycle 50% Intensity Setting (w/cm2) 1.5 R foot plantar fascia Treatment Duration (minutes) 5 Patient Position Supine Mode Setting Pulsed Duty Cycle 50% Intensity Setting (w/cm2) 1.0 PT-OP-S Aquatic Treatment Start: 07/08/19 16:16 Freq: Status: Active Protocol: Document 08/15/19 11:00 [id number] (Rec: 08/15/19 16:12 LJ [id number]) Aquatics Treatment Pool Entry/Exit Pool Entry/Exit Method Stairs Assistance Independent Water Walking forward with reverse breast stroke Water Level Chest Level Comments cues for core involvement Monster Walk Water Level Waist Level Comments cued to raise up on toes for push off [place] December Water Level Waist Level Comments arms reaching to opp side Sideways Water Level Waist Level Backwards Water Level Waist Level forward Water Level Waist Level Comments heel-toe Lower Extremity Exercises kick backs Body Position Standing Water Level Waist Level Reps/Duration 15x2 bilat Comments at wall heel toe raises Body Position Standing Water Level Chest Level Reps/Duration 20 circumduction Body Position Standing Water Level Chest Level Reps/Duration 2x12 bilat ab/ad Water Level Chest Level Reps/Duration 12x2 bilat flex/ext Water Level Chest Level Reps/Duration 12x2 bilat Lower Extremity Stretches hip flexor and quads Body Position Standing Water Level Chest Level Equipment Large Noodle Reps/Duration 2x45 Comments cueing for standing upright piriformis Details on wall Reps/Duration 2 min spider on wall Reps/Duration 2 min Comments with body swing HS Comments deep; modified downward dog gastroc, soleus Body Position Standing Water Level Waist Level Reps/Duration 45x2 Comments rocking foot side to side HC Body Position Standing Water Level Chest Level Reps/Duration 45x3 bilat Comments on stairs with toes against upper step for toe flexion Upper Extremity Exercises flex,ext, abd, add, Body Position Standing Water Level Chest Level Equipment UE paddles Reps/Duration 10x each bilat Upper Extremity Stretches pec stretch Body Position Standing Water Level Chest Level Equipment UE paddles Reps/Duration 2 min Comments rotating side to side Spinal Exercises cat cow stretch at wall Water Level [place] Reps/Duration 2 min SKTC, DKTC Water Level [place] Reps/Duration 2 min at wall [place] Activities [place] Activities Bicycle,Bicycle Backwards, Cross Country,Hip Abduction/ Adduction Other Activities pendulum forward backward shoot thru abdominal curls (knees to chest one vert. 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 LTG Duration 12/01/19 Six Impairment Bilateral Foot pain rated 7-8/ 10 Short Term Goal (STG) Decrease bilateral foot pain on first standing in the morning to no greater than 1/ 10. 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 LTG Duration 12/01/19 Five Impairment Pt navicular bone collapse to 2.7 (L) and 3.2 (R) cm from floor Cutter Tender Goal (LTG) Pt to stand with neutral forefoot and proper arches with navicular 4.0 cm from floor LTG Duration 12/01/19 (09/02/19: Goal not assessed) Four Impairment Medial boarder of scapula 10 cm from spine at rest Intermediate Goal (LTG) Pt to present with less of a rounded shoulder posture by decreasing distance between medial boarder and spine to 6 cm at rest LTG Duration 12/01/19 (09/02/19: Progressing) Three Impairment Pt displays weakness in core muscles 3+/5 Cutter Tender Goal (LTG) Pt to display 4/5 MMT of TrA LTG Duration 12/01/19 (09/02/19: GOAL NOT MET, last 2 weeks increased weakness) Two Impairment Pt unable to stand longer than 10-15 minutes at [employer] stand Intermediate Goal (LTG) Pt to be able to tolerate standing 45 minutes when working at the [employer] with no increased pain. LTG Duration 12/01/19 (09/02/19: GOAL NOT MET, NO CHANGE) One Impairment Pt does not have an appropriate home exercise program Short Term Goal (STG) Pt to be independent and compliant with an appropriate HEP STG Duration 07/14/19 (09/02/19: GOAL MET to date for her back care, further care needed) Cutter Tender Goal (LTG) Pt will be independent with a self care HEP of foot/ankle exercises and educated in proper foot care for management of her pain. LTG Duration 12/01/19 Assessment Summary Assessment Pt being much more compliant recently with her HEP, able to limit walking as well. Pt showing improvement in foot pain. Physical Therapy Plan Frequency and Duration Frequency of Treatment 2x/Week Duration of Treatment Two months Plan of Care Start Date 09/02/19 Plan of Care End Date 12/01/19 Therapeutic Interventions Therapeutic Interventions Aquatic Therapy,Home Exercise Program,Joint Mobilizations, Manual Therapy,Patient/ Caregiver Education,Self-Care/ Home Management,Soft Tissue Mobilization,Therapeutic Exercises Modalities Cold Pack/Ice Massage,Electric Stimulation,Hot Packs, Iontophoresis,Ultrasound Other Therapeutic Interventions Iontophoresis with 4mg/ml Dexamethosone with Sodium Phosphate. Next Visit Focus/Plan Next Note Type Treatment Note Next Visit Plan Monitor for leg length discrepancy, add L ankle EV stretch. Review performing a TA reflexively, progress core/ pelvic stabilization and cont US and DTM to plantar fascia, review standing achilles stretch jenn & Big toe ext stretch; progress plantar arch strengthening. Iontophoresis if allowed with POC. Try K-tape if pain doesn 't decrease and ionto not being used. Hold manual therapy and pool sessions for thoracic and cervical spine ex's/core stabilization until focus of therapy changes from feet to back. When returning to pool, can add resistance equipment and/or wts in pool for LE strengthening and increase intensity in deep water activities as tolerated, if still appropriate.
--- NOTE | 2019-10-07 16:04 | PT.OTN ---
Current Diagnoses Cervicalgia (10/07/19) Dorsalgia, unspecified (10/07/19) Muscle weakness (generalized) (10/07/19) Abnormal posture (10/07/19) Physical Therapy Treatment Note PT-OP-A Visit Information Start: 06/13/19 17:35 Freq: Status: Active Protocol: Document 10/07/19 10:42 LRN (Rec: 10/07/19 12:33 LRN [id number]) Out-Patient Physical Therapy Visit Information Visit Information Visit Type Treatment Note Visit Start Time 10:42 Visit Stop Time 11:22 Total Visit Minutes 40 Visit Number 20 Number of RELIGION INSTRUCTOR Visits 0 Evaluation Information Evaluation Date 06/13/19 Precautions Precautions X-ray of 02/28/19: Loss of Lordosis & mild DDD C5-C6, mild [place] lumbar DDD and levocurvature, trace retrolisthesis L2-L3, L3-L4. Arthralgia, Mitral Valve regurgitation, Heel Bone spurs , Asthma. PT-OP-B Current Condition Start: 06/13/19 17:35 Freq: Status: Active Protocol: Document 09/02/19 10:31 LRN (Rec: 09/02/19 12:46 LRN [id number]) Current Condition History of Current Condition Onset Date 2015 Current Complaints Can't walk far due to extreme sharp stabbing pain feet. History of Current Condition States her connective tissue is shortened in back and going down to feet. Notes diet and sleep changes due to arthritis. Wants to do back therapy as well, because finds it very helpful. Knows she must do stretching daily forever and is addressing diet . Sugar, gluten, and carb free. Notices w/o sugar moves better. Pain is like a red hot poker. Prior Treatments and Tests 1 cortisone shot in 1 foot, unable to recall which foot, was not helpful. 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 Does pack test carrying 45# for 3 minutes on flat surface yearly , recently performed test and passed. Treatment Goals Patient/Caregiver Goals Pt goal is to reverse the plantar fasciitis and heal all pain from walking. Prior Functional Status Baseline Function- ADL's Independent Baseline Function- Mobility Independent Baseline Function- Gait 3 yrs ago walked without pain. Worsened 2 yrs ago & started seeking care. 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 Pt also works at the [employer] selling honey Baseline Function- Other 1st in AM upon standing painful for the past 3 yrs, worsening feet pain in the past 2 yrs with walking, and having trouble walking in volunteer search & rescue job. Current Functional Impairments (Reported) Functional Limitations- ADL's Decreased tolerance to stair ambulation. Support with standing upon waking. Functional Limitations- Mobility/Gait Walking > 20' Functional Limitations- Work/School Limited in work tolerance. Functional Limitations- Other 1st in AM upon standing painful. Extreme pain with standing for her personal business for any length of time. Walk a block before starting to get extreme pain in the feet, one or both. If keep going, then must stop and offload foot hurting. Personal Factors Other Personal Factors That May Effect PMH: Pelvic pain and bloating Therapy/Recovery - progressively worsening in last 6 month. Has uterine polyp being removed 10/13, and ovarian cysts. Endoscopy and colonoscopy test scheduled 09/29/19, due to pelvic pain and routine. PT-OP-C Subjective Start: 06/13/19 17:35 Freq: Status: Active Protocol: Document 10/07/19 10:42 LRN (Rec: 10/07/19 12:33 LRN [id number]) OP-PT Subjective Patient Comments Patient Comments Abdominal discomfort from UTI; therefore not doing TA ex's as much as should. polyps removed 1 week ago and colonoscopy 8 days ago. States she is slowly starting to feel better. Doing more icing and staying off her feet more. Has had shoe inserts and night splints about a week ago. PT-OP-F Manual Assessment Start: 06/13/19 17:35 Freq: Status: Active Protocol: Document 06/13/19 13:45 DCW (Rec: 06/14/19 14:28 DCW [id number]) Manual Assessments Soft Tissue Assessment Soft Tissue Mobility Assessment Lumbar paraspinals, QL Moderate tone, tenderness to palpation 3/4: Wincing and withdraw PT-OP-J Posture/Palpation/Skin Start: 06/13/19 17:35 Freq: Status: Active Protocol: Document 09/02/19 10:31 LRN (Rec: 09/02/19 12:46 LRN [id number]) Posture Evaluation Position Standing no shoes Evaluation View All positions Head/C-Spine Posture Forward Head T-Spine Posture Flattened,Flexible Scoliosis on (L) Shoulder Posture (R) Elevated Pelvis Posture (L) Iliac Crest Inferior Knee Posture (L) Genu Valgus,(R) Genu Valgus Ankle/Foot Posture (L) Calcaneal Eversion Foot Arch (L) Low Arch,(R) Low Arch Palpation Assessment Location L foot Palpation Location Lateral Plantar aspect of foot and heel Palpation Findings Tenderness R foot Palpation Location Lateral Plantar aspect of foot and heel Palpation Findings Tenderness PT-OP-K Range of Motion Start: 06/13/19 17:35 Freq: Status: Active Protocol: Document 09/02/19 10:31 LRN (Rec: 09/02/19 12:46 LRN [id number]) Knee Goniometric Range of Motion Knee Right Knee ROM WFL Yes Left Knee ROM WFL Yes Ankle and Foot Goniometric Range of Motion Ankle and Foot Right Active Testing Position Supine Dorsiflexion with Knee Extended 7 Plantarflexion 58 Inversion 26 Eversion 22 Left Active Testing Position Supine Dorsiflexion with Knee Extended 6 Plantarflexion 54 Inversion 27 Eversion 14 Ankle and Foot ROM Limitations Comments Active ankle DF causes gastrocnemius pain complaints bilaterally, and LBP on the right. Toe Range of Motion Toe Left Great Toe MTP Extension Active (degrees) 50 Right Great Toe MTP Extension Active (degrees) 40 Toes ROM Limitations Toe ROM Limitations Soft Tissue Tightness Comments Big Toe Extension: 50 left, 40 right. PT-OP-L Special Tests Start: 06/13/19 17:35 Freq: Status: Active Protocol: Document 07/05/19 12:00 DCW (Rec: 07/05/19 12:31 DCW [id number]) Special Tests Cervical Spine Special Tests Spurling's Test Test Results Negative Slump Test Results Negative Passive Neck Flexion Test Results Negative Foraminal Compression Test Results Negative PT-OP-M Strength Start: 06/13/19 17:35 Freq: Status: Active Protocol: Document 09/02/19 10:31 LRN (Rec: 09/02/19 12:46 LRN [id number]) Trunk Strength Trunk Manual Muscle Testing Testing Position Supine Core Stabilization Pt was not able to maintain core stabilization with sitting or supine movement/leg resistance. Knee Strength Knee Manual Muscle Testing Right Flexion (S2) 4+ Good+ Extension (L3) 5 Normal Left Flexion (S2) 3 Fair Extension (L3) 5 Normal Ankle/Foot Strength Ankle and Foot Manual Muscle Testing Right Dorsiflexion (L4) 4 Good Plantarflexion (S1) 4 Good Inversion 5 Normal Eversion (S1) 5 Normal Left Dorsiflexion (L4) 3 Fair Plantarflexion (S1) 4 Good Inversion 5 Normal Eversion (S1) 5 Normal Comments L knee pain with Quadriceps testing. PT-OP-Q Treatments Start: 06/13/19 17:35 Freq: Status: Active Protocol: Document 10/07/19 10:42 LRN (Rec: 10/07/19 12:33 LRN [id number]) Therapeutic Exercises Supine Exercises TA with cough Supine Exercise Name TA with cough: Gentle to Harder cough Equipment Used 3' TA in neutral spine Supine Exercise Name TA. Assisted by breathing out & Shhh. Reps/Minutes 10' Comments Shhhhh and cough causes bulging. bridges Supine Exercise Name Bridge Reps/Minutes 2' Manual Therapy Treatment Soft Tissue Mobilization Gastrosoleus Body Location B Calf Mobilization Type Cross-Friction,Strumming, Sustained Pressure,Trigger Point Release Body Position Prone Foot STM Body Location Bilateral feet Mobilization Type Cross-Friction,Instrument Assisted,Sustained Pressure Intensity/Depth Moderate Body Position Prone PT-OP-R Modalities Start: 06/13/19 17:35 Freq: Status: Active Protocol: Document 10/07/19 10:42 LRN (Rec: 10/07/19 12:33 LRN [id number]) Ultrasound Therapy Treatment L foot plantar fascia Treatment Duration (minutes) 5 Patient Position Supine Mode Setting Pulsed Duty Cycle 50% Intensity Setting (w/cm2) 1.5 R foot plantar fascia Treatment Duration (minutes) 5 Patient Position Supine Mode Setting Pulsed Duty Cycle 50% Intensity Setting (w/cm2) 1.0 PT-OP-S Aquatic Treatment Start: 07/08/19 16:16 Freq: Status: Active Protocol: Document 08/15/19 11:00 LJ (Rec: 08/15/19 16:12 LJ [id number]) Aquatics Treatment Pool Entry/Exit Pool Entry/Exit Method Stairs Assistance Independent Water Walking forward with reverse breast stroke Water Level Chest Level Comments cues for core involvement Monster Walk Water Level Waist Level Comments cued to raise up on toes for push off [place] December Water Level Waist Level Comments arms reaching to opp side Sideways Water Level Waist Level Backwards Water Level Waist Level forward Water Level Waist Level Comments heel-toe Lower Extremity Exercises kick backs Body Position Standing Water Level Waist Level Reps/Duration 15x2 bilat Comments at wall heel toe raises Body Position Standing Water Level Chest Level Reps/Duration 20 circumduction Body Position Standing Water Level Chest Level Reps/Duration 2x12 bilat ab/ad Water Level Chest Level Reps/Duration 12x2 bilat flex/ext Water Level Chest Level Reps/Duration 12x2 bilat Lower Extremity Stretches hip flexor and quads Body Position Standing Water Level Chest Level Equipment Large Noodle Reps/Duration 2x45 Comments cueing for standing upright piriformis Details on wall Reps/Duration 2 min spider on wall Reps/Duration 2 min Comments with body swing HS Comments deep; modified downward dog gastroc, soleus Body Position Standing Water Level Waist Level Reps/Duration 45x2 Comments rocking foot side to side HC Body Position Standing Water Level Chest Level Reps/Duration 45x3 bilat Comments on stairs with toes against upper step for toe flexion Upper Extremity Exercises flex,ext, abd, add, Body Position Standing Water Level Chest Level Equipment UE paddles Reps/Duration 10x each bilat Upper Extremity Stretches pec stretch Body Position Standing Water Level Chest Level Equipment UE paddles Reps/Duration 2 min Comments rotating side to side Spinal Exercises cat cow stretch at wall Water Level [place] Reps/Duration 2 min SKTC, DKTC Water Level [place] Reps/Duration 2 min at wall [place] Activities [place] Activities Bicycle,Bicycle Backwards, Cross Country,Hip Abduction/ Adduction Other Activities pendulum forward backward shoot thru abdominal curls (knees to chest one vert. at a time Equipment waist float Duration 10 PT-OP-T Assessment and Plan Start: 06/13/19 17:35 Freq: Status: Active Protocol: Document 10/07/19 10:42 LRN (Rec: 10/07/19 12:33 LRN [id number]) Physical Therapy Assessment Assessment Summary Assessment Pt appears to be trying to be more compliant with her self fpc treatment. 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 Pt hips were level today; therefore focus was on foot pain. Physical Therapy Plan Frequency and Duration Frequency of Treatment 2x/Week Duration of Treatment Two months Plan of Care Start Date 09/02/19 Plan of Care End Date 12/01/19 Next Visit Focus/Plan Next Note Type Treatment Note Next Visit Plan Assess progress towards goals. Monitor for leg length discrepancy, add L ankle EV stretch. Promote reflexive and progress towards doing a TA reflexively. Progress core /pelvic stabilization and cont US and DTM to plantar fascia, review standing Big toe ext stretch; progress plantar arch strengthening. Iontophoresis if allowed with POC. Consider K-tape if pain doesn't decrease and ionto not being used. Hold manual therapy and pool sessions for thoracic and cervical spine ex's/core stabilization until focus of therapy changes from feet to back. When returning to pool, can add resistance equipment and/or wts in pool for LE strengthening and increase intensity in deep water activities as tolerated, if still appropriate.
--- NOTE | 2019-10-10 17:37 | PT.OTN ---
Current Diagnoses Cervicalgia (10/10/19) Dorsalgia, unspecified (10/10/19) Muscle weakness (generalized) (10/10/19) Abnormal posture (10/10/19) Physical Therapy Treatment Note PT-OP-A Visit Information Start: 06/13/19 17:35 Freq: Status: Active Protocol: Document 10/10/19 16:50 DCW (Rec: 10/10/19 17:36 DCW [id number]) Out-Patient Physical Therapy Visit Information Visit Information Visit Type Treatment Note Visit Start Time 16:50 Visit Stop Time 17:30 Total Visit Minutes 40 Visit Number 21 Number of [employer]KER TECHNICIAN Visits 0 Evaluation Information Evaluation Date 06/13/19 Precautions Precautions X-ray of 02/28/19: Loss of Lordosis & mild DDD C5-C6, mild [place] lumbar DDD and levocurvature, trace retrolisthesis L2-L3, L3-L4. Arthralgia, Mitral Valve regurgitation, Heel Bone spurs , Asthma. PT-OP-B Current Condition Start: 06/13/19 17:35 Freq: Status: Active Protocol: Document 09/02/19 10:31 LRN (Rec: 09/02/19 12:46 LRN [id number]) Current Condition History of Current Condition Onset Date 2015 Current Complaints Can't walk far due to extreme sharp stabbing pain feet. History of Current Condition States her connective tissue is shortened in back and going down to feet. Notes diet and sleep changes due to arthritis. Wants to do back therapy as well, because finds it very helpful. Knows she must do stretching daily forever and is addressing diet . Sugar, gluten, and carb free. Notices w/o sugar moves better. Pain is like a red hot poker. Prior Treatments and Tests 1 cortisone shot in 1 foot, unable to recall which foot, was not helpful. 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 Does pack test carrying 45# for 3 minutes on flat surface yearly , recently performed test and passed. Treatment Goals Patient/Caregiver Goals Pt goal is to reverse the plantar fasciitis and heal all pain from walking. Prior Functional Status Baseline Function- ADL's Independent Baseline Function- Mobility Independent Baseline Function- Gait 3 yrs ago walked without pain. Worsened 2 yrs ago & started seeking care. 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 Current Functional Impairments (Reported) Functional Limitations- ADL's Decreased tolerance to stair ambulation. Support with standing upon waking. Functional Limitations- Mobility/Gait Walking > 20' Functional Limitations- Work/School Limited in work tolerance. Functional Limitations- Other 1st in AM upon standing painful. Extreme pain with standing for her personal business for any length of time. Walk a block before starting to get extreme pain in the feet, one or both. If keep going, then must stop and offload foot hurting. Personal Factors Other Personal Factors That May Effect PMH: Pelvic pain and bloating Therapy/Recovery - progressively worsening in last 6 month. Has uterine polyp being removed 10/13, and ovarian cysts. Endoscopy and colonoscopy test scheduled 09/29/19, due to pelvic pain and routine. PT-OP-C Subjective Start: 06/13/19 17:35 Freq: Status: Active Protocol: Document 10/10/19 16:50 DCW (Rec: 10/10/19 17:36 DCW [id number]) OP-PT Subjective Patient Comments Patient Comments I know of irritated it over the weekend at a show, because I lost my crutches, but overall I'm starting to see an improvement, especially first thing in the morning. PT-OP-F Manual Assessment Start: 06/13/19 17:35 Freq: Status: Active Protocol: Document 06/13/19 13:45 DCW (Rec: 06/14/19 14:28 DCW [id number]) Manual Assessments Soft Tissue Assessment Soft Tissue Mobility Assessment Lumbar paraspinals, QL Moderate tone, tenderness to palpation 3/4: Wincing and withdraw PT-OP-J Posture/Palpation/Skin Start: 06/13/19 17:35 Freq: Status: Active Protocol: Document 09/02/19 10:31 LRN (Rec: 09/02/19 12:46 LRN [id number]) Posture Evaluation Position Standing no shoes Evaluation View All positions Head/C-Spine Posture Forward Head T-Spine Posture Flattened,Flexible Scoliosis on (L) Shoulder Posture (R) Elevated Pelvis Posture (L) Iliac Crest Inferior Knee Posture (L) Genu Valgus,(R) Genu Valgus Ankle/Foot Posture (L) Calcaneal Eversion Foot Arch (L) Low Arch,(R) Low Arch Palpation Assessment Location L foot Palpation Location Lateral Plantar aspect of foot and heel Palpation Findings Tenderness R foot Palpation Location Lateral Plantar aspect of foot and heel Palpation Findings Tenderness PT-OP-K Range of Motion Start: 06/13/19 17:35 Freq: Status: Active Protocol: Document 09/02/19 10:31 LRN (Rec: 09/02/19 12:46 LRN [id number]) Knee Goniometric Range of Motion Knee Right Knee ROM WFL Yes Left Knee ROM WFL Yes Ankle and Foot Goniometric Range of Motion Ankle and Foot Right Active Testing Position Supine Dorsiflexion with Knee Extended 7 Plantarflexion 58 Inversion 26 Eversion 22 Left Active Testing Position Supine Dorsiflexion with Knee Extended 6 Plantarflexion 54 Inversion 27 Eversion 14 Ankle and Foot ROM Limitations Comments Active ankle DF causes gastrocnemius pain complaints bilaterally, and LBP on the right. Toe Range of Motion Toe Left Great Toe MTP Extension Active (degrees) 50 Right Great Toe MTP Extension Active (degrees) 40 Toes ROM Limitations Toe ROM Limitations Soft Tissue Tightness Comments Big Toe Extension: 50 left, 40 right. PT-OP-L Special Tests Start: 06/13/19 17:35 Freq: Status: Active Protocol: Document 07/05/19 12:00 DCW (Rec: 07/05/19 12:31 DCW [id number]) Special Tests Cervical Spine Special Tests Spurling's Test Test Results Negative Slump Test Results Negative Passive Neck Flexion Test Results Negative Foraminal Compression Test Results Negative PT-OP-M Strength Start: 06/13/19 17:35 Freq: Status: Active Protocol: Document 09/02/19 10:31 LRN (Rec: 09/02/19 12:46 LRN [id number]) Trunk Strength Trunk Manual Muscle Testing Testing Position Supine Core Stabilization Pt was not able to maintain core stabilization with sitting or supine movement/leg resistance. Knee Strength Knee Manual Muscle Testing Right Flexion (S2) 4+ Good+ Extension (L3) 5 Normal Left Flexion (S2) 3 Fair Extension (L3) 5 Normal Ankle/Foot Strength Ankle and Foot Manual Muscle Testing Right Dorsiflexion (L4) 4 Good Plantarflexion (S1) 4 Good Inversion 5 Normal Eversion (S1) 5 Normal Left Dorsiflexion (L4) 3 Fair Plantarflexion (S1) 4 Good Inversion 5 Normal Eversion (S1) 5 Normal Comments L knee pain with Quadriceps testing. PT-OP-Q Treatments Start: 06/13/19 17:35 Freq: Status: Active Protocol: Document 10/10/19 16:50 DCW (Rec: 10/10/19 17:36 DCW [id number]) Manual Therapy Treatment Soft Tissue Mobilization Gastrosoleus Body Location B Calf Mobilization Type Cross-Friction,Strumming, Sustained Pressure,Trigger Point Release Body Position Prone Foot STM Body Location Bilateral feet Mobilization Type Cross-Friction,Instrument Assisted,Sustained Pressure Intensity/Depth Moderate Body Position Prone PT-OP-R Modalities Start: 06/13/19 17:35 Freq: Status: Active Protocol: Document 10/10/19 16:50 DCW (Rec: 10/10/19 17:36 DCW [id number]) Ultrasound Therapy Treatment L foot plantar fascia Treatment Duration (minutes) 5 Patient Position Supine Mode Setting Pulsed Duty Cycle 50% Intensity Setting (w/cm2) 1.5 R foot plantar fascia Treatment Duration (minutes) 5 Patient Position Supine Mode Setting Pulsed Duty Cycle 50% Intensity Setting (w/cm2) 1.0 PT-OP-S Aquatic Treatment Start: 07/08/19 16:16 Freq: Status: Active Protocol: Document 08/15/19 11:00 [id number] (Rec: 08/15/19 16:12 LJ [id number]) Aquatics Treatment Pool Entry/Exit Pool Entry/Exit Method Stairs Assistance Independent Water Walking forward with reverse breast stroke Water Level Chest Level Comments cues for core involvement Monster Walk Water Level Waist Level Comments cued to raise up on toes for push off [place] December Water Level Waist Level Comments arms reaching to opp side Sideways Water Level Waist Level Backwards Water Level Waist Level forward Water Level Waist Level Comments heel-toe Lower Extremity Exercises kick backs Body Position Standing Water Level Waist Level Reps/Duration 15x2 bilat Comments at wall heel toe raises Body Position Standing Water Level Chest Level Reps/Duration 20 circumduction Body Position Standing Water Level Chest Level Reps/Duration 2x12 bilat ab/ad Water Level Chest Level Reps/Duration 12x2 bilat flex/ext Water Level Chest Level Reps/Duration 12x2 bilat Lower Extremity Stretches hip flexor and quads Body Position Standing Water Level Chest Level Equipment Large Noodle Reps/Duration 2x45 Comments cueing for standing upright piriformis Details on wall Reps/Duration 2 min spider on wall Reps/Duration 2 min Comments with body swing HS Comments deep; modified downward dog gastroc, soleus Body Position Standing Water Level Waist Level Reps/Duration 45x2 Comments rocking foot side to side HC Body Position Standing Water Level Chest Level Reps/Duration 45x3 bilat Comments on stairs with toes against upper step for toe flexion Upper Extremity Exercises flex,ext, abd, add, Body Position Standing Water Level Chest Level Equipment UE paddles Reps/Duration 10x each bilat Upper Extremity Stretches pec stretch Body Position Standing Water Level Chest Level Equipment UE paddles Reps/Duration 2 min Comments rotating side to side Spinal Exercises cat cow stretch at wall Water Level [place] Reps/Duration 2 min SKTC, DKTC Water Level [place] Reps/Duration 2 min at wall [place] Activities [place] Activities Bicycle,Bicycle Backwards, Cross Country,Hip Abduction/ Adduction Other Activities pendulum forward backward shoot thru abdominal curls (knees to chest one vert. 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 LTG Duration 12/01/19 Six Impairment Bilateral Foot pain rated 7-8/ 10 Short Term Goal (STG) Decrease bilateral foot pain on first standing in the morning to no greater than 1/ 10. 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 LTG Duration 12/01/19 Five Impairment Pt navicular bone collapse to 2.7 (L) and 3.2 (R) cm from floor Trestle Mainternance Laborer Goal (LTG) Pt to stand with neutral forefoot and proper arches with navicular 4.0 cm from floor LTG Duration 12/01/19 (09/02/19: Goal not assessed) Four Impairment Medial boarder of scapula 10 cm from spine at rest Assisted Goal (LTG) Pt to present with less of a rounded shoulder posture by decreasing distance between medial boarder and spine to 6 cm at rest LTG Duration 12/01/19 (09/02/19: Progressing) Three Impairment Pt displays weakness in core muscles 3+/5 Assisted Goal (LTG) Pt to display 4/5 MMT of TrA LTG Duration 12/01/19 (09/02/19: GOAL NOT MET, last 2 weeks increased weakness) Two Impairment Pt unable to stand longer than 10-15 minutes at [employer] stand Assisted Goal (LTG) Pt to be able to tolerate standing 45 minutes when working at the [employer] with no increased pain. LTG Duration 12/01/19 (09/02/19: GOAL NOT MET, NO CHANGE) One Impairment Pt does not have an appropriate home exercise program Short Term Goal (STG) Pt to be independent and compliant with an appropriate HEP STG Duration 07/14/19 (09/02/19: GOAL MET to date for her back care, further care needed) Trestle Mainternance Laborer Goal (LTG) Pt will be independent with a self care HEP of foot/ankle exercises and educated in proper foot care for management of her pain. LTG Duration 12/01/19 Assessment Summary Assessment Pt appears to be progressing well with her foot pain, especially now that she is doing a much better job with her home program and staying off her feet. Physical Therapy Plan Frequency and Duration Frequency of Treatment 2x/Week Duration of Treatment Two months Plan of Care Start Date 09/02/19 Plan of Care End Date 12/01/19 Therapeutic Interventions Therapeutic Interventions Aquatic Therapy,Home Exercise Program,Joint Mobilizations, Manual Therapy,Patient/ Caregiver Education,Self-Care/ Home Management,Soft Tissue Mobilization,Therapeutic Exercises Modalities Cold Pack/Ice Massage,Electric Stimulation,Hot Packs, Iontophoresis,Ultrasound Other Therapeutic Interventions Iontophoresis with 4mg/ml Dexamethosone with Sodium Phosphate. Next Visit Focus/Plan Next Note Type Treatment Note Next Visit Plan Monitor for leg length discrepancy, add L ankle EV stretch. Review performing a TA reflexively, progress core/ pelvic stabilization and cont US and DTM to plantar fascia, review standing achilles stretch jenn & Big toe ext stretch; progress plantar arch strengthening. Iontophoresis if allowed with POC. Try K-tape if pain doesn 't decrease and ionto not being used. Hold manual therapy and pool sessions for thoracic and cervical spine ex's/core stabilization until focus of therapy changes from feet to back. When returning to pool, can add resistance equipment and/or wts in pool for LE strengthening and increase intensity in deep water activities as tolerated, if still appropriate.
--- NOTE | 2019-10-14 11:16 | PT.OTN ---
Current Diagnoses Cervicalgia (10/14/19) Dorsalgia, unspecified (10/14/19) Muscle weakness (generalized) (10/14/19) Abnormal posture (10/14/19) Physical Therapy Treatment Note PT-OP-A Visit Information Start: 06/13/19 17:35 Freq: Status: Active Protocol: Document 10/14/19 10:30 DCW (Rec: 10/14/19 11:15 DCW [id number]) Out-Patient Physical Therapy Visit Information Visit Information Visit Type Treatment Note Visit Start Time 10:30 Visit Stop Time 11:15 Total Visit Minutes 45 Visit Number 22 Number of VOICE WRITING REPORTER Visits 0 Evaluation Information Evaluation Date 06/13/19 Precautions Precautions X-ray of 02/28/19: Loss of Lordosis & mild DDD C5-C6, mild [place] lumbar DDD and levocurvature, trace retrolisthesis L2-L3, L3-L4. Arthralgia, Mitral Valve regurgitation, Heel Bone spurs , Asthma. PT-OP-B Current Condition Start: 06/13/19 17:35 Freq: Status: Active Protocol: Document 09/02/19 10:31 LRN (Rec: 09/02/19 12:46 LRN [id number]) Current Condition History of Current Condition Onset Date 2015 Current Complaints Can't walk far due to extreme sharp stabbing pain feet. History of Current Condition States her connective tissue is shortened in back and going down to feet. Notes diet and sleep changes due to arthritis. Wants to do back therapy as well, because finds it very helpful. Knows she must do stretching daily forever and is addressing diet . Sugar, gluten, and carb free. Notices w/o sugar moves better. Pain is like a red hot poker. Prior Treatments and Tests 1 cortisone shot in 1 foot, unable to recall which foot, was not helpful. 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 Does pack test carrying 45# for 3 minutes on flat surface yearly , recently performed test and passed. Treatment Goals Patient/Caregiver Goals Pt goal is to reverse the plantar fasciitis and heal all pain from walking. Prior Functional Status Baseline Function- ADL's Independent Baseline Function- Mobility Independent Baseline Function- Gait 3 yrs ago walked without pain. Worsened 2 yrs ago & started seeking care. 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 Current Functional Impairments (Reported) Functional Limitations- ADL's Decreased tolerance to stair ambulation. Support with standing upon waking. Functional Limitations- Mobility/Gait Walking > 20' Functional Limitations- Work/School Limited in work tolerance. Functional Limitations- Other 1st in AM upon standing painful. Extreme pain with standing for her personal business for any length of time. Walk a block before starting to get extreme pain in the feet, one or both. If keep going, then must stop and offload foot hurting. Personal Factors Other Personal Factors That May Effect PMH: Pelvic pain and bloating Therapy/Recovery - progressively worsening in last 6 month. Has uterine polyp being removed 10/13, and ovarian cysts. Endoscopy and colonoscopy test scheduled 09/29/19, due to pelvic pain and routine. PT-OP-C Subjective Start: 06/13/19 17:35 Freq: Status: Active Protocol: Document 10/14/19 10:30 DCW (Rec: 10/14/19 11:15 DCW [id number]) OP-PT Subjective Patient Comments Patient Comments I think I aggravated it by eating sugar and forgetting my crutches. I'm still improved, but I back-slid a little bit. PT-OP-F Manual Assessment Start: 06/13/19 17:35 Freq: Status: Active Protocol: Document 06/13/19 13:45 DCW (Rec: 06/14/19 14:28 DCW [id number]) Manual Assessments Soft Tissue Assessment Soft Tissue Mobility Assessment Lumbar paraspinals, QL Moderate tone, tenderness to palpation 3/4: Wincing and withdraw PT-OP-J Posture/Palpation/Skin Start: 06/13/19 17:35 Freq: Status: Active Protocol: Document 09/02/19 10:31 LRN (Rec: 09/02/19 12:46 LRN [id number]) Posture Evaluation Position Standing no shoes Evaluation View All positions Head/C-Spine Posture Forward Head T-Spine Posture Flattened,Flexible Scoliosis on (L) Shoulder Posture (R) Elevated Pelvis Posture (L) Iliac Crest Inferior Knee Posture (L) Genu Valgus,(R) Genu Valgus Ankle/Foot Posture (L) Calcaneal Eversion Foot Arch (L) Low Arch,(R) Low Arch Palpation Assessment Location L foot Palpation Location Lateral Plantar aspect of foot and heel Palpation Findings Tenderness R foot Palpation Location Lateral Plantar aspect of foot and heel Palpation Findings Tenderness PT-OP-K Range of Motion Start: 06/13/19 17:35 Freq: Status: Active Protocol: Document 09/02/19 10:31 LRN (Rec: 09/02/19 12:46 LRN [id number]) Knee Goniometric Range of Motion Knee Right Knee ROM WFL Yes Left Knee ROM WFL Yes Ankle and Foot Goniometric Range of Motion Ankle and Foot Right Active Testing Position Supine Dorsiflexion with Knee Extended 7 Plantarflexion 58 Inversion 26 Eversion 22 Left Active Testing Position Supine Dorsiflexion with Knee Extended 6 Plantarflexion 54 Inversion 27 Eversion 14 Ankle and Foot ROM Limitations Comments Active ankle DF causes gastrocnemius pain complaints bilaterally, and LBP on the right. Toe Range of Motion Toe Left Great Toe MTP Extension Active (degrees) 50 Right Great Toe MTP Extension Active (degrees) 40 Toes ROM Limitations Toe ROM Limitations Soft Tissue Tightness Comments Big Toe Extension: 50 left, 40 right. PT-OP-L Special Tests Start: 06/13/19 17:35 Freq: Status: Active Protocol: Document 07/05/19 12:00 DCW (Rec: 07/05/19 12:31 DCW [id number]) Special Tests Cervical Spine Special Tests Spurling's Test Test Results Negative Slump Test Results Negative Passive Neck Flexion Test Results Negative Foraminal Compression Test Results Negative PT-OP-M Strength Start: 06/13/19 17:35 Freq: Status: Active Protocol: Document 09/02/19 10:31 LRN (Rec: 09/02/19 12:46 LRN [id number]) Trunk Strength Trunk Manual Muscle Testing Testing Position Supine Core Stabilization Pt was not able to maintain core stabilization with sitting or supine movement/leg resistance. Knee Strength Knee Manual Muscle Testing Right Flexion (S2) 4+ Good+ Extension (L3) 5 Normal Left Flexion (S2) 3 Fair Extension (L3) 5 Normal Ankle/Foot Strength Ankle and Foot Manual Muscle Testing Right Dorsiflexion (L4) 4 Good Plantarflexion (S1) 4 Good Inversion 5 Normal Eversion (S1) 5 Normal Left Dorsiflexion (L4) 3 Fair Plantarflexion (S1) 4 Good Inversion 5 Normal Eversion (S1) 5 Normal Comments L knee pain with Quadriceps testing. PT-OP-Q Treatments Start: 06/13/19 17:35 Freq: Status: Active Protocol: Document 10/14/19 10:30 DCW (Rec: 10/14/19 11:15 DCW [id number]) Manual Therapy Treatment Soft Tissue Mobilization Gastrosoleus Body Location B Calf Mobilization Type Cross-Friction,Strumming, Sustained Pressure,Trigger Point Release Body Position Prone Foot STM Body Location Bilateral feet Mobilization Type Cross-Friction,Instrument Assisted,Sustained Pressure Intensity/Depth Moderate Body Position Prone PT-OP-R Modalities Start: 06/13/19 17:35 Freq: Status: Active Protocol: Document 10/14/19 10:30 DCW (Rec: 10/14/19 11:15 DCW [id number]) Ultrasound Therapy Treatment L foot plantar fascia Treatment Duration (minutes) 5 Patient Position Supine Mode Setting Pulsed Duty Cycle 50% Intensity Setting (w/cm2) 1.5 R foot plantar fascia Treatment Duration (minutes) 5 Patient Position Supine Mode Setting Pulsed Duty Cycle 50% Intensity Setting (w/cm2) 1.0 PT-OP-S Aquatic Treatment Start: 07/08/19 16:16 Freq: Status: Active Protocol: Document 08/15/19 11:00 [id number] (Rec: 08/15/19 16:12 LJ [id number]) Aquatics Treatment Pool Entry/Exit Pool Entry/Exit Method Stairs Assistance Independent Water Walking forward with reverse breast stroke Water Level Chest Level Comments cues for core involvement Monster Walk Water Level Waist Level Comments cued to raise up on toes for push off Boelus December Water Level Waist Level Comments arms reaching to opp side Sideways Water Level Waist Level Backwards Water Level Waist Level forward Water Level Waist Level Comments heel-toe Lower Extremity Exercises kick backs Body Position Standing Water Level Waist Level Reps/Duration 15x2 bilat Comments at wall heel toe raises Body Position Standing Water Level Chest Level Reps/Duration 20 circumduction Body Position Standing Water Level Chest Level Reps/Duration 2x12 bilat ab/ad Water Level Chest Level Reps/Duration 12x2 bilat flex/ext Water Level Chest Level Reps/Duration 12x2 bilat Lower Extremity Stretches hip flexor and quads Body Position Standing Water Level Chest Level Equipment Large Noodle Reps/Duration 2x45 Comments cueing for standing upright piriformis Details on wall Reps/Duration 2 min spider on wall Reps/Duration 2 min Comments with body swing HS Comments deep; modified downward dog gastroc, soleus Body Position Standing Water Level Waist Level Reps/Duration 45x2 Comments rocking foot side to side HC Body Position Standing Water Level Chest Level Reps/Duration 45x3 bilat Comments on stairs with toes against upper step for toe flexion Upper Extremity Exercises flex,ext, abd, add, Body Position Standing Water Level Chest Level Equipment UE paddles Reps/Duration 10x each bilat Upper Extremity Stretches pec stretch Body Position Standing Water Level Chest Level Equipment UE paddles Reps/Duration 2 min Comments rotating side to side Spinal Exercises cat cow stretch at wall Water Level [place] Reps/Duration 2 min SKTC, DKTC Water Level [place] Reps/Duration 2 min at wall [place] Activities [place] Activities Bicycle,Bicycle Backwards, Cross Country,Hip Abduction/ Adduction Other Activities pendulum forward backward shoot thru abdominal curls (knees to chest one vert. 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 LTG Duration 12/01/19 Six Impairment Bilateral Foot pain rated 7-8/ 10 Short Term Goal (STG) Decrease bilateral foot pain on first standing in the morning to no greater than 1/ 10. 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 LTG Duration 12/01/19 Five Impairment Pt navicular bone collapse to 2.7 (L) and 3.2 (R) cm from floor Sales Support Consultant Goal (LTG) Pt to stand with neutral forefoot and proper arches with navicular 4.0 cm from floor LTG Duration 12/01/19 (09/02/19: Goal not assessed) Four Impairment Medial boarder of scapula 10 cm from spine at rest Penitentiary Goal (LTG) Pt to present with less of a rounded shoulder posture by decreasing distance between medial boarder and spine to 6 cm at rest LTG Duration 12/01/19 (09/02/19: Progressing) Three Impairment Pt displays weakness in core muscles 3+/5 Penitentiary Goal (LTG) Pt to display 4/5 MMT of TrA LTG Duration 12/01/19 (09/02/19: GOAL NOT MET, last 2 weeks increased weakness) Two Impairment Pt unable to stand longer than 10-15 minutes at [employer] stand Penitentiary Goal (LTG) Pt to be able to tolerate standing 45 minutes when working at the [employer] with no increased pain. LTG Duration 12/01/19 (09/02/19: GOAL NOT MET, NO CHANGE) One Impairment Pt does not have an appropriate home exercise program Short Term Goal (STG) Pt to be independent and compliant with an appropriate HEP STG Duration 07/14/19 (09/02/19: GOAL MET to date for her back care, further care needed) Penitentiary Goal (LTG) Pt will be independent with a self care HEP of foot/ankle exercises and educated in proper foot care for management of her pain. LTG Duration 12/01/19 Assessment Summary Assessment Pt had small setback with her current pain level, but overall is progressing well. Physical Therapy Plan Frequency and Duration Frequency of Treatment 2x/Week Duration of Treatment Two months Plan of Care Start Date 09/02/19 Plan of Care End Date 12/01/19 Therapeutic Interventions Therapeutic Interventions Aquatic Therapy,Home Exercise Program,Joint Mobilizations, Manual Therapy,Patient/ Caregiver Education,Self-Care/ Home Management,Soft Tissue Mobilization,Therapeutic Exercises Modalities Cold Pack/Ice Massage,Electric Stimulation,Hot Packs, Iontophoresis,Ultrasound Other Therapeutic Interventions Iontophoresis with 4mg/ml Dexamethosone with Sodium Phosphate. Next Visit Focus/Plan Next Note Type Treatment Note Next Visit Plan Monitor for leg length discrepancy, add L ankle EV stretch. Review performing a TA reflexively, progress core/ pelvic stabilization and cont US and DTM to plantar fascia, review standing achilles stretch jenn & Big toe ext stretch; progress plantar arch strengthening. Iontophoresis if allowed with POC. Try K-tape if pain doesn 't decrease and ionto not being used. Hold manual therapy and pool sessions for thoracic and cervical spine ex's/core stabilization until focus of therapy changes from feet to back. When returning to pool, can add resistance equipment and/or wts in pool for LE strengthening and increase intensity in deep water activities as tolerated, if still appropriate.
--- NOTE | 2019-10-21 12:09 | PT.OTN ---
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 Arthralgia, Mitral Valve regurgitation, Heel Bone spurs , Asthma. PT-OP-B Current Condition Start: 06/13/19 17:35 Freq: Status: Active Protocol: Document 09/02/19 10:31 LRN (Rec: 09/02/19 12:46 LRN [id number]) Current Condition History of Current Condition Onset Date 2015 Current Complaints Can't walk far due to extreme sharp stabbing pain feet. History of Current Condition States her connective tissue is shortened in back and going down to feet. Notes diet and sleep changes due to arthritis. Wants to do back therapy as well, because finds it very helpful. Knows she must do stretching daily forever and is addressing diet . Sugar, gluten, and carb free. Notices w/o sugar moves better. Pain is like a red hot poker. Prior Treatments and Tests 1 cortisone shot in 1 foot, unable to recall which foot, was not helpful. 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 Does pack test carrying 45# for 3 minutes on flat surface yearly , recently performed test and passed. Treatment Goals Patient/Caregiver Goals Pt goal is to reverse the plantar fasciitis and heal all pain from walking. Prior Functional Status Baseline Function- ADL's Independent Baseline Function- Mobility Independent Baseline Function- Gait 3 yrs ago walked without pain. Worsened 2 yrs ago & started seeking care. 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 Current Functional Impairments (Reported) Functional Limitations- ADL's Decreased tolerance to stair ambulation. Support with standing upon waking. Functional Limitations- Mobility/Gait Walking > 20' Functional Limitations- Work/School Limited in work tolerance. Functional Limitations- Other 1st in AM upon standing painful. Extreme pain with standing for her personal business for any length of time. Walk a block before starting to get extreme pain in the feet, one or both. If keep going, then must stop and offload foot hurting. Personal Factors Other Personal Factors That May Effect PMH: Pelvic pain and bloating Therapy/Recovery - progressively worsening in last 6 month. Has uterine polyp being removed 10/13, and ovarian cysts. Endoscopy and colonoscopy test scheduled 09/29/19, due to pelvic pain and routine. PT-OP-C Subjective Start: 06/13/19 17:35 Freq: Status: Active Protocol: Document 10/21/19 11:15 DCW (Rec: 10/21/19 12:09 DCW [id number]) OP-PT Subjective Patient Comments Patient Comments Pt had a new referral sent over for a pelvic floor examination, however she would prefer to just ignore it for now and finish up with her feet and low back, and then address her pelvic floor at a later date. She does feel like she is improving, and is very excited to report that she got up this morning and was able to walk immediately without pain. PT-OP-F Manual Assessment Start: 06/13/19 17:35 Freq: Status: Active Protocol: Document 06/13/19 13:45 DCW (Rec: 06/14/19 14:28 DCW [id number]) Manual Assessments Soft Tissue Assessment Soft Tissue Mobility Assessment Lumbar paraspinals, QL Moderate tone, tenderness to palpation 3/4: Wincing and withdraw PT-OP-J Posture/Palpation/Skin Start: 06/13/19 17:35 Freq: Status: Active Protocol: Document 09/02/19 10:31 LRN (Rec: 09/02/19 12:46 LRN [id number]) Posture Evaluation Position Standing no shoes Evaluation View All positions Head/C-Spine Posture Forward Head T-Spine Posture Flattened,Flexible Scoliosis on (L) Shoulder Posture (R) Elevated Pelvis Posture (L) Iliac Crest Inferior Knee Posture (L) Genu Valgus,(R) Genu Valgus Ankle/Foot Posture (L) Calcaneal Eversion Foot Arch (L) Low Arch,(R) Low Arch Palpation Assessment Location L foot Palpation Location Lateral Plantar aspect of foot and heel Palpation Findings Tenderness R foot Palpation Location Lateral Plantar aspect of foot and heel Palpation Findings Tenderness PT-OP-K Range of Motion Start: 06/13/19 17:35 Freq: Status: Active Protocol: Document 09/02/19 10:31 LRN (Rec: 09/02/19 12:46 LRN [id number]) Knee Goniometric Range of Motion Knee Right Knee ROM WFL Yes Left Knee ROM WFL Yes Ankle and Foot Goniometric Range of Motion Ankle and Foot Right Active Testing Position Supine Dorsiflexion with Knee Extended 7 Plantarflexion 58 Inversion 26 Eversion 22 Left Active Testing Position Supine Dorsiflexion with Knee Extended 6 Plantarflexion 54 Inversion 27 Eversion 14 Ankle and Foot ROM Limitations Comments Active ankle DF causes gastrocnemius pain complaints bilaterally, and LBP on the right. Toe Range of Motion Toe Left Great Toe MTP Extension Active (degrees) 50 Right Great Toe MTP Extension Active (degrees) 40 Toes ROM Limitations Toe ROM Limitations Soft Tissue Tightness Comments Big Toe Extension: 50 left, 40 right. PT-OP-L Special Tests Start: 06/13/19 17:35 Freq: Status: Active Protocol: Document 07/05/19 12:00 DCW (Rec: 07/05/19 12:31 DCW [id number]) Special Tests Cervical Spine Special Tests Spurling's Test Test Results Negative Slump Test Results Negative Passive Neck Flexion Test Results Negative Foraminal Compression Test Results Negative PT-OP-M Strength Start: 06/13/19 17:35 Freq: Status: Active Protocol: Document 09/02/19 10:31 LRN (Rec: 09/02/19 12:46 LRN [id number]) Trunk Strength Trunk Manual Muscle Testing Testing Position Supine Core Stabilization Pt was not able to maintain core stabilization with sitting or supine movement/leg resistance. Knee Strength Knee Manual Muscle Testing Right Flexion (S2) 4+ Good+ Extension (L3) 5 Normal Left Flexion (S2) 3 Fair Extension (L3) 5 Normal Ankle/Foot Strength Ankle and Foot Manual Muscle Testing Right Dorsiflexion (L4) 4 Good Plantarflexion (S1) 4 Good Inversion 5 Normal Eversion (S1) 5 Normal Left Dorsiflexion (L4) 3 Fair Plantarflexion (S1) 4 Good Inversion 5 Normal Eversion (S1) 5 Normal Comments L knee pain with Quadriceps testing. PT-OP-Q Treatments Start: 06/13/19 17:35 Freq: Status: Active Protocol: Document 10/21/19 11:15 DCW (Rec: 10/21/19 12:09 DCW [id number]) Manual Therapy Treatment Soft Tissue Mobilization Gastrosoleus Body Location B Calf Mobilization Type Cross-Friction,Strumming, Sustained Pressure,Trigger Point Release Body Position Prone Foot STM Body Location Bilateral feet Mobilization Type Cross-Friction,Instrument Assisted,Sustained Pressure Intensity/Depth Moderate Body Position Prone PT-OP-R Modalities Start: 06/13/19 17:35 Freq: Status: Active Protocol: Document 10/21/19 11:15 DCW (Rec: 10/21/19 12:09 DCW [id number]) Ultrasound Therapy Treatment L foot plantar fascia Treatment Duration (minutes) 5 Patient Position Supine Mode Setting Pulsed Duty Cycle 50% Intensity Setting (w/cm2) 1.5 R foot plantar fascia Treatment Duration (minutes) 5 Patient Position Supine Mode Setting Pulsed Duty Cycle 50% Intensity Setting (w/cm2) 1.0 PT-OP-S Aquatic Treatment Start: 07/08/19 16:16 Freq: Status: Active Protocol: Document 08/15/19 11:00 LJ (Rec: 08/15/19 16:12 LJ [id number]) Aquatics Treatment Pool Entry/Exit Pool Entry/Exit Method Stairs Assistance Independent Water Walking forward with reverse breast stroke Water Level Chest Level Comments cues for core involvement Monster Walk Water Level Waist Level Comments cued to raise up on toes for push off [place] December Water Level Waist Level Comments arms reaching to opp side Sideways Water Level Waist Level Backwards Water Level Waist Level forward Water Level Waist Level Comments heel-toe Lower Extremity Exercises kick backs Body Position Standing Water Level Waist Level Reps/Duration 15x2 bilat Comments at wall heel toe raises Body Position Standing Water Level Chest Level Reps/Duration 20 circumduction Body Position Standing Water Level Chest Level Reps/Duration 2x12 bilat ab/ad Water Level Chest Level Reps/Duration 12x2 bilat flex/ext Water Level Chest Level Reps/Duration 12x2 bilat Lower Extremity Stretches hip flexor and quads Body Position Standing Water Level Chest Level Equipment Large Noodle Reps/Duration 2x45 Comments cueing for standing upright piriformis Details on wall Reps/Duration 2 min spider on wall Reps/Duration 2 min Comments with body swing HS Comments deep; modified downward dog gastroc, soleus Body Position Standing Water Level Waist Level Reps/Duration 45x2 Comments rocking foot side to side HC Body Position Standing Water Level Chest Level Reps/Duration 45x3 bilat Comments on stairs with toes against upper step for toe flexion Upper Extremity Exercises flex,ext, abd, add, Body Position Standing Water Level Chest Level Equipment UE paddles Reps/Duration 10x each bilat Upper Extremity Stretches pec stretch Body Position Standing Water Level Chest Level Equipment UE paddles Reps/Duration 2 min Comments rotating side to side Spinal Exercises cat cow stretch at wall Water Level [place] Reps/Duration 2 min SKTC, DKTC Water Level [place] Reps/Duration 2 min at wall [place] Activities [place] Activities Bicycle,Bicycle Backwards, Cross Country,Hip Abduction/ Adduction Other Activities pendulum forward backward shoot thru abdominal curls (knees to chest one vert. 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 LTG Duration 12/01/19 Six Impairment Bilateral Foot pain rated 7-8/ 10 Short Term Goal (STG) Decrease bilateral foot pain on first standing in the morning to no greater than 1/ 10. 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 LTG Duration 12/01/19 Five Impairment Pt navicular bone collapse to 2.7 (L) and 3.2 (R) cm from floor Halfway Goal (LTG) Pt to stand with neutral forefoot and proper arches with navicular 4.0 cm from floor LTG Duration 12/01/19 (09/02/19: Goal not assessed) Four Impairment Medial boarder of scapula 10 cm from spine at rest Halfway Goal (LTG) Pt to present with less of a rounded shoulder posture by decreasing distance between medial boarder and spine to 6 cm at rest LTG Duration 12/01/19 (09/02/19: Progressing) Three Impairment Pt displays weakness in core muscles 3+/5 Halfway Goal (LTG) Pt to display 4/5 MMT of TrA LTG Duration 12/01/19 (09/02/19: GOAL NOT MET, last 2 weeks increased weakness) Two Impairment Pt unable to stand longer than 10-15 minutes at [employer] stand Halfway Goal (LTG) Pt to be able to tolerate standing 45 minutes when working at the [employer] with no increased pain. LTG Duration 12/01/19 (09/02/19: GOAL NOT MET, NO CHANGE) One Impairment Pt does not have an appropriate home exercise program Short Term Goal (STG) Pt to be independent and compliant with an appropriate HEP STG Duration 07/14/19 (09/02/19: GOAL MET to date for her back care, further care needed) Halfway Goal (LTG) Pt will be independent with a self care HEP of foot/ankle exercises and educated in proper foot care for management of her pain. LTG Duration 12/01/19 Assessment Summary Assessment Pt showing improvement, decreased gastroc tone and decreased trigger points along plantar surface. Continued therapy will likely continue to improve pt mobility and comfort ambulating. Physical Therapy Plan Frequency and Duration Frequency of Treatment 2x/Week Duration of Treatment Two months Plan of Care Start Date 09/02/19 Plan of Care End Date 12/01/19 Therapeutic Interventions Therapeutic Interventions Aquatic Therapy,Home Exercise Program,Joint Mobilizations, Manual Therapy,Patient/ Caregiver Education,Self-Care/ Home Management,Soft Tissue Mobilization,Therapeutic Exercises Modalities Cold Pack/Ice Massage,Electric Stimulation,Hot Packs, Iontophoresis,Ultrasound Other Therapeutic Interventions Iontophoresis with 4mg/ml Dexamethosone with Sodium Phosphate. Next Visit Focus/Plan Next Note Type Treatment Note Next Visit Plan Monitor for leg length discrepancy, add L ankle EV stretch. Review performing a TA reflexively, progress core/ pelvic stabilization and cont US and DTM to plantar fascia, review standing achilles stretch jenn & Big toe ext stretch; progress plantar arch strengthening. Iontophoresis if allowed with POC. Try K-tape if pain doesn 't decrease and ionto not being used. Hold manual therapy and pool sessions for thoracic and cervical spine ex's/core stabilization until focus of therapy changes from feet to back. When returning to pool, can add resistance equipment and/or wts in pool for LE strengthening and increase intensity in deep water activities as tolerated, if still appropriate.
--- NOTE | 2019-10-24 14:32 | PT.OTN ---
Current Diagnoses Cervicalgia (10/24/19) Dorsalgia, unspecified (10/24/19) Muscle weakness (generalized) (10/24/19) Abnormal posture (10/24/19) Physical Therapy Treatment Note PT-OP-A Visit Information Start: 06/13/19 17:35 Freq: Status: Active Protocol: Document 10/24/19 13:45 DCW (Rec: 10/24/19 14:31 DCW [id number]) Out-Patient Physical Therapy Visit Information Visit Information Visit Type Treatment Note Visit Start Time 13:45 Visit Stop Time 14:30 Total Visit Minutes 45 Visit Number 24 Number of CUSTOMER CARE ASSISTANT Visits 0 Evaluation Information Evaluation Date 06/13/19 Precautions Precautions X-ray of 02/28/19: Loss of Lordosis & mild DDD C5-C6, mild [place] lumbar DDD and levocurvature, trace retrolisthesis L2-L3, L3-L4. Arthralgia, Mitral Valve regurgitation, Heel Bone spurs , Asthma. PT-OP-B Current Condition Start: 06/13/19 17:35 Freq: Status: Active Protocol: Document 09/02/19 10:31 LRN (Rec: 09/02/19 12:46 LRN [id number]) Current Condition History of Current Condition Onset Date 2015 Current Complaints Can't walk far due to extreme sharp stabbing pain feet. History of Current Condition States her connective tissue is shortened in back and going down to feet. Notes diet and sleep changes due to arthritis. Wants to do back therapy as well, because finds it very helpful. Knows she must do stretching daily forever and is addressing diet . Sugar, gluten, and carb free. Notices w/o sugar moves better. Pain is like a red hot poker. Prior Treatments and Tests 1 cortisone shot in 1 foot, unable to recall which foot, was not helpful. 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 Does pack test carrying 45# for 3 minutes on flat surface yearly , recently performed test and passed. Treatment Goals Patient/Caregiver Goals Pt goal is to reverse the plantar fasciitis and heal all pain from walking. Prior Functional Status Baseline Function- ADL's Independent Baseline Function- Mobility Independent Baseline Function- Gait 3 yrs ago walked without pain. Worsened 2 yrs ago & started seeking care. 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 Current Functional Impairments (Reported) Functional Limitations- ADL's Decreased tolerance to stair ambulation. Support with standing upon waking. Functional Limitations- Mobility/Gait Walking > 20' Functional Limitations- Work/School Limited in work tolerance. Functional Limitations- Other 1st in AM upon standing painful. Extreme pain with standing for her personal business for any length of time. Walk a block before starting to get extreme pain in the feet, one or both. If keep going, then must stop and offload foot hurting. Personal Factors Other Personal Factors That May Effect PMH: Pelvic pain and bloating Therapy/Recovery - progressively worsening in last 6 month. Has uterine polyp being removed 10/13, and ovarian cysts. Endoscopy and colonoscopy test scheduled 09/29/19, due to pelvic pain and routine. PT-OP-C Subjective Start: 06/13/19 17:35 Freq: Status: Active Protocol: Document 10/24/19 13:45 DCW (Rec: 10/24/19 14:31 DCW [id number]) OP-PT Subjective Patient Comments Patient Comments Pt reports a throbbing pain in her [place]'s tendon, typically when just lying down . Pt also notes some occasional cramping in her calf muscles, but otherwise I really think it's getting better. Patient Reported Progress Improving PT-OP-F Manual Assessment Start: 06/13/19 17:35 Freq: Status: Active Protocol: Document 06/13/19 13:45 DCW (Rec: 06/14/19 14:28 DCW [id number]) Manual Assessments Soft Tissue Assessment Soft Tissue Mobility Assessment Lumbar paraspinals, QL Moderate tone, tenderness to palpation 3/4: Wincing and withdraw PT-OP-J Posture/Palpation/Skin Start: 06/13/19 17:35 Freq: Status: Active Protocol: Document 09/02/19 10:31 LRN (Rec: 09/02/19 12:46 LRN [id number]) Posture Evaluation Position Standing no shoes Evaluation View All positions Head/C-Spine Posture Forward Head T-Spine Posture Flattened,Flexible Scoliosis on (L) Shoulder Posture (R) Elevated Pelvis Posture (L) Iliac Crest Inferior Knee Posture (L) Genu Valgus,(R) Genu Valgus Ankle/Foot Posture (L) Calcaneal Eversion Foot Arch (L) Low Arch,(R) Low Arch Palpation Assessment Location L foot Palpation Location Lateral Plantar aspect of foot and heel Palpation Findings Tenderness R foot Palpation Location Lateral Plantar aspect of foot and heel Palpation Findings Tenderness PT-OP-K Range of Motion Start: 06/13/19 17:35 Freq: Status: Active Protocol: Document 09/02/19 10:31 LRN (Rec: 09/02/19 12:46 LRN [id number]) Knee Goniometric Range of Motion Knee Right Knee ROM WFL Yes Left Knee ROM WFL Yes Ankle and Foot Goniometric Range of Motion Ankle and Foot Right Active Testing Position Supine Dorsiflexion with Knee Extended 7 Plantarflexion 58 Inversion 26 Eversion 22 Left Active Testing Position Supine Dorsiflexion with Knee Extended 6 Plantarflexion 54 Inversion 27 Eversion 14 Ankle and Foot ROM Limitations Comments Active ankle DF causes gastrocnemius pain complaints bilaterally, and LBP on the right. Toe Range of Motion Toe Left Great Toe MTP Extension Active (degrees) 50 Right Great Toe MTP Extension Active (degrees) 40 Toes ROM Limitations Toe ROM Limitations Soft Tissue Tightness Comments Big Toe Extension: 50 left, 40 right. PT-OP-L Special Tests Start: 06/13/19 17:35 Freq: Status: Active Protocol: Document 07/05/19 12:00 DCW (Rec: 07/05/19 12:31 DCW [id number]) Special Tests Cervical Spine Special Tests Spurling's Test Test Results Negative Slump Test Results Negative Passive Neck Flexion Test Results Negative Foraminal Compression Test Results Negative PT-OP-M Strength Start: 06/13/19 17:35 Freq: Status: Active Protocol: Document 09/02/19 10:31 LRN (Rec: 09/02/19 12:46 LRN [id number]) Trunk Strength Trunk Manual Muscle Testing Testing Position Supine Core Stabilization Pt was not able to maintain core stabilization with sitting or supine movement/leg resistance. Knee Strength Knee Manual Muscle Testing Right Flexion (S2) 4+ Good+ Extension (L3) 5 Normal Left Flexion (S2) 3 Fair Extension (L3) 5 Normal Ankle/Foot Strength Ankle and Foot Manual Muscle Testing Right Dorsiflexion (L4) 4 Good Plantarflexion (S1) 4 Good Inversion 5 Normal Eversion (S1) 5 Normal Left Dorsiflexion (L4) 3 Fair Plantarflexion (S1) 4 Good Inversion 5 Normal Eversion (S1) 5 Normal Comments L knee pain with Quadriceps testing. PT-OP-Q Treatments Start: 06/13/19 17:35 Freq: Status: Active Protocol: Document 10/24/19 13:45 DCW (Rec: 10/24/19 14:31 DCW [id number]) Manual Therapy Treatment Soft Tissue Mobilization Gastrosoleus Body Location B Calf Mobilization Type Cross-Friction,Strumming, Sustained Pressure,Trigger Point Release Body Position Prone Foot STM Body Location Bilateral feet Mobilization Type Cross-Friction,Instrument Assisted,Sustained Pressure Intensity/Depth Moderate Body Position Prone PT-OP-R Modalities Start: 06/13/19 17:35 Freq: Status: Active Protocol: Document 10/24/19 13:45 DCW (Rec: 10/24/19 14:31 DCW [id number]) Ultrasound Therapy Treatment L foot plantar fascia Treatment Duration (minutes) 5 Patient Position Supine Mode Setting Pulsed Duty Cycle 50% Intensity Setting (w/cm2) 1.5 R foot plantar fascia Treatment Duration (minutes) 5 Patient Position Supine Mode Setting Pulsed Duty Cycle 50% Intensity Setting (w/cm2) 1.0 PT-OP-S Aquatic Treatment Start: 07/08/19 16:16 Freq: Status: Active Protocol: Document 08/15/19 11:00 [email or web address] (Rec: 08/15/19 16:12 [email or web address] [id number]) Aquatics Treatment Pool Entry/Exit Pool Entry/Exit Method Stairs Assistance Independent Water Walking forward with reverse breast stroke Water Level Chest Level Comments cues for core involvement Monster Walk Water Level Waist Level Comments cued to raise up on toes for push off [place] December Water Level Waist Level Comments arms reaching to opp side Sideways Water Level Waist Level Backwards Water Level Waist Level forward Water Level Waist Level Comments heel-toe Lower Extremity Exercises kick backs Body Position Standing Water Level Waist Level Reps/Duration 15x2 bilat Comments at wall heel toe raises Body Position Standing Water Level Chest Level Reps/Duration 20 circumduction Body Position Standing Water Level Chest Level Reps/Duration 2x12 bilat ab/ad Water Level Chest Level Reps/Duration 12x2 bilat flex/ext Water Level Chest Level Reps/Duration 12x2 bilat Lower Extremity Stretches hip flexor and quads Body Position Standing Water Level Chest Level Equipment Large Noodle Reps/Duration 2x45 Comments cueing for standing upright piriformis Details on wall Reps/Duration 2 min spider on wall Reps/Duration 2 min Comments with body swing HS Comments deep; modified downward dog gastroc, soleus Body Position Standing Water Level Waist Level Reps/Duration 45x2 Comments rocking foot side to side HC Body Position Standing Water Level Chest Level Reps/Duration 45x3 bilat Comments on stairs with toes against upper step for toe flexion Upper Extremity Exercises flex,ext, abd, add, Body Position Standing Water Level Chest Level Equipment UE paddles Reps/Duration 10x each bilat Upper Extremity Stretches pec stretch Body Position Standing Water Level Chest Level Equipment UE paddles Reps/Duration 2 min Comments rotating side to side Spinal Exercises cat cow stretch at wall Water Level [place] Reps/Duration 2 min SKTC, DKTC Water Level [place] Reps/Duration 2 min at wall [place] Activities [place] Activities Bicycle,Bicycle Backwards, Cross Country,Hip Abduction/ Adduction Other Activities pendulum forward backward shoot thru abdominal curls (knees to chest one vert. 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 LTG Duration 12/01/19 Six Impairment Bilateral Foot pain rated 7-8 10 Short Term Goal (STG) Decrease bilateral foot pain on first standing in the morning to no greater than 1/ 10. 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 LTG Duration 12/01/19 Five Impairment Pt navicular bone collapse to 2.7 (L) and 3.2 (R) cm from floor Bicycle Rental Clerk Goal (LTG) Pt to stand with neutral forefoot and proper arches with navicular 4.0 cm from floor LTG Duration 12/01/19 (09/02/19: Goal not assessed) Four Impairment Medial boarder of scapula 10 cm from spine at rest Assisted Goal (LTG) Pt to present with less of a rounded shoulder posture by decreasing distance between medial boarder and spine to 6 cm at rest LTG Duration 12/01/19 (09/02/19: Progressing) Three Impairment Pt displays weakness in core muscles 3+/5 Assisted Goal (LTG) Pt to display 4/5 MMT of TrA LTG Duration 12/01/19 (09/02/19: GOAL NOT MET, last 2 weeks increased weakness) Two Impairment Pt unable to stand longer than 10-15 minutes at [employer] stand Assisted Goal (LTG) Pt to be able to tolerate standing 45 minutes when working at the [employer] with no increased pain. LTG Duration 12/01/19 (09/02/19: GOAL NOT MET, NO CHANGE) One Impairment Pt does not have an appropriate home exercise program Short Term Goal (STG) Pt to be independent and compliant with an appropriate HEP STG Duration 07/14/19 (09/02/19: GOAL MET to date for her back care, further care needed) Assisted Goal (LTG) Pt will be independent with a self care HEP of foot/ankle exercises and educated in proper foot care for management of her pain. LTG Duration 12/01/19 Assessment Summary Assessment Pt progressing, less tenderness upon first rising in the AM. Tolerating treatment well. Physical Therapy Plan Frequency and Duration Frequency of Treatment 2x/Week Duration of Treatment Two months Plan of Care Start Date 09/02/19 Plan of Care End Date 12/01/19 Therapeutic Interventions Therapeutic Interventions Aquatic Therapy,Home Exercise Program,Joint Mobilizations, Manual Therapy,Patient/ Caregiver Education,Self-Care/ Home Management,Soft Tissue Mobilization,Therapeutic Exercises Modalities Cold Pack/Ice Massage,Electric Stimulation,Hot Packs, Iontophoresis,Ultrasound Other Therapeutic Interventions Iontophoresis with 4mg/ml Dexamethosone with Sodium Phosphate. Next Visit Focus/Plan Next Note Type Treatment Note Next Visit Plan Monitor for leg length discrepancy, add L ankle EV stretch. Review performing a TA reflexively, progress core/ pelvic stabilization and cont US and DTM to plantar fascia, review standing achilles stretch jenn & Big toe ext stretch; progress plantar arch strengthening. Iontophoresis if allowed with POC. Try K-tape if pain doesn 't decrease and ionto not being used. Hold manual therapy and pool sessions for thoracic and cervical spine ex's/core stabilization until focus of therapy changes from feet to back. When returning to pool, can add resistance equipment and/or wts in pool for LE strengthening and increase intensity in deep water activities as tolerated, if still appropriate.
--- NOTE | 2019-11-04 12:19 | PT.OTN ---
Current Diagnoses Cervicalgia (11/04/19) Dorsalgia, unspecified (11/04/19) Muscle weakness (generalized) (11/04/19) Abnormal posture (11/04/19) Physical Therapy Treatment Note PT-OP-A Visit Information Start: 06/13/19 17:35 Freq: Status: Active Protocol: Document 11/04/19 11:15 DCW (Rec: 11/04/19 12:19 DCW [id number]) Out-Patient Physical Therapy Visit Information Visit Information Visit Type Treatment Note Visit Start Time 11:15 Visit Stop Time 12:00 Total Visit Minutes 45 Visit Number 25 Number of DRI[employer] FI[employer] SPECIALIST Visits 0 Evaluation Information Evaluation Date 06/13/19 Precautions Precautions X-ray of 02/28/19: Loss of Lordosis & mild DDD C5-C6, mild [place] lumbar DDD and levocurvature, trace retrolisthesis L2-L3, L3-L4. Arthralgia, Mitral Valve regurgitation, Heel Bone spurs , Asthma. PT-OP-B Current Condition Start: 06/13/19 17:35 Freq: Status: Active Protocol: Document 09/02/19 10:31 LRN (Rec: 09/02/19 12:46 LRN [id number]) Current Condition History of Current Condition Onset Date 2015 Current Complaints Can't walk far due to extreme sharp stabbing pain feet. History of Current Condition States her connective tissue is shortened in back and going down to feet. Notes diet and sleep changes due to arthritis. Wants to do back therapy as well, because finds it very helpful. Knows she must do stretching daily forever and is addressing diet . Sugar, gluten, and carb free. Notices w/o sugar moves better. Pain is like a red hot poker. Prior Treatments and Tests 1 cortisone shot in 1 foot, unable to recall which foot, was not helpful. 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 Does pack test carrying 45# for 3 minutes on flat surface yearly , recently performed test and passed. Treatment Goals Patient/Caregiver Goals Pt goal is to reverse the plantar fasciitis and heal all pain from walking. Prior Functional Status Baseline Function- ADL's Independent Baseline Function- Mobility Independent Baseline Function- Gait 3 yrs ago walked without pain. Worsened 2 yrs ago & started seeking care. 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 Current Functional Impairments (Reported) Functional Limitations- ADL's Decreased tolerance to stair ambulation. Support with standing upon waking. Functional Limitations- Mobility/Gait Walking > 20' Functional Limitations- Work/School Limited in work tolerance. Functional Limitations- Other 1st in AM upon standing painful. Extreme pain with standing for her personal business for any length of time. Walk a block before starting to get extreme pain in the feet, one or both. If keep going, then must stop and offload foot hurting. Personal Factors Other Personal Factors That May Effect PMH: Pelvic pain and bloating Therapy/Recovery - progressively worsening in last 6 month. Has uterine polyp being removed 10/13, and ovarian cysts. Endoscopy and colonoscopy test scheduled 09/29/19, due to pelvic pain and routine. PT-OP-C Subjective Start: 06/13/19 17:35 Freq: Status: Active Protocol: Document 11/04/19 11:15 DCW (Rec: 11/04/19 12:19 DCW [id number]) OP-PT Subjective Patient Comments Patient Comments I'm seeing improvement, but there's still just really point-specific soreness in some areas. I am seeing improvmeent when getting up most mornings. PT-OP-F Manual Assessment Start: 06/13/19 17:35 Freq: Status: Active Protocol: Document 06/13/19 13:45 DCW (Rec: 06/14/19 14:28 DCW [id number]) Manual Assessments Soft Tissue Assessment Soft Tissue Mobility Assessment Lumbar paraspinals, QL Moderate tone, tenderness to palpation 3/4: Wincing and withdraw PT-OP-J Posture/Palpation/Skin Start: 06/13/19 17:35 Freq: Status: Active Protocol: Document 09/02/19 10:31 LRN (Rec: 09/02/19 12:46 LRN [id number]) Posture Evaluation Position Standing no shoes Evaluation View All positions Head/C-Spine Posture Forward Head T-Spine Posture Flattened,Flexible Scoliosis on (L) Shoulder Posture (R) Elevated Pelvis Posture (L) Iliac Crest Inferior Knee Posture (L) Genu Valgus,(R) Genu Valgus Ankle/Foot Posture (L) Calcaneal Eversion Foot Arch (L) Low Arch,(R) Low Arch Palpation Assessment Location L foot Palpation Location Lateral Plantar aspect of foot and heel Palpation Findings Tenderness R foot Palpation Location Lateral Plantar aspect of foot and heel Palpation Findings Tenderness PT-OP-K Range of Motion Start: 06/13/19 17:35 Freq: Status: Active Protocol: Document 09/02/19 10:31 LRN (Rec: 09/02/19 12:46 LRN [id number]) Knee Goniometric Range of Motion Knee Right Knee ROM WFL Yes Left Knee ROM WFL Yes Ankle and Foot Goniometric Range of Motion Ankle and Foot Right Active Testing Position Supine Dorsiflexion with Knee Extended 7 Plantarflexion 58 Inversion 26 Eversion 22 Left Active Testing Position Supine Dorsiflexion with Knee Extended 6 Plantarflexion 54 Inversion 27 Eversion 14 Ankle and Foot ROM Limitations Comments Active ankle DF causes gastrocnemius pain complaints bilaterally, and LBP on the right. Toe Range of Motion Toe Left Great Toe MTP Extension Active (degrees) 50 Right Great Toe MTP Extension Active (degrees) 40 Toes ROM Limitations Toe ROM Limitations Soft Tissue Tightness Comments Big Toe Extension: 50 left, 40 right. PT-OP-L Special Tests Start: 06/13/19 17:35 Freq: Status: Active Protocol: Document 07/05/19 12:00 DCW (Rec: 07/05/19 12:31 DCW [id number]) Special Tests Cervical Spine Special Tests Spurling's Test Test Results Negative Slump Test Results Negative Passive Neck Flexion Test Results Negative Foraminal Compression Test Results Negative PT-OP-M Strength Start: 06/13/19 17:35 Freq: Status: Active Protocol: Document 09/02/19 10:31 LRN (Rec: 09/02/19 12:46 LRN [id number]) Trunk Strength Trunk Manual Muscle Testing Testing Position Supine Core Stabilization Pt was not able to maintain core stabilization with sitting or supine movement/leg resistance. Knee Strength Knee Manual Muscle Testing Right Flexion (S2) 4+ Good+ Extension (L3) 5 Normal Left Flexion (S2) 3 Fair Extension (L3) 5 Normal Ankle/Foot Strength Ankle and Foot Manual Muscle Testing Right Dorsiflexion (L4) 4 Good Plantarflexion (S1) 4 Good Inversion 5 Normal Eversion (S1) 5 Normal Left Dorsiflexion (L4) 3 Fair Plantarflexion (S1) 4 Good Inversion 5 Normal Eversion (S1) 5 Normal Comments L knee pain with Quadriceps testing. PT-OP-Q Treatments Start: 06/13/19 17:35 Freq: Status: Active Protocol: Document 11/04/19 11:15 DCW (Rec: 11/04/19 12:19 DCW [id number]) Manual Therapy Treatment Soft Tissue Mobilization Gastrosoleus Body Location B Calf Mobilization Type Cross-Friction,Strumming, Sustained Pressure,Trigger Point Release Body Position Prone Foot STM Body Location Bilateral feet Mobilization Type Cross-Friction,Instrument Assisted,Sustained Pressure Intensity/Depth Moderate Body Position Prone PT-OP-R Modalities Start: 06/13/19 17:35 Freq: Status: Active Protocol: Document 11/04/19 11:15 DCW (Rec: 11/04/19 12:19 DCW [id number]) Ultrasound Therapy Treatment L foot plantar fascia Treatment Duration (minutes) 5 Patient Position Supine Mode Setting Pulsed Duty Cycle 50% Intensity Setting (w/cm2) 1.5 R foot plantar fascia Treatment Duration (minutes) 5 Patient Position Supine Mode Setting Pulsed Duty Cycle 50% Intensity Setting (w/cm2) 1.0 PT-OP-S Aquatic Treatment Start: 07/08/19 16:16 Freq: Status: Active Protocol: Document 08/15/19 11:00 [id number] (Rec: 08/15/19 16:12 LJ [id number]) Aquatics Treatment Pool Entry/Exit Pool Entry/Exit Method Stairs Assistance Independent Water Walking forward with reverse breast stroke Water Level Chest Level Comments cues for core involvement Monster Walk Water Level Waist Level Comments cued to raise up on toes for push off [place] December Water Level Waist Level Comments arms reaching to opp side Sideways Water Level Waist Level Backwards Water Level Waist Level forward Water Level Waist Level Comments heel-toe Lower Extremity Exercises kick backs Body Position Standing Water Level Waist Level Reps/Duration 15x2 bilat Comments at wall heel toe raises Body Position Standing Water Level Chest Level Reps/Duration 20 circumduction Body Position Standing Water Level Chest Level Reps/Duration 2x12 bilat ab/ad Water Level Chest Level Reps/Duration 12x2 bilat flex/ext Water Level Chest Level Reps/Duration 12x2 bilat Lower Extremity Stretches hip flexor and quads Body Position Standing Water Level Chest Level Equipment Large Noodle Reps/Duration 2x45 Comments cueing for standing upright piriformis Details on wall Reps/Duration 2 min spider on wall Reps/Duration 2 min Comments with body swing HS Comments deep; modified downward dog gastroc, soleus Body Position Standing Water Level Waist Level Reps/Duration 45x2 Comments rocking foot side to side HC Body Position Standing Water Level Chest Level Reps/Duration 45x3 bilat Comments on stairs with toes against upper step for toe flexion Upper Extremity Exercises flex,ext, abd, add, Body Position Standing Water Level Chest Level Equipment UE paddles Reps/Duration 10x each bilat Upper Extremity Stretches pec stretch Body Position Standing Water Level Chest Level Equipment UE paddles Reps/Duration 2 min Comments rotating side to side Spinal Exercises cat cow stretch at wall Water Level [place] Reps/Duration 2 min SKTC, DKTC Water Level [place] Reps/Duration 2 min at wall [place] Activities [place] Activities Bicycle,Bicycle Backwards, Cross Country,Hip Abduction/ Adduction Other Activities pendulum forward backward shoot thru abdominal curls (knees to chest one vert. 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 LTG Duration 12/01/19 Six Impairment Bilateral Foot pain rated 7-8/ 10 Short Term Goal (STG) Decrease bilateral foot pain on first standing in the morning to no greater than 1/ 10. 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 LTG Duration 12/01/19 Five Impairment Pt navicular bone collapse to 2.7 (L) and 3.2 (R) cm from floor Nursing Home Goal (LTG) Pt to stand with neutral forefoot and proper arches with navicular 4.0 cm from floor LTG Duration 12/01/19 (09/02/19: Goal not assessed) Four Impairment Medial boarder of scapula 10 cm from spine at rest City Planner Goal (LTG) Pt to present with less of a rounded shoulder posture by decreasing distance between medial boarder and spine to 6 cm at rest LTG Duration 12/01/19 (09/02/19: Progressing) Three Impairment Pt displays weakness in core muscles 3+/5 Nursing Home Goal (LTG) Pt to display 4/5 MMT of TrA LTG Duration 12/01/19 (09/02/19: GOAL NOT MET, last 2 weeks increased weakness) Two Impairment Pt unable to stand longer than 10-15 minutes at [employer] stand Nursing Home Goal (LTG) Pt to be able to tolerate standing 45 minutes when working at the [employer] with no increased pain. LTG Duration 12/01/19 (09/02/19: GOAL NOT MET, NO CHANGE) One Impairment Pt does not have an appropriate home exercise program Short Term Goal (STG) Pt to be independent and compliant with an appropriate HEP STG Duration 07/14/19 (09/02/19: GOAL MET to date for her back care, further care needed) City Planner Goal (LTG) Pt will be independent with a self care HEP of foot/ankle exercises and educated in proper foot care for management of her pain. LTG Duration 12/01/19 Assessment Summary Assessment Pt slowly improving her heel/ plantar pain, wants to decrease her PT frequency due to an increased co-pay. Physical Therapy Plan Frequency and Duration Frequency of Treatment 2x/Week Duration of Treatment Two months Plan of Care Start Date 09/02/19 Plan of Care End Date 12/01/19 Therapeutic Interventions Therapeutic Interventions Aquatic Therapy,Home Exercise Program,Joint Mobilizations, Manual Therapy,Patient/ Caregiver Education,Self-Care/ Home Management,Soft Tissue Mobilization,Therapeutic Exercises Modalities Cold Pack/Ice Massage,Electric Stimulation,Hot Packs, Iontophoresis,Ultrasound Other Therapeutic Interventions Iontophoresis with 4mg/ml Dexamethosone with Sodium Phosphate. Next Visit Focus/Plan Next Note Type Treatment Note Next Visit Plan Monitor for leg length discrepancy, add L ankle EV stretch. Review performing a TA reflexively, progress core/ pelvic stabilization and cont US and DTM to plantar fascia, review standing achilles stretch jenn & Big toe ext stretch; progress plantar arch strengthening. Iontophoresis if allowed with POC. Try K-tape if pain doesn 't decrease and ionto not being used. Hold manual therapy and pool sessions for thoracic and cervical spine ex's/core stabilization until focus of therapy changes from feet to back. When returning to pool, can add resistance equipment and/or wts in pool for LE strengthening and increase intensity in deep water activities as tolerated, if still appropriate.
--- NOTE | 2019-12-09 17:00 | PT.OTN ---
Current Diagnoses Cervicalgia (12/09/19) Dorsalgia, unspecified (12/09/19) Muscle weakness (generalized) (12/09/19) Abnormal posture (12/09/19) Physical Therapy Treatment Note PT-OP-A Visit Information Start: 06/13/19 17:35 Freq: Status: Active Protocol: Document 12/09/19 15:15 DCW (Rec: 12/09/19 15:59 DCW [id number]) Out-Patient Physical Therapy Visit Information Visit Information Visit Type Progress Note Visit Start Time 15:15 Visit Stop Time 16:00 Total Visit Minutes 45 Visit Number 45 Number of SUPERVISOR ESTIMATOR AND DRAFTER Visits 0 Precautions Precautions X-ray of 02/28/19: Loss of Lordosis & mild DDD C5-C6, mild [place] lumbar DDD and levocurvature, trace retrolisthesis L2-L3, L3-L4. Arthralgia, Mitral Valve regurgitation, Heel Bone spurs , Asthma. PT-OP-B Current Condition Start: 06/13/19 17:35 Freq: Status: Active Protocol: Document 09/02/19 10:31 LRN (Rec: 09/02/19 12:46 LRN [id number]) Current Condition History of Current Condition Onset Date 2015 Current Complaints Can't walk far due to extreme sharp stabbing pain feet. History of Current Condition States her connective tissue is shortened in back and going down to feet. Notes diet and sleep changes due to arthritis. Wants to do back therapy as well, because finds it very helpful. Knows she must do stretching daily forever and is addressing diet . Sugar, gluten, and carb free. Notices w/o sugar moves better. Pain is like a red hot poker. Prior Treatments and Tests 1 cortisone shot in 1 foot, unable to recall which foot, was not helpful. 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 Does pack test carrying 45# for 3 minutes on flat surface yearly , recently performed test and passed. Treatment Goals Patient/Caregiver Goals Pt goal is to reverse the plantar fasciitis and heal all pain from walking. Prior Functional Status Baseline Function- ADL's Independent Baseline Function- Mobility Independent Baseline Function- Gait 3 yrs ago walked without pain. Worsened 2 yrs ago & started seeking care. 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 Current Functional Impairments (Reported) Functional Limitations- ADL's Decreased tolerance to stair ambulation. Support with standing upon waking. Functional Limitations- Mobility/Gait Walking > 20' Functional Limitations- Work/School Limited in work tolerance. Functional Limitations- Other 1st in AM upon standing painful. Extreme pain with standing for her personal business for any length of time. Walk a block before starting to get extreme pain in the feet, one or both. If keep going, then must stop and offload foot hurting. Personal Factors Other Personal Factors That May Effect PMH: Pelvic pain and bloating Therapy/Recovery - progressively worsening in last 6 month. Has uterine polyp being removed 10/13, and ovarian cysts. Endoscopy and colonoscopy test scheduled 09/29/19, due to pelvic pain and routine. PT-OP-C Subjective Start: 06/13/19 17:35 Freq: Status: Active Protocol: Document 12/09/19 15:15 DCW (Rec: 12/09/19 15:59 DCW [id number]) OP-PT Subjective Patient Comments Patient Comments Pt reports he busy schedule limits how much time she has to work on her exercises at home, but overall she feels like she is improving. At this time, he biggest prooblems are her mid back and neck pain , she believes due to poor posture when she is working on her computer. PT-OP-F Manual Assessment Start: 06/13/19 17:35 Freq: Status: Active Protocol: Document 12/09/19 15:15 DCW (Rec: 12/09/19 15:43 DCW [id number]) Manual Assessments Soft Tissue Assessment Soft Tissue Mobility Assessment Lumbar paraspinals, QL Moderate tone, tenderness to palpation 3/4: Wincing and withdraw PT-OP-J Posture/Palpation/Skin Start: 06/13/19 17:35 Freq: Status: Active Protocol: Document 12/09/19 15:15 DCW (Rec: 12/09/19 15:43 DCW [id number]) Posture Evaluation Position Standing no shoes Evaluation View All positions Head/C-Spine Posture Forward Head T-Spine Posture Flattened,Flexible Scoliosis on (L) Shoulder Posture (R) Elevated Pelvis Posture (L) Iliac Crest Inferior Knee Posture (L) Genu Valgus,(R) Genu Valgus Ankle/Foot Posture (L) Calcaneal Eversion Foot Arch (L) Low Arch,(R) Low Arch Sitting Head/C-Spine Posture C-Spine Flattened,Forward Head T-Spine Posture Flattened L-Spine Posture Flattened,Decreased Lordosis Shoulder Posture (L) Rounded,(R) Rounded Scapula Posture (L) Protracted,(R) Protracted Comments Posture Comments When standing relaxed, pt exhibits pronated feet bilaterally with her navicular bone 3.4 cm (L) and 3.23 cm ( R) from the floor. With proper arch positioning and a neutral forefoot, pt navicular 4.1 cm from floor bilaterally . Palpation Assessment Location L foot Palpation Location Medial>Lateral Plantar aspect of foot and heel Palpation Findings Tenderness R foot Palpation Location Medial aspect of foot and heel Palpation Findings Tenderness PT-OP-K Range of Motion Start: 06/13/19 17:35 Freq: Status: Active Protocol: Document 12/09/19 15:15 DCW (Rec: 12/09/19 15:43 DCW [id number]) Cervical Spine Range of Motion Cervical Spine Active Degrees Testing Position Sitting Flexion 45 Extension 56 Rotation Left 65 Rotation Right 72 Lateral Flexion Left 30 Lateral Flexion Right 32 Lumbar Spine Range of Motion Lumbar Spine Active Degrees Testing Position Standing Flexion 74 Extension 10 Lateral Flexion Left 54 Lateral Flexion Right 52 Comments Lateral flexion measured in cm from finger tips to floor. Ankle and Foot Goniometric Range of Motion Ankle and Foot Right Active Testing Position Supine Dorsiflexion with Knee Extended 9 Plantarflexion 56 Inversion 34 Eversion 26 Left Active Testing Position Supine Dorsiflexion with Knee Extended 8 Plantarflexion 51 Inversion 35 Eversion 29 Toe Range of Motion Toe Left Great Toe MTP Extension Active (degrees) 60 Right Great Toe MTP Extension Active (degrees) 58 PT-OP-L Special Tests Start: 06/13/19 17:35 Freq: Status: Active Protocol: Document 12/09/19 15:15 DCW (Rec: 12/09/19 15:43 DCW [id number]) Special Tests Lumbar Spine Special Tests LUIGI Test Results Pain at SI Comments Bilaterally Straight Leg Raise Test Results Bilateral calf/HS burning PT-OP-M Strength Start: 06/13/19 17:35 Freq: Status: Active Protocol: Document 12/09/19 15:15 DCW (Rec: 12/09/19 15:43 DCW [id number]) Hip Strength Hip Manual Muscle Testing Right Flexion (L2) 5 Normal Abduction 5 Normal Adduction 5 Normal External Rotation 5 Normal Internal Rotation 5 Normal Left Flexion (L2) 5 Normal Abduction 5 Normal Adduction 5 Normal External Rotation 5 Normal Internal Rotation 5 Normal Knee Strength Knee Manual Muscle Testing Right Flexion (S2) 4+ Good+ Extension (L3) 5 Normal Left Flexion (S2) 4 Good Extension (L3) 5 Normal Ankle/Foot Strength Ankle and Foot Manual Muscle Testing Right Dorsiflexion (L4) 5 Normal Plantarflexion (S1) 4+ Good+ Inversion 5 Normal Eversion (S1) 5 Normal Left Dorsiflexion (L4) 5 Normal Plantarflexion (S1) 4+ Good+ Inversion 5 Normal Eversion (S1) 5 Normal PT-OP-Q Treatments Start: 06/13/19 17:35 Freq: Status: Active Protocol: Document 12/09/19 15:15 DCW (Rec: 12/09/19 15:59 DCW [id number]) Therapeutic Exercises Supine Exercises Serratus Punch Supine Exercise Name Serratus Punch TA in neutral spine Supine Exercise Name TA Reps/Minutes 5 hold Comments cough causes bulging. Sitting Exercises Shoulder retraction Sitting Exercise Name Shoulder retraction Manual Therapy Treatment Other Other Manual Treatments MMT, ROM, Manual testing PT-OP-R Modalities Start: 06/13/19 17:35 Freq: Status: Active Protocol: Document 11/04/19 11:15 DCW (Rec: 11/04/19 12:19 DCW [id number]) Ultrasound Therapy Treatment L foot plantar fascia Treatment Duration (minutes) 5 Patient Position Supine Mode Setting Pulsed Duty Cycle 50% Intensity Setting (w/cm2) 1.5 R foot plantar fascia Treatment Duration (minutes) 5 Patient Position Supine Mode Setting Pulsed Duty Cycle 50% Intensity Setting (w/cm2) 1.0 PT-OP-S Aquatic Treatment Start: 07/08/19 16:16 Freq: Status: Active Protocol: Document 08/15/19 11:00 LJ (Rec: 08/15/19 16:12 LJ [id number]) Aquatics Treatment Pool Entry/Exit Pool Entry/Exit Method Stairs Assistance Independent Water Walking forward with reverse breast stroke Water Level Chest Level Comments cues for core involvement Monster Walk Water Level Waist Level Comments cued to raise up on toes for push off [place] March Water Level Waist Level Comments arms reaching to opp side Sideways Water Level Waist Level Backwards Water Level Waist Level forward Water Level Waist Level Comments heel-toe Lower Extremity Exercises kick backs Body Position Standing Water Level Waist Level Reps/Duration 15x2 bilat Comments at wall heel toe raises Body Position Standing Water Level Chest Level Reps/Duration 20 circumduction Body Position Standing Water Level Chest Level Reps/Duration 2x12 bilat ab/ad Water Level Chest Level Reps/Duration 12x2 bilat flex/ext Water Level Chest Level Reps/Duration 12x2 bilat Lower Extremity Stretches hip flexor and quads Body Position Standing Water Level Chest Level Equipment Large Noodle Reps/Duration 2x45 Comments cueing for standing upright piriformis Details on wall Reps/Duration 2 min spider on wall Reps/Duration 2 min Comments with body swing HS Comments deep; modified downward dog gastroc, soleus Body Position Standing Water Level Waist Level Reps/Duration 45x2 Comments rocking foot side to side HC Body Position Standing Water Level Chest Level Reps/Duration 45x3 bilat Comments on stairs with toes against upper step for toe flexion Upper Extremity Exercises flex,ext, abd, add, Body Position Standing Water Level Chest Level Equipment UE paddles Reps/Duration 10x each bilat Upper Extremity Stretches pec stretch Body Position Standing Water Level Chest Level Equipment UE paddles Reps/Duration 2 min Comments rotating side to side Spinal Exercises cat cow stretch at wall Water Level [place] Reps/Duration 2 min SKTC, DKTC Water Level [place] Reps/Duration 2 min at wall [place] Activities [place] Activities Bicycle,Bicycle Backwards, Cross Country,Hip Abduction/ Adduction Other Activities pendulum forward backward shoot thru abdominal curls (knees to chest one vert. 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 LTG Duration 02/07/20 Six Impairment Bilateral Foot pain rated 7-8/ 10 Short Term Goal (STG) Decrease bilateral foot pain on first standing in the morning to no greater than 1/ 10. 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 LTG Duration 02/07/20 Five Impairment Pt navicular bone collapse to 2.7 (L) and 3.2 (R) cm from floor Deicer Repairer Goal (LTG) Pt to stand with neutral forefoot and proper arches with navicular 4.0 cm from floor LTG Duration 02/07/20 - Improving Four Impairment Medial boarder of scapula 10 cm from spine at rest Deicer Repairer Goal (LTG) Pt to present with less of a rounded shoulder posture by decreasing distance between medial boarder and spine to 6 cm at rest LTG Duration 02/07/20 - Improving Three Impairment Pt displays weakness in core muscles 3+/5 Deicer Repairer Goal (LTG) Pt to display 4/5 MMT of TrA LTG Duration 02/07/20 Two Impairment Pt unable to stand longer than 10-15 minutes at [employer] stand Halfway Goal (LTG) Pt to be able to tolerate standing 45 minutes when working at the [employer] with no increased pain. LTG Duration 02/07/20 One Impairment Pt does not have an appropriate home exercise program Short Term Goal (STG) Pt to be independent and compliant with an appropriate HEP STG Duration Met Halfway Goal (LTG) Pt will be independent with a self care HEP of foot/ankle exercises and educated in proper foot care for management of her pain. LTG Duration 02/07/20 - Intermittently compliant Assessment Summary Assessment Pt overall doing much better day-to-day with her plantar fasciitis, mainly now complaining of increased neck and thoracic pain. Pt should benefit from skilled therapy focusing on improving cervical and paraspinal tone, improving posture, strengthening parascapular and core musculature. Physical Therapy Plan Frequency and Duration Frequency of Treatment 2x/Week Duration of Treatment Two months Plan of Care Start Date 12/09/19 Plan of Care End Date 02/07/20 Therapeutic Interventions Therapeutic Interventions Aquatic Therapy,Home Exercise Program,Joint Mobilizations, Manual Therapy,Patient/ Caregiver Education,Self-Care/ Home Management,Soft Tissue Mobilization,Therapeutic Exercises Modalities Cold Pack/Ice Massage,Electric Stimulation,Hot Packs, Iontophoresis,Ultrasound Other Therapeutic Interventions Iontophoresis with 4mg/ml Dexamethosone with Sodium Phosphate. Next Visit Focus/Plan Next Note Type Treatment Note Next Visit Plan Review performing a TA reflexively, progress core/ pelvic stabilization. Return to posture TherEx, as well as Thoracic and cervical strengthening and manual therapy
--- NOTE | 2019-12-09 17:00 | PT.OPPOC ---
Physical, Occupational & Speech Therapy At [facility] Current Diagnoses Cervicalgia (12/09/19) Dorsalgia, unspecified (12/09/19) Muscle weakness (generalized) (12/09/19) Abnormal posture (12/09/19) Visit Care Team Role Provider Type Nikki Amos Attending Provider Non-Staff Primary Care Provider Specialty: Medical Address: [address] [place] [address], [id number] Email: Plan Of Care PT-OP-T Assessment and Plan Start: 06/13/19 17:35 Freq: Status: Active Protocol: Document 12/09/19 15:15 DCW (Rec: 12/09/19 17:00 DCW [id number]) Physical Therapy Assessment Impairments Impairments Activity Tolerance,Edema, Functional Activities, Functional Mobility,Pain, Posture,ROM,Soft Tissue Mobility,Strength Goals Seven Impairment Foot pain bilaterally limiting ability to walk > 1 block Short Term Goal (STG) Pt will be able to walk > 1 block without extreme foot pain (L or R) 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 LTG Duration 02/07/20 Six Impairment Bilateral Foot pain rated 7-8/ 10 Short Term Goal (STG) Decrease bilateral foot pain on first standing in the morning to no greater than 1/ 10. 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 LTG Duration 02/07/20 Five Impairment Pt navicular bone collapse to 2.7 (L) and 3.2 (R) cm from floor Manufacturing Coordinator Goal (LTG) Pt to stand with neutral forefoot and proper arches with navicular 4.0 cm from floor LTG Duration 02/07/20 - Improving Four Impairment Medial boarder of scapula 10 cm from spine at rest Manufacturing Coordinator Goal (LTG) Pt to present with less of a rounded shoulder posture by decreasing distance between medial boarder and spine to 6 cm at rest LTG Duration 02/07/20 - Improving Three Impairment Pt displays weakness in core muscles 3+/5 Manufacturing Coordinator Goal (LTG) Pt to display 4/5 MMT of TrA LTG Duration 02/07/20 Two Impairment Pt unable to stand longer than 10-15 minutes at [employer] stand Long-Term Goal (LTG) Pt to be able to tolerate standing 45 minutes when working at the [employer] with no increased pain. LTG Duration 02/07/20 One Impairment Pt does not have an appropriate home exercise program Short Term Goal (STG) Pt to be independent and compliant with an appropriate HEP STG Duration Met Manufacturing Coordinator Goal (LTG) Pt will be independent with a self care HEP of foot/ankle exercises and educated in proper foot care for management of her pain. LTG Duration 02/07/20 - Intermittently compliant Assessment Summary Assessment Pt overall doing much better day-to-day with her plantar fasciitis, mainly now complaining of increased neck and thoracic pain. Pt should benefit from skilled therapy focusing on improving cervical and paraspinal tone, improving posture, strengthening parascapular and core musculature. Physical Therapy Plan Frequency and Duration Frequency of Treatment 2x/Week Duration of Treatment Two months Plan of Care Start Date 12/09/19 Plan of Care End Date 02/07/20 Therapeutic Interventions Therapeutic Interventions Aquatic Therapy,Home Exercise Program,Joint Mobilizations, Manual Therapy,Patient/ Caregiver Education,Self-Care/ Home Management,Soft Tissue Mobilization,Therapeutic Exercises Modalities Cold Pack/Ice Massage,Electric Stimulation,Hot Packs, Iontophoresis,Ultrasound Other Therapeutic Interventions Iontophoresis with 4mg/ml Dexamethosone with Sodium Phosphate. Next Visit Focus/Plan Next Note Type Treatment Note Next Visit Plan Review performing a TA reflexively, progress core/ pelvic stabilization. Return to posture TherEx, as well as Thoracic and cervical strengthening and manual therapy Plan of Care Dates Plan of Care Start Date 12/09/19 Plan of Care End Date 02/07/20 Electronically Signed by: Micky Dove, PT 12/09/19 1700 Please Sign and Return: I have reviewed this Plan of Care and certify that the skilled therapy services above are required to meet the patient?s needs. Physician Signature Date Printed Name and Credentials Clinical Instructor Signature Printed Name and Credentials
--- NOTE | 2019-12-30 12:44 | PT.OTN ---
Current Diagnoses Cervicalgia (12/30/19) Dorsalgia, unspecified (12/30/19) Muscle weakness (generalized) (12/30/19) Abnormal posture (12/30/19) Physical Therapy Treatment Note PT-OP-A Visit Information Start: 06/13/19 17:35 Freq: Status: Active Protocol: Document 12/30/19 12:00 DCW (Rec: 12/30/19 12:43 DCW [id number]) Out-Patient Physical Therapy Visit Information Visit Information Visit Type Treatment Note Visit Start Time 12:00 Visit Stop Time 12:45 Total Visit Minutes 45 Visit Number 27 Number of TAKER OFF BRAKER MACHINE Visits 0 Precautions Precautions X-ray of 02/28/19: Loss of Lordosis & mild DDD C5-C6, mild [place] lumbar DDD and levocurvature, trace retrolisthesis L2-L3, L3-L4. Arthralgia, Mitral Valve regurgitation, Heel Bone spurs , Asthma. PT-OP-B Current Condition Start: 06/13/19 17:35 Freq: Status: Active Protocol: Document 09/02/19 10:31 LRN (Rec: 09/02/19 12:46 LRN [id number]) Current Condition History of Current Condition Onset Date 2015 Current Complaints Can't walk far due to extreme sharp stabbing pain feet. History of Current Condition States her connective tissue is shortened in back and going down to feet. Notes diet and sleep changes due to arthritis. Wants to do back therapy as well, because finds it very helpful. Knows she must do stretching daily forever and is addressing diet . Sugar, gluten, and carb free. Notices w/o sugar moves better. Pain is like a red hot poker. Prior Treatments and Tests 1 cortisone shot in 1 foot, unable to recall which foot, was not helpful. 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 Does pack test carrying 45# for 3 minutes on flat surface yearly , recently performed test and passed. Treatment Goals Patient/Caregiver Goals Pt goal is to reverse the plantar fasciitis and heal all pain from walking. Prior Functional Status Baseline Function- ADL's Independent Baseline Function- Mobility Independent Baseline Function- Gait 3 yrs ago walked without pain. Worsened 2 yrs ago & started seeking care. 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 Current Functional Impairments (Reported) Functional Limitations- ADL's Decreased tolerance to stair ambulation. Support with standing upon waking. Functional Limitations- Mobility/Gait Walking > 20' Functional Limitations- Work/School Limited in work tolerance. Functional Limitations- Other 1st in AM upon standing painful. Extreme pain with standing for her personal business for any length of time. Walk a block before starting to get extreme pain in the feet, one or both. If keep going, then must stop and offload foot hurting. Personal Factors Other Personal Factors That May Effect PMH: Pelvic pain and bloating Therapy/Recovery - progressively worsening in last 6 month. Has uterine polyp being removed 10/13, and ovarian cysts. Endoscopy and colonoscopy test scheduled 09/29/19, due to pelvic pain and routine. PT-OP-C Subjective Start: 06/13/19 17:35 Freq: Status: Active Protocol: Document 12/30/19 12:00 DCW (Rec: 12/30/19 12:43 DCW [id number]) OP-PT Subjective Patient Comments Patient Comments I feel much better when I'm not hiking through the mountains. Pt reports she was part of a search and rescue mission last weekend, and her feet have been flared up since then, but she feels that overall she is sitll doing better. PT-OP-F Manual Assessment Start: 06/13/19 17:35 Freq: Status: Active Protocol: Document 12/09/19 15:15 DCW (Rec: 12/09/19 15:43 DCW [id number]) Manual Assessments Soft Tissue Assessment Soft Tissue Mobility Assessment Lumbar paraspinals, QL Moderate tone, tenderness to palpation 3/4: Wincing and withdraw PT-OP-J Posture/Palpation/Skin Start: 06/13/19 17:35 Freq: Status: Active Protocol: Document 12/09/19 15:15 DCW (Rec: 12/09/19 15:43 DCW [id number]) Posture Evaluation Position Standing no shoes Evaluation View All positions Head/C-Spine Posture Forward Head T-Spine Posture Flattened,Flexible Scoliosis on (L) Shoulder Posture (R) Elevated Pelvis Posture (L) Iliac Crest Inferior Knee Posture (L) Genu Valgus,(R) Genu Valgus Ankle/Foot Posture (L) Calcaneal Eversion Foot Arch (L) Low Arch,(R) Low Arch Sitting Head/C-Spine Posture C-Spine Flattened,Forward Head T-Spine Posture Flattened L-Spine Posture Flattened,Decreased Lordosis Shoulder Posture (L) Rounded,(R) Rounded Scapula Posture (L) Protracted,(R) Protracted Comments Posture Comments When standing relaxed, pt exhibits pronated feet bilaterally with her navicular bone 3.4 cm (L) and 3.23 cm ( R) from the floor. With proper arch positioning and a neutral forefoot, pt navicular 4.1 cm from floor bilaterally . Palpation Assessment Location L foot Palpation Location Medial>Lateral Plantar aspect of foot and heel Palpation Findings Tenderness R foot Palpation Location Medial aspect of foot and heel Palpation Findings Tenderness PT-OP-K Range of Motion Start: 06/13/19 17:35 Freq: Status: Active Protocol: Document 12/09/19 15:15 DCW (Rec: 12/09/19 15:43 DCW [id number]) Cervical Spine Range of Motion Cervical Spine Active Degrees Testing Position Sitting Flexion 45 Extension 56 Rotation Left 65 Rotation Right 72 Lateral Flexion Left 30 Lateral Flexion Right 32 Lumbar Spine Range of Motion Lumbar Spine Active Degrees Testing Position Standing Flexion 74 Extension 10 Lateral Flexion Left 54 Lateral Flexion Right 52 Comments Lateral flexion measured in cm from finger tips to floor. Ankle and Foot Goniometric Range of Motion Ankle and Foot Right Active Testing Position Supine Dorsiflexion with Knee Extended 9 Plantarflexion 56 Inversion 34 Eversion 26 Left Active Testing Position Supine Dorsiflexion with Knee Extended 8 Plantarflexion 51 Inversion 35 Eversion 29 Toe Range of Motion Toe Left Great Toe MTP Extension Active (degrees) 60 Right Great Toe MTP Extension Active (degrees) 58 PT-OP-L Special Tests Start: 06/13/19 17:35 Freq: Status: Active Protocol: Document 12/09/19 15:15 DCW (Rec: 12/09/19 15:43 DCW [id number]) Special Tests Lumbar Spine Special Tests LUIGI Test Results Pain at SI Comments Bilaterally Straight Leg Raise Test Results Bilateral calf/HS burning PT-OP-M Strength Start: 06/13/19 17:35 Freq: Status: Active Protocol: Document 12/09/19 15:15 DCW (Rec: 12/09/19 15:43 DCW [id number]) Hip Strength Hip Manual Muscle Testing Right Flexion (L2) 5 Normal Abduction 5 Normal Adduction 5 Normal External Rotation 5 Normal Internal Rotation 5 Normal Left Flexion (L2) 5 Normal Abduction 5 Normal Adduction 5 Normal External Rotation 5 Normal Internal Rotation 5 Normal Knee Strength Knee Manual Muscle Testing Right Flexion (S2) 4+ Good+ Extension (L3) 5 Normal Left Flexion (S2) 4 Good Extension (L3) 5 Normal Ankle/Foot Strength Ankle and Foot Manual Muscle Testing Right Dorsiflexion (L4) 5 Normal Plantarflexion (S1) 4+ Good+ Inversion 5 Normal Eversion (S1) 5 Normal Left Dorsiflexion (L4) 5 Normal Plantarflexion (S1) 4+ Good+ Inversion 5 Normal Eversion (S1) 5 Normal PT-OP-Q Treatments Start: 06/13/19 17:35 Freq: Status: Active Protocol: Document 12/30/19 12:00 DCW (Rec: 12/30/19 12:43 DCW [id number]) Manual Therapy Treatment Soft Tissue Mobilization Gastrosoleus Body Location B Calf Mobilization Type Cross-Friction,Strumming, Sustained Pressure,Trigger Point Release Body Position Prone Foot STM Body Location Bilateral feet Mobilization Type Cross-Friction,Instrument Assisted,Sustained Pressure Intensity/Depth Moderate Body Position Prone lumbar Body Location lumbar/sacrum Mobilization Type Cross-Friction,Strain/ Counterstrain,Sustained Pressure,Trigger Point Release Intensity/Depth Moderate Body Position Prone Joint Mobilizations Thoracic Vertebae Joint T-spine Direction P->A Grade III Body Position Prone PT-OP-R Modalities Start: 06/13/19 17:35 Freq: Status: Active Protocol: Document 11/04/19 11:15 DCW (Rec: 11/04/19 12:19 DCW [id number]) Ultrasound Therapy Treatment L foot plantar fascia Treatment Duration (minutes) 5 Patient Position Supine Mode Setting Pulsed Duty Cycle 50% Intensity Setting (w/cm2) 1.5 R foot plantar fascia Treatment Duration (minutes) 5 Patient Position Supine Mode Setting Pulsed Duty Cycle 50% Intensity Setting (w/cm2) 1.0 PT-OP-S Aquatic Treatment Start: 07/08/19 16:16 Freq: Status: Active Protocol: Document 08/15/19 11:00 LJ (Rec: 08/15/19 16:12 LJ [id number]) Aquatics Treatment Pool Entry/Exit Pool Entry/Exit Method Stairs Assistance Independent Water Walking forward with reverse breast stroke Water Level Chest Level Comments cues for core involvement Monster Walk Water Level Waist Level Comments cued to raise up on toes for push off [place] December Water Level Waist Level Comments arms reaching to opp side Sideways Water Level Waist Level Backwards Water Level Waist Level forward Water Level Waist Level Comments heel-toe Lower Extremity Exercises kick backs Body Position Standing Water Level Waist Level Reps/Duration 15x2 bilat Comments at wall heel toe raises Body Position Standing Water Level Chest Level Reps/Duration 20 circumduction Body Position Standing Water Level Chest Level Reps/Duration 2x12 bilat ab/ad Water Level Chest Level Reps/Duration 12x2 bilat flex/ext Water Level Chest Level Reps/Duration 12x2 bilat Lower Extremity Stretches hip flexor and quads Body Position Standing Water Level Chest Level Equipment Large Noodle Reps/Duration 2x45 Comments cueing for standing upright piriformis Details on wall Reps/Duration 2 min spider on wall Reps/Duration 2 min Comments with body swing HS Comments deep; modified downward dog gastroc, soleus Body Position Standing Water Level Waist Level Reps/Duration 45x2 Comments rocking foot side to side HC Body Position Standing Water Level Chest Level Reps/Duration 45x3 bilat Comments on stairs with toes against upper step for toe flexion Upper Extremity Exercises flex,ext, abd, add, Body Position Standing Water Level Chest Level Equipment UE paddles Reps/Duration 10x each bilat Upper Extremity Stretches pec stretch Body Position Standing Water Level Chest Level Equipment UE paddles Reps/Duration 2 min Comments rotating side to side Spinal Exercises cat cow stretch at wall Water Level [place] Reps/Duration 2 min SKTC, DKTC Water Level [place] Reps/Duration 2 min at wall [place] Activities [place] Activities Bicycle,Bicycle Backwards, Cross Country,Hip Abduction/ Adduction Other Activities pendulum forward backward shoot thru abdominal curls (knees to chest one vert. 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 LTG Duration 02/07/20 Six Impairment Bilateral Foot pain rated 7-8/ 10 Short Term Goal (STG) Decrease bilateral foot pain on first standing in the morning to no greater than 1/ 10. STG Duration 01/07/20 Chcf Goal (LTG) Pt will be able to tolerate selling her wares at the local [employer] by standing periodically with pain no greater than 3/10. LTG Duration 02/07/20 Five Impairment Pt navicular bone collapse to 2.7 (L) and 3.2 (R) cm from floor Sales And Service Representative Goal (LTG) Pt to stand with neutral forefoot and proper arches with navicular 4.0 cm from floor LTG Duration 02/07/20 - Improving Four Impairment Medial boarder of scapula 10 cm from spine at rest [facility]cf Goal (LTG) Pt to present with less of a rounded shoulder posture by decreasing distance between medial boarder and spine to 6 cm at rest LTG Duration 02/07/20 - Improving Three Impairment Pt displays weakness in core muscles 3+/5 Sales And Service Representative Goal (LTG) Pt to display 4/5 MMT of TrA LTG Duration 02/07/20 Two Impairment Pt unable to stand longer than 10-15 minutes at [employer] stand Sales And Service Representative Goal (LTG) Pt to be able to tolerate standing 45 minutes when working at the [employer] with no increased pain. LTG Duration 02/07/20 One Impairment Pt does not have an appropriate home exercise program Short Term Goal (STG) Pt to be independent and compliant with an appropriate HEP STG Duration Met Sales And Service Representative Goal (LTG) Pt will be independent with a self care HEP of foot/ankle exercises and educated in proper foot care for management of her pain. LTG Duration 02/07/20 - Intermittently compliant Assessment Summary Assessment Pt currently only attending ~ 1x/month pt session, so effectiveness is difficult to determine. Calf and feet have less tone, much more mobility. Some hypomobility in lumbar and thoracic spine, although responded well to joint mobilization. Physical Therapy Plan Frequency and Duration Frequency of Treatment 2x/Week Duration of Treatment Two months Plan of Care Start Date 12/09/19 Plan of Care End Date 02/07/20 Therapeutic Interventions Therapeutic Interventions Aquatic Therapy,Home Exercise Program,Joint Mobilizations, Manual Therapy,Patient/ Caregiver Education,Self-Care/ Home Management,Soft Tissue Mobilization,Therapeutic Exercises Modalities Cold Pack/Ice Massage,Electric Stimulation,Hot Packs, Iontophoresis,Ultrasound Other Therapeutic Interventions Iontophoresis with 4mg/ml Dexamethosone with Sodium Phosphate. Next Visit Focus/Plan Next Note Type Treatment Note Next Visit Plan Review performing a TA reflexively, progress core/ pelvic stabilization. Return to posture TherEx, as well as Thoracic and cervical strengthening and manual therapy
--- NOTE | 2020-06-06 17:13 | PT.OPDS ---
Current Diagnoses Cervicalgia (12/30/19) Dorsalgia, unspecified (12/30/19) Muscle weakness (generalized) (12/30/19) Abnormal posture (12/30/19) Visit Care Team Role Provider Type Nikki Amos Attending Provider Non-Staff Primary Care Provider Specialty: Medical Address: [address] [place] [address], [phone] Email: Visit Number Visit Number 27 Discharge Summary PT-OP-B Current Condition Start: 06/13/19 17:35 Freq: Status: Active Protocol: Document 09/02/19 10:31 LRN (Rec: 09/02/19 12:46 LRN [id number]) Current Condition History of Current Condition Onset Date 2015 Current Complaints Can't walk far due to extreme sharp stabbing pain feet. History of Current Condition States her connective tissue is shortened in back and going down to feet. Notes diet and sleep changes due to arthritis. Wants to do back therapy as well, because finds it very helpful. Knows she must do stretching daily forever and is addressing diet . Sugar, gluten, and carb free. Notices w/o sugar moves better. Pain is like a red hot poker. Prior Treatments and Tests 1 cortisone shot in 1 foot, unable to recall which foot, was not helpful. 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 Does pack test carrying 45# for 3 minutes on flat surface yearly , recently performed test and passed. Treatment Goals Patient/Caregiver Goals Pt goal is to reverse the plantar fasciitis and heal all pain from walking. Prior Functional Status Baseline Function- ADL's Independent Baseline Function- Mobility Independent Baseline Function- Gait 3 yrs ago walked without pain. Worsened 2 yrs ago & started seeking care. 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 Current Functional Impairments (Reported) Functional Limitations- ADL's Decreased tolerance to stair ambulation. Support with standing upon waking. Functional Limitations- Mobility/Gait Walking > 20' Functional Limitations- Work/School Limited in work tolerance. Functional Limitations- Other 1st in AM upon standing painful. Extreme pain with standing for her personal business for any length of time. Walk a block before starting to get extreme pain in the feet, one or both. If keep going, then must stop and offload foot hurting. Personal Factors Other Personal Factors That May Effect PMH: Pelvic pain and bloating Therapy/Recovery - progressively worsening in last 6 month. Has uterine polyp being removed 10/13, and ovarian cysts. Endoscopy and colonoscopy test scheduled 09/29/19, due to pelvic pain and routine. PT-OP-C Subjective Start: 06/13/19 17:35 Freq: Status: Active Protocol: Document 12/30/19 12:00 DCW (Rec: 12/30/19 12:43 DCW [id number]) OP-PT Subjective Patient Comments Patient Comments I feel much better when I'm not hiking through the mountains. Pt reports she was part of a search and rescue mission last weekend, and her feet have been flared up since then, but she feels that overall she is sitll doing better. PT-OP-F Manual Assessment Start: 06/13/19 17:35 Freq: Status: Active Protocol: Document 12/09/19 15:15 DCW (Rec: 12/09/19 15:43 DCW [id number]) Manual Assessments Soft Tissue Assessment Soft Tissue Mobility Assessment Lumbar paraspinals, QL Moderate tone, tenderness to palpation 3/4: Wincing and withdraw PT-OP-J Posture/Palpation/Skin Start: 06/13/19 17:35 Freq: Status: Active Protocol: Document 12/09/19 15:15 DCW (Rec: 12/09/19 15:43 DCW [id number]) Posture Evaluation Position Standing no shoes Evaluation View All positions Head/C-Spine Posture Forward Head T-Spine Posture Flattened,Flexible Scoliosis on (L) Shoulder Posture (R) Elevated Pelvis Posture (L) Iliac Crest Inferior Knee Posture (L) Genu Valgus,(R) Genu Valgus Ankle/Foot Posture (L) Calcaneal Eversion Foot Arch (L) Low Arch,(R) Low Arch Sitting Head/C-Spine Posture C-Spine Flattened,Forward Head T-Spine Posture Flattened L-Spine Posture Flattened,Decreased Lordosis Shoulder Posture (L) Rounded,(R) Rounded Scapula Posture (L) Protracted,(R) Protracted Comments Posture Comments When standing relaxed, pt exhibits pronated feet bilaterally with her navicular bone 3.4 cm (L) and 3.23 cm ( R) from the floor. With proper arch positioning and a neutral forefoot, pt navicular 4.1 cm from floor bilaterally . Palpation Assessment Location L foot Palpation Location Medial>Lateral Plantar aspect of foot and heel Palpation Findings Tenderness R foot Palpation Location Medial aspect of foot and heel Palpation Findings Tenderness PT-OP-K Range of Motion Start: 06/13/19 17:35 Freq: Status: Active Protocol: Document 12/09/19 15:15 DCW (Rec: 12/09/19 15:43 DCW [id number]) Cervical Spine Range of Motion Cervical Spine Active Degrees Testing Position Sitting Flexion 45 Extension 56 Rotation Left 65 Rotation Right 72 Lateral Flexion Left 30 Lateral Flexion Right 32 Lumbar Spine Range of Motion Lumbar Spine Active Degrees Testing Position Standing Flexion 74 Extension 10 Lateral Flexion Left 54 Lateral Flexion Right 52 Comments Lateral flexion measured in cm from finger tips to floor. Ankle and Foot Goniometric Range of Motion Ankle and Foot Right Active Testing Position Supine Dorsiflexion with Knee Extended 9 Plantarflexion 56 Inversion 34 Eversion 26 Left Active Testing Position Supine Dorsiflexion with Knee Extended 8 Plantarflexion 51 Inversion 35 Eversion 29 Toe Range of Motion Toe Left Great Toe MTP Extension Active (degrees) 60 Right Great Toe MTP Extension Active (degrees) 58 PT-OP-L Special Tests Start: 06/13/19 17:35 Freq: Status: Active Protocol: Document 12/09/19 15:15 DCW (Rec: 12/09/19 15:43 DCW [id number]) Special Tests Lumbar Spine Special Tests LUIGI Test Results Pain at SI Comments Bilaterally Straight Leg Raise Test Results Bilateral calf/HS burning PT-OP-M Strength Start: 06/13/19 17:35 Freq: Status: Active Protocol: Document 12/09/19 15:15 DCW (Rec: 12/09/19 15:43 DCW [id number]) Hip Strength Hip Manual Muscle Testing Right Flexion (L2) 5 Normal Abduction 5 Normal Adduction 5 Normal External Rotation 5 Normal Internal Rotation 5 Normal Left Flexion (L2) 5 Normal Abduction 5 Normal Adduction 5 Normal External Rotation 5 Normal Internal Rotation 5 Normal Knee Strength Knee Manual Muscle Testing Right Flexion (S2) 4+ Good+ Extension (L3) 5 Normal Left Flexion (S2) 4 Good Extension (L3) 5 Normal Ankle/Foot Strength Ankle and Foot Manual Muscle Testing Right Dorsiflexion (L4) 5 Normal Plantarflexion (S1) 4+ Good+ Inversion 5 Normal Eversion (S1) 5 Normal Left Dorsiflexion (L4) 5 Normal Plantarflexion (S1) 4+ Good+ Inversion 5 Normal Eversion (S1) 5 Normal PT-OP-T Assessment and Plan Start: 06/13/19 17:35 Freq: Status: Active Protocol: Document 06/06/20 17:12 DCW (Rec: 06/06/20 17:13 DCW [id number]) Physical Therapy Assessment Assessment Summary Assessment Pt did not return phone calls from scheduling department following reopening of clinic after Covid-19 closure. Pt will be discharged from skilled therapy at this time.
== END 2020-06-07 08:16 ==
LOC: PHYS 12:00
PROVIDERS: PCP Internal Medicine; Visit Provider Internal Medicine
DX: M54.2 Cervicalgia (principal); M54.9 Dorsalgia, unspecified; R29.3 Abnormal posture; M62.81 Muscle weakness (generalized)
CPT/HCPCS: 97010; 97035; 97110; 97113; 97140; 97162; 97163; 97164; 97535

== ENCOUNTER → 2020-09-17 16:18 | Outpatient (CLI) | payer OTHER, SELFPAY | PROVIDERS: PCP Internal Medicine; Visit Provider Physician Assistant | DX: R30.0 Dysuria (principal) | CPT/HCPCS: 87086 ==

== ENCOUNTER 2021-09-16 16:00 | Outpatient (RCR) | payer OTHER, SELFPAY ==
--- NOTE | 2021-07-31 17:34 | PT.OIE ---
Current Diagnoses Lumbago with sciatica, unspecified side (07/31/21) Dorsalgia, unspecified (07/31/21) Weakness (07/31/21) Chronic fatigue, unspecified (07/31/21) Past Surgical History (Last Reviewed 01/25/19 @ 19:15 by YOBANI Knight) History of third molar tooth extraction Visit Care Team Role Provider Type Nikki Amos MD Attending Provider Non-Staff Family Provider Primary Care Provider Referring Provider Specialty: Pediatrics Address: [address] [place] [address], [id number] Email: Physical Therapy Initial Evaluation PT-OP-A Visit Information Start: 07/31/21 16:39 Freq: Status: Active Protocol: Document 07/31/21 12:00 DCW (Rec: 07/31/21 17:13 [facility] [id number]) Out-Patient Physical Therapy Visit Information Visit Information Visit Type Initial Evaluation Visit Start Time 12:00 Visit Stop Time 12:40 Total Visit Minutes 40 Visit Number 1 Number of PAYROLL TAX SPECIALIST Visits 0 Evaluation Information Evaluation Date 07/31/21 PT-OP-B Current Condition Start: 07/31/21 16:39 Freq: Status: Active Protocol: Document 07/31/21 12:00 DCW (Rec: 07/31/21 17:13 DC [id number]) Current Condition History of Current Condition Onset Date Long-standing history Current Complaints Mid back pain, low back pain, numbness/tingling in all limbs History of Current Condition Pt is a 55 year old female presenting with a long- standing, complicated history of low back pain with apparent associated neuro deficits in bilateral UEs and LEs. Pt reports a fairly constant tingling in all areas, as well as mid- and low-back pain. Pt notes that she has a history of increased inflammation which leads to increased stiffness and difficulty with movement. Pt has begun to work with a edge burnisher to start an anti-inflammatory diet, but admits she is having difficulty cutting out sugars . 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 Pt gets very fatigued if walking more than ~1 mile, and gets to the point where she feels like her muscles just don't work. 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 Pt's main goals for PT are to focus on decreasing fatigue, improving overall strength, and work on improving core strength to decrease stress on her spine, in addition to figuring out what she can do to slow progression of spinal degeneration. PT-OP-C Subjective Start: 07/31/21 16:39 Freq: Status: Active Protocol: Document 07/31/21 12:00 DCW (Rec: 07/31/21 17:13 DCW [id number]) OP-PT Subjective Patient Comments Patient Comments Most of the time, I wouldn't really say I have back pain. It's more just like everything is inflammed and sore. Patient Questionnaires Oswestry Low Back Index Oswestry Score 22/50 = 44% Oswestry Impairment 40 to 59% Impaired (Score 40- 59) OP-PT Pain Assessment Pain Assessment Grid Paper Pain Assessment Grid Completed Yes: See chart PT-OP-F Manual Assessment Start: 07/31/21 16:59 Freq: Status: Active Protocol: Document 07/31/21 12:00 DCW (Rec: 07/31/21 17:33 DCW [id number]) Manual Assessments Joint Mobility Assessment Joint Mobility Assessment T4-L5 moderate Hypomobility, pt reports mobilization feels good but hurts. Superiorly rotated L ASIS, resulting in functionally shortened left LE PT-OP-K Range of Motion Start: 07/31/21 16:39 Freq: Status: Active Protocol: Document 07/31/21 12:00 DCW (Rec: 07/31/21 17:13 DCW [id number]) Lumbar Spine Range of Motion Lumbar Spine Active Degrees Testing Position Standing Flexion 45 Extension 15 Lateral Flexion Left 58 Lateral Flexion Right 60 ROM Limitations Muscle Tone,Pain Comments Lateral flexion measured in cm from fingertips to floor PT-OP-L Special Tests Start: 07/31/21 16:39 Freq: Status: Active Protocol: Document 07/31/21 12:00 DCW (Rec: 07/31/21 17:13 DCW [id number]) Special Tests Cervical Spine Special Tests Spurling's Test Test Results Negative Slump Test Results Negative Passive Neck Flexion Test Results Negative Foraminal Compression Test Results Negative Lumbar Spine Special Tests LUIGI Test Results Pain at SI Comments Bilaterally Straight Leg Raise Test Results Negative PT-OP-M Strength Start: 07/31/21 16:39 Freq: Status: Active Protocol: Document 07/31/21 12:00 DCW (Rec: 07/31/21 17:13 [facility] [id number]) Trunk Strength Trunk Manual Muscle Testing Core Stabilization Pt unable to contract TrA prior to verbal and tactile cues, struggles to hold; 3+/5 Hip Strength Hip Manual Muscle Testing Right Flexion (L2) 3+ Fair+ Extension (S1) 4- Good- Abduction 4 Good Adduction 4 Good Left Flexion (L2) 3+ Fair+ Extension (S1) 4- Good- Abduction 4 Good Adduction 4 Good Knee Strength Knee Manual Muscle Testing Right Flexion (S2) 4+ Good+ Extension (L3) 4+ Good+ Left Flexion (S2) 4+ Good+ Extension (L3) 4+ Good+ Ankle/Foot Strength Ankle and Foot Manual Muscle Testing Right Dorsiflexion (L4) 4+ Good+ Plantarflexion (S1) 4+ Good+ Left Dorsiflexion (L4) 4+ Good+ Plantarflexion (S1) 5 Normal PT-OP-Q Treatments Start: 07/31/21 16:39 Freq: Status: Active Protocol: Document 07/31/21 12:00 DC (Rec: 07/31/21 17:33 [facility] [id number]) Therapeutic Exercises Supine Exercises 1 Supine Exercise Name TrA contraction Manual Therapy Treatment Manual Techniques 1 Type MWM to realign pelvis Body Position Supine PT-OP-T Assessment and Plan Start: 07/31/21 16:39 Freq: Status: Active Protocol: Document 07/31/21 12:00 [facility] (Rec: 07/31/21 17:33 [facility] [id number]) Physical Therapy Assessment Rehab Potential Rehabilitation Potential Fair Evaluation Complexity Number of Personal Factors/Comorbidities 3 or More Number of Body Systems Impaired 4 or More Clinical Presentation at Evaluation Unstable Impairments Impairments Activity Tolerance,Functional Activities,Functional Mobility ,Pain,ROM,Sensation,Soft Tissue Mobility,Strength Goals Three Impairment Hip flexion strength 3+/5 bilaterally Trimmer Buffing Wheel Goal (LTG) Pt to increase hip strength bilaterally to 4/5 in all planes to improve pelvis and lumbar stability during functional movements. LTG Duration 09/30/21 Two Impairment Pt exhibits poor control/ weakness (3+/5) of TrA Mcfp Goal (LTG) Pt to demonstrate ability to perform TrA contraction and hold for 5 seconds during SLR without any increased symptoms . LTG Duration 09/30/21 One Impairment Pt does not have an appropriate home exercise program Short Term Goal (STG) Pt to be independent and compliant with an appropriate HEP STG Duration 08/31/21 Assessment Summary Assessment Pt presents with a complicated history of back pain and unusual apparent neuro symptoms with numbness and tingling in bilateral limbs. Pt's goal for PT is to focus on improving LE strength, hip/ pelvis stability, and core strengthening to limit progression of DDD of spine. Pt should benefit from skilled therapy focusing on improved spinal mobility/ROM, improved pelvic alignment, and LE and core strengthening. Physical Therapy Plan Frequency and Duration Frequency of Treatment 2x/Week Duration of Treatment Three months Plan of Care Start Date 07/31/21 Plan of Care End Date 10/31/21 Therapeutic Interventions Therapeutic Interventions Aquatic Therapy,Home Exercise Program,Joint Mobilizations, Manual Therapy,Neuromuscular Re-education,Patient/Caregiver Education,Self-Care/Home Management,Soft Tissue Mobilization,Therapeutic Activities,Therapeutic Exercises Modalities Cold Pack/Ice Massage,Electric Stimulation,Hot Packs, Ultrasound Next Visit Focus/Plan Next Note Type Treatment Note Next Visit Plan Strengthening, Core stability, pelvic alignment
--- NOTE | 2021-07-31 17:34 | PT.OPPOC ---
Physical, Occupational & Speech Therapy At [facility] Current Diagnoses Lumbago with sciatica, unspecified side (07/31/21) Dorsalgia, unspecified (07/31/21) Weakness (07/31/21) Chronic fatigue, unspecified (07/31/21) Visit Care Team Role Provider Type Nikki Amos MD Attending Provider Non-Staff Family Provider Primary Care Provider Referring Provider Specialty: Pediatrics Address: [address] [place] [address], [id number] Email: Plan Of Care PT-OP-T Assessment and Plan Start: 07/31/21 16:39 Freq: Status: Active Protocol: Document 07/31/21 12:00 DCW (Rec: 07/31/21 17:33 DCW [id number]) Physical Therapy Assessment Rehab Potential Rehabilitation Potential Fair Evaluation Complexity Number of Personal Factors/Comorbidities 3 or More Number of Body Systems Impaired 4 or More Clinical Presentation at Evaluation Unstable Impairments Impairments Activity Tolerance,Functional Activities,Functional Mobility ,Pain,ROM,Sensation,Soft Tissue Mobility,Strength Goals Three Impairment Hip flexion strength 3+/5 bilaterally Care Home Goal (LTG) Pt to increase hip strength bilaterally to 4/5 in all planes to improve pelvis and lumbar stability during functional movements. LTG Duration 09/30/21 Two Impairment Pt exhibits poor control/ weakness (3+/5) of TrA Care Home Goal (LTG) Pt to demonstrate ability to perform TrA contraction and hold for 5 seconds during SLR without any increased symptoms . LTG Duration 09/30/21 One Impairment Pt does not have an appropriate home exercise program Short Term Goal (STG) Pt to be independent and compliant with an appropriate HEP STG Duration 08/31/21 Assessment Summary Assessment Pt presents with a complicated history of back pain and unusual apparent neuro symptoms with numbness and tingling in bilateral limbs. Pt's goal for PT is to focus on improving LE strength, hip/ pelvis stability, and core strengthening to limit progression of DDD of spine. Pt should benefit from skilled therapy focusing on improved spinal mobility/ROM, improved pelvic alignment, and LE and core strengthening. Physical Therapy Plan Frequency and Duration Frequency of Treatment 2x/Week Duration of Treatment Three months Plan of Care Start Date 07/31/21 Plan of Care End Date 10/31/21 Therapeutic Interventions Therapeutic Interventions Aquatic Therapy,Home Exercise Program,Joint Mobilizations, Manual Therapy,Neuromuscular Re-education,Patient/Caregiver Education,Self-Care/Home Management,Soft Tissue Mobilization,Therapeutic Activities,Therapeutic Exercises Modalities Cold Pack/Ice Massage,Electric Stimulation,Hot Packs, Ultrasound Next Visit Focus/Plan Next Note Type Treatment Note Next Visit Plan Strengthening, Core stability, pelvic alignment Plan of Care Dates Plan of Care Start Date 07/31/21 Plan of Care End Date 10/31/21 Electronically Signed by: Micky Dove, PT 07/31/21 [id number] Please Sign and Return: I have reviewed this Plan of Care and certify that the skilled therapy services above are required to meet the patient?s needs. Physician Signature Date Printed Name and Credentials Clinical Instructor Signature Printed Name and Credentials
--- NOTE | 2021-08-09 15:15 | PT.OTN ---
Current Diagnoses Lumbago with sciatica, unspecified side (08/09/21) Dorsalgia, unspecified (08/09/21) Weakness (08/09/21) Chronic fatigue, unspecified (08/09/21) Physical Therapy Treatment Note PT-OP-A Visit Information Start: 07/31/21 16:39 Freq: Status: Active Protocol: Document 08/09/21 14:30 DCW (Rec: 08/09/21 15:14 DCW [id number]) Out-Patient Physical Therapy Visit Information Visit Information Visit Type Treatment Note Visit Start Time 14:30 Visit Stop Time 15:15 Total Visit Minutes 45 Visit Number 2 Number of RIG BUILDER HELPER Visits 0 Evaluation Information Evaluation Date 07/31/21 PT-OP-B Current Condition Start: 07/31/21 16:39 Freq: Status: Active Protocol: Document 07/31/21 12:00 DCW (Rec: 07/31/21 17:13 DCW [id number]) Current Condition History of Current Condition Onset Date Long-standing history Current Complaints Mid back pain, low back pain, numbness/tingling in all limbs History of Current Condition Pt is a 55 year old female presenting with a long- standing, complicated history of low back pain with apparent associated neuro deficits in bilateral UEs and LEs. Pt reports a fairly constant tingling in all areas, as well as mid- and low-back pain. Pt notes that she has a history of increased inflammation which leads to increased stiffness and difficulty with movement. Pt has begun to work with a facilities maintenance supervisor to start an antiinflammatory diet, but admits she is having difficulty cutting out sugars . 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 Pt gets very fatigued if walking more than ~1 mile, and gets to the point where she feels like her muscles just don't work. 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 Pt's main goals for PT are to focus on decreasing fatigue, improving overall strength, and work on improving core strength to decrease stress on her spine, in addition to figuring out what she can do to slow progression of spinal degeneration. PT-OP-C Subjective Start: 07/31/21 16:39 Freq: Status: Active Protocol: Document 08/09/21 14:30 DCW (Rec: 08/09/21 15:15 DCW [id number]) OP-PT Subjective Patient Comments Patient Comments Pt reports she felt much better following her eval, and even noticed elimination of : E numbness for a few days following realignment of her pelvis. PT-OP-F Manual Assessment Start: 07/31/21 16:59 Freq: Status: Active Protocol: Document 07/31/21 12:00 DCW (Rec: 07/31/21 17:33 DCW [id number]) Manual Assessments Joint Mobility Assessment Joint Mobility Assessment T4-L5 moderate Hypomobility, pt reports mobilization feels good but hurts. Superiorly rotated L ASIS, resulting in functionally shortened left LE PT-OP-K Range of Motion Start: 07/31/21 16:39 Freq: Status: Active Protocol: Document 07/31/21 12:00 DCW (Rec: 07/31/21 17:13 DCW [id number]) Lumbar Spine Range of Motion Lumbar Spine Active Degrees Testing Position Standing Flexion 45 Extension 15 Lateral Flexion Left 58 Lateral Flexion Right 60 ROM Limitations Muscle Tone,Pain Comments Lateral flexion measured in cm from fingertips to floor PT-OP-L Special Tests Start: 07/31/21 16:39 Freq: Status: Active Protocol: Document 07/31/21 12:00 DCW (Rec: 07/31/21 17:13 DCW [id number]) Special Tests Cervical Spine Special Tests Spurling's Test Test Results Negative Slump Test Results Negative Passive Neck Flexion Test Results Negative Foraminal Compression Test Results Negative Lumbar Spine Special Tests LUIGI Test Results Pain at SI Comments Bilaterally Straight Leg Raise Test Results Negative PT-OP-M Strength Start: 07/31/21 16:39 Freq: Status: Active Protocol: Document 07/31/21 12:00 DCW (Rec: 07/31/21 17:13 DCW [id number]) Trunk Strength Trunk Manual Muscle Testing Core Stabilization Pt unable to contract TrA prior to verbal and tactile cues, struggles to hold; 3+/5 Hip Strength Hip Manual Muscle Testing Right Flexion (L2) 3+ Fair+ Extension (S1) 4- Good- Abduction 4 Good Adduction 4 Good Left Flexion (L2) 3+ Fair+ Extension (S1) 4- Good- Abduction 4 Good Adduction 4 Good Knee Strength Knee Manual Muscle Testing Right Flexion (S2) 4+ Good+ Extension (L3) 4+ Good+ Left Flexion (S2) 4+ Good+ Extension (L3) 4+ Good+ Ankle/Foot Strength Ankle and Foot Manual Muscle Testing Right Dorsiflexion (L4) 4+ Good+ Plantarflexion (S1) 4+ Good+ Left Dorsiflexion (L4) 4+ Good+ Plantarflexion (S1) 5 Normal PT-OP-Q Treatments Start: 07/31/21 16:39 Freq: Status: Active Protocol: Document 08/09/21 14:30 DCW (Rec: 08/09/21 15:14 DCW [id number]) Gym Equipment Therapeutic Ball 1 Exercise Details Low Trunk Rotation Ball Size/Color Red - 55 cm Body Position Supine Therapeutic Exercises Supine Exercises 2 Supine Exercise Name Bridging Sidelying Exercises 3 Sidelying Exercise Name Reverse Clam Shell 2 Sidelying Exercise Name Clam Shell 1 Sidelying Exercise Name Open Book Manual Therapy Treatment Soft Tissue Mobilization Piriformis Body Location B Piriformis Mobilization Type Sustained Pressure,Trigger Point Release Intensity/Depth Moderate Body Position Sidelying lumbar Body Location lumbar/sacral paraspinals Mobilization Type Sustained Pressure,Trigger Point Release Intensity/Depth Moderate Body Position Prone QL Body Location Bilateral QL Mobilization Type Sustained Pressure,Trigger Point Release Intensity/Depth Moderate Body Position Sidelying Manual Techniques 1 Type MWM to realign pelvis Body Position Supine PT-OP-T Assessment and Plan Start: 07/31/21 16:39 Freq: Status: Active Protocol: Document 08/09/21 14:30 DCW (Rec: 08/09/21 15:14 DCW [id number]) Physical Therapy Assessment Impairments Impairments Activity Tolerance,Functional Activities,Functional Mobility ,Pain,ROM,Sensation,Soft Tissue Mobility,Strength Goals Three Impairment Hip flexion strength 3+/5 bilaterally Mcfp Goal (LTG) Pt to increase hip strength bilaterally to 4/5 in all planes to improve pelvis and lumbar stability during functional movements. LTG Duration 09/30/21 Two Impairment Pt exhibits poor control/ weakness (3+/5) of TrA Mcfp Goal (LTG) Pt to demonstrate ability to perform TrA contraction and hold for 5 seconds during SLR without any increased symptoms . LTG Duration 09/30/21 One Impairment Pt does not have an appropriate home exercise program Short Term Goal (STG) Pt to be independent and compliant with an appropriate HEP STG Duration 08/31/21 Assessment Summary Assessment Pt tolerated treatment very well today, felt improvement last week after MWM of hip, and again today. Motivated to perform HEP. Physical Therapy Plan Frequency and Duration Frequency of Treatment 2x/Week Duration of Treatment Three months Plan of Care Start Date 07/31/21 Plan of Care End Date 10/31/21 Therapeutic Interventions Therapeutic Interventions Aquatic Therapy,Home Exercise Program,Joint Mobilizations, Manual Therapy,Neuromuscular Re-education,Patient/Caregiver Education,Self-Care/Home Management,Soft Tissue Mobilization,Therapeutic Activities,Therapeutic Exercises Modalities Cold Pack/Ice Massage,Electric Stimulation,Hot Packs, Ultrasound Next Visit Focus/Plan Next Note Type Treatment Note Next Visit Plan Strengthening, Core stability, pelvic alignment
--- NOTE | 2021-08-12 14:30 | PT.OTN ---
Current Diagnoses Lumbago with sciatica, unspecified side (08/12/21) Dorsalgia, unspecified (08/12/21) Weakness (08/12/21) Chronic fatigue, unspecified (08/12/21) Physical Therapy Treatment Note PT-OP-A Visit Information Start: 07/31/21 16:39 Freq: Status: Active Protocol: Document 08/12/21 13:45 DCW (Rec: 08/12/21 14:30 DCW [id number]) Out-Patient Physical Therapy Visit Information Visit Information Visit Type Treatment Note Visit Start Time 13:45 Visit Stop Time 14:30 Total Visit Minutes 45 Visit Number 3 Number of HOUSEKEEPING ROOM INSPECTOR Visits 0 Evaluation Information Evaluation Date 07/31/21 PT-OP-B Current Condition Start: 07/31/21 16:39 Freq: Status: Active Protocol: Document 07/31/21 12:00 DCW (Rec: 07/31/21 17:13 DCW [id number]) Current Condition History of Current Condition Onset Date Long-standing history Current Complaints Mid back pain, low back pain, numbness/tingling in all limbs History of Current Condition Pt is a 55 year old female presenting with a long- standing, complicated history of low back pain with apparent associated neuro deficits in bilateral UEs and LEs. Pt reports a fairly constant tingling in all areas, as well as mid- and low-back pain. Pt notes that she has a history of increased inflammation which leads to increased stiffness and difficulty with movement. Pt has begun to work with a hazardous substances scientist to start an antiinflammatory diet, but admits she is having difficulty cutting out sugars . 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 Pt gets very fatigued if walking more than ~1 mile, and gets to the point where she feels like her muscles just don't work. 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 Pt's main goals for PT are to focus on decreasing fatigue, improving overall strength, and work on improving core strength to decrease stress on her spine, in addition to figuring out what she can do to slow progression of spinal degeneration. PT-OP-C Subjective Start: 07/31/21 16:39 Freq: Status: Active Protocol: Document 08/12/21 13:45 DCW (Rec: 08/12/21 14:30 DCW [id number]) OP-PT Subjective Patient Comments Patient Comments Pt notes she has been feeling good working on strengthening, notes she is still having some numbness in her mid back today. PT-OP-F Manual Assessment Start: 07/31/21 16:59 Freq: Status: Active Protocol: Document 07/31/21 12:00 DCW (Rec: 07/31/21 17:33 DCW [id number]) Manual Assessments Joint Mobility Assessment Joint Mobility Assessment T4-L5 moderate Hypomobility, pt reports mobilization feels good but hurts. Superiorly rotated L ASIS, resulting in functionally shortened left LE PT-OP-K Range of Motion Start: 07/31/21 16:39 Freq: Status: Active Protocol: Document 07/31/21 12:00 DCW (Rec: 07/31/21 17:13 DCW [id number]) Lumbar Spine Range of Motion Lumbar Spine Active Degrees Testing Position Standing Flexion 45 Extension 15 Lateral Flexion Left 58 Lateral Flexion Right 60 ROM Limitations Muscle Tone,Pain Comments Lateral flexion measured in cm from fingertips to floor PT-OP-L Special Tests Start: 07/31/21 16:39 Freq: Status: Active Protocol: Document 07/31/21 12:00 DCW (Rec: 07/31/21 17:13 DCW [id number]) Special Tests Cervical Spine Special Tests Spurling's Test Test Results Negative Slump Test Results Negative Passive Neck Flexion Test Results Negative Foraminal Compression Test Results Negative Lumbar Spine Special Tests LUIGI Test Results Pain at SI Comments Bilaterally Straight Leg Raise Test Results Negative PT-OP-M Strength Start: 07/31/21 16:39 Freq: Status: Active Protocol: Document 07/31/21 12:00 DCW (Rec: 07/31/21 17:13 DCW [id number]) Trunk Strength Trunk Manual Muscle Testing Core Stabilization Pt unable to contract TrA prior to verbal and tactile cues, struggles to hold; 3+/5 Hip Strength Hip Manual Muscle Testing Right Flexion (L2) 3+ Fair+ Extension (S1) 4- Good- Abduction 4 Good Adduction 4 Good Left Flexion (L2) 3+ Fair+ Extension (S1) 4- Good- Abduction 4 Good Adduction 4 Good Knee Strength Knee Manual Muscle Testing Right Flexion (S2) 4+ Good+ Extension (L3) 4+ Good+ Left Flexion (S2) 4+ Good+ Extension (L3) 4+ Good+ Ankle/Foot Strength Ankle and Foot Manual Muscle Testing Right Dorsiflexion (L4) 4+ Good+ Plantarflexion (S1) 4+ Good+ Left Dorsiflexion (L4) 4+ Good+ Plantarflexion (S1) 5 Normal PT-OP-Q Treatments Start: 07/31/21 16:39 Freq: Status: Active Protocol: Document 08/12/21 13:45 DCW (Rec: 08/12/21 14:30 DCW [id number]) Cardio Equipment Recumbent Elliptical (Boxee) Duration (Minutes) 5 Resistance 4 Seat Position 8 Gym Equipment Therapeutic Ball 1 Exercise Details Low Trunk Rotation Ball Size/Color Red - 55 cm Body Position Supine Therapeutic Exercises Supine Exercises 3 Supine Exercise Name Piriformis stretch Side bilateral 2 Supine Exercise Name Bridging Manual Therapy Treatment Soft Tissue Mobilization Piriformis Body Location B Piriformis Mobilization Type Sustained Pressure,Trigger Point Release Intensity/Depth Moderate Body Position Sidelying lumbar Body Location lumbar/sacral paraspinals Mobilization Type Sustained Pressure,Trigger Point Release Intensity/Depth Moderate Body Position Prone QL Body Location Bilateral QL Mobilization Type Sustained Pressure,Trigger Point Release Intensity/Depth Moderate Body Position Sidelying Manual Techniques 1 Type MWM to realign pelvis Body Position Supine PT-OP-T Assessment and Plan Start: 07/31/21 16:39 Freq: Status: Active Protocol: Document 08/12/21 13:45 DCW (Rec: 08/12/21 14:30 DCW [id number]) Physical Therapy Assessment Impairments Impairments Activity Tolerance,Functional Activities,Functional Mobility ,Pain,ROM,Sensation,Soft Tissue Mobility,Strength Goals Three Impairment Hip flexion strength 3+/5 bilaterally Measurement Technician Goal (LTG) Pt to increase hip strength bilaterally to 4/5 in all planes to improve pelvis and lumbar stability during functional movements. LTG Duration 09/30/21 Two Impairment Pt exhibits poor control/ weakness (3+/5) of TrA Snf Goal (LTG) Pt to demonstrate ability to perform TrA contraction and hold for 5 seconds during SLR without any increased symptoms . LTG Duration 09/30/21 One Impairment Pt does not have an appropriate home exercise program Short Term Goal (STG) Pt to be independent and compliant with an appropriate HEP STG Duration 08/31/21 Assessment Summary Assessment Reaffirmed need to perform HEP to help stabilize hips/pelvis to prevent continued misalignment. Physical Therapy Plan Frequency and Duration Frequency of Treatment 2x/Week Duration of Treatment Three months Plan of Care Start Date 07/31/21 Plan of Care End Date 10/31/21 Therapeutic Interventions Therapeutic Interventions Aquatic Therapy,Home Exercise Program,Joint Mobilizations, Manual Therapy,Neuromuscular Re-education,Patient/Caregiver Education,Self-Care/Home Management,Soft Tissue Mobilization,Therapeutic Activities,Therapeutic Exercises Modalities Cold Pack/Ice Massage,Electric Stimulation,Hot Packs, Ultrasound Next Visit Focus/Plan Next Note Type Treatment Note Next Visit Plan Strengthening, Core stability, pelvic alignment
--- NOTE | 2021-08-20 12:00 | PT.OTN ---
Current Diagnoses Lumbago with sciatica, unspecified side (08/20/21) Dorsalgia, unspecified (08/20/21) Weakness (08/20/21) Chronic fatigue, unspecified (08/20/21) Physical Therapy Treatment Note PT-OP-A Visit Information Start: 07/31/21 16:39 Freq: Status: Active Protocol: Document 08/20/21 11:15 DCW (Rec: 08/20/21 12:00 DCW [id number]) Out-Patient Physical Therapy Visit Information Visit Information Visit Type Treatment Note Visit Start Time 11:15 Visit Stop Time 12:00 Total Visit Minutes 45 Visit Number 4 Number of SALES REPRESENTATIVE ADVERTISING Visits 0 Evaluation Information Evaluation Date 07/31/21 PT-OP-B Current Condition Start: 07/31/21 16:39 Freq: Status: Active Protocol: Document 07/31/21 12:00 DCW (Rec: 07/31/21 17:13 DCW [id number]) Current Condition History of Current Condition Onset Date Long-standing history Current Complaints Mid back pain, low back pain, numbness/tingling in all limbs History of Current Condition Pt is a 55 year old female presenting with a long- standing, complicated history of low back pain with apparent associated neuro deficits in bilateral UEs and LEs. Pt reports a fairly constant tingling in all areas, as well as mid- and low-back pain. Pt notes that she has a history of increased inflammation which leads to increased stiffness and difficulty with movement. Pt has begun to work with a geospatial technician to start an antiinflammatory diet, but admits she is having difficulty cutting out sugars . Pt has worked with multiple neurologists both past and present, and the working diagnosis seems to suggest possible distal degeneration of axions in parts of the TECHNICIAN PLANT AND MAINTENANCE/ PNS, potentially due to organophosphate exposure. Pt gets very fatigued if walking more than ~1 mile, and gets to the point where she feels like her muscles just don't work. 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 Pt's main goals for PT are to focus on decreasing fatigue, improving overall strength, and work on improving core strength to decrease stress on her spine, in addition to figuring out what she can do to slow progression of spinal degeneration. PT-OP-C Subjective Start: 07/31/21 16:39 Freq: Status: Active Protocol: Document 08/20/21 11:15 DCW (Rec: 08/20/21 12:00 DCW [id number]) OP-PT Subjective Patient Comments Patient Comments Pt continues to complain of numbness and tingling on her left side and along her mid back, but feels her hips are moving better. PT-OP-F Manual Assessment Start: 07/31/21 16:59 Freq: Status: Active Protocol: Document 07/31/21 12:00 DCW (Rec: 07/31/21 17:33 DCW [id number]) Manual Assessments Joint Mobility Assessment Joint Mobility Assessment T4-L5 moderate Hypomobility, pt reports mobilization feels good but hurts. Superiorly rotated L ASIS, resulting in functionally shortened left LE PT-OP-K Range of Motion Start: 07/31/21 16:39 Freq: Status: Active Protocol: Document 07/31/21 12:00 DCW (Rec: 07/31/21 17:13 DCW [id number]) Lumbar Spine Range of Motion Lumbar Spine Active Degrees Testing Position Standing Flexion 45 Extension 15 Lateral Flexion Left 58 Lateral Flexion Right 60 ROM Limitations Muscle Tone,Pain Comments Lateral flexion measured in cm from fingertips to floor PT-OP-L Special Tests Start: 07/31/21 16:39 Freq: Status: Active Protocol: Document 07/31/21 12:00 DCW (Rec: 07/31/21 17:13 DCW [id number]) Special Tests Cervical Spine Special Tests Spurling's Test Test Results Negative Slump Test Results Negative Passive Neck Flexion Test Results Negative Foraminal Compression Test Results Negative Lumbar Spine Special Tests LUIGI Test Results Pain at SI Comments Bilaterally Straight Leg Raise Test Results Negative PT-OP-M Strength Start: 07/31/21 16:39 Freq: Status: Active Protocol: Document 07/31/21 12:00 DCW (Rec: 07/31/21 17:13 DCW [id number]) Trunk Strength Trunk Manual Muscle Testing Core Stabilization Pt unable to contract TrA prior to verbal and tactile cues, struggles to hold; 3+/5 Hip Strength Hip Manual Muscle Testing Right Flexion (L2) 3+ Fair+ Extension (S1) 4- Good- Abduction 4 Good Adduction 4 Good Left Flexion (L2) 3+ Fair+ Extension (S1) 4- Good- Abduction 4 Good Adduction 4 Good Knee Strength Knee Manual Muscle Testing Right Flexion (S2) 4+ Good+ Extension (L3) 4+ Good+ Left Flexion (S2) 4+ Good+ Extension (L3) 4+ Good+ Ankle/Foot Strength Ankle and Foot Manual Muscle Testing Right Dorsiflexion (L4) 4+ Good+ Plantarflexion (S1) 4+ Good+ Left Dorsiflexion (L4) 4+ Good+ Plantarflexion (S1) 5 Normal PT-OP-Q Treatments Start: 07/31/21 16:39 Freq: Status: Active Protocol: Document 08/20/21 11:15 DCW (Rec: 08/20/21 12:00 DCW [id number]) Cardio Equipment Recumbent Elliptical (ApeniMED) Duration (Minutes) 5 Resistance 6 Seat Position 8 Gym Equipment Therapeutic Ball 2 Exercise Details Bridging /c feet on ball Ball Size/Color Red - 55 cm Body Position Supine 1 Exercise Details Low Trunk Rotation Ball Size/Color Red - 55 cm Body Position Supine Therapeutic Exercises Supine Exercises 3 Supine Exercise Name Piriformis stretch Side bilateral Manual Therapy Treatment Soft Tissue Mobilization Piriformis Body Location B Piriformis Mobilization Type Sustained Pressure,Trigger Point Release Intensity/Depth Moderate Body Position Sidelying lumbar Body Location lumbar/sacral paraspinals Mobilization Type Sustained Pressure,Trigger Point Release Intensity/Depth Moderate Body Position Prone QL Body Location Bilateral QL Mobilization Type Sustained Pressure,Trigger Point Release Intensity/Depth Moderate Body Position Sidelying PT-OP-T Assessment and Plan Start: 07/31/21 16:39 Freq: Status: Active Protocol: Document 08/20/21 11:15 DCW (Rec: 08/20/21 12:00 DCW [id number]) Physical Therapy Assessment Impairments Impairments Activity Tolerance,Functional Activities,Functional Mobility ,Pain,ROM,Sensation,Soft Tissue Mobility,Strength Goals Three Impairment Hip flexion strength 3+/5 bilaterally Prison Goal (LTG) Pt to increase hip strength bilaterally to 4/5 in all planes to improve pelvis and lumbar stability during functional movements. LTG Duration 09/30/21 Two Impairment Pt exhibits poor control/ weakness (3+/5) of TrA Prison Goal (LTG) Pt to demonstrate ability to perform TrA contraction and hold for 5 seconds during SLR without any increased symptoms . LTG Duration 09/30/21 One Impairment Pt does not have an appropriate home exercise program Short Term Goal (STG) Pt to be independent and compliant with an appropriate HEP STG Duration 08/31/21 Assessment Summary Assessment Pt presented today with a much improved alignment of pelvis, showing improved tone in low back. Physical Therapy Plan Frequency and Duration Frequency of Treatment 2x/Week Duration of Treatment Three months Plan of Care Start Date 07/31/21 Plan of Care End Date 10/31/21 Therapeutic Interventions Therapeutic Interventions Aquatic Therapy,Home Exercise Program,Joint Mobilizations, Manual Therapy,Neuromuscular Re-education,Patient/Caregiver Education,Self-Care/Home Management,Soft Tissue Mobilization,Therapeutic Activities,Therapeutic Exercises Modalities Cold Pack/Ice Massage,Electric Stimulation,Hot Packs, Ultrasound Next Visit Focus/Plan Next Note Type Treatment Note Next Visit Plan Strengthening, Core stability, pelvic alignment
--- NOTE | 2021-08-22 16:43 | PT.OTN ---
Current Diagnoses Lumbago with sciatica, unspecified side (08/22/21) Dorsalgia, unspecified (08/22/21) Weakness (08/22/21) Chronic fatigue, unspecified (08/22/21) Physical Therapy Treatment Note PT-OP-A Visit Information Start: 07/31/21 16:39 Freq: Status: Active Protocol: Document 08/22/21 16:00 DCW (Rec: 08/22/21 16:43 DCW [id number]) Out-Patient Physical Therapy Visit Information Visit Information Visit Type Treatment Note Visit Start Time 16:00 Visit Stop Time 16:45 Total Visit Minutes 45 Visit Number 5 Number of BOILER SETTER Visits 0 Evaluation Information Evaluation Date 07/31/21 PT-OP-B Current Condition Start: 07/31/21 16:39 Freq: Status: Active Protocol: Document 07/31/21 12:00 DCW (Rec: 07/31/21 17:13 DCW [id number]) Current Condition History of Current Condition Onset Date Long-standing history Current Complaints Mid back pain, low back pain, numbness/tingling in all limbs History of Current Condition Pt is a 55 year old female presenting with a long- standing, complicated history of low back pain with apparent associated neuro deficits in bilateral UEs and LEs. Pt reports a fairly constant tingling in all areas, as well as mid- and low-back pain. Pt notes that she has a history of increased inflammation which leads to increased stiffness and difficulty with movement. Pt has begun to work with a black belt to start an antiinflammatory diet, but admits she is having difficulty cutting out sugars . Pt has worked with multiple neurologists both past and present, and the working diagnosis seems to suggest possible distal degeneration of axions in parts of the EDGE GLUER/ PNS, potentially due to organophosphate exposure. Pt gets very fatigued if walking more than ~1 mile, and gets to the point where she feels like her muscles just don't work. 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 Pt's main goals for PT are to focus on decreasing fatigue, improving overall strength, and work on improving core strength to decrease stress on her spine, in addition to figuring out what she can do to slow progression of spinal degeneration. PT-OP-C Subjective Start: 07/31/21 16:39 Freq: Status: Active Protocol: Document 08/22/21 16:00 DCW (Rec: 08/22/21 16:43 DCW [id number]) OP-PT Subjective Patient Comments Patient Comments Pt reports she was able to get out for a walk this morning, noticed that her right low back was getting a little tight PT-OP-F Manual Assessment Start: 07/31/21 16:59 Freq: Status: Active Protocol: Document 07/31/21 12:00 DCW (Rec: 07/31/21 17:33 DCW [id number]) Manual Assessments Joint Mobility Assessment Joint Mobility Assessment T4-L5 moderate Hypomobility, pt reports mobilization feels good but hurts. Superiorly rotated L ASIS, resulting in functionally shortened left LE PT-OP-K Range of Motion Start: 07/31/21 16:39 Freq: Status: Active Protocol: Document 07/31/21 12:00 DCW (Rec: 07/31/21 17:13 DCW [id number]) Lumbar Spine Range of Motion Lumbar Spine Active Degrees Testing Position Standing Flexion 45 Extension 15 Lateral Flexion Left 58 Lateral Flexion Right 60 ROM Limitations Muscle Tone,Pain Comments Lateral flexion measured in cm from fingertips to floor PT-OP-L Special Tests Start: 07/31/21 16:39 Freq: Status: Active Protocol: Document 07/31/21 12:00 DCW (Rec: 07/31/21 17:13 DCW [id number]) Special Tests Cervical Spine Special Tests Spurling's Test Test Results Negative Slump Test Results Negative Passive Neck Flexion Test Results Negative Foraminal Compression Test Results Negative Lumbar Spine Special Tests LUIGI Test Results Pain at SI Comments Bilaterally Straight Leg Raise Test Results Negative PT-OP-M Strength Start: 07/31/21 16:39 Freq: Status: Active Protocol: Document 07/31/21 12:00 DCW (Rec: 07/31/21 17:13 DCW [id number]) Trunk Strength Trunk Manual Muscle Testing Core Stabilization Pt unable to contract TrA prior to verbal and tactile cues, struggles to hold; 3+/5 Hip Strength Hip Manual Muscle Testing Right Flexion (L2) 3+ Fair+ Extension (S1) 4- Good- Abduction 4 Good Adduction 4 Good Left Flexion (L2) 3+ Fair+ Extension (S1) 4- Good- Abduction 4 Good Adduction 4 Good Knee Strength Knee Manual Muscle Testing Right Flexion (S2) 4+ Good+ Extension (L3) 4+ Good+ Left Flexion (S2) 4+ Good+ Extension (L3) 4+ Good+ Ankle/Foot Strength Ankle and Foot Manual Muscle Testing Right Dorsiflexion (L4) 4+ Good+ Plantarflexion (S1) 4+ Good+ Left Dorsiflexion (L4) 4+ Good+ Plantarflexion (S1) 5 Normal PT-OP-Q Treatments Start: 07/31/21 16:39 Freq: Status: Active Protocol: Document 08/22/21 16:00 DCW (Rec: 08/22/21 16:43 DCW [id number]) Cardio Equipment Recumbent Elliptical (Biodex) Duration (Minutes) 5 Resistance 6 Seat Position 8 Gym Equipment Therapeutic Ball 1 Exercise Details Low Trunk Rotation Ball Size/Color Red - 55 cm Body Position Supine Therapeutic Exercises Supine Exercises 4 Supine Exercise Name Hamstring stretch 3 Supine Exercise Name Piriformis stretch Side bilateral Manual Therapy Treatment Soft Tissue Mobilization Piriformis Body Location B Piriformis Mobilization Type Sustained Pressure,Trigger Point Release Intensity/Depth Moderate Body Position Sidelying lumbar Body Location lumbar/sacral paraspinals Mobilization Type Sustained Pressure,Trigger Point Release Intensity/Depth Moderate Body Position Prone QL Body Location Bilateral QL Mobilization Type Sustained Pressure,Trigger Point Release Intensity/Depth Moderate Body Position Sidelying PT-OP-T Assessment and Plan Start: 07/31/21 16:39 Freq: Status: Active Protocol: Document 08/22/21 16:00 DCW (Rec: 08/22/21 16:43 DCW [id number]) Physical Therapy Assessment Impairments Impairments Activity Tolerance,Functional Activities,Functional Mobility ,Pain,ROM,Sensation,Soft Tissue Mobility,Strength Goals Three Impairment Hip flexion strength 3+/5 bilaterally Halfway Goal (LTG) Pt to increase hip strength bilaterally to 4/5 in all planes to improve pelvis and lumbar stability during functional movements. LTG Duration 09/30/21 Two Impairment Pt exhibits poor control/ weakness (3+/5) of TrA Halfway Goal (LTG) Pt to demonstrate ability to perform TrA contraction and hold for 5 seconds during SLR without any increased symptoms . LTG Duration 09/30/21 One Impairment Pt does not have an appropriate home exercise program Short Term Goal (STG) Pt to be independent and compliant with an appropriate HEP STG Duration 08/31/21 Assessment Summary Assessment Pt continues to show improved tone in low back, moving with significantly less pain. Physical Therapy Plan Frequency and Duration Frequency of Treatment 2x/Week Duration of Treatment Three months Plan of Care Start Date 07/31/21 Plan of Care End Date 10/31/21 Therapeutic Interventions Therapeutic Interventions Aquatic Therapy,Home Exercise Program,Joint Mobilizations, Manual Therapy,Neuromuscular Re-education,Patient/Caregiver Education,Self-Care/Home Management,Soft Tissue Mobilization,Therapeutic Activities,Therapeutic Exercises Modalities Cold Pack/Ice Massage,Electric Stimulation,Hot Packs, Ultrasound Next Visit Focus/Plan Next Note Type Treatment Note Next Visit Plan Strengthening, Core stability, pelvic alignment
--- NOTE | 2021-08-26 15:58 | PT.OTN ---
Current Diagnoses Lumbago with sciatica, unspecified side (08/26/21) Dorsalgia, unspecified (08/26/21) Weakness (08/26/21) Chronic fatigue, unspecified (08/26/21) Physical Therapy Treatment Note PT-OP-A Visit Information Start: 07/31/21 16:39 Freq: Status: Active Protocol: Document 08/26/21 15:15 DCW (Rec: 08/26/21 15:58 DCW [id number]) Out-Patient Physical Therapy Visit Information Visit Information Visit Type Treatment Note Visit Start Time 15:15 Visit Stop Time 16:00 Total Visit Minutes 45 Visit Number 6 Number of TAX MAP TECHNICIAN Visits 0 Evaluation Information Evaluation Date 07/31/21 PT-OP-B Current Condition Start: 07/31/21 16:39 Freq: Status: Active Protocol: Document 07/31/21 12:00 DCW (Rec: 07/31/21 17:13 DCW [id number]) Current Condition History of Current Condition Onset Date Long-standing history Current Complaints Mid back pain, low back pain, numbness/tingling in all limbs History of Current Condition Pt is a 55 year old female presenting with a long- standing, complicated history of low back pain with apparent associated neuro deficits in bilateral UEs and LEs. Pt reports a fairly constant tingling in all areas, as well as mid- and low-back pain. Pt notes that she has a history of increased inflammation which leads to increased stiffness and difficulty with movement. Pt has begun to work with a mortgage loan officer to start an antiinflammatory diet, but admits she is having difficulty cutting out sugars . 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 Pt gets very fatigued if walking more than ~1 mile, and gets to the point where she feels like her muscles just don't work. 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 Pt's main goals for PT are to focus on decreasing fatigue, improving overall strength, and work on improving core strength to decrease stress on her spine, in addition to figuring out what she can do to slow progression of spinal degeneration. PT-OP-C Subjective Start: 07/31/21 16:39 Freq: Status: Active Protocol: Document 08/26/21 15:15 DCW (Rec: 08/26/21 15:58 DCW [id number]) OP-PT Subjective Patient Comments Patient Comments I just feel like theres a band of tightness, like a belt or something around my mid- back. PT-OP-F Manual Assessment Start: 07/31/21 16:59 Freq: Status: Active Protocol: Document 07/31/21 12:00 DCW (Rec: 07/31/21 17:33 DCW [id number]) Manual Assessments Joint Mobility Assessment Joint Mobility Assessment T4-L5 moderate Hypomobility, pt reports mobilization feels good but hurts. Superiorly rotated L ASIS, resulting in functionally shortened left LE PT-OP-K Range of Motion Start: 07/31/21 16:39 Freq: Status: Active Protocol: Document 07/31/21 12:00 DCW (Rec: 07/31/21 17:13 DCW [id number]) Lumbar Spine Range of Motion Lumbar Spine Active Degrees Testing Position Standing Flexion 45 Extension 15 Lateral Flexion Left 58 Lateral Flexion Right 60 ROM Limitations Muscle Tone,Pain Comments Lateral flexion measured in cm from fingertips to floor PT-OP-L Special Tests Start: 07/31/21 16:39 Freq: Status: Active Protocol: Document 07/31/21 12:00 DCW (Rec: 07/31/21 17:13 DCW [id number]) Special Tests Cervical Spine Special Tests Spurling's Test Test Results Negative Slump Test Results Negative Passive Neck Flexion Test Results Negative Foraminal Compression Test Results Negative Lumbar Spine Special Tests LUIGI Test Results Pain at SI Comments Bilaterally Straight Leg Raise Test Results Negative PT-OP-M Strength Start: 07/31/21 16:39 Freq: Status: Active Protocol: Document 07/31/21 12:00 DCW (Rec: 07/31/21 17:13 DCW [id number]) Trunk Strength Trunk Manual Muscle Testing Core Stabilization Pt unable to contract TrA prior to verbal and tactile cues, struggles to hold; 3+/5 Hip Strength Hip Manual Muscle Testing Right Flexion (L2) 3+ Fair+ Extension (S1) 4- Good- Abduction 4 Good Adduction 4 Good Left Flexion (L2) 3+ Fair+ Extension (S1) 4- Good- Abduction 4 Good Adduction 4 Good Knee Strength Knee Manual Muscle Testing Right Flexion (S2) 4+ Good+ Extension (L3) 4+ Good+ Left Flexion (S2) 4+ Good+ Extension (L3) 4+ Good+ Ankle/Foot Strength Ankle and Foot Manual Muscle Testing Right Dorsiflexion (L4) 4+ Good+ Plantarflexion (S1) 4+ Good+ Left Dorsiflexion (L4) 4+ Good+ Plantarflexion (S1) 5 Normal PT-OP-Q Treatments Start: 07/31/21 16:39 Freq: Status: Active Protocol: Document 08/26/21 15:15 DCW (Rec: 08/26/21 15:58 DCW [id number]) Cardio Equipment Recumbent Elliptical (Biodex) Duration (Minutes) 5 Resistance 6 Seat Position 8 Gym Equipment Therapeutic Ball 1 Exercise Details Low Trunk Rotation Ball Size/Color Red - 55 cm Body Position Supine Therapeutic Exercises Supine Exercises 4 Supine Exercise Name Hamstring stretch 3 Supine Exercise Name Piriformis stretch Side bilateral Manual Therapy Treatment Soft Tissue Mobilization Piriformis Body Location B Piriformis Mobilization Type Sustained Pressure,Trigger Point Release Intensity/Depth Moderate Body Position Sidelying lumbar Body Location lumbar/sacral paraspinals Mobilization Type Sustained Pressure,Trigger Point Release Intensity/Depth Moderate Body Position Prone QL Body Location Bilateral QL Mobilization Type Sustained Pressure,Trigger Point Release Intensity/Depth Moderate Body Position Sidelying PT-OP-T Assessment and Plan Start: 07/31/21 16:39 Freq: Status: Active Protocol: Document 08/26/21 15:15 DCW (Rec: 08/26/21 15:58 DCW [id number]) Physical Therapy Assessment Impairments Impairments Activity Tolerance,Functional Activities,Functional Mobility ,Pain,ROM,Sensation,Soft Tissue Mobility,Strength Goals Three Impairment Hip flexion strength 3+/5 bilaterally Snuff Container Inspector Goal (LTG) Pt to increase hip strength bilaterally to 4/5 in all planes to improve pelvis and lumbar stability during functional movements. LTG Duration 09/30/21 Two Impairment Pt exhibits poor control/ weakness (3+/5) of TrA Snf Goal (LTG) Pt to demonstrate ability to perform TrA contraction and hold for 5 seconds during SLR without any increased symptoms . LTG Duration 09/30/21 One Impairment Pt does not have an appropriate home exercise program Short Term Goal (STG) Pt to be independent and compliant with an appropriate HEP STG Duration 08/31/21 Assessment Summary Assessment Pt improving more with tone and spinal mobility. Physical Therapy Plan Frequency and Duration Frequency of Treatment 2x/Week Duration of Treatment Three months Plan of Care Start Date 07/31/21 Plan of Care End Date 10/31/21 Therapeutic Interventions Therapeutic Interventions Aquatic Therapy,Home Exercise Program,Joint Mobilizations, Manual Therapy,Neuromuscular Re-education,Patient/Caregiver Education,Self-Care/Home Management,Soft Tissue Mobilization,Therapeutic Activities,Therapeutic Exercises Modalities Cold Pack/Ice Massage,Electric Stimulation,Hot Packs, Ultrasound Next Visit Focus/Plan Next Note Type Treatment Note Next Visit Plan Strengthening, Core stability, pelvic alignment
--- NOTE | 2021-08-28 16:03 | PT.OTN ---
Current Diagnoses Lumbago with sciatica, unspecified side (08/28/21) Dorsalgia, unspecified (08/28/21) Weakness (08/28/21) Chronic fatigue, unspecified (08/28/21) Physical Therapy Treatment Note PT-OP-A Visit Information Start: 07/31/21 16:39 Freq: Status: Active Protocol: Document 08/28/21 15:15 DCW (Rec: 08/28/21 16:02 DCW [id number]) Out-Patient Physical Therapy Visit Information Visit Information Visit Type Treatment Note Visit Start Time 15:15 Visit Stop Time 16:00 Total Visit Minutes 45 Visit Number 7 Number of LIME KILN WORKER HELPER Visits 0 Evaluation Information Evaluation Date 07/31/21 PT-OP-B Current Condition Start: 07/31/21 16:39 Freq: Status: Active Protocol: Document 07/31/21 12:00 DCW (Rec: 07/31/21 17:13 DCW [id number]) Current Condition History of Current Condition Onset Date Long-standing history Current Complaints Mid back pain, low back pain, numbness/tingling in all limbs History of Current Condition Pt is a 55 year old female presenting with a long- standing, complicated history of low back pain with apparent associated neuro deficits in bilateral UEs and LEs. Pt reports a fairly constant tingling in all areas, as well as mid- and low-back pain. Pt notes that she has a history of increased inflammation which leads to increased stiffness and difficulty with movement. Pt has begun to work with a seed cleaner to start an antiinflammatory diet, but admits she is having difficulty cutting out sugars . 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 Pt gets very fatigued if walking more than ~1 mile, and gets to the point where she feels like her muscles just don't work. 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 Pt's main goals for PT are to focus on decreasing fatigue, improving overall strength, and work on improving core strength to decrease stress on her spine, in addition to figuring out what she can do to slow progression of spinal degeneration. PT-OP-C Subjective Start: 07/31/21 16:39 Freq: Status: Active Protocol: Document 08/28/21 15:15 DCW (Rec: 08/28/21 16:02 DCW [id number]) OP-PT Subjective Patient Comments Patient Comments Pt reports she has not had the same band of tightness along her mid back since her last session. PT-OP-F Manual Assessment Start: 07/31/21 16:59 Freq: Status: Active Protocol: Document 07/31/21 12:00 DCW (Rec: 07/31/21 17:33 DCW [id number]) Manual Assessments Joint Mobility Assessment Joint Mobility Assessment T4-L5 moderate Hypomobility, pt reports mobilization feels good but hurts. Superiorly rotated L ASIS, resulting in functionally shortened left LE PT-OP-K Range of Motion Start: 07/31/21 16:39 Freq: Status: Active Protocol: Document 07/31/21 12:00 DCW (Rec: 07/31/21 17:13 DCW [id number]) Lumbar Spine Range of Motion Lumbar Spine Active Degrees Testing Position Standing Flexion 45 Extension 15 Lateral Flexion Left 58 Lateral Flexion Right 60 ROM Limitations Muscle Tone,Pain Comments Lateral flexion measured in cm from fingertips to floor PT-OP-L Special Tests Start: 07/31/21 16:39 Freq: Status: Active Protocol: Document 07/31/21 12:00 DCW (Rec: 07/31/21 17:13 DCW [id number]) Special Tests Cervical Spine Special Tests Spurling's Test Test Results Negative Slump Test Results Negative Passive Neck Flexion Test Results Negative Foraminal Compression Test Results Negative Lumbar Spine Special Tests LUIGI Test Results Pain at SI Comments Bilaterally Straight Leg Raise Test Results Negative PT-OP-M Strength Start: 07/31/21 16:39 Freq: Status: Active Protocol: Document 07/31/21 12:00 DCW (Rec: 07/31/21 17:13 DCW [id number]) Trunk Strength Trunk Manual Muscle Testing Core Stabilization Pt unable to contract TrA prior to verbal and tactile cues, struggles to hold; 3+/5 Hip Strength Hip Manual Muscle Testing Right Flexion (L2) 3+ Fair+ Extension (S1) 4- Good- Abduction 4 Good Adduction 4 Good Left Flexion (L2) 3+ Fair+ Extension (S1) 4- Good- Abduction 4 Good Adduction 4 Good Knee Strength Knee Manual Muscle Testing Right Flexion (S2) 4+ Good+ Extension (L3) 4+ Good+ Left Flexion (S2) 4+ Good+ Extension (L3) 4+ Good+ Ankle/Foot Strength Ankle and Foot Manual Muscle Testing Right Dorsiflexion (L4) 4+ Good+ Plantarflexion (S1) 4+ Good+ Left Dorsiflexion (L4) 4+ Good+ Plantarflexion (S1) 5 Normal PT-OP-Q Treatments Start: 07/31/21 16:39 Freq: Status: Active Protocol: Document 08/28/21 15:15 DCW (Rec: 08/28/21 16:02 DCW [id number]) Cardio Equipment Recumbent Stepper (Sci-Fit) Duration (Minutes) 6 Resistance 4 Seat Position 11 Gym Equipment Therapeutic Ball 2 Exercise Details Bridging /c feet on ball Ball Size/Color Red - 55 cm Body Position Supine 1 Exercise Details Low Trunk Rotation Ball Size/Color Red - 55 cm Body Position Supine Therapeutic Exercises Supine Exercises 4 Supine Exercise Name Hamstring stretch 3 Supine Exercise Name Piriformis stretch Side bilateral Manual Therapy Treatment Soft Tissue Mobilization Piriformis Body Location B Piriformis Mobilization Type Sustained Pressure,Trigger Point Release Intensity/Depth Moderate Body Position Sidelying lumbar Body Location lumbar/sacral paraspinals Mobilization Type Sustained Pressure,Trigger Point Release Intensity/Depth Moderate Body Position Prone QL Body Location Bilateral QL Mobilization Type Sustained Pressure,Trigger Point Release Intensity/Depth Moderate Body Position Sidelying PT-OP-T Assessment and Plan Start: 07/31/21 16:39 Freq: Status: Active Protocol: Document 08/28/21 15:15 DCW (Rec: 08/28/21 16:02 DCW [id number]) Physical Therapy Assessment Impairments Impairments Activity Tolerance,Functional Activities,Functional Mobility ,Pain,ROM,Sensation,Soft Tissue Mobility,Strength Goals Three Impairment Hip flexion strength 3+/5 bilaterally Intermediate Goal (LTG) Pt to increase hip strength bilaterally to 4/5 in all planes to improve pelvis and lumbar stability during functional movements. LTG Duration 09/30/21 Two Impairment Pt exhibits poor control/ weakness (3+/5) of TrA Intermediate Goal (LTG) Pt to demonstrate ability to perform TrA contraction and hold for 5 seconds during SLR without any increased symptoms . LTG Duration 09/30/21 One Impairment Pt does not have an appropriate home exercise program Short Term Goal (STG) Pt to be independent and compliant with an appropriate HEP STG Duration 08/31/21 Assessment Summary Assessment Pt showing improved tone through lumbar spine, less pain overall with movement. Physical Therapy Plan Frequency and Duration Frequency of Treatment 2x/Week Duration of Treatment Three months Plan of Care Start Date 07/31/21 Plan of Care End Date 10/31/21 Therapeutic Interventions Therapeutic Interventions Aquatic Therapy,Home Exercise Program,Joint Mobilizations, Manual Therapy,Neuromuscular Re-education,Patient/Caregiver Education,Self-Care/Home Management,Soft Tissue Mobilization,Therapeutic Activities,Therapeutic Exercises Modalities Cold Pack/Ice Massage,Electric Stimulation,Hot Packs, Ultrasound Next Visit Focus/Plan Next Note Type Treatment Note Next Visit Plan Strengthening, Core stability, pelvic alignment
--- NOTE | 2021-09-02 16:42 | PT.OTN ---
Current Diagnoses Lumbago with sciatica, unspecified side (09/02/21) Dorsalgia, unspecified (09/02/21) Weakness (09/02/21) Chronic fatigue, unspecified (09/02/21) Physical Therapy Treatment Note PT-OP-A Visit Information Start: 07/31/21 16:39 Freq: Status: Active Protocol: Document 09/02/21 16:00 DCW (Rec: 09/02/21 16:42 DCW [id number]) Out-Patient Physical Therapy Visit Information Visit Information Visit Type Treatment Note Visit Start Time 16:00 Visit Stop Time 16:45 Total Visit Minutes 45 Visit Number 8 Number of RULING TECHNICIAN Visits 0 Evaluation Information Evaluation Date 07/31/21 PT-OP-B Current Condition Start: 07/31/21 16:39 Freq: Status: Active Protocol: Document 07/31/21 12:00 DCW (Rec: 07/31/21 17:13 DCW [id number]) Current Condition History of Current Condition Onset Date Long-standing history Current Complaints Mid back pain, low back pain, numbness/tingling in all limbs History of Current Condition Pt is a 55 year old female presenting with a long- standing, complicated history of low back pain with apparent associated neuro deficits in bilateral UEs and LEs. Pt reports a fairly constant tingling in all areas, as well as mid- and low-back pain. Pt notes that she has a history of increased inflammation which leads to increased stiffness and difficulty with movement. Pt has begun to work with a case hardener to start an antiinflammatory diet, but admits she is having difficulty cutting out sugars . 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 Pt gets very fatigued if walking more than ~1 mile, and gets to the point where she feels like her muscles just don't work. 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 Pt's main goals for PT are to focus on decreasing fatigue, improving overall strength, and work on improving core strength to decrease stress on her spine, in addition to figuring out what she can do to slow progression of spinal degeneration. 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 PT-OP-F Manual Assessment Start: 07/31/21 16:59 Freq: Status: Active Protocol: Document 07/31/21 12:00 DCW (Rec: 07/31/21 17:33 DCW [id number]) Manual Assessments Joint Mobility Assessment Joint Mobility Assessment T4-L5 moderate Hypomobility, pt reports mobilization feels good but hurts. Superiorly rotated L ASIS, resulting in functionally shortened left LE PT-OP-K Range of Motion Start: 07/31/21 16:39 Freq: Status: Active Protocol: Document 07/31/21 12:00 DCW (Rec: 07/31/21 17:13 DCW [id number]) Lumbar Spine Range of Motion Lumbar Spine Active Degrees Testing Position Standing Flexion 45 Extension 15 Lateral Flexion Left 58 Lateral Flexion Right 60 ROM Limitations Muscle Tone,Pain Comments Lateral flexion measured in cm from fingertips to floor PT-OP-L Special Tests Start: 07/31/21 16:39 Freq: Status: Active Protocol: Document 07/31/21 12:00 DCW (Rec: 07/31/21 17:13 DCW [id number]) Special Tests Cervical Spine Special Tests Spurling's Test Test Results Negative Slump Test Results Negative Passive Neck Flexion Test Results Negative Foraminal Compression Test Results Negative Lumbar Spine Special Tests LUIGI Test Results Pain at SI Comments Bilaterally Straight Leg Raise Test Results Negative PT-OP-M Strength Start: 07/31/21 16:39 Freq: Status: Active Protocol: Document 07/31/21 12:00 DCW (Rec: 07/31/21 17:13 DCW [id number]) Trunk Strength Trunk Manual Muscle Testing Core Stabilization Pt unable to contract TrA prior to verbal and tactile cues, struggles to hold; 3+/5 Hip Strength Hip Manual Muscle Testing Right Flexion (L2) 3+ Fair+ Extension (S1) 4- Good- Abduction 4 Good Adduction 4 Good Left Flexion (L2) 3+ Fair+ Extension (S1) 4- Good- Abduction 4 Good Adduction 4 Good Knee Strength Knee Manual Muscle Testing Right Flexion (S2) 4+ Good+ Extension (L3) 4+ Good+ Left Flexion (S2) 4+ Good+ Extension (L3) 4+ Good+ Ankle/Foot Strength Ankle and Foot Manual Muscle Testing Right Dorsiflexion (L4) 4+ Good+ Plantarflexion (S1) 4+ Good+ Left Dorsiflexion (L4) 4+ Good+ Plantarflexion (S1) 5 Normal PT-OP-Q Treatments Start: 07/31/21 16:39 Freq: Status: Active Protocol: Document 09/02/21 16:00 DCW (Rec: 09/02/21 16:42 DCW [id number]) Cardio Equipment Recumbent Elliptical (Biodex) Duration (Minutes) 5 Resistance 6 Seat Position 8 Therapeutic Exercises Supine Exercises 4 Supine Exercise Name Hamstring stretch 3 Supine Exercise Name Piriformis stretch Side bilateral Manual Therapy Treatment Soft Tissue Mobilization Piriformis Body Location B Piriformis Mobilization Type Sustained Pressure,Trigger Point Release Intensity/Depth Moderate Body Position Sidelying lumbar Body Location lumbar/sacral paraspinals Mobilization Type Sustained Pressure,Trigger Point Release Intensity/Depth Moderate Body Position Prone QL Body Location Bilateral QL Mobilization Type Sustained Pressure,Trigger Point Release Intensity/Depth Moderate Body Position Sidelying PT-OP-T Assessment and Plan Start: 07/31/21 16:39 Freq: Status: Active Protocol: Document 09/02/21 16:00 DCW (Rec: 09/02/21 16:42 DCW [id number]) Physical Therapy Assessment Impairments Impairments Activity Tolerance,Functional Activities,Functional Mobility ,Pain,ROM,Sensation,Soft Tissue Mobility,Strength Goals Three Impairment Hip flexion strength 3+/5 bilaterally Sinker Puller Goal (LTG) Pt to increase hip strength bilaterally to 4/5 in all planes to improve pelvis and lumbar stability during functional movements. LTG Duration 09/30/21 Two Impairment Pt exhibits poor control/ weakness (3+/5) of TrA Retirement Goal (LTG) Pt to demonstrate ability to perform TrA contraction and hold for 5 seconds during SLR without any increased symptoms . LTG Duration 09/30/21 One Impairment Pt does not have an appropriate home exercise program Short Term Goal (STG) Pt to be independent and compliant with an appropriate HEP STG Duration 08/31/21 Assessment Summary Assessment Pt demonstrating improved mobility and tolerance to activity. Physical Therapy Plan Frequency and Duration Frequency of Treatment 2x/Week Duration of Treatment Three months Plan of Care Start Date 07/31/21 Plan of Care End Date 10/31/21 Therapeutic Interventions Therapeutic Interventions Aquatic Therapy,Home Exercise Program,Joint Mobilizations, Manual Therapy,Neuromuscular Re-education,Patient/Caregiver Education,Self-Care/Home Management,Soft Tissue Mobilization,Therapeutic Activities,Therapeutic Exercises Modalities Cold Pack/Ice Massage,Electric Stimulation,Hot Packs, Ultrasound Next Visit Focus/Plan Next Note Type Treatment Note Next Visit Plan Strengthening, Core stability, pelvic alignment
--- NOTE | 2021-09-04 15:58 | PT.OTN ---
Current Diagnoses Lumbago with sciatica, unspecified side (09/04/21) Dorsalgia, unspecified (09/04/21) Weakness (09/04/21) Chronic fatigue, unspecified (09/04/21) Physical Therapy Treatment Note PT-OP-A Visit Information Start: 07/31/21 16:39 Freq: Status: Active Protocol: Document 09/04/21 15:15 DCW (Rec: 09/04/21 15:58 DCW [id number]) Out-Patient Physical Therapy Visit Information Visit Information Visit Type Treatment Note Visit Start Time 15:15 Visit Stop Time 16:00 Total Visit Minutes 45 Visit Number 9 Number of EDUCATION GENERAL MANAGER Visits 0 Evaluation Information Evaluation Date 07/31/21 PT-OP-B Current Condition Start: 07/31/21 16:39 Freq: Status: Active Protocol: Document 07/31/21 12:00 DCW (Rec: 07/31/21 17:13 DCW [id number]) Current Condition History of Current Condition Onset Date Long-standing history Current Complaints Mid back pain, low back pain, numbness/tingling in all limbs History of Current Condition Pt is a 55 year old female presenting with a long- standing, complicated history of low back pain with apparent associated neuro deficits in bilateral UEs and LEs. Pt reports a fairly constant tingling in all areas, as well as mid- and low-back pain. Pt notes that she has a history of increased inflammation which leads to increased stiffness and difficulty with movement. Pt has begun to work with a precision crop manager to start an antiinflammatory diet, but admits she is having difficulty cutting out sugars . 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 Pt gets very fatigued if walking more than ~1 mile, and gets to the point where she feels like her muscles just don't work. 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 Pt's main goals for PT are to focus on decreasing fatigue, improving overall strength, and work on improving core strength to decrease stress on her spine, in addition to figuring out what she can do to slow progression of spinal degeneration. PT-OP-C Subjective Start: 07/31/21 16:39 Freq: Status: Active Protocol: Document 09/04/21 15:15 DCW (Rec: 09/04/21 15:58 DCW [id number]) OP-PT Subjective Patient Comments Patient Comments Pt c/o numbness and tingling in her mid-back. PT-OP-F Manual Assessment Start: 07/31/21 16:59 Freq: Status: Active Protocol: Document 07/31/21 12:00 DCW (Rec: 07/31/21 17:33 DCW [id number]) Manual Assessments Joint Mobility Assessment Joint Mobility Assessment T4-L5 moderate Hypomobility, pt reports mobilization feels good but hurts. Superiorly rotated L ASIS, resulting in functionally shortened left LE PT-OP-K Range of Motion Start: 07/31/21 16:39 Freq: Status: Active Protocol: Document 07/31/21 12:00 DCW (Rec: 07/31/21 17:13 DCW [id number]) Lumbar Spine Range of Motion Lumbar Spine Active Degrees Testing Position Standing Flexion 45 Extension 15 Lateral Flexion Left 58 Lateral Flexion Right 60 ROM Limitations Muscle Tone,Pain Comments Lateral flexion measured in cm from fingertips to floor PT-OP-L Special Tests Start: 07/31/21 16:39 Freq: Status: Active Protocol: Document 07/31/21 12:00 DCW (Rec: 07/31/21 17:13 DCW [id number]) Special Tests Cervical Spine Special Tests Spurling's Test Test Results Negative Slump Test Results Negative Passive Neck Flexion Test Results Negative Foraminal Compression Test Results Negative Lumbar Spine Special Tests LUIGI Test Results Pain at SI Comments Bilaterally Straight Leg Raise Test Results Negative PT-OP-M Strength Start: 07/31/21 16:39 Freq: Status: Active Protocol: Document 07/31/21 12:00 DCW (Rec: 07/31/21 17:13 DCW [id number]) Trunk Strength Trunk Manual Muscle Testing Core Stabilization Pt unable to contract TrA prior to verbal and tactile cues, struggles to hold; 3+/5 Hip Strength Hip Manual Muscle Testing Right Flexion (L2) 3+ Fair+ Extension (S1) 4- Good- Abduction 4 Good Adduction 4 Good Left Flexion (L2) 3+ Fair+ Extension (S1) 4- Good- Abduction 4 Good Adduction 4 Good Knee Strength Knee Manual Muscle Testing Right Flexion (S2) 4+ Good+ Extension (L3) 4+ Good+ Left Flexion (S2) 4+ Good+ Extension (L3) 4+ Good+ Ankle/Foot Strength Ankle and Foot Manual Muscle Testing Right Dorsiflexion (L4) 4+ Good+ Plantarflexion (S1) 4+ Good+ Left Dorsiflexion (L4) 4+ Good+ Plantarflexion (S1) 5 Normal PT-OP-Q Treatments Start: 07/31/21 16:39 Freq: Status: Active Protocol: Document 09/04/21 15:15 DCW (Rec: 09/04/21 15:58 DCW [id number]) Cardio Equipment Recumbent Elliptical ([place]) Duration (Minutes) 5 Resistance 5 Seat Position 8 Gym Equipment Therapeutic Ball 1 Exercise Details Low Trunk Rotation Ball Size/Color Red - 55 cm Body Position Supine Therapeutic Exercises Supine Exercises 4 Supine Exercise Name Hamstring stretch 3 Supine Exercise Name Piriformis stretch Side bilateral Manual Therapy Treatment Joint Mobilizations Thoracic Vertebae Joint T-spine Direction P->A Grade III Body Position Prone Manual Traction Lumbar Details /c Strap in hooklying PT-OP-T Assessment and Plan Start: 07/31/21 16:39 Freq: Status: Active Protocol: Document 09/04/21 15:15 DCW (Rec: 09/04/21 15:58 DCW [id number]) Physical Therapy Assessment Impairments Impairments Activity Tolerance,Functional Activities,Functional Mobility ,Pain,ROM,Sensation,Soft Tissue Mobility,Strength Goals Three Impairment Hip flexion strength 3+/5 bilaterally Skilled Nursing Goal (LTG) Pt to increase hip strength bilaterally to 4/5 in all planes to improve pelvis and lumbar stability during functional movements. LTG Duration 09/30/21 Two Impairment Pt exhibits poor control/ weakness (3+/5) of TrA Skilled Nursing Goal (LTG) Pt to demonstrate ability to perform TrA contraction and hold for 5 seconds during SLR without any increased symptoms . LTG Duration 09/30/21 One Impairment Pt does not have an appropriate home exercise program Short Term Goal (STG) Pt to be independent and compliant with an appropriate HEP STG Duration 08/31/21 Assessment Summary Assessment Pt felt focus on thoracic mobilization and lumbar traction was substantially helpful decreasing her T-spine numbness today. Physical Therapy Plan Frequency and Duration Frequency of Treatment 2x/Week Duration of Treatment Three months Plan of Care Start Date 07/31/21 Plan of Care End Date 10/31/21 Therapeutic Interventions Therapeutic Interventions Aquatic Therapy,Home Exercise Program,Joint Mobilizations, Manual Therapy,Neuromuscular Re-education,Patient/Caregiver Education,Self-Care/Home Management,Soft Tissue Mobilization,Therapeutic Activities,Therapeutic Exercises Modalities Cold Pack/Ice Massage,Electric Stimulation,Hot Packs, Ultrasound Next Visit Focus/Plan Next Note Type Treatment Note Next Visit Plan Strengthening, Core stability, pelvic alignment
--- NOTE | 2021-09-11 15:34 | PT-OP ANOTE ---
No show 09/11/21
--- NOTE | 2021-09-16 16:48 | PT.OTN ---
Current Diagnoses Lumbago with sciatica, unspecified side (09/16/21) Dorsalgia, unspecified (09/16/21) Weakness (09/16/21) Chronic fatigue, unspecified (09/16/21) Physical Therapy Treatment Note PT-OP-A Visit Information Start: 07/31/21 16:39 Freq: Status: Active Protocol: Document 09/16/21 16:00 DCW (Rec: 09/16/21 16:47 DCW [id number]) Out-Patient Physical Therapy Visit Information Visit Information Visit Type Treatment Note Visit Start Time 16:00 Visit Stop Time 16:45 Total Visit Minutes 45 Visit Number 10 Number of ACQUISITIONS ASSISTANT Visits 0 Evaluation Information Evaluation Date 07/31/21 PT-OP-B Current Condition Start: 07/31/21 16:39 Freq: Status: Active Protocol: Document 07/31/21 12:00 DCW (Rec: 07/31/21 17:13 DCW [id number]) Current Condition History of Current Condition Onset Date Long-standing history Current Complaints Mid back pain, low back pain, numbness/tingling in all limbs History of Current Condition Pt is a 55 year old female presenting with a long- standing, complicated history of low back pain with apparent associated neuro deficits in bilateral UEs and LEs. Pt reports a fairly constant tingling in all areas, as well as mid- and low-back pain. Pt notes that she has a history of increased inflammation which leads to increased stiffness and difficulty with movement. Pt has begun to work with a target protection specialist to start an antiinflammatory diet, but admits she is having difficulty cutting out sugars . Pt has worked with multiple neurologists both past and present, and the working diagnosis seems to suggest possible distal degeneration of axions in parts of the PSYCHOLOGY LECTURER/ PNS, potentially due to organophosphate exposure. Pt gets very fatigued if walking more than ~1 mile, and gets to the point where she feels like her muscles just don't work. 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 Pt's main goals for PT are to focus on decreasing fatigue, improving overall strength, and work on improving core strength to decrease stress on her spine, in addition to figuring out what she can do to slow progression of spinal degeneration. PT-OP-C Subjective Start: 07/31/21 16:39 Freq: Status: Active Protocol: Document 09/16/21 16:00 DCW (Rec: 09/16/21 16:47 DCW [id number]) OP-PT Subjective Patient Comments Patient Comments Pt reports she tried going for a walk with her new hiking boots, and after putting the inserts in, she had severe pain in her right hip. PT-OP-F Manual Assessment Start: 07/31/21 16:59 Freq: Status: Active Protocol: Document 07/31/21 12:00 DCW (Rec: 07/31/21 17:33 DCW [id number]) Manual Assessments Joint Mobility Assessment Joint Mobility Assessment T4-L5 moderate Hypomobility, pt reports mobilization feels good but hurts. Superiorly rotated L ASIS, resulting in functionally shortened left LE PT-OP-K Range of Motion Start: 07/31/21 16:39 Freq: Status: Active Protocol: Document 07/31/21 12:00 DCW (Rec: 07/31/21 17:13 DCW [id number]) Lumbar Spine Range of Motion Lumbar Spine Active Degrees Testing Position Standing Flexion 45 Extension 15 Lateral Flexion Left 58 Lateral Flexion Right 60 ROM Limitations Muscle Tone,Pain Comments Lateral flexion measured in cm from fingertips to floor PT-OP-L Special Tests Start: 07/31/21 16:39 Freq: Status: Active Protocol: Document 07/31/21 12:00 DCW (Rec: 07/31/21 17:13 DCW [id number]) Special Tests Cervical Spine Special Tests Spurling's Test Test Results Negative Slump Test Results Negative Passive Neck Flexion Test Results Negative Foraminal Compression Test Results Negative Lumbar Spine Special Tests LUIGI Test Results Pain at SI Comments Bilaterally Straight Leg Raise Test Results Negative PT-OP-M Strength Start: 07/31/21 16:39 Freq: Status: Active Protocol: Document 07/31/21 12:00 DCW (Rec: 07/31/21 17:13 DCW [id number]) Trunk Strength Trunk Manual Muscle Testing Core Stabilization Pt unable to contract TrA prior to verbal and tactile cues, struggles to hold; 3+/5 Hip Strength Hip Manual Muscle Testing Right Flexion (L2) 3+ Fair+ Extension (S1) 4- Good- Abduction 4 Good Adduction 4 Good Left Flexion (L2) 3+ Fair+ Extension (S1) 4- Good- Abduction 4 Good Adduction 4 Good Knee Strength Knee Manual Muscle Testing Right Flexion (S2) 4+ Good+ Extension (L3) 4+ Good+ Left Flexion (S2) 4+ Good+ Extension (L3) 4+ Good+ Ankle/Foot Strength Ankle and Foot Manual Muscle Testing Right Dorsiflexion (L4) 4+ Good+ Plantarflexion (S1) 4+ Good+ Left Dorsiflexion (L4) 4+ Good+ Plantarflexion (S1) 5 Normal PT-OP-Q Treatments Start: 07/31/21 16:39 Freq: Status: Active Protocol: Document 09/16/21 16:00 DCW (Rec: 09/16/21 16:47 DCW [id number]) Cardio Equipment Recumbent Elliptical ([place]) Duration (Minutes) 5 Resistance 5 Seat Position 8 Gym Equipment Therapeutic Ball 1 Exercise Details Low Trunk Rotation Ball Size/Color Red - 55 cm Body Position Supine Therapeutic Exercises Supine Exercises 4 Supine Exercise Name Hamstring stretch 3 Supine Exercise Name Piriformis stretch Side bilateral Manual Therapy Treatment Soft Tissue Mobilization Piriformis Body Location B Piriformis Mobilization Type Sustained Pressure,Trigger Point Release Intensity/Depth Moderate Body Position Sidelying lumbar Body Location lumbar/sacral paraspinals Mobilization Type Sustained Pressure,Trigger Point Release Intensity/Depth Moderate Body Position Prone QL Body Location Bilateral QL Mobilization Type Sustained Pressure,Trigger Point Release Intensity/Depth Moderate Body Position Sidelying Joint Mobilizations Thoracic Vertebae Joint T-spine Direction P->A Grade III Body Position Prone PT-OP-T Assessment and Plan Start: 07/31/21 16:39 Freq: Status: Active Protocol: Document 09/16/21 16:00 DCW (Rec: 09/16/21 16:47 DCW [id number]) Physical Therapy Assessment Impairments Impairments Activity Tolerance,Functional Activities,Functional Mobility ,Pain,ROM,Sensation,Soft Tissue Mobility,Strength Goals Three Impairment Hip flexion strength 3+/5 bilaterally Key Maker Goal (LTG) Pt to increase hip strength bilaterally to 4/5 in all planes to improve pelvis and lumbar stability during functional movements. LTG Duration 09/30/21 Two Impairment Pt exhibits poor control/ weakness (3+/5) of TrA Key Maker Goal (LTG) Pt to demonstrate ability to perform TrA contraction and hold for 5 seconds during SLR without any increased symptoms . LTG Duration 09/30/21 One Impairment Pt does not have an appropriate home exercise program Short Term Goal (STG) Pt to be independent and compliant with an appropriate HEP STG Duration 08/31/21 Assessment Summary Assessment Pt tolerating treatment well today, noting improvement with T-spine mobilization Physical Therapy Plan Frequency and Duration Frequency of Treatment 2x/Week Duration of Treatment Three months Plan of Care Start Date 07/31/21 Plan of Care End Date 10/31/21 Therapeutic Interventions Therapeutic Interventions Aquatic Therapy,Home Exercise Program,Joint Mobilizations, Manual Therapy,Neuromuscular Re-education,Patient/Caregiver Education,Self-Care/Home Management,Soft Tissue Mobilization,Therapeutic Activities,Therapeutic Exercises Modalities Cold Pack/Ice Massage,Electric Stimulation,Hot Packs, Ultrasound Next Visit Focus/Plan Next Note Type Treatment Note Next Visit Plan Strengthening, Core stability, pelvic alignment
--- NOTE | 2021-12-26 15:06 | PT.OPDS ---
Current Diagnoses Lumbago with sciatica, unspecified side (09/16/21) Dorsalgia, unspecified (09/16/21) Weakness (09/16/21) Chronic fatigue, unspecified (09/16/21) Visit Care Team Role Provider Type Nikki Amos MD Attending Provider Non-Staff Family Provider Primary Care Provider Referring Provider Specialty: Pediatrics Address: [address] [place] [address], [facility] Email: Visit Number Visit Number 10 Discharge Summary PT-OP-B Current Condition Start: 07/31/21 16:39 Freq: Status: Active Protocol: Document 07/31/21 12:00 DCW (Rec: 07/31/21 17:13 DCW [id number]) Current Condition History of Current Condition Onset Date Long-standing history Current Complaints Mid back pain, low back pain, numbness/tingling in all limbs History of Current Condition Pt is a 55 year old female presenting with a long- standing, complicated history of low back pain with apparent associated neuro deficits in bilateral UEs and LEs. Pt reports a fairly constant tingling in all areas, as well as mid- and low-back pain. Pt notes that she has a history of increased inflammation which leads to increased stiffness and difficulty with movement. Pt has begun to work with a stone polisher machine to start an antiinflammatory diet, but admits she is having difficulty cutting out sugars . 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 Pt gets very fatigued if walking more than ~1 mile, and gets to the point where she feels like her muscles just don't work. 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 Pt's main goals for PT are to focus on decreasing fatigue, improving overall strength, and work on improving core strength to decrease stress on her spine, in addition to figuring out what she can do to slow progression of spinal degeneration. PT-OP-C Subjective Start: 07/31/21 16:39 Freq: Status: Active Protocol: Document 09/16/21 16:00 DCW (Rec: 09/16/21 16:47 DCW [id number]) OP-PT Subjective Patient Comments Patient Comments Pt reports she tried going for a walk with her new hiking boots, and after putting the inserts in, she had severe pain in her right hip. PT-OP-F Manual Assessment Start: 07/31/21 16:59 Freq: Status: Active Protocol: Document 07/31/21 12:00 DCW (Rec: 07/31/21 17:33 DCW [id number]) Manual Assessments Joint Mobility Assessment Joint Mobility Assessment T4-L5 moderate Hypomobility, pt reports mobilization feels good but hurts. Superiorly rotated L ASIS, resulting in functionally shortened left LE PT-OP-K Range of Motion Start: 07/31/21 16:39 Freq: Status: Active Protocol: Document 07/31/21 12:00 DCW (Rec: 07/31/21 17:13 DCW [id number]) Lumbar Spine Range of Motion Lumbar Spine Active Degrees Testing Position Standing Flexion 45 Extension 15 Lateral Flexion Left 58 Lateral Flexion Right 60 ROM Limitations Muscle Tone,Pain Comments Lateral flexion measured in cm from fingertips to floor PT-OP-L Special Tests Start: 07/31/21 16:39 Freq: Status: Active Protocol: Document 07/31/21 12:00 DCW (Rec: 07/31/21 17:13 DCW [id number]) Special Tests Cervical Spine Special Tests Spurling's Test Test Results Negative Slump Test Results Negative Passive Neck Flexion Test Results Negative Foraminal Compression Test Results Negative Lumbar Spine Special Tests LUIGI Test Results Pain at SI Comments Bilaterally Straight Leg Raise Test Results Negative PT-OP-M Strength Start: 07/31/21 16:39 Freq: Status: Active Protocol: Document 07/31/21 12:00 DCW (Rec: 07/31/21 17:13 DCW [id number]) Trunk Strength Trunk Manual Muscle Testing Core Stabilization Pt unable to contract TrA prior to verbal and tactile cues, struggles to hold; 3+/5 Hip Strength Hip Manual Muscle Testing Right Flexion (L2) 3+ Fair+ Extension (S1) 4- Good- Abduction 4 Good Adduction 4 Good Left Flexion (L2) 3+ Fair+ Extension (S1) 4- Good- Abduction 4 Good Adduction 4 Good Knee Strength Knee Manual Muscle Testing Right Flexion (S2) 4+ Good+ Extension (L3) 4+ Good+ Left Flexion (S2) 4+ Good+ Extension (L3) 4+ Good+ Ankle/Foot Strength Ankle and Foot Manual Muscle Testing Right Dorsiflexion (L4) 4+ Good+ Plantarflexion (S1) 4+ Good+ Left Dorsiflexion (L4) 4+ Good+ Plantarflexion (S1) 5 Normal PT-OP-T Assessment and Plan Start: 07/31/21 16:39 Freq: Status: Active Protocol: Document 12/26/21 15:04 DCW (Rec: 12/26/21 15:05 DCW [id number]) Physical Therapy Assessment Assessment Summary Assessment Pt has not been seen in more than three months, and will be discharged from skilled therapy at this time. Pt will require a new referral in order to return. Physical Therapy Plan Discharge Physical Therapy Discharge Reasons No Longer Attending PT Next Visit Focus/Plan Next Note Type Discharge Summary
== END 2021-12-30 13:13 ==
LOC: PHYS 16:00
PROVIDERS: Family Provider Internal Medicine; PCP Internal Medicine; Referring Provider Internal Medicine; Visit Provider Internal Medicine
DX: M54.9 Dorsalgia, unspecified (principal); R53.1 Weakness; R53.82 Chronic fatigue, unspecified; M54.40 Lumbago with sciatica, unspecified side
CPT/HCPCS: 97110; 97140; 97164

== ENCOUNTER → 2022-08-08 16:55 | Outpatient (CLI) | payer OTHER, SELFPAY ==
[2022-08-08 19:04] LABS: C-Reactive Protein Quant 0.8 mg/dL (<1.0); Rheumatoid Factor < 8.6 IU/mL (<12.0)
[2022-08-08 19:07] LABS: Erythrocyte Sedimentation Rate 37 MM/HR (0-20)
[2022-08-12 16:51] LABS: SS A Ro Sjogrens Antibody 0.2 AI (0.0-0.9); SS B La Sjogrens Antibody < 0.2 AI (0.0-0.9)
[2022-08-12 22:16] LABS: CCP Antibodies IgG/IgA 4 units (0-19)
[2022-08-13 13:10] LABS: ANA Screen, IFA Negative (.)
== END ==
PROVIDERS: Family Provider Internal Medicine; PCP Internal Medicine; Referring Provider Physical Medicine & Rehabilitation; Visit Provider Physical Medicine & Rehabilitation
DX: M43.06 Spondylolysis, lumbar region (principal); M43.12 Spondylolisthesis, cervical region
CPT/HCPCS: 36415; 85651; 86038; 86140; 86200; 86235; 86430

== ENCOUNTER → 2022-10-21 15:51 | Outpatient (CLI) | payer OTHER, SELFPAY ==
[2022-10-21 16:42] LABS: Add Manual Diff / Slide Review NO; Basophils Absolute Auto 0 /uL (0-100); Basophils Percent Auto 0.3 % (0-2); Eosinophils Absolute Auto 200 /uL (0-450); Eosinophils Percent Auto 2.7 % (2-4); Hematocrit 40.2 % (36-46); Hemoglobin 13.4 g/dL (12.0-16.0); Lymphocytes Absolute Auto 2000 /uL (1100-4500); Lymphocytes Percent Auto 25.4 % (25-40); Mean Corpuscular HGB Conc 33.4 % (30-36); Mean Corpuscular Hemoglobin 30.5 PG (26-34); Mean Corpuscular Volume 91.4 fL (80-100); Monocytes Absolute Auto 500 /uL (0-900); Monocytes Percent Auto 6.4 % (3-14); Neutrophils Absolute Auto 5000 /uL (1500-7000); Neutrophils Percent Auto 65.2 % (50-75); Platelet Count 307 X10^3/uL (150-400); Red Blood Cell Count 4.39 X10^6/uL (4.0-5.2); Red Cell Distribution Width 13.2 % (11.6-14.8); White Blood Cell Count 7.7 X10^3/uL (4.5-11.0)
[2022-10-21 17:02] LABS: Alanine Aminotransferase 28 IU/L (<35); Albumin 4.2 g/dL (3.5-5.0); Albumin Globulin Ratio 1.1 (1.0-2.8); Alkaline Phosphatase 77 U/L (38-126); Aspartate Aminotransferase 33 IU/L (14-36); BUN Creatinine Ratio 23.3 (6-22); Bilirubin Total 0.4 mg/dL (0.2-1.3); Blood Urea Nitrogen 17 mg/dL (7-17); Calcium 8.8 mg/dL (8.4-10.2); Carbon Dioxide 27 mmol/L (22-32); Chloride 104 mmol/L (98-107); Estimated Glomerular Filt Rate > 60 mL/min (>60); Globulin 3.9 g/dL (1.7-4.1); Glucose 102 mg/dL (70-100); HEMOLYSIS 22 (0-50); Potassium 3.6 mmol/L (3.4-5.1); Sodium 139 mmol/L (137-145); Total Protein 8.1 g/dL (6.3-8.2)
[2022-10-21 17:20] LABS: Free T4, Direct Thyroxine 1.01 ng/dL (0.78-2.19)
[2022-10-21 17:34] LABS: Thyroid Stimulating Hormone 1.93 uIU/mL (0.47-4.68)
[2022-10-23 15:12] LABS: QuantiFERON Mitogen Value 3.47 IU/mL (.); QuantiFERON Nil Value 0.02 IU/mL (.); QuantiFERON TB Gold Plus Negative (Negative); QuantiFERON TB1 Ag Value 0.02 IU/mL (.); QuantiFERON TB2 Ag Value 0.02 IU/mL (.)
[2022-10-23 17:29] LABS: Hep C Virus Ab w/Reflex Quant NEGATIVE s/c (NEGATIVE)
[2022-10-24 15:06] LABS: Hepatitis B Virus HBV DNA not detected IU/mL (.)
== END ==
PROVIDERS: Family Provider Internal Medicine; PCP Internal Medicine; Referring Provider Internal Medicine Rheumatology; Visit Provider Internal Medicine Rheumatology
DX: M45.7 Ankylosing spondylitis of lumbosacral region (principal)
CPT/HCPCS: 36415; 80053; 84439; 84443; 85025; 86480; 86803

== ENCOUNTER 2022-12-31 16:45 | Outpatient (RCR) | payer OTHER, SELFPAY ==
--- NOTE | 2022-08-20 16:00 | PT.OIE ---
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) Past Surgical History (Last Reviewed 05/28/22 @ 14:53 by Roque Costello MD) History of third molar tooth extraction Visit Care Team Role Provider Type Nikki Amos MD Family Provider Non-Staff Primary Care Provider Specialty: Pediatrics Address: [address] [place] [address], [id number] Email: Kenny Avelar MD Attending Provider Physician Referring Provider Specialty: Orthopedics Orthopedic Surgery Address: [address] [place] [address], [id number] Email: Physical Therapy Initial Evaluation PT-OP-A Visit Information Start: 08/20/22 17:49 Freq: Status: Active Protocol: Document 08/20/22 15:15 DCW (Rec: 08/20/22 17:55 DCW [id number]) Out-Patient Physical Therapy Visit Information Visit Information Visit Type Treatment Note Visit Start Time 15:15 Visit Stop Time 16:00 Total Visit Minutes 45 Visit Number 1 Number of MORT[employer]AGE [employer] SALES Visits 0 Evaluation Information Evaluation Date 08/20/22 PT-OP-B Current Condition Start: 08/20/22 17:49 Freq: Status: Active Protocol: Document 08/20/22 15:15 DCW (Rec: 08/21/22 09:40 DC [id number]) Current Condition History of Current Condition Onset Date Multi-year history Current Complaints Lumbar pain, cervical pain, radicular symptoms History of Current Condition Pt is a 57 year old female well known to this clinic returning to skilled physical therapy with complaints of what is essentially full-body pain. Pt notes consistent pain in all of her joints, especially stiffness along her entire spine, as well as numbness and tingling in her hands and legs. Notes she feels that she has a lot of instability along her joints, and frequently holds her hands and arms in a contracted, protective posture, typically without even realizing she is doing it. Notes that she typically feels worse as the day progresses, the more I more, the more pain I'm in. Recently underwent a nerve conduction study, which she reports was WNL. Reports she will often have significantly increased pain after standing or sitting for more than ten minutes, and struggles to bend over or walk without pain. Treatment Goals Patient/Caregiver Goals I'd like to loosen my back up , and then maybe focus on strengthening. PT-OP-C Subjective Start: 08/20/22 17:49 Freq: Status: Active Protocol: Document 08/20/22 15:15 DCW (Rec: 08/20/22 17:55 DCW [id number]) OP-PT Subjective Patient Comments Patient Comments Well, I've had some changes since I was in here last, and it hasn't been for the better, so that's probably not a good sign. Patient Reported Progress Worse Patient Questionnaires Neck Disability Index NDI Score 27/50 = 54% Neck Disability Index Impairment 40 to 59% Impaired (Score 20- 29) OP-PT Pain Assessment Pain Assessment Grid Paper Pain Assessment Grid Completed Yes: Complicated, see scan PT-OP-F Manual Assessment Start: 08/20/22 17:49 Freq: Status: Active Protocol: Document 08/20/22 15:15 DCW (Rec: 08/21/22 09:45 DCW [id number]) Manual Assessments Soft Tissue Assessment Soft Tissue Mobility Assessment Moderate-severe tone with tenderness to palpation 3/4: wincing and withdraw in C/T/L paraspinals, B upper traps, B QL PT-OP-K Range of Motion Start: 08/20/22 17:49 Freq: Status: Active Protocol: Document 08/20/22 15:15 DCW (Rec: 08/21/22 09:45 DCW [id number]) Lumbar Spine Range of Motion Lumbar Spine Active Degrees Testing Position Standing Flexion 40 Extension 10 Lateral Flexion Left 54 Lateral Flexion Right 56 Comments Lateral flexion measured in cm from fingertips to floor PT-OP-L Special Tests Start: 08/20/22 17:49 Freq: Status: Active Protocol: Document 08/20/22 15:15 DCW (Rec: 08/21/22 11:42 DCW [id number]) Special Tests Cervical Spine Special Tests Spurling's Test Test Results Negative Slump Test Results Negative Passive Neck Flexion Test Results Negative Foraminal Compression Test Results Negative Lumbar Spine Special Tests Prone Instability Test Test Results Positive LUIGI Test Results Pain at SI Comments Bilaterally Straight Leg Raise Test Results Negative PT-OP-M Strength Start: 08/20/22 17:49 Freq: Status: Active Protocol: Document 08/20/22 15:15 DCW (Rec: 08/21/22 11:42 DCW [id number]) Hip Strength Hip Manual Muscle Testing Right Flexion (L2) 4- Good- Extension (S1) 4 Good Abduction 4 Good Adduction 4 Good External Rotation 4 Good Internal Rotation 4 Good Left Flexion (L2) 3+ Fair+ Extension (S1) 3+ Fair+ Abduction 4- Good- Adduction 4- Good- External Rotation 4- Good- Internal Rotation 4- Good- Knee Strength Knee Manual Muscle Testing Right Flexion (S2) 4+ Good+ Extension (L3) 4+ Good+ Left Flexion (S2) 4+ Good+ Extension (L3) 4+ Good+ PT-OP-T Assessment and Plan Start: 08/20/22 17:49 Freq: Status: Active Protocol: Document 08/20/22 15:15 DCW (Rec: 08/21/22 12:00 DCW [id number]) Physical Therapy Assessment Rehab Potential Rehabilitation Potential Good Evaluation Complexity Number of Personal Factors/Comorbidities 3 or More Number of Body Systems Impaired 4 or More Clinical Presentation at Evaluation Unstable Impairments Impairments Activity Tolerance,Functional Activities,Functional Mobility ,Pain,Posture,ROM,Soft Tissue Mobility,Strength,Tone Goals Three Impairment Pt unable to walk longer than 20 minutes without pain 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 LTG Duration 10/29/22 One Impairment Pt does not have an appropriate home exercise program Short Term Goal (STG) Pt to be independent and compliant with an appropriate HEP STG Duration 09/24/22 Assessment Summary Assessment Pt presents to skilled therapy with signs and symptoms consistent with referring diagnosis. Pt has participated in physical therapy previously, and has typically responded fairly well to aquatic therapy, as well as STM and stretching to improve mobility and decrease overall pain. Pt would additionally benefit from strengthening through her shoulders and hips , and improving activity tolerance and tolerance to standing. 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 Physical Therapy Plan Frequency and Duration Frequency of Treatment 2x/Week Duration of treatment (weeks) 10 Plan of Care Start Date 08/20/22 Plan of Care End Date 10/29/22 Therapeutic Interventions Therapeutic Interventions Aquatic Therapy,Home Exercise Program,Joint Mobilizations, Manual Therapy,Neuromuscular Re-education,Patient/Caregiver Education,Self-Care/Home Management,Soft Tissue Mobilization,Therapeutic Activities,Therapeutic Exercises Modalities Cold Pack/Ice Massage,Electric Stimulation,Hot Packs, Ultrasound Next Visit Focus/Plan Next Note Type Treatment Note Next Visit Plan Begin aquatic therapy, work toward decreasing tone and improving joint stability.
--- NOTE | 2022-08-20 16:01 | PT.OPPOC ---
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) Visit Care Team Role Provider Type Nikki Amos MD Family Provider Non-Staff Primary Care Provider Specialty: Pediatrics Address: [address] [place] [address], [id number] Email: Kenny Avelar MD Attending Provider Physician Referring Provider Specialty: Orthopedics Orthopedic Surgery Address: [address] [place] [address], [id number] Email: [email or web address] Plan Of Care PT-OP-T Assessment and Plan Start: 08/20/22 17:49 Freq: Status: Active Protocol: Document 08/20/22 15:15 DCW (Rec: 08/21/22 12:00 DCW [id number]) Physical Therapy Assessment Rehab Potential Rehabilitation Potential Good Evaluation Complexity Number of Personal Factors/Comorbidities 3 or More Number of Body Systems Impaired 4 or More Clinical Presentation at Evaluation Unstable Impairments Impairments Activity Tolerance,Functional Activities,Functional Mobility ,Pain,Posture,ROM,Soft Tissue Mobility,Strength,Tone Goals Three Impairment Pt unable to walk longer than 20 minutes without pain Ese Teacher Goal (LTG) Pt to improve ambulation tolerance to at least 90 minutes to 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 LTG Duration 10/29/22 One Impairment Pt does not have an appropriate home exercise program Short Term Goal (STG) Pt to be independent and compliant with an appropriate HEP STG Duration 09/24/22 Assessment Summary Assessment Pt presents to skilled therapy with signs and symptoms consistent with referring diagnosis. Pt has participated in physical therapy previously, and has typically responded fairly well to aquatic therapy, as well as STM and stretching to improve mobility and decrease overall pain. Pt would additionally benefit from strengthening through her shoulders and hips , and improving activity tolerance and tolerance to standing. 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 Physical Therapy Plan Frequency and Duration Frequency of Treatment 2x/Week Duration of treatment (weeks) 10 Plan of Care Start Date 08/20/22 Plan of Care End Date 10/29/22 Therapeutic Interventions Therapeutic Interventions Aquatic Therapy,Home Exercise Program,Joint Mobilizations, Manual Therapy,Neuromuscular Re-education,Patient/Caregiver Education,Self-Care/Home Management,Soft Tissue Mobilization,Therapeutic Activities,Therapeutic Exercises Modalities Cold Pack/Ice Massage,Electric Stimulation,Hot Packs, Ultrasound Next Visit Focus/Plan Next Note Type Treatment Note Next Visit Plan Begin aquatic therapy, work toward decreasing tone and improving joint stability. Plan of Care Dates Plan of Care Start Date 08/20/22 Plan of Care End Date 10/29/22 Electronically Signed by: Micky Dove, PT 08/21/22 1944 If you are in agreement with this Plan of Care, please return a signed and dated copy. I have reviewed this Plan of Care and certify that the skilled therapy services above are required to meet the patient?s needs. Physician Signature Date Printed Name and Credentials Clinical Instructor Signature Printed Name and Credentials
--- NOTE | 2022-09-01 14:23 | PT.OTN ---
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) Physical Therapy Treatment Note PT-OP-A Visit Information Start: 08/20/22 17:49 Freq: Status: Active Protocol: Document 09/01/22 14:16 [facility] (Rec: 09/01/22 14:23 [facility] [id number]) Out-Patient Physical Therapy Visit Information Visit Information Visit Type Aquatic Treatment Note Visit Start Time 11:45 Visit Stop Time 12:30 Total Visit Minutes 45 Visit Number 2 Number of VELVET CUTTER Visits 0 Evaluation Information Evaluation Date 08/20/22 PT-OP-B Current Condition Start: 08/20/22 17:49 Freq: Status: Active Protocol: Document 09/01/22 14:16 [facility] (Rec: 09/01/22 14:23 [facility] [id number]) Current Condition History of Current Condition Onset Date Multi-year history Current Complaints Lumbar pain, cervical pain, radicular symptoms History of Current Condition Pt is a 57 year old female well known to this clinic returning to skilled physical therapy with complaints of what is essentially full-body pain. Pt notes consistent pain in all of her joints, especially stiffness along her entire spine, as well as numbness and tingling in her hands and legs. Notes she feels that she has a lot of instability along her joints, and frequently holds her hands and arms in a contracted, protective posture, typically without even realizing she is doing it. Notes that she typically feels worse as the day progresses, the more I more, the more pain I'm in. Recently underwent a nerve conduction study, which she reports was WNL. Reports she will often have significantly increased pain after standing or sitting for more than ten minutes, and struggles to bend over or walk without pain. PT-OP-C Subjective Start: 08/20/22 17:49 Freq: Status: Active Protocol: Document 09/01/22 14:16 [facility] (Rec: 09/01/22 14:23 [facility] [id number]) OP-PT Subjective Patient Comments Patient Comments reports tightness in back right greater than left, knees and elbows achy/painful bilaterally. 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 Previously found aquatic therapy helpful. PT-OP-F Manual Assessment Start: 08/20/22 17:49 Freq: Status: Active Protocol: Document 08/20/22 15:15 DCW (Rec: 08/21/22 09:45 DCW [id number]) Manual Assessments Soft Tissue Assessment Soft Tissue Mobility Assessment Moderate-severe tone with tenderness to palpation 3/4: wincing and withdraw in C/T/L paraspinals, B upper traps, B QL PT-OP-K Range of Motion Start: 08/20/22 17:49 Freq: Status: Active Protocol: Document 08/20/22 15:15 DCW (Rec: 08/21/22 09:45 DCW [id number]) Lumbar Spine Range of Motion Lumbar Spine Active Degrees Testing Position Standing Flexion 40 Extension 10 Lateral Flexion Left 54 Lateral Flexion Right 56 Comments Lateral flexion measured in cm from fingertips to floor PT-OP-L Special Tests Start: 08/20/22 17:49 Freq: Status: Active Protocol: Document 08/20/22 15:15 DCW (Rec: 08/21/22 11:42 DCW [id number]) Special Tests Cervical Spine Special Tests Spurling's Test Test Results Negative Slump Test Results Negative Passive Neck Flexion Test Results Negative Foraminal Compression Test Results Negative Lumbar Spine Special Tests Prone Instability Test Test Results Positive LUIGI Test Results Pain at SI Comments Bilaterally Straight Leg Raise Test Results Negative PT-OP-M Strength Start: 08/20/22 17:49 Freq: Status: Active Protocol: Document 08/20/22 15:15 DCW (Rec: 08/21/22 11:42 DCW [id number]) Hip Strength Hip Manual Muscle Testing Right Flexion (L2) 4- Good- Extension (S1) 4 Good Abduction 4 Good Adduction 4 Good External Rotation 4 Good Internal Rotation 4 Good Left Flexion (L2) 3+ Fair+ Extension (S1) 3+ Fair+ Abduction 4- Good- Adduction 4- Good- External Rotation 4- Good- Internal Rotation 4- Good- Knee Strength Knee Manual Muscle Testing Right Flexion (S2) 4+ Good+ Extension (L3) 4+ Good+ Left Flexion (S2) 4+ Good+ Extension (L3) 4+ Good+ PT-OP-S Aquatic Treatment Start: 09/01/22 14:15 Freq: Status: Active Protocol: Document 09/01/22 14:16 [facility] (Rec: 09/01/22 14:23 [facility] [id number]) Aquatics Treatment Pool Entry/Exit Pool Entry/Exit Method Stairs Assistance Independent Water Walking forward with arms for drag Water Level Chest Level Comments arms at sides, palms forward forward with reverse breast stroke Water Level Chest Level Comments cues for core involvement Sideways Water Level Chest Level Backwards Water Level Chest Level forward Water Level Chest Level Comments heel-toe Lower Extremity Exercises knee flex/ext Body Position Standing Water Level Chest Level Reps/Duration 10x Lower Extremity Stretches hip flexor and quads Body Position Standing Water Level Chest Level Equipment Small Noodle Reps/Duration 2x30 Comments cueing for standing upright HS Body Position Standing Water Level Chest Level Equipment Small Noodle Reps/Duration 2x30 Comments also deep; modified downward dog at wall Upper Extremity Exercises flex,ext, abd, add, Body Position Standing Water Level Chest Level Reps/Duration 10x each bilat Comments cues for core activation and stabilization Spinal Exercises QL stretch Body Position Standing Water Level Chest Level Comments at wall trunk rotation Body Position Standing Water Level Chest Level Equipment Large Noodle Reps/Duration 5x5 [place] Activities [place] Activities Bicycle,Bicycle Backwards Equipment large noodle Duration 8 Manual Techniques [place] supine passive for trunk flexibility; black neck float, small LE floats Aquatic Massage thoracic and lumbar paraspinals, piriformis jenn; supine with black neck float and small LE floats PT-OP-T Assessment and Plan Start: 08/20/22 17:49 Freq: Status: Active Protocol: Document 09/01/22 14:16 [facility] (Rec: 09/01/22 14:23 [facility] [id number]) Physical Therapy Assessment Impairments Impairments Activity Tolerance,Functional Activities,Functional Mobility ,Pain,Posture,ROM,Soft Tissue Mobility,Strength,Tone Goals Three Impairment Pt unable to walk longer than 20 minutes without pain Wildlife Conservation Officer Goal (LTG) Pt to improve ambulation tolerance to at least 90 minutes to 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 LTG Duration 10/29/22 One Impairment Pt does not have an appropriate home exercise program Short Term Goal (STG) Pt to be independent and compliant with an appropriate HEP STG Duration 09/24/22 Physical Therapy Plan Frequency and Duration Frequency of Treatment 2x/Week Duration of treatment (weeks) 10 Plan of Care Start Date 08/20/22 Plan of Care End Date 10/29/22 Therapeutic Interventions Therapeutic Interventions Aquatic Therapy,Home Exercise Program,Joint Mobilizations, Manual Therapy,Neuromuscular Re-education,Patient/Caregiver Education,Self-Care/Home Management,Soft Tissue Mobilization,Therapeutic Activities,Therapeutic Exercises Modalities Cold Pack/Ice Massage,Electric Stimulation,Hot Packs, Ultrasound Next Visit Focus/Plan Next Note Type Treatment Note Next Visit Plan Evaluate response to aquatic PT and progress as tolerated for mobility, strengthening and stabilization. Manual aquatic therapy techniques to improve soft tissue mobility and decrease pain.
--- NOTE | 2022-09-10 14:43 | PT.OTN ---
Current Diagnoses Spondylosis without myelopathy or radiculopathy, cervical region (09/01/22) Spondylosis without myelopathy or radiculopathy, lumbar region (09/01/22) Physical Therapy Treatment Note PT-OP-A Visit Information Start: 08/20/22 17:49 Freq: Status: Active Protocol: Document 09/10/22 14:36 SAK (Rec: 09/10/22 14:43 SAK [id number]) Out-Patient Physical Therapy Visit Information Visit Information Visit Type Aquatic Treatment Note Visit Start Time 11:45 Visit Stop Time 12:30 Total Visit Minutes 45 Visit Number 3 Number of ARTIFICIAL FLY TIER Visits 0 Evaluation Information Evaluation Date 08/20/22 PT-OP-B Current Condition Start: 08/20/22 17:49 Freq: Status: Active Protocol: Document 09/10/22 14:36 SAK (Rec: 09/10/22 14:43 [facility] [id number]) Current Condition History of Current Condition Onset Date Multi-year history Current Complaints Lumbar pain, cervical pain, radicular symptoms History of Current Condition Pt is a 57 year old female well known to this clinic returning to skilled physical therapy with complaints of what is essentially full-body pain. Pt notes consistent pain in all of her joints, especially stiffness along her entire spine, as well as numbness and tingling in her hands and legs. Notes she feels that she has a lot of instability along her joints, and frequently holds her hands and arms in a contracted, protective posture, typically without even realizing she is doing it. Notes that she typically feels worse as the day progresses, the more I more, the more pain I'm in. Recently underwent a nerve conduction study, which she reports was WNL. Reports she will often have significantly increased pain after standing or sitting for more than ten minutes, and struggles to bend over or walk without pain. PT-OP-C Subjective Start: 08/20/22 17:49 Freq: Status: Active Protocol: Document 09/10/22 14:36 SAK (Rec: 09/10/22 14:43 SAK [id number]) OP-PT Subjective Patient Comments Patient Comments Reports she has more testing to have done but it looks likely that she has ankylosing spondylitis. Most joints achy . Likes aquatic therapy; some aching but no increasing in pain after first aquatic PT session. PT-OP-F Manual Assessment Start: 08/20/22 17:49 Freq: Status: Active Protocol: Document 08/20/22 15:15 DCW (Rec: 08/21/22 09:45 DCW [id number]) Manual Assessments Soft Tissue Assessment Soft Tissue Mobility Assessment Moderate-severe tone with tenderness to palpation 3/4: wincing and withdraw in C/T/L paraspinals, B upper traps, B QL PT-OP-K Range of Motion Start: 08/20/22 17:49 Freq: Status: Active Protocol: Document 08/20/22 15:15 DCW (Rec: 08/21/22 09:45 DCW [id number]) Lumbar Spine Range of Motion Lumbar Spine Active Degrees Testing Position Standing Flexion 40 Extension 10 Lateral Flexion Left 54 Lateral Flexion Right 56 Comments Lateral flexion measured in cm from fingertips to floor PT-OP-L Special Tests Start: 08/20/22 17:49 Freq: Status: Active Protocol: Document 08/20/22 15:15 DCW (Rec: 08/21/22 11:42 DCW [id number]) Special Tests Cervical Spine Special Tests Spurling's Test Test Results Negative Slump Test Results Negative Passive Neck Flexion Test Results Negative Foraminal Compression Test Results Negative Lumbar Spine Special Tests Prone Instability Test Test Results Positive LUIGI Test Results Pain at SI Comments Bilaterally Straight Leg Raise Test Results Negative PT-OP-M Strength Start: 08/20/22 17:49 Freq: Status: Active Protocol: Document 08/20/22 15:15 DCW (Rec: 08/21/22 11:42 DCW [id number]) Hip Strength Hip Manual Muscle Testing Right Flexion (L2) 4- Good- Extension (S1) 4 Good Abduction 4 Good Adduction 4 Good External Rotation 4 Good Internal Rotation 4 Good Left Flexion (L2) 3+ Fair+ Extension (S1) 3+ Fair+ Abduction 4- Good- Adduction 4- Good- External Rotation 4- Good- Internal Rotation 4- Good- Knee Strength Knee Manual Muscle Testing Right Flexion (S2) 4+ Good+ Extension (L3) 4+ Good+ Left Flexion (S2) 4+ Good+ Extension (L3) 4+ Good+ PT-OP-S Aquatic Treatment Start: 09/01/22 14:15 Freq: Status: Active Protocol: Document 09/10/22 14:36 SAK (Rec: 09/10/22 14:43 SAK [id number]) Aquatics Treatment Pool Entry/Exit Pool Entry/Exit Method Stairs Assistance Independent Water Walking walking with hor ab/ad Walking Equipment arms only, open paddles Level of Assistance Standby Assistance,Verbal Cues forward with arms for drag Water Level Chest Level Comments arms at sides, palms forward, open paddles for some Lower Extremity Exercises knee flex/ext Body Position Standing Water Level Chest Level Reps/Duration 10x Comments no UE support circumduction Body Position Standing Water Level Chest Level Reps/Duration 10x bilat Comments no UE support ab/ad Water Level Chest Level Reps/Duration 10x bilat Comments no UE support Lower Extremity Stretches hip flexor and quads Body Position Standing Water Level Chest Level Equipment Small Noodle Reps/Duration 2x30 Comments cueing for standing upright HS Body Position Standing Water Level Chest Level Equipment Small Noodle Reps/Duration 2x30 Comments also deep; modified downward dog at wall [place] Activities [place] Activities Bicycle,Bicycle Backwards, Cross Country,Running Equipment flotation belt Duration 10 Comments cues for alignment core engagement PT-OP-T Assessment and Plan Start: 08/20/22 17:49 Freq: Status: Active Protocol: Document 09/10/22 14:36 [facility] (Rec: 09/10/22 14:43 [facility] [id number]) Physical Therapy Assessment Impairments Impairments Activity Tolerance,Functional Activities,Functional Mobility ,Pain,Posture,ROM,Soft Tissue Mobility,Strength,Tone Goals Three Impairment Pt unable to walk longer than 20 minutes without pain Mcc Goal (LTG) Pt to improve ambulation tolerance to at least 90 minutes to enable 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 LTG Duration 10/29/22 One Impairment Pt does not have an appropriate home exercise program Short Term Goal (STG) Pt to be independent and compliant with an appropriate HEP STG Duration 09/24/22 Assessment Summary Assessment Increased exercise tolerance, no manual techniques today. Mod postural cues especialy related to neck pain. Physical Therapy Plan Frequency and Duration Frequency of Treatment 2x/Week Duration of treatment (weeks) 10 Plan of Care Start Date 08/20/22 Plan of Care End Date 10/29/22 Therapeutic Interventions Therapeutic Interventions Aquatic Therapy,Home Exercise Program,Joint Mobilizations, Manual Therapy,Neuromuscular Re-education,Patient/Caregiver Education,Self-Care/Home Management,Soft Tissue Mobilization,Therapeutic Activities,Therapeutic Exercises Modalities Cold Pack/Ice Massage,Electric Stimulation,Hot Packs, Ultrasound Next Visit Focus/Plan Next Note Type Treatment Note Next Visit Plan Evaluate response to increased exercise component to aquatic PT, progress as indicated.
--- NOTE | 2022-09-17 16:49 | PT.OTN ---
Current Diagnoses Spondylosis without myelopathy or radiculopathy, cervical region (09/17/22) Spondylosis without myelopathy or radiculopathy, lumbar region (09/17/22) Physical Therapy Treatment Note PT-OP-A Visit Information Start: 08/20/22 17:49 Freq: Status: Active Protocol: Document 09/17/22 16:30 LJ (Rec: 09/17/22 16:49 LJ [id number]) Out-Patient Physical Therapy Visit Information Visit Information Visit Type Aquatic Treatment Note Visit Start Time 11:45 Visit Stop Time 12:30 Total Visit Minutes 45 Visit Number 4 Number of WIRELESS FIELD TECHNICIAN Visits 1 Evaluation Information Evaluation Date 08/20/22 PT-OP-B Current Condition Start: 08/20/22 17:49 Freq: Status: Active Protocol: Document 09/10/22 14:36 SAK (Rec: 09/10/22 14:43 SAK [id number]) Current Condition History of Current Condition Onset Date Multi-year history Current Complaints Lumbar pain, cervical pain, radicular symptoms History of Current Condition Pt is a 57 year old female well known to this clinic returning to skilled physical therapy with complaints of what is essentially full-body pain. Pt notes consistent pain in all of her joints, especially stiffness along her entire spine, as well as numbness and tingling in her hands and legs. Notes she feels that she has a lot of instability along her joints, and frequently holds her hands and arms in a contracted, protective posture, typically without even realizing she is doing it. Notes that she typically feels worse as the day progresses, the more I more, the more pain I'm in. Recently underwent a nerve conduction study, which she reports was WNL. Reports she will often have significantly increased pain after standing or sitting for more than ten minutes, and struggles to bend over or walk without pain. PT-OP-C Subjective Start: 08/20/22 17:49 Freq: Status: Active Protocol: Document 09/17/22 16:30 LJ (Rec: 09/17/22 16:49 LJ [id number]) OP-PT Subjective Patient Comments Patient Comments Reports she will be having a MRI soon. Xrays showed spine beginning to fuse which she was told indicates ankylosing spondylitis. States she is achy and is glad to be in the water again. PT-OP-F Manual Assessment Start: 08/20/22 17:49 Freq: Status: Active Protocol: Document 08/20/22 15:15 DCW (Rec: 08/21/22 09:45 DCW [id number]) Manual Assessments Soft Tissue Assessment Soft Tissue Mobility Assessment Moderate-severe tone with tenderness to palpation 3/4: wincing and withdraw in C/T/L paraspinals, B upper traps, B QL PT-OP-K Range of Motion Start: 08/20/22 17:49 Freq: Status: Active Protocol: Document 08/20/22 15:15 DCW (Rec: 08/21/22 09:45 DCW [id number]) Lumbar Spine Range of Motion Lumbar Spine Active Degrees Testing Position Standing Flexion 40 Extension 10 Lateral Flexion Left 54 Lateral Flexion Right 56 Comments Lateral flexion measured in cm from fingertips to floor PT-OP-L Special Tests Start: 08/20/22 17:49 Freq: Status: Active Protocol: Document 08/20/22 15:15 DCW (Rec: 08/21/22 11:42 DCW [id number]) Special Tests Cervical Spine Special Tests Spurling's Test Test Results Negative Slump Test Results Negative Passive Neck Flexion Test Results Negative Foraminal Compression Test Results Negative Lumbar Spine Special Tests Prone Instability Test Test Results Positive LUIGI Test Results Pain at SI Comments Bilaterally Straight Leg Raise Test Results Negative PT-OP-M Strength Start: 08/20/22 17:49 Freq: Status: Active Protocol: Document 08/20/22 15:15 DCW (Rec: 08/21/22 11:42 DCW [id number]) Hip Strength Hip Manual Muscle Testing Right Flexion (L2) 4- Good- Extension (S1) 4 Good Abduction 4 Good Adduction 4 Good External Rotation 4 Good Internal Rotation 4 Good Left Flexion (L2) 3+ Fair+ Extension (S1) 3+ Fair+ Abduction 4- Good- Adduction 4- Good- External Rotation 4- Good- Internal Rotation 4- Good- Knee Strength Knee Manual Muscle Testing Right Flexion (S2) 4+ Good+ Extension (L3) 4+ Good+ Left Flexion (S2) 4+ Good+ Extension (L3) 4+ Good+ PT-OP-S Aquatic Treatment Start: 09/01/22 14:15 Freq: Status: Active Protocol: Document 09/17/22 16:30 LJ (Rec: 09/17/22 16:49 LJ [id number]) Aquatics Treatment Pool Entry/Exit Pool Entry/Exit Method Stairs Assistance Independent Water Walking forward with arms for drag Water Level Chest Level Comments arms at sides, palms forward [place] Water Level Waist Level Comments arms reaching to opp side Sideways Water Level Chest Level Backwards Water Level Chest Level forward Water Level Chest Level Lower Extremity Exercises knee flex/ext Body Position Standing Water Level Chest Level Reps/Duration 10x Comments no UE support heel toe raises Body Position Standing Water Level Chest Level Reps/Duration 20 circumduction Body Position Standing Water Level Chest Level Reps/Duration 10x bilat Comments no UE support ab/ad Water Level Chest Level Reps/Duration 10x bilat Comments no UE support flex/ext Water Level Chest Level Reps/Duration 12x2 bilat Lower Extremity Stretches hip flexor and quads Body Position Standing Water Level Chest Level Equipment Small Noodle Reps/Duration 2x30 Comments cueing for standing upright spider on wall Reps/Duration 2 min Comments with body swing HS Body Position Standing Water Level Chest Level Equipment Small Noodle Reps/Duration 2x30 Comments also deep; modified downward dog at wall gastroc, soleus Body Position Standing Water Level Waist Level Reps/Duration 45x2 Comments rocking foot side to side Upper Extremity Exercises scapular retraction, shoulder shrugs Body Position Standing Water Level Chest Level Reps/Duration 15 ea flex,ext, abd, add, Body Position Standing Water Level Chest Level Reps/Duration 10x each bilat Comments cues for core activation and stabilization Upper Extremity Stretches pec stretch Body Position Standing Water Level Chest Level Comments in corner Spinal Exercises lateral stetch Details at wall Body Position Standing Water Level Waist Level Reps/Duration 45 Bilat Comments lats, low back, arm overhead trunk rotation Body Position Standing Water Level Chest Level Equipment Large Noodle Reps/Duration 5x5 cat cow stretch at wall Water Level Chest Level Reps/Duration 2 min SKTC, DKTC Water Level [place] Reps/Duration 2 min at wall Balance wonderboard Body Position Sitting Reps/Duration 6 min Comments static, dynamic, perturbations [place] Activities [place] Activities Bicycle,Bicycle Backwards, Cross Country,Hip Abduction/ Adduction,Sit Kicks Other Activities pendulum burpees-forward; gentle bicycle modified supine with knees out of water for core involvement Equipment flotation belt Duration 16 Comments cues for alignment core engagement PT-OP-T Assessment and Plan Start: 10/26/22 17:49 Freq: Status: Active Protocol: Document 09/17/22 16:30 GUANAKITO (Rec: 09/17/22 16:49 GUANAKITO [id number]) Physical Therapy Assessment Rehab Potential Rehabilitation Potential Good Evaluation Complexity Number of Personal Factors/Comorbidities 3 or More Number of Body Systems Impaired 4 or More Clinical Presentation at Evaluation Unstable Impairments Impairments Activity Tolerance,Functional Activities,Functional Mobility ,Pain,Posture,ROM,Soft Tissue Mobility,Strength,Tone Goals Three Impairment Pt unable to walk longer than 20 minutes without pain Special Agent In Charge 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 LTG Duration 10/29/22 One Impairment Pt does not have an appropriate home exercise program Short Term Goal (STG) Pt to be independent and compliant with an appropriate HEP STG Duration 09/24/22 Assessment Summary Assessment Pt tolerated low level of exercise in both deep and shallow. No aerobic exercises. stretching time effective for pain and tightness relief. Physical Therapy Plan Frequency and Duration Frequency of Treatment 2x/Week Duration of treatment (weeks) 10 Plan of Care Start Date 08/20/22 Plan of Care End Date 10/29/22 Therapeutic Interventions Therapeutic Interventions Aquatic Therapy,Home Exercise Program,Joint Mobilizations, Manual Therapy,Neuromuscular Re-education,Patient/Caregiver Education,Self-Care/Home Management,Soft Tissue Mobilization,Therapeutic Activities,Therapeutic Exercises Modalities Cold Pack/Ice Massage,Electric Stimulation,Hot Packs, Ultrasound Next Visit Focus/Plan Next Note Type Treatment Note Next Visit Plan Assess tolerance for today's exercises and progress as indicated. Incorporate AquaStretch for LE pain.
--- NOTE | 2022-09-22 16:06 | PT.OTN ---
Current Diagnoses Spondylosis without myelopathy or radiculopathy, cervical region (09/22/22) Spondylosis without myelopathy or radiculopathy, lumbar region (09/22/22) Physical Therapy Treatment Note PT-OP-A Visit Information Start: 08/20/22 17:49 Freq: Status: Active Protocol: Document 09/22/22 15:55 LJ (Rec: 09/22/22 16:06 LJ [id number]) Out-Patient Physical Therapy Visit Information Visit Information Visit Type Aquatic Treatment Note Visit Start Time 11:45 Visit Stop Time 12:30 Total Visit Minutes 45 Visit Number 5 Number of NATURAL RESOURCES SPECIALIST Visits 2 Evaluation Information Evaluation Date 08/20/22 PT-OP-B Current Condition Start: 08/20/22 17:49 Freq: Status: Active Protocol: Document 09/10/22 14:36 SAK (Rec: 09/10/22 14:43 SAK [id number]) Current Condition History of Current Condition Onset Date Multi-year history Current Complaints Lumbar pain, cervical pain, radicular symptoms History of Current Condition Pt is a 57 year old female well known to this clinic returning to skilled physical therapy with complaints of what is essentially full-body pain. Pt notes consistent pain in all of her joints, especially stiffness along her entire spine, as well as numbness and tingling in her hands and legs. Notes she feels that she has a lot of instability along her joints, and frequently holds her hands and arms in a contracted, protective posture, typically without even realizing she is doing it. Notes that she typically feels worse as the day progresses, the more I more, the more pain I'm in. Recently underwent a nerve conduction study, which she reports was WNL. Reports she will often have significantly increased pain after standing or sitting for more than ten minutes, and struggles to bend over or walk without pain. PT-OP-C Subjective Start: 08/20/22 17:49 Freq: Status: Active Protocol: Document 09/22/22 15:55 GUANAKITO (Rec: 09/22/22 16:06 LJ [id number]) OP-PT Subjective Patient Comments Patient Comments Pt states she will be having MRI tomorrow to determine state of spine. States her neck and shoulders are tight from lifting and carrying items PT-OP-F Manual Assessment Start: 08/20/22 17:49 Freq: Status: Active Protocol: Document 08/20/22 15:15 DCW (Rec: 08/21/22 09:45 DCW [id number]) Manual Assessments Soft Tissue Assessment Soft Tissue Mobility Assessment Moderate-severe tone with tenderness to palpation 3/4: wincing and withdraw in C/T/L paraspinals, B upper traps, B QL PT-OP-K Range of Motion Start: 08/20/22 17:49 Freq: Status: Active Protocol: Document 08/20/22 15:15 DCW (Rec: 08/21/22 09:45 DCW [id number]) Lumbar Spine Range of Motion Lumbar Spine Active Degrees Testing Position Standing Flexion 40 Extension 10 Lateral Flexion Left 54 Lateral Flexion Right 56 Comments Lateral flexion measured in cm from fingertips to floor PT-OP-L Special Tests Start: 08/20/22 17:49 Freq: Status: Active Protocol: Document 08/20/22 15:15 DCW (Rec: 08/21/22 11:42 DCW [id number]) Special Tests Cervical Spine Special Tests Spurling's Test Test Results Negative Slump Test Results Negative Passive Neck Flexion Test Results Negative Foraminal Compression Test Results Negative Lumbar Spine Special Tests Prone Instability Test Test Results Positive LUIGI Test Results Pain at SI Comments Bilaterally Straight Leg Raise Test Results Negative PT-OP-M Strength Start: 08/20/22 17:49 Freq: Status: Active Protocol: Document 08/20/22 15:15 DCW (Rec: 08/21/22 11:42 DCW [id number]) Hip Strength Hip Manual Muscle Testing Right Flexion (L2) 4- Good- Extension (S1) 4 Good Abduction 4 Good Adduction 4 Good External Rotation 4 Good Internal Rotation 4 Good Left Flexion (L2) 3+ Fair+ Extension (S1) 3+ Fair+ Abduction 4- Good- Adduction 4- Good- External Rotation 4- Good- Internal Rotation 4- Good- Knee Strength Knee Manual Muscle Testing Right Flexion (S2) 4+ Good+ Extension (L3) 4+ Good+ Left Flexion (S2) 4+ Good+ Extension (L3) 4+ Good+ PT-OP-S Aquatic Treatment Start: 09/01/22 14:15 Freq: Status: Active Protocol: Document 09/22/22 15:55 LJ (Rec: 09/22/22 16:06 LJ [id number]) Aquatics Treatment Pool Entry/Exit Pool Entry/Exit Method Stairs Assistance Independent Water Walking walking with hor ab/ad Walking Equipment arms only, open paddles Level of Assistance Standby Assistance,Verbal Cues forward with arms for drag Water Level Chest Level Comments arms at sides, palms forward forward with reverse breast stroke Water Level Chest Level Comments cues for core involvement Monster Walk Water Level Waist Level Sideways Water Level Chest Level Backwards Water Level Chest Level forward Water Level Chest Level Lower Extremity Stretches hip flexor and quads Body Position Standing Water Level Chest Level Equipment Small Noodle Reps/Duration 2x30 Comments cueing for standing upright HS Details with AquaStretch gastroc, soleus Body Position Standing Water Level Waist Level Reps/Duration 45x2 Comments rocking foot side to side HC Body Position Standing Water Level Chest Level Reps/Duration 45x3 bilat Comments on stairs with toes against upper step for toe flexion Upper Extremity Exercises scapular retraction, shoulder shrugs Body Position Standing Water Level Chest Level Reps/Duration 15 ea Upper Extremity Stretches rhomboids, mid-traps Details holding railing of stairs Body Position Standing Reps/Duration 2 x30 [place] Activities [place] Activities Bicycle,Bicycle Backwards, Cross Country,Hip Abduction/ Adduction,Sit Kicks Other Activities pendulum Equipment flotation belt Duration 25 Comments cues for alignment core engagement Manual Techniques [place] supine passive for trunk, neck flexibility; black neck float , small LE floats Aquatic Manual Traction incorporated with AquaStretch of RLE Aquatic Joint Mobilizations thoracic incorporated with [place] Aquatic Massage AquaStretch RLE-toes,foot, ankle, knee, hip PT-OP-T Assessment and Plan Start: 08/20/22 17:49 Freq: Status: Active Protocol: Document 09/22/22 15:55 GUANAKITO (Rec: 09/22/22 16:06 GUANAKITO [id number]) Physical Therapy Assessment Rehab Potential Rehabilitation Potential Good Evaluation Complexity Number of Personal Factors/Comorbidities 3 or More Number of Body Systems Impaired 4 or More Clinical Presentation at Evaluation Unstable Impairments Impairments Activity Tolerance,Functional Activities,Functional Mobility ,Pain,Posture,ROM,Soft Tissue Mobility,Strength,Tone Goals Three Impairment Pt unable to walk longer than 20 minutes without pain Mcfp Goal (LTG) Pt to improve ambulation tolerance to at least 90 minutes to enable her to continue to participate in local search and rescue LTG Duration 10/29/21 Two Impairment Pt unable to stand longer than 10 minutes without pain Mcfp Goal (LTG) Pt to report ability to stand for 35 minutes without increased pain in order to improve her ability to perform work duties. LTG Duration 10/29/22 One Impairment Pt does not have an appropriate home exercise program Short Term Goal (STG) Pt to be independent and compliant with an appropriate HEP STG Duration 09/24/22 Assessment Summary Assessment treatment focused on stretching and manual techniques with low level gait and deep water watm up and spinal off-loading exercises Physical Therapy Plan Frequency and Duration Frequency of Treatment 2x/Week Duration of treatment (weeks) 10 Plan of Care Start Date 08/20/22 Plan of Care End Date 10/29/22 Therapeutic Interventions Therapeutic Interventions Aquatic Therapy,Home Exercise Program,Joint Mobilizations, Manual Therapy,Neuromuscular Re-education,Patient/Caregiver Education,Self-Care/Home Management,Soft Tissue Mobilization,Therapeutic Activities,Therapeutic Exercises Modalities Cold Pack/Ice Massage,Electric Stimulation,Hot Packs, Ultrasound Next Visit Focus/Plan Next Note Type Treatment Note Next Visit Plan Assess tolerance for today's exercise and progress as indicated. Continue AquaStretch for joint pain. Progress deep water exercises as tolerated to reach low level of aerobic workout
--- NOTE | 2022-09-29 09:59 | PT-OP ANOTE ---
cancelled due to waiting on insurance auth
--- NOTE | 2022-10-01 15:17 | PT.OTN ---
Current Diagnoses Spondylosis without myelopathy or radiculopathy, cervical region (10/01/22) Spondylosis without myelopathy or radiculopathy, lumbar region (10/01/22) Physical Therapy Treatment Note PT-OP-A Visit Information Start: 08/20/22 17:49 Freq: Status: Active Protocol: Document 10/01/22 14:30 DCW (Rec: 10/01/22 15:17 DCW [id number]) Out-Patient Physical Therapy Visit Information Visit Information Visit Type Treatment Note Visit Start Time 14:30 Visit Stop Time 15:15 Total Visit Minutes 45 Visit Number 6 Number of MEDICAL OFFICE SPECIALIST Visits 0 Evaluation Information Evaluation Date 08/20/22 PT-OP-B Current Condition Start: 08/20/22 17:49 Freq: Status: Active Protocol: Document 09/10/22 14:36 SAK (Rec: 09/10/22 14:43 SAK [id number]) Current Condition History of Current Condition Onset Date Multi-year history Current Complaints Lumbar pain, cervical pain, radicular symptoms History of Current Condition Pt is a 57 year old female well known to this clinic returning to skilled physical therapy with complaints of what is essentially full-body pain. Pt notes consistent pain in all of her joints, especially stiffness along her entire spine, as well as numbness and tingling in her hands and legs. Notes she feels that she has a lot of instability along her joints, and frequently holds her hands and arms in a contracted, protective posture, typically without even realizing she is doing it. Notes that she typically feels worse as the day progresses, the more I more, the more pain I'm in. Recently underwent a nerve conduction study, which she reports was WNL. Reports she will often have significantly increased pain after standing or sitting for more than ten minutes, and struggles to bend over or walk without pain. PT-OP-C Subjective Start: 08/20/22 17:49 Freq: Status: Active Protocol: Document 10/01/22 14:30 DCW (Rec: 10/01/22 15:17 DCW [id number]) OP-PT Subjective Patient Comments Patient Comments Pt reports she just got the diagnosis of Ankylosing Spondylitis this past week. PT-OP-F Manual Assessment Start: 08/20/22 17:49 Freq: Status: Active Protocol: Document 08/20/22 15:15 DCW (Rec: 08/21/22 09:45 DCW [id number]) Manual Assessments Soft Tissue Assessment Soft Tissue Mobility Assessment Moderate-severe tone with tenderness to palpation 3/4: wincing and withdraw in C/T/L paraspinals, B upper traps, B QL PT-OP-K Range of Motion Start: 08/20/22 17:49 Freq: Status: Active Protocol: Document 08/20/22 15:15 DCW (Rec: 08/21/22 09:45 DCW [id number]) Lumbar Spine Range of Motion Lumbar Spine Active Degrees Testing Position Standing Flexion 40 Extension 10 Lateral Flexion Left 54 Lateral Flexion Right 56 Comments Lateral flexion measured in cm from fingertips to floor PT-OP-L Special Tests Start: 08/20/22 17:49 Freq: Status: Active Protocol: Document 08/20/22 15:15 DCW (Rec: 08/21/22 11:42 DCW [id number]) Special Tests Cervical Spine Special Tests Spurling's Test Test Results Negative Slump Test Results Negative Passive Neck Flexion Test Results Negative Foraminal Compression Test Results Negative Lumbar Spine Special Tests Prone Instability Test Test Results Positive LUIGI Test Results Pain at SI Comments Bilaterally Straight Leg Raise Test Results Negative PT-OP-M Strength Start: 08/20/22 17:49 Freq: Status: Active Protocol: Document 08/20/22 15:15 DCW (Rec: 08/21/22 11:42 DCW [id number]) Hip Strength Hip Manual Muscle Testing Right Flexion (L2) 4- Good- Extension (S1) 4 Good Abduction 4 Good Adduction 4 Good External Rotation 4 Good Internal Rotation 4 Good Left Flexion (L2) 3+ Fair+ Extension (S1) 3+ Fair+ Abduction 4- Good- Adduction 4- Good- External Rotation 4- Good- Internal Rotation 4- Good- Knee Strength Knee Manual Muscle Testing Right Flexion (S2) 4+ Good+ Extension (L3) 4+ Good+ Left Flexion (S2) 4+ Good+ Extension (L3) 4+ Good+ PT-OP-Q Treatments Start: 08/20/22 17:49 Freq: Status: Active Protocol: Document 10/01/22 14:30 DCW (Rec: 10/01/22 15:17 DCW [id number]) Therapeutic Exercises Supine Exercises Serratus Punch Supine Exercise Name Serratus punch /c PVC Shoulder Flexion Supine Exercise Name Flexion stretch - AROM /c PVC Side bilateral Standing Exercises Rows Standing Exercise Name Rows Side bilateral Resistance Lv 3 Shoulder Extension Standing Exercise Name Extension Side bilateral Resistance Lv 3 Manual Therapy Treatment Soft Tissue Mobilization Cervical Paraspinals Body Location B cervical paraspinals, suboccipitals, upper trap Mobilization Type Strumming,Sustained Pressure Manual Traction Cervical Details Cervical Traction Body Position Hooklying PT-OP-S Aquatic Treatment Start: 09/01/22 14:15 Freq: Status: Active Protocol: Document 09/22/22 15:55 [email or web address] (Rec: 09/22/22 16:06 [id number]) Aquatics Treatment Pool Entry/Exit Pool Entry/Exit Method Stairs Assistance Independent Water Walking walking with hor ab/ad Walking Equipment arms only, open paddles Level of Assistance Standby Assistance,Verbal Cues forward with arms for drag Water Level Chest Level Comments arms at sides, palms forward forward with reverse breast stroke Water Level Chest Level Comments cues for core involvement Monster Walk Water Level Waist Level Sideways Water Level Chest Level Backwards Water Level Chest Level forward Water Level Chest Level Lower Extremity Stretches hip flexor and quads Body Position Standing Water Level Chest Level Equipment Small Noodle Reps/Duration 2x30 Comments cueing for standing upright HS Details with AquaStretch gastroc, soleus Body Position Standing Water Level Waist Level Reps/Duration 45x2 Comments rocking foot side to side HC Body Position Standing Water Level Chest Level Reps/Duration 45x3 bilat Comments on stairs with toes against upper step for toe flexion Upper Extremity Exercises scapular retraction, shoulder shrugs Body Position Standing Water Level Chest Level Reps/Duration 15 ea Upper Extremity Stretches rhomboids, mid-traps Details holding railing of stairs Body Position Standing Reps/Duration 2 x30 [place] Activities [place] Activities Bicycle,Bicycle Backwards, Cross Country,Hip Abduction/ Adduction,Sit Kicks Other Activities pendulum Equipment flotation belt Duration 25 Comments cues for alignment core engagement Manual Techniques Bad [place]az supine passive for trunk, neck flexibility; black neck float , small LE floats Aquatic Manual Traction incorporated with AquaStretch of RLE Aquatic Joint Mobilizations thoracic incorporated with Bad Ragaz Aquatic Massage AquaStretch RLE-toes,foot, ankle, knee, hip PT-OP-T Assessment and Plan Start: 08/20/22 17:49 Freq: Status: Active Protocol: Document 10/01/22 14:30 DCW (Rec: 10/01/22 15:17 DCW [id number]) Physical Therapy Assessment Impairments Impairments Activity Tolerance,Functional Activities,Functional Mobility ,Pain,Posture,ROM,Soft Tissue Mobility,Strength,Tone Goals Three Impairment Pt unable to walk longer than 20 minutes without pain Door Opener Goal (LTG) Pt to improve ambulation tolerance to at least 90 minutes to 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 LTG Duration 10/29/22 One Impairment Pt does not have an appropriate home exercise program Short Term Goal (STG) Pt to be independent and compliant with an appropriate HEP STG Duration 09/24/22 Assessment Summary Assessment Focused mainly on manual treatment today to decrease overall tone, pt doing well with strengthening with aquatic therapy. Physical Therapy Plan Frequency and Duration Frequency of Treatment 2x/Week Duration of treatment (weeks) 10 Plan of Care Start Date 08/20/22 Plan of Care End Date 10/29/22 Therapeutic Interventions Therapeutic Interventions Aquatic Therapy,Home Exercise Program,Joint Mobilizations, Manual Therapy,Neuromuscular Re-education,Patient/Caregiver Education,Self-Care/Home Management,Soft Tissue Mobilization,Therapeutic Activities,Therapeutic Exercises Modalities Cold Pack/Ice Massage,Electric Stimulation,Hot Packs, Ultrasound Next Visit Focus/Plan Next Note Type Treatment Note Next Visit Plan Assess tolerance for today's exerices and progress as indicated. Continue AquaStretch for joint pain. Progress deep water exercises as tolerated to reach low level of aerobic workout
--- NOTE | 2022-10-06 14:52 | PT.OTN ---
Current Diagnoses Spondylosis without myelopathy or radiculopathy, cervical region (10/01/22) Spondylosis without myelopathy or radiculopathy, lumbar region (10/01/22) Physical Therapy Treatment Note PT-OP-A Visit Information Start: 08/20/22 17:49 Freq: Status: Active Protocol: Document 10/06/22 14:39 LJ (Rec: 10/06/22 14:52 LJ [id number]) Out-Patient Physical Therapy Visit Information Visit Information Visit Type Aquatic Treatment Note Visit Start Time 11:45 Visit Stop Time 12:30 Total Visit Minutes 45 Visit Number 7 Number of CANVASS MANAGER Visits 1 Evaluation Information Evaluation Date 08/20/22 PT-OP-B Current Condition Start: 08/20/22 17:49 Freq: Status: Active Protocol: Document 09/10/22 14:36 SAK (Rec: 09/10/22 14:43 SAK [id number]) Current Condition History of Current Condition Onset Date Multi-year history Current Complaints Lumbar pain, cervical pain, radicular symptoms History of Current Condition Pt is a 57 year old female well known to this clinic returning to skilled physical therapy with complaints of what is essentially full-body pain. Pt notes consistent pain in all of her joints, especially stiffness along her entire spine, as well as numbness and tingling in her hands and legs. Notes she feels that she has a lot of instability along her joints, and frequently holds her hands and arms in a contracted, protective posture, typically without even realizing she is doing it. Notes that she typically feels worse as the day progresses, the more I more, the more pain I'm in. Recently underwent a nerve conduction study, which she reports was WNL. Reports she will often have significantly increased pain after standing or sitting for more than ten minutes, and struggles to bend over or walk without pain. 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 States her low back is painful PT-OP-F Manual Assessment Start: 08/20/22 17:49 Freq: Status: Active Protocol: Document 08/20/22 15:15 DCW (Rec: 08/21/22 09:45 DCW [id number]) Manual Assessments Soft Tissue Assessment Soft Tissue Mobility Assessment Moderate-severe tone with tenderness to palpation 3/4: wincing and withdraw in C/T/L paraspinals, B upper traps, B QL PT-OP-K Range of Motion Start: 08/20/22 17:49 Freq: Status: Active Protocol: Document 08/20/22 15:15 DCW (Rec: 08/21/22 09:45 DCW [id number]) Lumbar Spine Range of Motion Lumbar Spine Active Degrees Testing Position Standing Flexion 40 Extension 10 Lateral Flexion Left 54 Lateral Flexion Right 56 Comments Lateral flexion measured in cm from fingertips to floor PT-OP-L Special Tests Start: 08/20/22 17:49 Freq: Status: Active Protocol: Document 08/20/22 15:15 DCW (Rec: 08/21/22 11:42 DCW [id number]) Special Tests Cervical Spine Special Tests Spurling's Test Test Results Negative Slump Test Results Negative Passive Neck Flexion Test Results Negative Foraminal Compression Test Results Negative Lumbar Spine Special Tests Prone Instability Test Test Results Positive LUIGI Test Results Pain at SI Comments Bilaterally Straight Leg Raise Test Results Negative PT-OP-M Strength Start: 08/20/22 17:49 Freq: Status: Active Protocol: Document 08/20/22 15:15 DCW (Rec: 08/21/22 11:42 DCW [id number]) Hip Strength Hip Manual Muscle Testing Right Flexion (L2) 4- Good- Extension (S1) 4 Good Abduction 4 Good Adduction 4 Good External Rotation 4 Good Internal Rotation 4 Good Left Flexion (L2) 3+ Fair+ Extension (S1) 3+ Fair+ Abduction 4- Good- Adduction 4- Good- External Rotation 4- Good- Internal Rotation 4- Good- Knee Strength Knee Manual Muscle Testing Right Flexion (S2) 4+ Good+ Extension (L3) 4+ Good+ Left Flexion (S2) 4+ Good+ Extension (L3) 4+ Good+ PT-OP-Q Treatments Start: 08/20/22 17:49 Freq: Status: Active Protocol: Document 10/01/22 14:30 DCW (Rec: 10/01/22 15:17 DCW [id number]) Therapeutic Exercises Supine Exercises Serratus Punch Supine Exercise Name Serratus punch /c PVC Shoulder Flexion Supine Exercise Name Flexion stretch - AROM /c PVC Side bilateral Standing Exercises Rows Standing Exercise Name Rows Side bilateral Resistance Lv 3 Shoulder Extension Standing Exercise Name Extension Side bilateral Resistance Lv 3 Manual Therapy Treatment Soft Tissue Mobilization Cervical Paraspinals Body Location B cervical paraspinals, suboccipitals, upper trap Mobilization Type Strumming,Sustained Pressure Manual Traction Cervical Details Cervical Traction Body Position Hooklying PT-OP-S Aquatic Treatment Start: 09/01/22 14:15 Freq: Status: Active Protocol: Document 10/06/22 14:39 LJ (Rec: 10/06/22 14:52 [id number]) Aquatics Treatment Pool Entry/Exit Pool Entry/Exit Method Stairs Assistance Independent Water Walking forward with arms for drag Water Level Chest Level Comments arms at sides, palms forward forward with reverse breast stroke Water Level Chest Level Comments cues for core involvement [place] Water Level Waist Level Comments arms reaching to opp side Sideways Water Level Chest Level Backwards Water Level Chest Level Comments cues to stand tall forward Water Level Chest Level Lower Extremity Stretches hip flexor and quads Body Position Standing Water Level Chest Level Equipment Small Noodle Reps/Duration 2x30 Comments cueing for standing upright piriformis Details on wall Reps/Duration 2 min spider on wall Reps/Duration 2 min Comments with body swing HS Details with AquaStretch gastroc, soleus Body Position Standing Water Level Waist Level Reps/Duration 45x2 Comments rocking foot side to side HC Body Position Standing Water Level Chest Level Reps/Duration 45x3 bilat Comments on stairs with toes against upper step for toe flexion Upper Extremity Exercises scapular retraction, shoulder shrugs Body Position Standing Water Level Chest Level Reps/Duration 15 ea flex,ext, abd, add, Body Position Standing Water Level Chest Level Reps/Duration 10x each bilat Comments cues for core activation and stabilization Upper Extremity Stretches rhomboids, mid-traps Details holding railing of stairs Body Position Standing Reps/Duration 2 x30 pec stretch Body Position Standing Water Level Chest Level Comments in corner [place] Activities [place] Activities Bicycle,Bicycle Backwards, Cross Country Other Activities pendulum Equipment flotation belt Duration 10 Comments cues for alignment and core engagement Manual Techniques Bad Ragaz supine passive for trunk flexibility; black neck float, belt, small LE floats PT-OP-T Assessment and Plan Start: 08/20/22 17:49 Freq: Status: Active Protocol: Document 10/06/22 14:39 GUANAKITO (Rec: 10/06/22 14:52 [email or web address] [id number]) Physical Therapy Assessment Rehab Potential Rehabilitation Potential Good Evaluation Complexity Number of Personal Factors/Comorbidities 3 or More Number of Body Systems Impaired 4 or More Clinical Presentation at Evaluation Unstable Impairments Impairments Activity Tolerance,Functional Activities,Functional Mobility ,Pain,Posture,ROM,Soft Tissue Mobility,Strength,Tone Goals Three Impairment Pt unable to walk longer than 20 minutes without pain Skilled Nursing Goal (LTG) Pt to improve ambulation tolerance to at least 90 minutes to enable 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 LTG Duration 10/29/22 One Impairment Pt does not have an appropriate home exercise program Short Term Goal (STG) Pt to be independent and compliant with an appropriate HEP STG Duration 09/24/22 Assessment Summary Assessment Continue to progress pt as tolerated focusing on core and glute strengthening as well as spinal flexibility and strength Physical Therapy Plan Frequency and Duration Frequency of Treatment 2x/Week Duration of treatment (weeks) 10 Plan of Care Start Date 08/20/22 Plan of Care End Date 10/29/22 Therapeutic Interventions Therapeutic Interventions Aquatic Therapy,Home Exercise Program,Joint Mobilizations, Manual Therapy,Neuromuscular Re-education,Patient/Caregiver Education,Self-Care/Home Management,Soft Tissue Mobilization,Therapeutic Activities,Therapeutic Exercises Modalities Cold Pack/Ice Massage,Electric Stimulation,Hot Packs, Ultrasound Next Visit Focus/Plan Next Note Type Treatment Note Next Visit Plan Pt with low tolerance for exercise other than walking in shallow and Bad Ragaz. At end of session stated she felt a lot better and less stiffness in my back.
--- NOTE | 2022-10-08 15:18 | PT.OTN ---
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 Pt notes consistent pain in all of her joints, especially stiffness along her entire spine, as well as numbness and tingling in her hands and legs. Notes she feels that she has a lot of instability along her joints, and frequently holds her hands and arms in a contracted, protective posture, typically without even realizing she is doing it. Notes that she typically feels worse as the day progresses, the more I more, the more pain I'm in. Recently underwent a nerve conduction study, which she reports was WNL. Reports she will often have significantly increased pain after standing or sitting for more than ten minutes, and struggles to bend over or walk without pain. PT-OP-C Subjective Start: 08/20/22 17:49 Freq: Status: Active Protocol: Document 10/08/22 14:30 DCW (Rec: 10/08/22 15:18 DCW [id number]) OP-PT Subjective Patient Comments Patient Comments Pt feeling pretty good today. PT-OP-F Manual Assessment Start: 08/20/22 17:49 Freq: Status: Active Protocol: Document 08/20/22 15:15 DCW (Rec: 08/21/22 09:45 DCW [id number]) Manual Assessments Soft Tissue Assessment Soft Tissue Mobility Assessment Moderate-severe tone with tenderness to palpation 3/4: wincing and withdraw in C/T/L paraspinals, B upper traps, B QL PT-OP-K Range of Motion Start: 08/20/22 17:49 Freq: Status: Active Protocol: Document 08/20/22 15:15 DCW (Rec: 08/21/22 09:45 DCW [id number]) Lumbar Spine Range of Motion Lumbar Spine Active Degrees Testing Position Standing Flexion 40 Extension 10 Lateral Flexion Left 54 Lateral Flexion Right 56 Comments Lateral flexion measured in cm from fingertips to floor PT-OP-L Special Tests Start: 08/20/22 17:49 Freq: Status: Active Protocol: Document 08/20/22 15:15 DCW (Rec: 08/21/22 11:42 DCW [id number]) Special Tests Cervical Spine Special Tests Spurling's Test Test Results Negative Slump Test Results Negative Passive Neck Flexion Test Results Negative Foraminal Compression Test Results Negative Lumbar Spine Special Tests Prone Instability Test Test Results Positive LUIGI Test Results Pain at SI Comments Bilaterally Straight Leg Raise Test Results Negative PT-OP-M Strength Start: 08/20/22 17:49 Freq: Status: Active Protocol: Document 08/20/22 15:15 DCW (Rec: 08/21/22 11:42 DCW [id number]) Hip Strength Hip Manual Muscle Testing Right Flexion (L2) 4- Good- Extension (S1) 4 Good Abduction 4 Good Adduction 4 Good External Rotation 4 Good Internal Rotation 4 Good Left Flexion (L2) 3+ Fair+ Extension (S1) 3+ Fair+ Abduction 4- Good- Adduction 4- Good- External Rotation 4- Good- Internal Rotation 4- Good- Knee Strength Knee Manual Muscle Testing Right Flexion (S2) 4+ Good+ Extension (L3) 4+ Good+ Left Flexion (S2) 4+ Good+ Extension (L3) 4+ Good+ PT-OP-Q Treatments Start: 08/20/22 17:49 Freq: Status: Active Protocol: Document 10/08/22 14:30 DCW (Rec: 10/08/22 15:17 DCW [id number]) Therapeutic Exercises Standing Exercises Flexion Standing Exercise Name Flexion Side bilateral Resistance Lv 3 Abduction Standing Exercise Name Abduction Side bilateral Resistance Lv 3 Rows Standing Exercise Name Rows Side bilateral Resistance Lv 3 Shoulder Extension Standing Exercise Name Extension Side bilateral Resistance Lv 3 Manual Therapy Treatment Soft Tissue Mobilization Cervical Paraspinals Body Location B cervical paraspinals, suboccipitals, upper trap Mobilization Type Strumming,Sustained Pressure Manual Traction Cervical Details Cervical Traction Body Position Hooklying PT-OP-S Aquatic Treatment Start: 09/01/22 14:15 Freq: Status: Active Protocol: Document 10/06/22 14:39 LJ (Rec: 10/06/22 14:52 LJ [id number]) Aquatics Treatment Pool Entry/Exit Pool Entry/Exit Method Stairs Assistance Independent Water Walking forward with arms for drag Water Level Chest Level Comments arms at sides, palms forward forward with reverse breast stroke Water Level Chest Level Comments cues for core involvement [place] Water Level Waist Level Comments arms reaching to opp side Sideways Water Level Chest Level Backwards Water Level Chest Level Comments cues to stand tall forward Water Level Chest Level Lower Extremity Stretches hip flexor and quads Body Position Standing Water Level Chest Level Equipment Small Noodle Reps/Duration 2x30 Comments cueing for standing upright piriformis Details on wall Reps/Duration 2 min spider on wall Reps/Duration 2 min Comments with body swing HS Details with AquaStretch gastroc, soleus Body Position Standing Water Level Waist Level Reps/Duration 45x2 Comments rocking foot side to side HC Body Position Standing Water Level Chest Level Reps/Duration 45x3 bilat Comments on stairs with toes against upper step for toe flexion Upper Extremity Exercises scapular retraction, shoulder shrugs Body Position Standing Water Level Chest Level Reps/Duration 15 ea flex,ext, abd, add, Body Position Standing Water Level Chest Level Reps/Duration 10x each bilat Comments cues for core activation and stabilization Upper Extremity Stretches rhomboids, mid-traps Details holding railing of stairs Body Position Standing Reps/Duration 2 x30 pec stretch Body Position Standing Water Level Chest Level Comments in corner [place] Activities [place] Activities Bicycle,Bicycle Backwards, Cross [place] Other Activities pendulum Equipment flotation belt Duration 10 Comments cues for alignment and core engagement Manual Techniques Bad Ragaz supine passive for trunk flexibility; black neck float, belt, small LE floats PT-OP-T Assessment and Plan Start: 08/20/22 17:49 Freq: Status: Active Protocol: Document 10/08/22 14:30 DCW (Rec: 10/08/22 15:17 [facility] [id number]) Physical Therapy Assessment Impairments Impairments Activity Tolerance,Functional Activities,Functional Mobility ,Pain,Posture,ROM,Soft Tissue Mobility,Strength,Tone Goals Three Impairment Pt unable to walk longer than 20 minutes without pain Residential Goal (LTG) Pt to improve ambulation tolerance to at least 90 minutes to 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 LTG Duration 10/29/22 One Impairment Pt does not have an appropriate home exercise program Short Term Goal (STG) Pt to be independent and compliant with an appropriate HEP STG Duration 09/24/22 Assessment Summary Assessment Pt tolerated treatment very well, trying to work on decreasing cervical tone. Showing good improvement with cervical ROM. Physical Therapy Plan Frequency and Duration Frequency of Treatment 2x/Week Duration of treatment (weeks) 10 Plan of Care Start Date 08/20/22 Plan of Care End Date 10/29/22 Therapeutic Interventions Therapeutic Interventions Aquatic Therapy,Home Exercise Program,Joint Mobilizations, Manual Therapy,Neuromuscular Re-education,Patient/Caregiver Education,Self-Care/Home Management,Soft Tissue Mobilization,Therapeutic Activities,Therapeutic Exercises Modalities Cold Pack/Ice Massage,Electric Stimulation,Hot Packs, Ultrasound Next Visit Focus/Plan Next Note Type Treatment Note Next Visit Plan Assess tolerance for today's exerices and progress as indicated. Continue AquaStretch for joint pain. Progress deep water exercises as tolerated to reach low level of aerobic workout
--- NOTE | 2022-10-13 13:37 | PT.OTN ---
Current Diagnoses Spondylosis without myelopathy or radiculopathy, cervical region (10/13/22) Spondylosis without myelopathy or radiculopathy, lumbar region (10/13/22) Physical Therapy Treatment Note PT-OP-A Visit Information Start: 08/20/22 17:49 Freq: Status: Active Protocol: Document 10/13/22 13:29 SAK (Rec: 10/13/22 13:37 [facility] [id number]) Out-Patient Physical Therapy Visit Information Visit Information Visit Type Treatment Note Visit Start Time 11:45 Visit Stop Time 12:30 Total Visit Minutes 45 Visit Number 9 Number of [employer]KER Visits 0 Evaluation Information Evaluation Date 08/20/22 PT-OP-B Current Condition Start: 08/20/22 17:49 Freq: Status: Active Protocol: Document 09/10/22 14:36 SAK (Rec: 09/10/22 14:43 SAK [id number]) Current Condition History of Current Condition Onset Date Multi-year history Current Complaints Lumbar pain, cervical pain, radicular symptoms History of Current Condition Pt is a 57 year old female well known to this clinic returning to skilled physical therapy with complaints of what is essentially full-body pain. Pt notes consistent pain in all of her joints, especially stiffness along her entire spine, as well as numbness and tingling in her hands and legs. Notes she feels that she has a lot of instability along her joints, and frequently holds her hands and arms in a contracted, protective posture, typically without even realizing she is doing it. Notes that she typically feels worse as the day progresses, the more I more, the more pain I'm in. Recently underwent a nerve conduction study, which she reports was WNL. Reports she will often have significantly increased pain after standing or sitting for more than ten minutes, and struggles to bend over or walk without pain. PT-OP-C Subjective Start: 08/20/22 17:49 Freq: Status: Active Protocol: Document 10/13/22 13:29 SAK (Rec: 10/13/22 13:37 [facility] [id number]) OP-PT Subjective Patient Comments Patient Comments Some inc in low pain after having a show over the weekend . PT-OP-F Manual Assessment Start: 08/20/22 17:49 Freq: Status: Active Protocol: Document 08/20/22 15:15 DCW (Rec: 08/21/22 09:45 DCW [id number]) Manual Assessments Soft Tissue Assessment Soft Tissue Mobility Assessment Moderate-severe tone with tenderness to palpation 3/4: wincing and withdraw in C/T/L paraspinals, B upper traps, B QL PT-OP-K Range of Motion Start: 08/20/22 17:49 Freq: Status: Active Protocol: Document 08/20/22 15:15 DCW (Rec: 08/21/22 09:45 DCW [id number]) Lumbar Spine Range of Motion Lumbar Spine Active Degrees Testing Position Standing Flexion 40 Extension 10 Lateral Flexion Left 54 Lateral Flexion Right 56 Comments Lateral flexion measured in cm from fingertips to floor PT-OP-L Special Tests Start: 08/20/22 17:49 Freq: Status: Active Protocol: Document 08/20/22 15:15 DCW (Rec: 08/21/22 11:42 DCW [id number]) Special Tests Cervical Spine Special Tests Spurling's Test Test Results Negative Slump Test Results Negative Passive Neck Flexion Test Results Negative Foraminal Compression Test Results Negative Lumbar Spine Special Tests Prone Instability Test Test Results Positive LUIGI Test Results Pain at SI Comments Bilaterally Straight Leg Raise Test Results Negative PT-OP-M Strength Start: 08/20/22 17:49 Freq: Status: Active Protocol: Document 08/20/22 15:15 DCW (Rec: 08/21/22 11:42 DCW [id number]) Hip Strength Hip Manual Muscle Testing Right Flexion (L2) 4- Good- Extension (S1) 4 Good Abduction 4 Good Adduction 4 Good External Rotation 4 Good Internal Rotation 4 Good Left Flexion (L2) 3+ Fair+ Extension (S1) 3+ Fair+ Abduction 4- Good- Adduction 4- Good- External Rotation 4- Good- Internal Rotation 4- Good- Knee Strength Knee Manual Muscle Testing Right Flexion (S2) 4+ Good+ Extension (L3) 4+ Good+ Left Flexion (S2) 4+ Good+ Extension (L3) 4+ Good+ PT-OP-Q Treatments Start: 08/20/22 17:49 Freq: Status: Active Protocol: Document 10/08/22 14:30 DCW (Rec: 10/08/22 15:17 DCW [id number]) Therapeutic Exercises Standing Exercises Flexion Standing Exercise Name Flexion Side bilateral Resistance Lv 3 Abduction Standing Exercise Name Abduction Side bilateral Resistance Lv 3 Rows Standing Exercise Name Rows Side bilateral Resistance Lv 3 Shoulder Extension Standing Exercise Name Extension Side bilateral Resistance Lv 3 Manual Therapy Treatment Soft Tissue Mobilization Cervical Paraspinals Body Location B cervical paraspinals, suboccipitals, upper trap Mobilization Type Strumming,Sustained Pressure Manual Traction Cervical Details Cervical Traction Body Position Hooklying PT-OP-S Aquatic Treatment Start: 09/01/22 14:15 Freq: Status: Active Protocol: Document 10/13/22 13:29 [facility] (Rec: 10/13/22 13:37 [facility] [id number]) Aquatics Treatment Pool Entry/Exit Pool Entry/Exit Method Stairs Assistance Independent Water Walking forward with arms for drag Water Level Chest Level Comments arms at sides, palms forward forward with reverse breast stroke Water Level Chest Level Comments cues for core involvement Sideways Water Level Chest Level Backwards Water Level Chest Level Comments cues to stand tall Lower Extremity Stretches spider on wall Reps/Duration 2 min Comments with body swing HS Details with AquaStretch gastroc, soleus Body Position Standing Water Level Waist Level Reps/Duration 45x2 Comments rocking foot side to side [place] Activities [place] Activities Bicycle,Bicycle Backwards, Cross [place] Other Activities pendulum Equipment flotation belt, med barbells Duration 10 Comments cues for alignment and core engagement Manual Techniques Bad Ragaz supine passive for trunk flexibility; black neck float, belt, small LE floats Aquatic Manual Traction LS Aquatic Massage lumbar spine, [place] PT-OP-T Assessment and Plan Start: 08/20/22 17:49 Freq: Status: Active Protocol: Document 10/13/22 13:29 [facility] (Rec: 10/13/22 13:37 [facility] [id number]) Physical Therapy Assessment Impairments Impairments Activity Tolerance,Functional Activities,Functional Mobility ,Pain,Posture,ROM,Soft Tissue Mobility,Strength,Tone Goals Three Impairment Pt unable to walk longer than 20 minutes without pain Long-Term Goal (LTG) Pt to improve ambulation tolerance to at least 90 minutes to enable 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 LTG Duration 10/29/22 One Impairment Pt does not have an appropriate home exercise program Short Term Goal (STG) Pt to be independent and compliant with an appropriate HEP STG Duration 09/24/22 Assessment Summary Assessment Reported dec pain with aquatic therapy, improving postural awareness and modification of activities PRN. Physical Therapy Plan Frequency and Duration Frequency of Treatment 2x/Week Duration of treatment (weeks) 10 Plan of Care Start Date 08/20/22 Plan of Care End Date 10/29/22 Therapeutic Interventions Therapeutic Interventions Aquatic Therapy,Home Exercise Program,Joint Mobilizations, Manual Therapy,Neuromuscular Re-education,Patient/Caregiver Education,Self-Care/Home Management,Soft Tissue Mobilization,Therapeutic Activities,Therapeutic Exercises Modalities Cold Pack/Ice Massage,Electric Stimulation,Hot Packs, Ultrasound Next Visit Focus/Plan Next Note Type Treatment Note Next Visit Plan Continue progression of exercises as tolerated both aquatic and land-based. Issue written aquatic exercise handout at next session, then pt will continue indep and PT will be fully land-based.
--- NOTE | 2022-10-22 16:07 | PT.OTN ---
Current Diagnoses Spondylosis without myelopathy or radiculopathy, cervical region (10/22/22) Spondylosis without myelopathy or radiculopathy, lumbar region (10/22/22) Physical Therapy Treatment Note PT-OP-A Visit Information Start: 08/20/22 17:49 Freq: Status: Active Protocol: Document 10/22/22 15:50 LJ (Rec: 10/22/22 16:07 LJ [id number]) Out-Patient Physical Therapy Visit Information Visit Information Visit Type Aquatic Treatment Note Visit Start Time 10:15 Visit Stop Time 11:00 Total Visit Minutes 45 Visit Number 10 Number of CARDIOVASCULAR RN Visits 1 Evaluation Information Evaluation Date 08/20/22 PT-OP-B Current Condition Start: 08/20/22 17:49 Freq: Status: Active Protocol: Document 09/10/22 14:36 SAK (Rec: 09/10/22 14:43 SAK [id number]) Current Condition History of Current Condition Onset Date Multi-year history Current Complaints Lumbar pain, cervical pain, radicular symptoms History of Current Condition Pt is a 57 year old female well known to this clinic returning to skilled physical therapy with complaints of what is essentially full-body pain. Pt notes consistent pain in all of her joints, especially stiffness along her entire spine, as well as numbness and tingling in her hands and legs. Notes she feels that she has a lot of instability along her joints, and frequently holds her hands and arms in a contracted, protective posture, typically without even realizing she is doing it. Notes that she typically feels worse as the day progresses, the more I more, the more pain I'm in. Recently underwent a nerve conduction study, which she reports was WNL. Reports she will often have significantly increased pain after standing or sitting for more than ten minutes, and struggles to bend over or walk without pain. PT-OP-C Subjective Start: 08/20/22 17:49 Freq: Status: Active Protocol: Document 10/22/22 15:50 LJ (Rec: 10/22/22 16:07 LJ [id number]) OP-PT Subjective Patient Comments Patient Comments Pt reports low back pain increase over weekend still bothering her PT-OP-F Manual Assessment Start: 08/20/22 17:49 Freq: Status: Active Protocol: Document 08/20/22 15:15 DCW (Rec: 08/21/22 09:45 DCW [id number]) Manual Assessments Soft Tissue Assessment Soft Tissue Mobility Assessment Moderate-severe tone with tenderness to palpation 3/4: wincing and withdraw in C/T/L paraspinals, B upper traps, B QL PT-OP-K Range of Motion Start: 08/20/22 17:49 Freq: Status: Active Protocol: Document 08/20/22 15:15 DCW (Rec: 08/21/22 09:45 DCW [id number]) Lumbar Spine Range of Motion Lumbar Spine Active Degrees Testing Position Standing Flexion 40 Extension 10 Lateral Flexion Left 54 Lateral Flexion Right 56 Comments Lateral flexion measured in cm from fingertips to floor PT-OP-L Special Tests Start: 08/20/22 17:49 Freq: Status: Active Protocol: Document 08/20/22 15:15 DCW (Rec: 08/21/22 11:42 DCW [id number]) Special Tests Cervical Spine Special Tests Spurling's Test Test Results Negative Slump Test Results Negative Passive Neck Flexion Test Results Negative Foraminal Compression Test Results Negative Lumbar Spine Special Tests Prone Instability Test Test Results Positive LUIGI Test Results Pain at SI Comments Bilaterally Straight Leg Raise Test Results Negative PT-OP-M Strength Start: 08/20/22 17:49 Freq: Status: Active Protocol: Document 08/20/22 15:15 DCW (Rec: 08/21/22 11:42 DCW [id number]) Hip Strength Hip Manual Muscle Testing Right Flexion (L2) 4- Good- Extension (S1) 4 Good Abduction 4 Good Adduction 4 Good External Rotation 4 Good Internal Rotation 4 Good Left Flexion (L2) 3+ Fair+ Extension (S1) 3+ Fair+ Abduction 4- Good- Adduction 4- Good- External Rotation 4- Good- Internal Rotation 4- Good- Knee Strength Knee Manual Muscle Testing Right Flexion (S2) 4+ Good+ Extension (L3) 4+ Good+ Left Flexion (S2) 4+ Good+ Extension (L3) 4+ Good+ PT-OP-Q Treatments Start: 08/20/22 17:49 Freq: Status: Active Protocol: Document 10/08/22 14:30 DCW (Rec: 10/08/22 15:17 DCW [id number]) Therapeutic Exercises Standing Exercises Flexion Standing Exercise Name Flexion Side bilateral Resistance Lv 3 Abduction Standing Exercise Name Abduction Side bilateral Resistance Lv 3 Rows Standing Exercise Name Rows Side bilateral Resistance Lv 3 Shoulder Extension Standing Exercise Name Extension Side bilateral Resistance Lv 3 Manual Therapy Treatment Soft Tissue Mobilization Cervical Paraspinals Body Location B cervical paraspinals, suboccipitals, upper trap Mobilization Type Strumming,Sustained Pressure Manual Traction Cervical Details Cervical Traction Body Position Hooklying PT-OP-S Aquatic Treatment Start: 09/01/22 14:15 Freq: Status: Active Protocol: Document 10/22/22 15:50 LJ (Rec: 10/22/22 16:07 LJ [id number]) Aquatics Treatment Pool Entry/Exit Pool Entry/Exit Method Stairs Assistance Independent Water Walking forward with arms for drag Water Level Chest Level Comments cues for posture forward with reverse breast stroke Water Level Chest Level Comments cues for core involvement [place] March Water Level Waist Level Sideways Water Level Chest Level Backwards Water Level Chest Level Comments cues to stand tall forward Water Level Chest Level Comments 2 laps holding lg BB slightly submerged in front and both sides Lower Extremity Exercises free the hip Reps/Duration 8x bilat heel toe raises Body Position Standing Water Level Chest Level Reps/Duration 20 circumduction Body Position Standing Water Level Chest Level Equipment Ankle Floats Reps/Duration 10x 2 bilat ab/ad Water Level Chest Level Equipment Ankle Floats Reps/Duration 10x 2 bilat Comments no UE support flex/ext Water Level Chest Level Equipment Ankle Floats Reps/Duration 10x2 bilat Lower Extremity Stretches hip flexor and quads Body Position Standing Water Level Chest Level Equipment Small Noodle Reps/Duration 2x30 Comments cueing for standing upright piriformis Details on wall Reps/Duration 45 sec bilat spider on wall Comments with body swing HS Details against wall Reps/Duration 2x30 gastroc, soleus Body Position Standing Water Level Waist Level Reps/Duration 45x2 Comments rocking foot side to side HC Body Position Standing Water Level Chest Level Reps/Duration 45x3 bilat Upper Extremity Exercises scapular retraction, shoulder shrugs Body Position Standing Water Level Chest Level Reps/Duration 15 ea flex,ext, abd, add, Body Position Standing Water Level Chest Level Reps/Duration 10x each bilat Comments cues for core activation and stabilization Spinal Exercises trunk rotation Body Position Supine Water Level Neck Level Equipment Large Noodle, Ankle floats Reps/Duration rocking side to side SKTC, DKTC Body Position Supine Water Level Waist Level Reps/Duration 2 min at wall Comments feet on wall, therapist assist Balance wonderboard Body Position Sitting Reps/Duration 5 min Comments static, dynamic, perturbations [place] Activities [place] Activities Bicycle,Bicycle Backwards, Cross Country,Hip Abduction/ Adduction Other Activities pendulum Prone extension gentle shoot through sustained time on side for lateral stretch Equipment flotation belt, med barbells Duration 12 Comments cues for alignment and core engagement PT-OP-T Assessment and Plan Start: 08/20/22 17:49 Freq: Status: Active Protocol: Document 10/22/22 15:50 [email or web address] (Rec: 10/22/22 16:07 [email or web address] [id number]) Physical Therapy Assessment Rehab Potential Rehabilitation Potential Good Evaluation Complexity Number of Personal Factors/Comorbidities 3 or More Number of Body Systems Impaired 4 or More Clinical Presentation at Evaluation Unstable Impairments Impairments Activity Tolerance,Functional Activities,Functional Mobility ,Pain,Posture,ROM,Soft Tissue Mobility,Strength,Tone Goals Three Impairment Pt unable to walk longer than 20 minutes without pain Decorating Consultant Goal (LTG) Pt to improve ambulation tolerance to at least 90 minutes to enable 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 LTG Duration 10/29/22 One Impairment Pt does not have an appropriate home exercise program Short Term Goal (STG) Pt to be independent and compliant with an appropriate HEP STG Duration 09/24/22 Assessment Summary Assessment Pt responded well to supine spinal rotation and supine stretch on wall. Still has tendancy to sink down when walking rather than standing tall. Improved with wonderboard balancing. She will be land based as of today due to aquatic therapy ending . Physical Therapy Plan Frequency and Duration Frequency of Treatment 2x/Week Duration of treatment (weeks) 10 Plan of Care Start Date 08/20/22 Plan of Care End Date 10/29/22 Therapeutic Interventions Therapeutic Interventions Aquatic Therapy,Home Exercise Program,Joint Mobilizations, Manual Therapy,Neuromuscular Re-education,Patient/Caregiver Education,Self-Care/Home Management,Soft Tissue Mobilization,Therapeutic Activities,Therapeutic Exercises Modalities Cold Pack/Ice Massage,Electric Stimulation,Hot Packs, Ultrasound Next Visit Focus/Plan Next Note Type Treatment Note Next Visit Plan Continue progression of land- based exercises as tolerated.
--- NOTE | 2022-10-23 17:31 | PT.OTN ---
Current Diagnoses Spondylosis without myelopathy or radiculopathy, cervical region (10/23/22) Spondylosis without myelopathy or radiculopathy, lumbar region (10/23/22) Physical Therapy Treatment Note PT-OP-A Visit Information Start: 08/20/22 17:49 Freq: Status: Active Protocol: Document 10/23/22 16:45 DCW (Rec: 10/23/22 17:31 DCW [id number]) Out-Patient Physical Therapy Visit Information Visit Information Visit Type Treatment Note Visit Start Time 16:45 Visit Stop Time 17:30 Total Visit Minutes 45 Visit Number 11 Number of VAMP MAKER Visits 0 Evaluation Information Evaluation Date 08/20/22 PT-OP-B Current Condition Start: 08/20/22 17:49 Freq: Status: Active Protocol: Document 09/10/22 14:36 SAK (Rec: 09/10/22 14:43 SAK [id number]) Current Condition History of Current Condition Onset Date Multi-year history Current Complaints Lumbar pain, cervical pain, radicular symptoms History of Current Condition Pt is a 57 year old female well known to this clinic returning to skilled physical therapy with complaints of what is essentially full-body pain. Pt notes consistent pain in all of her joints, especially stiffness along her entire spine, as well as numbness and tingling in her hands and legs. Notes she feels that she has a lot of instability along her joints, and frequently holds her hands and arms in a contracted, protective posture, typically without even realizing she is doing it. Notes that she typically feels worse as the day progresses, the more I more, the more pain I'm in. Recently underwent a nerve conduction study, which she reports was WNL. Reports she will often have significantly increased pain after standing or sitting for more than ten minutes, and struggles to bend over or walk without pain. PT-OP-C Subjective Start: 08/20/22 17:49 Freq: Status: Active Protocol: Document 10/23/22 16:45 DCW (Rec: 10/23/22 17:31 DCW [id number]) OP-PT Subjective Patient Comments Patient Comments Pt experiencing increased pain in her common extensor tendons bilaterally today, she reports she may have tennis elbow due to her . PT-OP-F Manual Assessment Start: 08/20/22 17:49 Freq: Status: Active Protocol: Document 08/20/22 15:15 DCW (Rec: 08/21/22 09:45 DCW [id number]) Manual Assessments Soft Tissue Assessment Soft Tissue Mobility Assessment Moderate-severe tone with tenderness to palpation 3/4: wincing and withdraw in C/T/L paraspinals, B upper traps, B QL PT-OP-K Range of Motion Start: 08/20/22 17:49 Freq: Status: Active Protocol: Document 08/20/22 15:15 DCW (Rec: 08/21/22 09:45 DCW [id number]) Lumbar Spine Range of Motion Lumbar Spine Active Degrees Testing Position Standing Flexion 40 Extension 10 Lateral Flexion Left 54 Lateral Flexion Right 56 Comments Lateral flexion measured in cm from fingertips to floor PT-OP-L Special Tests Start: 08/20/22 17:49 Freq: Status: Active Protocol: Document 08/20/22 15:15 DCW (Rec: 08/21/22 11:42 DCW [id number]) Special Tests Cervical Spine Special Tests Spurling's Test Test Results Negative Slump Test Results Negative Passive Neck Flexion Test Results Negative Foraminal Compression Test Results Negative Lumbar Spine Special Tests Prone Instability Test Test Results Positive LUIGI Test Results Pain at SI Comments Bilaterally Straight Leg Raise Test Results Negative PT-OP-M Strength Start: 08/20/22 17:49 Freq: Status: Active Protocol: Document 08/20/22 15:15 DCW (Rec: 08/21/22 11:42 DCW [id number]) Hip Strength Hip Manual Muscle Testing Right Flexion (L2) 4- Good- Extension (S1) 4 Good Abduction 4 Good Adduction 4 Good External Rotation 4 Good Internal Rotation 4 Good Left Flexion (L2) 3+ Fair+ Extension (S1) 3+ Fair+ Abduction 4- Good- Adduction 4- Good- External Rotation 4- Good- Internal Rotation 4- Good- Knee Strength Knee Manual Muscle Testing Right Flexion (S2) 4+ Good+ Extension (L3) 4+ Good+ Left Flexion (S2) 4+ Good+ Extension (L3) 4+ Good+ PT-OP-Q Treatments Start: 08/20/22 17:49 Freq: Status: Active Protocol: Document 10/23/22 16:45 DCW (Rec: 10/23/22 17:31 DCW [id number]) Gym Equipment Therapeutic Ball 1 Exercise Details Low Trunk Rotation Ball Size/Color Red - 55 cm Body Position Supine Manual Therapy Treatment Soft Tissue Mobilization Thoracic Paraspinals Body Location B Lumbar/Thoracic Paraspinals Mobilization Type Sustained Pressure,Trigger Point Release Body Position Sidelying Cervical Paraspinals Body Location B cervical paraspinals, suboccipitals, upper trap Mobilization Type Strumming,Sustained Pressure Body Position Hooklying Manual Traction Cervical Details Cervical Traction Body Position Hooklying PT-OP-S Aquatic Treatment Start: 09/01/22 14:15 Freq: Status: Active Protocol: Document 10/22/22 15:50 LJ (Rec: 10/22/22 16:07 [id number]) Aquatics Treatment Pool Entry/Exit Pool Entry/Exit Method Stairs Assistance Independent Water Walking forward with arms for drag Water Level Chest Level Comments cues for posture forward with reverse breast stroke Water Level Chest Level Comments cues for core involvement [place] March Water Level Waist Level Sideways Water Level Chest Level Backwards Water Level Chest Level Comments cues to stand tall forward Water Level Chest Level Comments 2 laps holding lg BB slightly submerged in front and both sides Lower Extremity Exercises free the hip Reps/Duration 8x bilat heel toe raises Body Position Standing Water Level Chest Level Reps/Duration 20 circumduction Body Position Standing Water Level Chest Level Equipment Ankle Floats Reps/Duration 10x 2 bilat ab/ad Water Level Chest Level Equipment Ankle Floats Reps/Duration 10x 2 bilat Comments no UE support flex/ext Water Level Chest Level Equipment Ankle Floats Reps/Duration 10x2 bilat Lower Extremity Stretches hip flexor and quads Body Position Standing Water Level Chest Level Equipment Small Noodle Reps/Duration 2x30 Comments cueing for standing upright piriformis Details on wall Reps/Duration 45 sec bilat spider on wall Comments with body swing HS Details against wall Reps/Duration 2x30 gastroc, soleus Body Position Standing Water Level Waist Level Reps/Duration 45x2 Comments rocking foot side to side HC Body Position Standing Water Level Chest Level Reps/Duration 45x3 bilat Upper Extremity Exercises scapular retraction, shoulder shrugs Body Position Standing Water Level Chest Level Reps/Duration 15 ea flex,ext, abd, add, Body Position Standing Water Level Chest Level Reps/Duration 10x each bilat Comments cues for core activation and stabilization Spinal Exercises trunk rotation Body Position Supine Water Level Neck Level Equipment Large Noodle, Ankle floats Reps/Duration rocking side to side SKTC, DKTC Body Position Supine Water Level Waist Level Reps/Duration 2 min at wall Comments feet on wall, therapist assist Balance wonderboard Body Position Sitting Reps/Duration 5 min Comments static, dynamic, perturbations [place] Activities [place] Activities Bicycle,Bicycle Backwards, Cross Country,Hip Abduction/ Adduction Other Activities pendulum Prone extension gentle shoot through sustained time on side for lateral stretch Equipment flotation belt, med barbells Duration 12 Comments cues for alignment and core engagement PT-OP-T Assessment and Plan Start: 08/20/22 17:49 Freq: Status: Active Protocol: Document 10/23/22 16:45 DCW (Rec: 10/23/22 17:31 DCW [id number]) Physical Therapy Assessment Impairments Impairments Activity Tolerance,Functional Activities,Functional Mobility ,Pain,Posture,ROM,Soft Tissue Mobility,Strength,Tone Goals Three Impairment Pt unable to walk longer than 20 minutes without pain Shelter Goal (LTG) Pt to improve ambulation tolerance to at least 90 minutes to enable her to 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 LTG Duration 10/29/22 One Impairment Pt does not have an appropriate home exercise program Short Term Goal (STG) Pt to be independent and compliant with an appropriate HEP STG Duration 09/24/22 Assessment Summary Assessment Pt requested minimal UE exercises due to increased pain along bilateral lateral epicondyles. Pt responded well to T/L STM, felt she was better able to move afterward, and noted her arms felt better. Physical Therapy Plan Frequency and Duration Frequency of Treatment 2x/Week Duration of treatment (weeks) 10 Plan of Care Start Date 08/20/22 Plan of Care End Date 10/29/22 Therapeutic Interventions Therapeutic Interventions Aquatic Therapy,Home Exercise Program,Joint Mobilizations, Manual Therapy,Neuromuscular Re-education,Patient/Caregiver Education,Self-Care/Home Management,Soft Tissue Mobilization,Therapeutic Activities,Therapeutic Exercises Modalities Cold Pack/Ice Massage,Electric Stimulation,Hot Packs, Ultrasound Next Visit Focus/Plan Next Note Type Treatment Note Next Visit Plan Continue progression of land- based exercises as tolerated.
--- NOTE | 2022-10-31 15:58 | PT.OTN ---
Current Diagnoses Spondylosis without myelopathy or radiculopathy, cervical region (10/31/22) Spondylosis without myelopathy or radiculopathy, lumbar region (10/31/22) Physical Therapy Treatment Note PT-OP-A Visit Information Start: 08/20/22 17:49 Freq: Status: Active Protocol: Document 10/31/22 15:15 DCW (Rec: 10/31/22 15:57 DCW [id number]) Out-Patient Physical Therapy Visit Information Visit Information Visit Type Treatment Note Visit Start Time 15:15 Visit Stop Time 16:00 Total Visit Minutes 45 Visit Number 12 Number of ORDNANCE OFFICER Visits 0 Evaluation Information Evaluation Date 08/20/22 PT-OP-B Current Condition Start: 08/20/22 17:49 Freq: Status: Active Protocol: Document 09/10/22 14:36 SAK (Rec: 09/10/22 14:43 SAK [id number]) Current Condition History of Current Condition Onset Date Multi-year history Current Complaints Lumbar pain, cervical pain, radicular symptoms History of Current Condition Pt is a 57 year old female well known to this clinic returning to skilled physical therapy with complaints of what is essentially full-body pain. Pt notes consistent pain in all of her joints, especially stiffness along her entire spine, as well as numbness and tingling in her hands and legs. Notes she feels that she has a lot of instability along her joints, and frequently holds her hands and arms in a contracted, protective posture, typically without even realizing she is doing it. Notes that she typically feels worse as the day progresses, the more I more, the more pain I'm in. Recently underwent a nerve conduction study, which she reports was WNL. Reports she will often have significantly increased pain after standing or sitting for more than ten minutes, and struggles to bend over or walk without pain. PT-OP-C Subjective Start: 08/20/22 17:49 Freq: Status: Active Protocol: Document 10/31/22 15:15 DCW (Rec: 10/31/22 15:57 DCW [id number]) OP-PT Subjective Patient Comments Patient Comments Pt reports her elbows are feeling much better this week. PT-OP-F Manual Assessment Start: 08/20/22 17:49 Freq: Status: Active Protocol: Document 08/20/22 15:15 DCW (Rec: 08/21/22 09:45 DCW [id number]) Manual Assessments Soft Tissue Assessment Soft Tissue Mobility Assessment Moderate-severe tone with tenderness to palpation 3/4: wincing and withdraw in C/T/L paraspinals, B upper traps, B QL PT-OP-K Range of Motion Start: 08/20/22 17:49 Freq: Status: Active Protocol: Document 10/31/22 15:15 DCW (Rec: 10/31/22 15:58 DCW [id number]) Lumbar Spine Range of Motion Lumbar Spine Active Degrees Testing Position Standing Flexion 45 Extension 25 Lateral Flexion Left 53 Lateral Flexion Right 52 Comments Lateral flexion measured in cm from fingertips to floor PT-OP-L Special Tests Start: 08/20/22 17:49 Freq: Status: Active Protocol: Document 08/20/22 15:15 DCW (Rec: 08/21/22 11:42 DCW [id number]) Special Tests Cervical Spine Special Tests Spurling's Test Test Results Negative Slump Test Results Negative Passive Neck Flexion Test Results Negative Foraminal Compression Test Results Negative Lumbar Spine Special Tests Prone Instability Test Test Results Positive LUIGI Test Results Pain at SI Comments Bilaterally Straight Leg Raise Test Results Negative PT-OP-M Strength Start: 08/20/22 17:49 Freq: Status: Active Protocol: Document 10/31/22 15:15 DCW (Rec: 10/31/22 15:58 DCW [id number]) Hip Strength Hip Manual Muscle Testing Right Flexion (L2) 4- Good- Extension (S1) 4 Good Abduction 4 Good Adduction 4 Good External Rotation 4 Good Internal Rotation 4 Good Left Flexion (L2) 4- Good- Extension (S1) 4- Good- Abduction 4- Good- Adduction 4- Good- External Rotation 4- Good- Internal Rotation 4- Good- Knee Strength Knee Manual Muscle Testing Right Flexion (S2) 4+ Good+ Extension (L3) 4+ Good+ Left Flexion (S2) 4+ Good+ Extension (L3) 4+ Good+ PT-OP-Q Treatments Start: 08/20/22 17:49 Freq: Status: Active Protocol: Document 10/31/22 15:15 DCW (Rec: 10/31/22 15:57 DCW [id number]) Gym Equipment Therapeutic Ball 1 Exercise Details Low Trunk Rotation Ball Size/Color Red - 55 cm Body Position Supine Therapeutic Exercises Standing Exercises Flexion Standing Exercise Name Flexion Side bilateral Resistance Lv 3 Abduction Standing Exercise Name Abduction Side bilateral Resistance Lv 3 Rows Standing Exercise Name Rows Side bilateral Resistance Lv 3 Shoulder Extension Standing Exercise Name Extension Side bilateral Resistance Lv 3 Manual Therapy Treatment Soft Tissue Mobilization Thoracic Paraspinals Body Location B Lumbar/Thoracic Paraspinals Mobilization Type Sustained Pressure,Trigger Point Release Body Position Sidelying Cervical Paraspinals Body Location B cervical paraspinals, suboccipitals, upper trap Mobilization Type Strumming,Sustained Pressure Body Position Hooklying Manual Traction Cervical Details Cervical Traction Body Position Hooklying PT-OP-S Aquatic Treatment Start: 09/01/22 14:15 Freq: Status: Active Protocol: Document 10/22/22 15:50 LJ (Rec: 10/22/22 16:07 LJ [id number]) Aquatics Treatment Pool Entry/Exit Pool Entry/Exit Method Stairs Assistance Independent Water Walking forward with arms for drag Water Level Chest Level Comments cues for posture forward with reverse breast stroke Water Level Chest Level Comments cues for core involvement [place] March Water Level Waist Level Sideways Water Level Chest Level Backwards Water Level Chest Level Comments cues to stand tall forward Water Level Chest Level Comments 2 laps holding lg BB slightly submerged in front and both sides Lower Extremity Exercises free the hip Reps/Duration 8x bilat heel toe raises Body Position Standing Water Level Chest Level Reps/Duration 20 circumduction Body Position Standing Water Level Chest Level Equipment Ankle Floats Reps/Duration 10x 2 bilat ab/ad Water Level Chest Level Equipment Ankle Floats Reps/Duration 10x 2 bilat Comments no UE support flex/ext Water Level Chest Level Equipment Ankle Floats Reps/Duration 10x2 bilat Lower Extremity Stretches hip flexor and quads Body Position Standing Water Level Chest Level Equipment Small Noodle Reps/Duration 2x30 Comments cueing for standing upright piriformis Details on wall Reps/Duration 45 sec bilat spider on wall Comments with body swing HS Details against wall Reps/Duration 2x30 gastroc, soleus Body Position Standing Water Level Waist Level Reps/Duration 45x2 Comments rocking foot side to side HC Body Position Standing Water Level Chest Level Reps/Duration 45x3 bilat Upper Extremity Exercises scapular retraction, shoulder shrugs Body Position Standing Water Level Chest Level Reps/Duration 15 ea flex,ext, abd, add, Body Position Standing Water Level Chest Level Reps/Duration 10x each bilat Comments cues for core activation and stabilization Spinal Exercises trunk rotation Body Position Supine Water Level Neck Level Equipment Large Noodle, Ankle floats Reps/Duration rocking side to side SKTC, DKTC Body Position Supine Water Level Waist Level Reps/Duration 2 min at wall Comments feet on wall, therapist assist Balance wonderboard Body Position Sitting Reps/Duration 5 min Comments static, dynamic, perturbations [place] Activities [place] Activities Bicycle,Bicycle Backwards, Cross Country,Hip Abduction/ Adduction Other Activities pendulum Prone extension gentle shoot through sustained time on side for lateral stretch Equipment flotation belt, med barbells Duration 12 Comments cues for alignment and core engagement PT-OP-T Assessment and Plan Start: 08/20/22 17:49 Freq: Status: Active Protocol: Document 10/31/22 15:15 DCW (Rec: 10/31/22 15:57 DCW [id number]) Physical Therapy Assessment Impairments Impairments Activity Tolerance,Functional Activities,Functional Mobility ,Pain,Posture,ROM,Soft Tissue Mobility,Strength,Tone Goals Three Impairment Pt unable to walk longer than 20 minutes without pain Detention Goal (LTG) Pt to improve ambulation tolerance to at least 90 minutes to enable her to 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 Physical Therapy Plan Frequency and Duration Frequency of Treatment 2x/Week Duration of treatment (weeks) 10 Plan of Care Start Date 10/31/22 Plan of Care End Date 12/27/22 Therapeutic Interventions Therapeutic Interventions Aquatic Therapy,Home Exercise Program,Joint Mobilizations, Manual Therapy,Neuromuscular Re-education,Patient/Caregiver Education,Self-Care/Home Management,Soft Tissue Mobilization,Therapeutic Activities,Therapeutic Exercises Modalities Cold Pack/Ice Massage,Electric Stimulation,Hot Packs, Ultrasound Next Visit Focus/Plan Next Note Type Treatment Note Next Visit Plan Continue progression of land- based exercises as tolerated.
--- NOTE | 2022-10-31 16:00 | PT.OPPOC ---
Physical, Occupational & Speech Therapy At [facility] Current Diagnoses Spondylosis without myelopathy or radiculopathy, cervical region (10/31/22) Spondylosis without myelopathy or radiculopathy, lumbar region (10/31/22) Visit Care Team Role Provider Type Nikki Amos MD Family Provider Non-Staff Primary Care Provider Specialty: Pediatrics Address: [address] [place] [address], [id number] Email: Kenny Avelar MD Attending Provider Physician Referring Provider Specialty: Orthopedics Orthopedic Surgery Address: [address] [place] [address], [id number] Email: [email or web address] Plan Of Care PT-OP-T Assessment and Plan Start: 08/20/22 17:49 Freq: Status: Active Protocol: Document 10/31/22 15:15 DCW (Rec: 10/31/22 15:57 DCW [id number]) Physical Therapy Assessment Impairments Impairments Activity Tolerance,Functional Activities,Functional Mobility ,Pain,Posture,ROM,Soft Tissue Mobility,Strength,Tone Goals Three Impairment Pt unable to walk longer than 20 minutes without pain Shelter Goal (LTG) Pt to improve ambulation tolerance to at least 90 minutes to enable her to 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 Physical Therapy Plan Frequency and Duration Frequency of Treatment 2x/Week Duration of treatment (weeks) 10 Plan of Care Start Date 10/31/22 Plan of Care End Date 12/27/22 Therapeutic Interventions Therapeutic Interventions Aquatic Therapy,Home Exercise Program,Joint Mobilizations, Manual Therapy,Neuromuscular Re-education,Patient/Caregiver Education,Self-Care/Home Management,Soft Tissue Mobilization,Therapeutic Activities,Therapeutic Exercises Modalities Cold Pack/Ice Massage,Electric Stimulation,Hot Packs, Ultrasound Next Visit Focus/Plan Next Note Type Treatment Note Next Visit Plan Continue progression of land- based exercises as tolerated. Plan of Care Dates Plan of Care Start Date 10/31/22 Plan of Care End Date 12/27/22 Electronically Signed by: Micky Dove, PT 10/31/22 1600 If you are in agreement with this Plan of Care, please return a signed and dated copy. I have reviewed this Plan of Care and certify that the skilled therapy services above are required to meet the patient?s needs. Physician Signature Date Printed Name and Credentials Clinical Instructor Signature Printed Name and Credentials
--- NOTE | 2022-11-19 17:31 | PT.OTN ---
Current Diagnoses Spondylosis without myelopathy or radiculopathy, cervical region (11/19/22) Spondylosis without myelopathy or radiculopathy, lumbar region (11/19/22) Physical Therapy Treatment Note PT-OP-A Visit Information Start: 08/20/22 17:49 Freq: Status: Active Protocol: Document 11/19/22 16:45 DCW (Rec: 11/19/22 17:31 DCW [id number]) Out-Patient Physical Therapy Visit Information Visit Information Visit Type Treatment Note Visit Start Time 16:45 Visit Stop Time 17:30 Total Visit Minutes 45 Visit Number 13 Number of COLORER Visits 0 Evaluation Information Evaluation Date 08/20/22 PT-OP-B Current Condition Start: 08/20/22 17:49 Freq: Status: Active Protocol: Document 09/10/22 14:36 SAK (Rec: 09/10/22 14:43 SAK [id number]) Current Condition History of Current Condition Onset Date Multi-year history Current Complaints Lumbar pain, cervical pain, radicular symptoms History of Current Condition Pt is a 57 year old female well known to this clinic returning to skilled physical therapy with complaints of what is essentially full-body pain. Pt notes consistent pain in all of her joints, especially stiffness along her entire spine, as well as numbness and tingling in her hands and legs. Notes she feels that she has a lot of instability along her joints, and frequently holds her hands and arms in a contracted, protective posture, typically without even realizing she is doing it. Notes that she typically feels worse as the day progresses, the more I more, the more pain I'm in. Recently underwent a nerve conduction study, which she reports was WNL. Reports she will often have significantly increased pain after standing or sitting for more than ten minutes, and struggles to bend over or walk without pain. PT-OP-C Subjective Start: 08/20/22 17:49 Freq: Status: Active Protocol: Document 11/19/22 16:45 DCW (Rec: 11/19/22 17:31 DCW [id number]) OP-PT Subjective Patient Comments Patient Comments Notes SI is still really inflammed, upper back feels better, mainly mid- and low- back problematic right now. Recently returned from [facility] to [place], was in pain most of the trip. PT-OP-F Manual Assessment Start: 08/20/22 17:49 Freq: Status: Active Protocol: Document 08/20/22 15:15 DCW (Rec: 08/21/22 09:45 DCW [id number]) Manual Assessments Soft Tissue Assessment Soft Tissue Mobility Assessment Moderate-severe tone with tenderness to palpation 3/4: wincing and withdraw in C/T/L paraspinals, B upper traps, B QL PT-OP-K Range of Motion Start: 08/20/22 17:49 Freq: Status: Active Protocol: Document 10/31/22 15:15 DCW (Rec: 10/31/22 15:58 DCW [id number]) Lumbar Spine Range of Motion Lumbar Spine Active Degrees Testing Position Standing Flexion 45 Extension 25 Lateral Flexion Left 53 Lateral Flexion Right 52 Comments Lateral flexion measured in cm from fingertips to floor PT-OP-L Special Tests Start: 08/20/22 17:49 Freq: Status: Active Protocol: Document 08/20/22 15:15 DCW (Rec: 08/21/22 11:42 DCW [id number]) Special Tests Cervical Spine Special Tests Spurling's Test Test Results Negative Slump Test Results Negative Passive Neck Flexion Test Results Negative Foraminal Compression Test Results Negative Lumbar Spine Special Tests Prone Instability Test Test Results Positive LUIGI Test Results Pain at SI Comments Bilaterally Straight Leg Raise Test Results Negative PT-OP-M Strength Start: 08/20/22 17:49 Freq: Status: Active Protocol: Document 10/31/22 15:15 DCW (Rec: 10/31/22 15:58 DCW [id number]) Hip Strength Hip Manual Muscle Testing Right Flexion (L2) 4- Good- Extension (S1) 4 Good Abduction 4 Good Adduction 4 Good External Rotation 4 Good Internal Rotation 4 Good Left Flexion (L2) 4- Good- Extension (S1) 4- Good- Abduction 4- Good- Adduction 4- Good- External Rotation 4- Good- Internal Rotation 4- Good- Knee Strength Knee Manual Muscle Testing Right Flexion (S2) 4+ Good+ Extension (L3) 4+ Good+ Left Flexion (S2) 4+ Good+ Extension (L3) 4+ Good+ PT-OP-Q Treatments Start: 08/20/22 17:49 Freq: Status: Active Protocol: Document 11/19/22 16:45 DCW (Rec: 11/19/22 17:31 DCW [id number]) Gym Equipment Therapeutic Ball 3 Exercise Details Resisted Trunk Rotation Ball Size/Color Green - 65 cm Lv 3 Resistance Body Position Sitting 2 Exercise Details Pelvic circles/tilts Ball Size/Color Green - 65 c, Body Position Sitting Therapeutic Exercises Standing Exercises Pallof Press Standing Exercise Name Pallof Press Side bilateral Resistance Lv 3 Rows Standing Exercise Name Rows Side bilateral Resistance Lv 3 Shoulder Extension Standing Exercise Name Extension Side bilateral Resistance Lv 3 Manual Therapy Treatment Soft Tissue Mobilization Thoracic Paraspinals Body Location B Lumbar/Thoracic Paraspinals Mobilization Type Sustained Pressure,Trigger Point Release Body Position Sidelying PT-OP-S Aquatic Treatment Start: 09/01/22 14:15 Freq: Status: Active Protocol: Document 10/22/22 15:50 LJ (Rec: 10/22/22 16:07 [id number]) Aquatics Treatment Pool Entry/Exit Pool Entry/Exit Method Stairs Assistance Independent Water Walking forward with arms for drag Water Level Chest Level Comments cues for posture forward with reverse breast stroke Water Level Chest Level Comments cues for core involvement [place] March Water Level Waist Level Sideways Water Level Chest Level Backwards Water Level Chest Level Comments cues to stand tall forward Water Level Chest Level Comments 2 laps holding lg BB slightly submerged in front and both sides Lower Extremity Exercises free the hip Reps/Duration 8x bilat heel toe raises Body Position Standing Water Level Chest Level Reps/Duration 20 circumduction Body Position Standing Water Level Chest Level Equipment Ankle Floats Reps/Duration 10x 2 bilat ab/ad Water Level Chest Level Equipment Ankle Floats Reps/Duration 10x 2 bilat Comments no UE support flex/ext Water Level Chest Level Equipment Ankle Floats Reps/Duration 10x2 bilat Lower Extremity Stretches hip flexor and quads Body Position Standing Water Level Chest Level Equipment Small Noodle Reps/Duration 2x30 Comments cueing for standing upright piriformis Details on wall Reps/Duration 45 sec bilat spider on wall Comments with body swing HS Details against wall Reps/Duration 2x30 gastroc, soleus Body Position Standing Water Level Waist Level Reps/Duration 45x2 Comments rocking foot side to side HC Body Position Standing Water Level Chest Level Reps/Duration 45x3 bilat Upper Extremity Exercises scapular retraction, shoulder shrugs Body Position Standing Water Level Chest Level Reps/Duration 15 ea flex,ext, abd, add, Body Position Standing Water Level Chest Level Reps/Duration 10x each bilat Comments cues for core activation and stabilization Spinal Exercises trunk rotation Body Position Supine Water Level Neck Level Equipment Large Noodle, Ankle floats Reps/Duration rocking side to side SKTC, DKTC Body Position Supine Water Level Waist Level Reps/Duration 2 min at wall Comments feet on wall, therapist assist Balance wonderboard Body Position Sitting Reps/Duration 5 min Comments static, dynamic, perturbations [place] Activities [place] Activities Bicycle,Bicycle Backwards, Cross Country,Hip Abduction/ Adduction Other Activities pendulum Prone extension gentle shoot through sustained time on side for lateral stretch Equipment flotation belt, med barbells Duration 12 Comments cues for alignment and core engagement PT-OP-T Assessment and Plan Start: 08/20/22 17:49 Freq: Status: Active Protocol: Document 11/19/22 16:45 DCW (Rec: 11/19/22 17:31 DCW [id number]) Physical Therapy Assessment Impairments Impairments Activity Tolerance,Functional Activities,Functional Mobility ,Pain,Posture,ROM,Soft Tissue Mobility,Strength,Tone Goals Three Impairment Pt unable to walk longer than 20 minutes without pain Snf Goal (LTG) Pt to improve ambulation tolerance to at least 90 minutes to enable her to continue to participate in local search 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 LTG Duration 12/27/22 - improving One Impairment Pt does not have an appropriate home exercise program Short Term Goal (STG) Pt to be independent and compliant with an appropriate HEP STG Duration Met Assessment Summary Assessment Pt feeling better with cervical and upper extremity pain recently, still has multiple areas of complaints, feels like she has a lot of inflammation in most of her core and LE tendons. Tolerated treatment well, was able to most with less difficulty following STM today. Physical Therapy Plan Frequency and Duration Frequency of Treatment 2x/Week Duration of treatment (weeks) 10 Plan of Care Start Date 10/31/22 Plan of Care End Date 12/27/22 Therapeutic Interventions Therapeutic Interventions Aquatic Therapy,Home Exercise Program,Joint Mobilizations, Manual Therapy,Neuromuscular Re-education,Patient/Caregiver Education,Self-Care/Home Management,Soft Tissue Mobilization,Therapeutic Activities,Therapeutic Exercises Modalities Cold Pack/Ice Massage,Electric Stimulation,Hot Packs, Ultrasound Next Visit Focus/Plan Next Note Type Treatment Note Next Visit Plan Continue progression of land- based exercises as tolerated.
--- NOTE | 2022-11-26 15:13 | PT.OTN ---
Current Diagnoses Spondylosis without myelopathy or radiculopathy, cervical region (11/26/22) Spondylosis without myelopathy or radiculopathy, lumbar region (11/26/22) Physical Therapy Treatment Note PT-OP-A Visit Information Start: 08/20/22 17:49 Freq: Status: Active Protocol: Document 11/26/22 14:37 DCW (Rec: 11/26/22 15:13 DCW [id number]) Out-Patient Physical Therapy Visit Information Visit Information Visit Type Treatment Note Visit Start Time 14:37 Visit Stop Time 15:15 Total Visit Minutes 38 Visit Number 14 Number of ALUMNI SECRETARY Visits 0 Evaluation Information Evaluation Date 08/20/22 PT-OP-B Current Condition Start: 08/20/22 17:49 Freq: Status: Active Protocol: Document 09/10/22 14:36 SAK (Rec: 09/10/22 14:43 SAK [id number]) Current Condition History of Current Condition Onset Date Multi-year history Current Complaints Lumbar pain, cervical pain, radicular symptoms History of Current Condition Pt is a 57 year old female well known to this clinic returning to skilled physical therapy with complaints of what is essentially full-body pain. Pt notes consistent pain in all of her joints, especially stiffness along her entire spine, as well as numbness and tingling in her hands and legs. Notes she feels that she has a lot of instability along her joints, and frequently holds her hands and arms in a contracted, protective posture, typically without even realizing she is doing it. Notes that she typically feels worse as the day progresses, the more I more, the more pain I'm in. Recently underwent a nerve conduction study, which she reports was WNL. Reports she will often have significantly increased pain after standing or sitting for more than ten minutes, and struggles to bend over or walk without pain. PT-OP-C Subjective Start: 08/20/22 17:49 Freq: Status: Active Protocol: Document 11/26/22 14:37 DCW (Rec: 11/26/22 15:13 DCW [id number]) OP-PT Subjective Patient Comments Patient Comments Pt reports she did not believe her elimination diet was doing much, but then she ate something she shouldn't have, and has been feeling much more inflamed ever since. PT-OP-F Manual Assessment Start: 08/20/22 17:49 Freq: Status: Active Protocol: Document 08/20/22 15:15 DCW (Rec: 08/21/22 09:45 DCW [id number]) Manual Assessments Soft Tissue Assessment Soft Tissue Mobility Assessment Moderate-severe tone with tenderness to palpation 3/4: wincing and withdraw in C/T/L paraspinals, B upper traps, B QL PT-OP-K Range of Motion Start: 08/20/22 17:49 Freq: Status: Active Protocol: Document 10/31/22 15:15 DCW (Rec: 10/31/22 15:58 DCW [id number]) Lumbar Spine Range of Motion Lumbar Spine Active Degrees Testing Position Standing Flexion 45 Extension 25 Lateral Flexion Left 53 Lateral Flexion Right 52 Comments Lateral flexion measured in cm from fingertips to floor PT-OP-L Special Tests Start: 08/20/22 17:49 Freq: Status: Active Protocol: Document 08/20/22 15:15 DCW (Rec: 08/21/22 11:42 DCW [id number]) Special Tests Cervical Spine Special Tests Spurling's Test Test Results Negative Slump Test Results Negative Passive Neck Flexion Test Results Negative Foraminal Compression Test Results Negative Lumbar Spine Special Tests Prone Instability Test Test Results Positive LUIGI Test Results Pain at SI Comments Bilaterally Straight Leg Raise Test Results Negative PT-OP-M Strength Start: 08/20/22 17:49 Freq: Status: Active Protocol: Document 10/31/22 15:15 DCW (Rec: 10/31/22 15:58 DCW [id number]) Hip Strength Hip Manual Muscle Testing Right Flexion (L2) 4- Good- Extension (S1) 4 Good Abduction 4 Good Adduction 4 Good External Rotation 4 Good Internal Rotation 4 Good Left Flexion (L2) 4- Good- Extension (S1) 4- Good- Abduction 4- Good- Adduction 4- Good- External Rotation 4- Good- Internal Rotation 4- Good- Knee Strength Knee Manual Muscle Testing Right Flexion (S2) 4+ Good+ Extension (L3) 4+ Good+ Left Flexion (S2) 4+ Good+ Extension (L3) 4+ Good+ PT-OP-Q Treatments Start: 08/20/22 17:49 Freq: Status: Active Protocol: Document 11/26/22 14:37 DCW (Rec: 11/26/22 15:13 DCW [id number]) Gym Equipment Therapeutic Ball 3 Exercise Details Resisted Trunk Rotation Ball Size/Color Green - 65 cm Lv 3 Resistance Body Position Sitting 2 Exercise Details Pelvic circles/tilts Ball Size/Color Green - 65 cm Body Position Sitting Therapeutic Exercises Standing Exercises Pallof Press Standing Exercise Name Pallof Press Side bilateral Resistance Lv 3 Reps/Minutes x15 Rows Standing Exercise Name Rows Side bilateral Resistance Lv 3 Reps/Minutes x15 Shoulder Extension Standing Exercise Name Extension Side bilateral Resistance Lv 3 Reps/Minutes x15 Manual Therapy Treatment Soft Tissue Mobilization Thoracic Paraspinals Body Location B Lumbar/Thoracic Paraspinals Mobilization Type Sustained Pressure,Trigger Point Release Body Position Sidelying PT-OP-S Aquatic Treatment Start: 09/01/22 14:15 Freq: Status: Active Protocol: Document 10/22/22 15:50 LJ (Rec: 10/22/22 16:07 [email or web address] [id number]) Aquatics Treatment Pool Entry/Exit Pool Entry/Exit Method Stairs Assistance Independent Water Walking forward with arms for drag Water Level Chest Level Comments cues for posture forward with reverse breast stroke Water Level Chest Level Comments cues for core involvement [place] March Water Level Waist Level Sideways Water Level Chest Level Backwards Water Level Chest Level Comments cues to stand tall forward Water Level Chest Level Comments 2 laps holding lg BB slightly submerged in front and both sides Lower Extremity Exercises free the hip Reps/Duration 8x bilat heel toe raises Body Position Standing Water Level Chest Level Reps/Duration 20 circumduction Body Position Standing Water Level Chest Level Equipment Ankle Floats Reps/Duration 10x 2 bilat ab/ad Water Level Chest Level Equipment Ankle Floats Reps/Duration 10x 2 bilat Comments no UE support flex/ext Water Level Chest Level Equipment Ankle Floats Reps/Duration 10x2 bilat Lower Extremity Stretches hip flexor and quads Body Position Standing Water Level Chest Level Equipment Small Noodle Reps/Duration 2x30 Comments cueing for standing upright piriformis Details on wall Reps/Duration 45 sec bilat spider on wall Comments with body swing HS Details against wall Reps/Duration 2x30 gastroc, soleus Body Position Standing Water Level Waist Level Reps/Duration 45x2 Comments rocking foot side to side HC Body Position Standing Water Level Chest Level Reps/Duration 45x3 bilat Upper Extremity Exercises scapular retraction, shoulder shrugs Body Position Standing Water Level Chest Level Reps/Duration 15 ea flex,ext, abd, add, Body Position Standing Water Level Chest Level Reps/Duration 10x each bilat Comments cues for core activation and stabilization Spinal Exercises trunk rotation Body Position Supine Water Level Neck Level Equipment Large Noodle, Ankle floats Reps/Duration rocking side to side SKTC, DKTC Body Position Supine Water Level Waist Level Reps/Duration 2 min at wall Comments feet on wall, therapist assist Balance wonderboard Body Position Sitting Reps/Duration 5 min Comments static, dynamic, perturbations [place] Activities [place] Activities Bicycle,Bicycle Backwards, Cross Country,Hip Abduction/ Adduction Other Activities pendulum Prone extension gentle shoot through sustained time on side for lateral stretch Equipment flotation belt, med barbells Duration 12 Comments cues for alignment and core engagement PT-OP-T Assessment and Plan Start: 08/20/22 17:49 Freq: Status: Active Protocol: Document 11/26/22 14:37 DCW (Rec: 11/26/22 15:13 DCW [id number]) Physical Therapy Assessment Impairments Impairments Activity Tolerance,Functional Activities,Functional Mobility ,Pain,Posture,ROM,Soft Tissue Mobility,Strength,Tone Goals Three Impairment Pt unable to walk longer than 20 minutes without pain Prison Goal (LTG) Pt to improve ambulation tolerance to at least 90 minutes to 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 LTG Duration 12/27/22 - improving One Impairment Pt does not have an appropriate home exercise program Short Term Goal (STG) Pt to be independent and compliant with an appropriate HEP STG Duration Met Assessment Summary Assessment Pt tolerating treatment well, improved mobility with low back undergoing less pain. Physical Therapy Plan Frequency and Duration Frequency of Treatment 2x/Week Duration of treatment (weeks) 10 Plan of Care Start Date 10/31/22 Plan of Care End Date 12/27/22 Therapeutic Interventions Therapeutic Interventions Aquatic Therapy,Home Exercise Program,Joint Mobilizations, Manual Therapy,Neuromuscular Re-education,Patient/Caregiver Education,Self-Care/Home Management,Soft Tissue Mobilization,Therapeutic Activities,Therapeutic Exercises Modalities Cold Pack/Ice Massage,Electric Stimulation,Hot Packs, Ultrasound Next Visit Focus/Plan Next Note Type Treatment Note Next Visit Plan Continue progression of land- based exercises as tolerated.
--- NOTE | 2022-12-03 15:59 | PT.OTN ---
Current Diagnoses Spondylosis without myelopathy or radiculopathy, cervical region (12/03/22) Spondylosis without myelopathy or radiculopathy, lumbar region (12/03/22) Physical Therapy Treatment Note PT-OP-A Visit Information Start: 08/20/22 17:49 Freq: Status: Active Protocol: Document 12/03/22 15:15 DCW (Rec: 12/03/22 15:59 DCW [id number]) Out-Patient Physical Therapy Visit Information Visit Information Visit Type Treatment Note Visit Start Time 15:15 Visit Stop Time 16:00 Total Visit Minutes 45 Visit Number 15 Number of CULINARY WORKER Visits 0 Evaluation Information Evaluation Date 08/20/22 PT-OP-B Current Condition Start: 08/20/22 17:49 Freq: Status: Active Protocol: Document 09/10/22 14:36 SAK (Rec: 09/10/22 14:43 SAK [id number]) Current Condition History of Current Condition Onset Date Multi-year history Current Complaints Lumbar pain, cervical pain, radicular symptoms History of Current Condition Pt is a 57 year old female well known to this clinic returning to skilled physical therapy with complaints of what is essentially full-body pain. Pt notes consistent pain in all of her joints, especially stiffness along her entire spine, as well as numbness and tingling in her hands and legs. Notes she feels that she has a lot of instability along her joints, and frequently holds her hands and arms in a contracted, protective posture, typically without even realizing she is doing it. Notes that she typically feels worse as the day progresses, the more I more, the more pain I'm in. Recently underwent a nerve conduction study, which she reports was WNL. Reports she will often have significantly increased pain after standing or sitting for more than ten minutes, and struggles to bend over or walk without pain. PT-OP-C Subjective Start: 08/20/22 17:49 Freq: Status: Active Protocol: Document 12/03/22 15:15 DCW (Rec: 12/03/22 15:59 DCW [id number]) OP-PT Subjective Patient Comments Patient Comments The diet does help, but I've been bad with the diet, so I' ve been noticing more inflammation. PT-OP-F Manual Assessment Start: 08/20/22 17:49 Freq: Status: Active Protocol: Document 08/20/22 15:15 DCW (Rec: 08/21/22 09:45 DCW [id number]) Manual Assessments Soft Tissue Assessment Soft Tissue Mobility Assessment Moderate-severe tone with tenderness to palpation 3/4: wincing and withdraw in C/T/L paraspinals, B upper traps, B QL PT-OP-K Range of Motion Start: 08/20/22 17:49 Freq: Status: Active Protocol: Document 10/31/22 15:15 DCW (Rec: 10/31/22 15:58 DCW [id number]) Lumbar Spine Range of Motion Lumbar Spine Active Degrees Testing Position Standing Flexion 45 Extension 25 Lateral Flexion Left 53 Lateral Flexion Right 52 Comments Lateral flexion measured in cm from fingertips to floor PT-OP-L Special Tests Start: 08/20/22 17:49 Freq: Status: Active Protocol: Document 08/20/22 15:15 DCW (Rec: 08/21/22 11:42 DCW [id number]) Special Tests Cervical Spine Special Tests Spurling's Test Test Results Negative Slump Test Results Negative Passive Neck Flexion Test Results Negative Foraminal Compression Test Results Negative Lumbar Spine Special Tests Prone Instability Test Test Results Positive LUIGI Test Results Pain at SI Comments Bilaterally Straight Leg Raise Test Results Negative PT-OP-M Strength Start: 08/20/22 17:49 Freq: Status: Active Protocol: Document 10/31/22 15:15 DCW (Rec: 10/31/22 15:58 DCW [id number]) Hip Strength Hip Manual Muscle Testing Right Flexion (L2) 4- Good- Extension (S1) 4 Good Abduction 4 Good Adduction 4 Good External Rotation 4 Good Internal Rotation 4 Good Left Flexion (L2) 4- Good- Extension (S1) 4- Good- Abduction 4- Good- Adduction 4- Good- External Rotation 4- Good- Internal Rotation 4- Good- Knee Strength Knee Manual Muscle Testing Right Flexion (S2) 4+ Good+ Extension (L3) 4+ Good+ Left Flexion (S2) 4+ Good+ Extension (L3) 4+ Good+ PT-OP-Q Treatments Start: 08/20/22 17:49 Freq: Status: Active Protocol: Document 12/03/22 15:15 DCW (Rec: 12/03/22 15:59 DCW [id number]) Gym Equipment Therapeutic Ball 3 Exercise Details Resisted Trunk Rotation Ball Size/Color Green - 65 cm Lv 3 Resistance Body Position Sitting 2 Exercise Details Pelvic circles/tilts Ball Size/Color Green - 65 cm Body Position Sitting Therapeutic Exercises Standing Exercises Pallof Press Standing Exercise Name Pallof Press Side bilateral Resistance Lv 3 Reps/Minutes x15 Rows Standing Exercise Name Rows Side bilateral Resistance Lv 3 Reps/Minutes x15 Shoulder Extension Standing Exercise Name Extension Side bilateral Resistance Lv 3 Reps/Minutes x15 Manual Therapy Treatment Soft Tissue Mobilization Thoracic Paraspinals Body Location B Lumbar/Thoracic Paraspinals Mobilization Type Sustained Pressure,Trigger Point Release Body Position Sidelying PT-OP-S Aquatic Treatment Start: 09/01/22 14:15 Freq: Status: Active Protocol: Document 10/22/22 15:50 LJ (Rec: 10/22/22 16:07 [email or web address] [id number]) Aquatics Treatment Pool Entry/Exit Pool Entry/Exit Method Stairs Assistance Independent Water Walking forward with arms for drag Water Level Chest Level Comments cues for posture forward with reverse breast stroke Water Level Chest Level Comments cues for core involvement [place] March Water Level Waist Level Sideways Water Level Chest Level Backwards Water Level Chest Level Comments cues to stand tall forward Water Level Chest Level Comments 2 laps holding lg BB slightly submerged in front and both sides Lower Extremity Exercises free the hip Reps/Duration 8x bilat heel toe raises Body Position Standing Water Level Chest Level Reps/Duration 20 circumduction Body Position Standing Water Level Chest Level Equipment Ankle Floats Reps/Duration 10x 2 bilat ab/ad Water Level Chest Level Equipment Ankle Floats Reps/Duration 10x 2 bilat Comments no UE support flex/ext Water Level Chest Level Equipment Ankle Floats Reps/Duration 10x2 bilat Lower Extremity Stretches hip flexor and quads Body Position Standing Water Level Chest Level Equipment Small Noodle Reps/Duration 2x30 Comments cueing for standing upright piriformis Details on wall Reps/Duration 45 sec bilat spider on wall Comments with body swing HS Details against wall Reps/Duration 2x30 gastroc, soleus Body Position Standing Water Level Waist Level Reps/Duration 45x2 Comments rocking foot side to side HC Body Position Standing Water Level Chest Level Reps/Duration 45x3 bilat Upper Extremity Exercises scapular retraction, shoulder shrugs Body Position Standing Water Level Chest Level Reps/Duration 15 ea flex,ext, abd, add, Body Position Standing Water Level Chest Level Reps/Duration 10x each bilat Comments cues for core activation and stabilization Spinal Exercises trunk rotation Body Position Supine Water Level Neck Level Equipment Large Noodle, Ankle floats Reps/Duration rocking side to side SKTC, DKTC Body Position Supine Water Level Waist Level Reps/Duration 2 min at wall Comments feet on wall, therapist assist Balance wonderboard Body Position Sitting Reps/Duration 5 min Comments static, dynamic, perturbations [place] Activities [place] Activities Bicycle,Bicycle Backwards, Cross Country,Hip Abduction/ Adduction Other Activities pendulum Prone extension gentle shoot through sustained time on side for lateral stretch Equipment flotation belt, med barbells Duration 12 Comments cues for alignment and core engagement PT-OP-T Assessment and Plan Start: 08/20/22 17:49 Freq: Status: Active Protocol: Document 12/03/22 15:15 DCW (Rec: 12/03/22 15:59 DCW [id number]) Physical Therapy Assessment Impairments Impairments Activity Tolerance,Functional Activities,Functional Mobility ,Pain,Posture,ROM,Soft Tissue Mobility,Strength,Tone Goals Three Impairment Pt unable to walk longer than 20 minutes without pain Foil Stamp Operator Goal (LTG) Pt to improve ambulation tolerance to at least 90 minutes to enable 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 LTG Duration 12/27/22 - improving One Impairment Pt does not have an appropriate home exercise program Short Term Goal (STG) Pt to be independent and compliant with an appropriate HEP STG Duration Met Assessment Summary Assessment Discussed with pt importance of sticking to anti- inflammatory diet, as well as core strengthening to improve functional mobility. Physical Therapy Plan Frequency and Duration Frequency of Treatment 2x/Week Duration of treatment (weeks) 10 Plan of Care Start Date 10/31/22 Plan of Care End Date 12/27/22 Therapeutic Interventions Therapeutic Interventions Aquatic Therapy,Home Exercise Program,Joint Mobilizations, Manual Therapy,Neuromuscular Re-education,Patient/Caregiver Education,Self-Care/Home Management,Soft Tissue Mobilization,Therapeutic Activities,Therapeutic Exercises Modalities Cold Pack/Ice Massage,Electric Stimulation,Hot Packs, Ultrasound Next Visit Focus/Plan Next Note Type Treatment Note Next Visit Plan Continue progression of land- based exercises as tolerated.
--- NOTE | 2022-12-08 15:13 | PT.OTN ---
Current Diagnoses Spondylosis without myelopathy or radiculopathy, cervical region (12/08/22) Spondylosis without myelopathy or radiculopathy, lumbar region (12/08/22) Physical Therapy Treatment Note PT-OP-A Visit Information Start: 08/20/22 17:49 Freq: Status: Active Protocol: Document 12/08/22 14:30 DCW (Rec: 12/08/22 15:13 DCW [id number]) Out-Patient Physical Therapy Visit Information Visit Information Visit Type Treatment Note Visit Start Time 14:30 Visit Stop Time 15:15 Total Visit Minutes 45 Visit Number 16 Number of TALLIER Visits 0 Evaluation Information Evaluation Date 08/20/22 PT-OP-B Current Condition Start: 08/20/22 17:49 Freq: Status: Active Protocol: Document 09/10/22 14:36 SAK (Rec: 09/10/22 14:43 SAK [id number]) Current Condition History of Current Condition Onset Date Multi-year history Current Complaints Lumbar pain, cervical pain, radicular symptoms History of Current Condition Pt is a 57 year old female well known to this clinic returning to skilled physical therapy with complaints of what is essentially full-body pain. Pt notes consistent pain in all of her joints, especially stiffness along her entire spine, as well as numbness and tingling in her hands and legs. Notes she feels that she has a lot of instability along her joints, and frequently holds her hands and arms in a contracted, protective posture, typically without even realizing she is doing it. Notes that she typically feels worse as the day progresses, the more I more, the more pain I'm in. Recently underwent a nerve conduction study, which she reports was WNL. Reports she will often have significantly increased pain after standing or sitting for more than ten minutes, and struggles to bend over or walk without pain. PT-OP-C Subjective Start: 08/20/22 17:49 Freq: Status: Active Protocol: Document 12/08/22 14:30 DCW (Rec: 12/08/22 15:13 DCW [id number]) OP-PT Subjective Patient Comments Patient Comments Pt reports her tendons feel swollen and sore, but her back and neck are feeling pretty good overall. PT-OP-F Manual Assessment Start: 08/20/22 17:49 Freq: Status: Active Protocol: Document 08/20/22 15:15 DCW (Rec: 08/21/22 09:45 DCW [id number]) Manual Assessments Soft Tissue Assessment Soft Tissue Mobility Assessment Moderate-severe tone with tenderness to palpation 3/4: wincing and withdraw in C/T/L paraspinals, B upper traps, B QL PT-OP-K Range of Motion Start: 08/20/22 17:49 Freq: Status: Active Protocol: Document 10/31/22 15:15 DCW (Rec: 10/31/22 15:58 DCW [id number]) Lumbar Spine Range of Motion Lumbar Spine Active Degrees Testing Position Standing Flexion 45 Extension 25 Lateral Flexion Left 53 Lateral Flexion Right 52 Comments Lateral flexion measured in cm from fingertips to floor PT-OP-L Special Tests Start: 08/20/22 17:49 Freq: Status: Active Protocol: Document 08/20/22 15:15 DCW (Rec: 08/21/22 11:42 DCW [id number]) Special Tests Cervical Spine Special Tests Spurling's Test Test Results Negative Slump Test Results Negative Passive Neck Flexion Test Results Negative Foraminal Compression Test Results Negative Lumbar Spine Special Tests Prone Instability Test Test Results Positive LUIGI Test Results Pain at SI Comments Bilaterally Straight Leg Raise Test Results Negative PT-OP-M Strength Start: 08/20/22 17:49 Freq: Status: Active Protocol: Document 10/31/22 15:15 DCW (Rec: 10/31/22 15:58 DCW [id number]) Hip Strength Hip Manual Muscle Testing Right Flexion (L2) 4- Good- Extension (S1) 4 Good Abduction 4 Good Adduction 4 Good External Rotation 4 Good Internal Rotation 4 Good Left Flexion (L2) 4- Good- Extension (S1) 4- Good- Abduction 4- Good- Adduction 4- Good- External Rotation 4- Good- Internal Rotation 4- Good- Knee Strength Knee Manual Muscle Testing Right Flexion (S2) 4+ Good+ Extension (L3) 4+ Good+ Left Flexion (S2) 4+ Good+ Extension (L3) 4+ Good+ PT-OP-Q Treatments Start: 08/20/22 17:49 Freq: Status: Active Protocol: Document 12/08/22 14:30 DCW (Rec: 12/08/22 15:13 DCW [id number]) Gym Equipment Therapeutic Ball 1 Exercise Details Low Trunk Rotation Ball Size/Color Red - 55 cm Body Position Supine Therapeutic Exercises Standing Exercises Pallof Press Standing Exercise Name Pallof Press Side bilateral Resistance Lv 3 Reps/Minutes x15 Rows Standing Exercise Name Rows Side bilateral Resistance Lv 3 Reps/Minutes x15 Shoulder Extension Standing Exercise Name Extension Side bilateral Resistance Lv 3 Reps/Minutes x15 Manual Therapy Treatment Soft Tissue Mobilization Thoracic Paraspinals Body Location B Lumbar/Thoracic Paraspinals Mobilization Type Sustained Pressure,Trigger Point Release Body Position Sidelying PT-OP-S Aquatic Treatment Start: 09/01/22 14:15 Freq: Status: Active Protocol: Document 10/22/22 15:50 LJ (Rec: 10/22/22 16:07 LJ [id number]) Aquatics Treatment Pool Entry/Exit Pool Entry/Exit Method Stairs Assistance Independent Water Walking forward with arms for drag Water Level Chest Level Comments cues for posture forward with reverse breast stroke Water Level Chest Level Comments cues for core involvement [place] Water Level Waist Level Sideways Water Level Chest Level Backwards Water Level Chest Level Comments cues to stand tall forward Water Level Chest Level Comments 2 laps holding lg BB slightly submerged in front and both sides Lower Extremity Exercises free the hip Reps/Duration 8x bilat heel toe raises Body Position Standing Water Level Chest Level Reps/Duration 20 circumduction Body Position Standing Water Level Chest Level Equipment Ankle Floats Reps/Duration 10x 2 bilat ab/ad Water Level Chest Level Equipment Ankle Floats Reps/Duration 10x 2 bilat Comments no UE support flex/ext Water Level Chest Level Equipment Ankle Floats Reps/Duration 10x2 bilat Lower Extremity Stretches hip flexor and quads Body Position Standing Water Level Chest Level Equipment Small Noodle Reps/Duration 2x30 Comments cueing for standing upright piriformis Details on wall Reps/Duration 45 sec bilat spider on wall Comments with body swing HS Details against wall Reps/Duration 2x30 gastroc, soleus Body Position Standing Water Level Waist Level Reps/Duration 45x2 Comments rocking foot side to side HC Body Position Standing Water Level Chest Level Reps/Duration 45x3 bilat Upper Extremity Exercises scapular retraction, shoulder shrugs Body Position Standing Water Level Chest Level Reps/Duration 15 ea flex,ext, abd, add, Body Position Standing Water Level Chest Level Reps/Duration 10x each bilat Comments cues for core activation and stabilization Spinal Exercises trunk rotation Body Position Supine Water Level Neck Level Equipment Large Noodle, Ankle floats Reps/Duration rocking side to side SKTC, DKTC Body Position Supine Water Level Waist Level Reps/Duration 2 min at wall Comments feet on wall, therapist assist Balance wonderboard Body Position Sitting Reps/Duration 5 min Comments static, dynamic, perturbations Stone Activities Stone Activities Bicycle,Bicycle Backwards, Cross Country,Hip Abduction/ Adduction Other Activities pendulum Prone extension gentle shoot through sustained time on side for lateral stretch Equipment flotation belt, med barbells Duration 12 Comments cues for alignment and core engagement PT-OP-T Assessment and Plan Start: 08/20/22 17:49 Freq: Status: Active Protocol: Document 12/08/22 14:30 DCW (Rec: 12/08/22 15:13 DCW [id number]) Physical Therapy Assessment Impairments Impairments Activity Tolerance,Functional Activities,Functional Mobility ,Pain,Posture,ROM,Soft Tissue Mobility,Strength,Tone Goals Three Impairment Pt unable to walk longer than 20 minutes without pain Nursing Home Goal (LTG) Pt to improve ambulation tolerance to at least 90 minutes to enable 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 LTG Duration 12/27/22 - improving One Impairment Pt does not have an appropriate home exercise program Short Term Goal (STG) Pt to be independent and compliant with an appropriate HEP STG Duration Met Assessment Summary Assessment Pt showing improvement with core stability, tolerating strengthening exercises well, overall low-, mid-, and cervical spine all feeling much better, although still struggling more with inflammation in limbs Physical Therapy Plan Frequency and Duration Frequency of Treatment 2x/Week Duration of treatment (weeks) 10 Plan of Care Start Date 10/31/22 Plan of Care End Date 12/27/22 Therapeutic Interventions Therapeutic Interventions Aquatic Therapy,Home Exercise Program,Joint Mobilizations, Manual Therapy,Neuromuscular Re-education,Patient/Caregiver Education,Self-Care/Home Management,Soft Tissue Mobilization,Therapeutic Activities,Therapeutic Exercises Modalities Cold Pack/Ice Massage,Electric Stimulation,Hot Packs, Ultrasound Next Visit Focus/Plan Next Note Type Treatment Note Next Visit Plan Continue progression of land- based exercises as tolerated.
--- NOTE | 2022-12-15 15:14 | PT.OTN ---
Current Diagnoses Spondylosis without myelopathy or radiculopathy, cervical region (12/15/22) Spondylosis without myelopathy or radiculopathy, lumbar region (12/15/22) Physical Therapy Treatment Note PT-OP-A Visit Information Start: 08/20/22 17:49 Freq: Status: Active Protocol: Document 12/15/22 14:30 DCW (Rec: 12/15/22 15:14 DCW [id number]) Out-Patient Physical Therapy Visit Information Visit Information Visit Type Treatment Note Visit Start Time 14:30 Visit Stop Time 15:15 Total Visit Minutes 45 Visit Number 17 Number of VICE PRESIDENT OF TALENT MANAGEMENT Visits 0 Evaluation Information Evaluation Date 08/20/22 PT-OP-B Current Condition Start: 08/20/22 17:49 Freq: Status: Active Protocol: Document 09/10/22 14:36 SAK (Rec: 09/10/22 14:43 SAK [id number]) Current Condition History of Current Condition Onset Date Multi-year history Current Complaints Lumbar pain, cervical pain, radicular symptoms History of Current Condition Pt is a 57 year old female well known to this clinic returning to skilled physical therapy with complaints of what is essentially full-body pain. Pt notes consistent pain in all of her joints, especially stiffness along her entire spine, as well as numbness and tingling in her hands and legs. Notes she feels that she has a lot of instability along her joints, and frequently holds her hands and arms in a contracted, protective posture, typically without even realizing she is doing it. Notes that she typically feels worse as the day progresses, the more I more, the more pain I'm in. Recently underwent a nerve conduction study, which she reports was WNL. Reports she will often have significantly increased pain after standing or sitting for more than ten minutes, and struggles to bend over or walk without pain. PT-OP-C Subjective Start: 08/20/22 17:49 Freq: Status: Active Protocol: Document 12/15/22 14:30 DCW (Rec: 12/15/22 15:14 DCW [id number]) OP-PT Subjective Patient Comments Patient Comments My knee is acting up and I don't know why. PT-OP-F Manual Assessment Start: 08/20/22 17:49 Freq: Status: Active Protocol: Document 08/20/22 15:15 DCW (Rec: 08/21/22 09:45 DCW [id number]) Manual Assessments Soft Tissue Assessment Soft Tissue Mobility Assessment Moderate-severe tone with tenderness to palpation 3/4: wincing and withdraw in C/T/L paraspinals, B upper traps, B QL PT-OP-K Range of Motion Start: 08/20/22 17:49 Freq: Status: Active Protocol: Document 10/31/22 15:15 DCW (Rec: 10/31/22 15:58 DCW [id number]) Lumbar Spine Range of Motion Lumbar Spine Active Degrees Testing Position Standing Flexion 45 Extension 25 Lateral Flexion Left 53 Lateral Flexion Right 52 Comments Lateral flexion measured in cm from fingertips to floor PT-OP-L Special Tests Start: 08/20/22 17:49 Freq: Status: Active Protocol: Document 08/20/22 15:15 DCW (Rec: 08/21/22 11:42 DCW [id number]) Special Tests Cervical Spine Special Tests Spurling's Test Test Results Negative Slump Test Results Negative Passive Neck Flexion Test Results Negative Foraminal Compression Test Results Negative Lumbar Spine Special Tests Prone Instability Test Test Results Positive LUIGI Test Results Pain at SI Comments Bilaterally Straight Leg Raise Test Results Negative PT-OP-M Strength Start: 08/20/22 17:49 Freq: Status: Active Protocol: Document 10/31/22 15:15 DCW (Rec: 10/31/22 15:58 DCW [id number]) Hip Strength Hip Manual Muscle Testing Right Flexion (L2) 4- Good- Extension (S1) 4 Good Abduction 4 Good Adduction 4 Good External Rotation 4 Good Internal Rotation 4 Good Left Flexion (L2) 4- Good- Extension (S1) 4- Good- Abduction 4- Good- Adduction 4- Good- External Rotation 4- Good- Internal Rotation 4- Good- Knee Strength Knee Manual Muscle Testing Right Flexion (S2) 4+ Good+ Extension (L3) 4+ Good+ Left Flexion (S2) 4+ Good+ Extension (L3) 4+ Good+ PT-OP-Q Treatments Start: 08/20/22 17:49 Freq: Status: Active Protocol: Document 12/15/22 14:30 DCW (Rec: 12/15/22 15:14 DCW [id number]) Gym Equipment Therapeutic Ball 3 Exercise Details Resisted Trunk Rotation Ball Size/Color Green - 65 cm Lv 3 Resistance Body Position Sitting 2 Exercise Details Pelvic circles/tilts Ball Size/Color Green - 65 cm Body Position Sitting Therapeutic Exercises Standing Exercises Pallof Press Standing Exercise Name Pallof Press Side bilateral Resistance Lv 3 Reps/Minutes x15 Rows Standing Exercise Name Rows Side bilateral Resistance Lv 3 Reps/Minutes x15 Shoulder Extension Standing Exercise Name Extension Side bilateral Resistance Lv 3 Reps/Minutes x15 Manual Therapy Treatment Soft Tissue Mobilization Thoracic Paraspinals Body Location B Lumbar/Thoracic Paraspinals Mobilization Type Sustained Pressure,Trigger Point Release Body Position Sidelying PT-OP-S Aquatic Treatment Start: 09/01/22 14:15 Freq: Status: Active Protocol: Document 10/22/22 15:50 LJ (Rec: 10/22/22 16:07 LJ [id number]) Aquatics Treatment Pool Entry/Exit Pool Entry/Exit Method Stairs Assistance Independent Water Walking forward with arms for drag Water Level Chest Level Comments cues for posture forward with reverse breast stroke Water Level Chest Level Comments cues for core involvement [place] Water Level Waist Level Sideways Water Level Chest Level Backwards Water Level Chest Level Comments cues to stand tall forward Water Level Chest Level Comments 2 laps holding lg BB slightly submerged in front and both sides Lower Extremity Exercises free the hip Reps/Duration 8x bilat heel toe raises Body Position Standing Water Level Chest Level Reps/Duration 20 circumduction Body Position Standing Water Level Chest Level Equipment Ankle Floats Reps/Duration 10x 2 bilat ab/ad Water Level Chest Level Equipment Ankle Floats Reps/Duration 10x 2 bilat Comments no UE support flex/ext Water Level Chest Level Equipment Ankle Floats Reps/Duration 10x2 bilat Lower Extremity Stretches hip flexor and quads Body Position Standing Water Level Chest Level Equipment Small Noodle Reps/Duration 2x30 Comments cueing for standing upright piriformis Details on wall Reps/Duration 45 sec bilat spider on wall Comments with body swing HS Details against wall Reps/Duration 2x30 gastroc, soleus Body Position Standing Water Level Waist Level Reps/Duration 45x2 Comments rocking foot side to side HC Body Position Standing Water Level Chest Level Reps/Duration 45x3 bilat Upper Extremity Exercises scapular retraction, shoulder shrugs Body Position Standing Water Level Chest Level Reps/Duration 15 ea flex,ext, abd, add, Body Position Standing Water Level Chest Level Reps/Duration 10x each bilat Comments cues for core activation and stabilization Spinal Exercises trunk rotation Body Position Supine Water Level Neck Level Equipment Large Noodle, Ankle floats Reps/Duration rocking side to side SKTC, DKTC Body Position Supine Water Level Waist Level Reps/Duration 2 min at wall Comments feet on wall, therapist assist Balance wonderboard Body Position Sitting Reps/Duration 5 min Comments static, dynamic, perturbations [place] Activities [place] Activities Bicycle,Bicycle Backwards, Cross Country,Hip Abduction/ Adduction Other Activities pendulum Prone extension gentle shoot through sustained time on side for lateral stretch Equipment flotation belt, med barbells Duration 12 Comments cues for alignment and core engagement PT-OP-T Assessment and Plan Start: 08/20/22 17:49 Freq: Status: Active Protocol: Document 12/15/22 14:30 DCW (Rec: 12/15/22 15:14 DCW [id number]) Physical Therapy Assessment Impairments Impairments Activity Tolerance,Functional Activities,Functional Mobility ,Pain,Posture,ROM,Soft Tissue Mobility,Strength,Tone Goals Three Impairment Pt unable to walk longer than 20 minutes without pain Residential Goal (LTG) Pt to improve ambulation tolerance to at least 90 minutes to enable her to 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 LTG Duration 12/27/22 - improving One Impairment Pt does not have an appropriate home exercise program Short Term Goal (STG) Pt to be independent and compliant with an appropriate HEP STG Duration Met Assessment Summary Assessment Pt showing good improvement overall, much more tolerable of functional mobility. Pt should benefit from continued therapeutic intervention in an effort to limit effects of progressive autoimmune disorders. Physical Therapy Plan Frequency and Duration Frequency of Treatment 2x/Week Duration of treatment (weeks) 10 Plan of Care Start Date 10/31/22 Plan of Care End Date 12/27/22 Therapeutic Interventions Therapeutic Interventions Aquatic Therapy,Home Exercise Program,Joint Mobilizations, Manual Therapy,Neuromuscular Re-education,Patient/Caregiver Education,Self-Care/Home Management,Soft Tissue Mobilization,Therapeutic Activities,Therapeutic Exercises Modalities Cold Pack/Ice Massage,Electric Stimulation,Hot Packs, Ultrasound Next Visit Focus/Plan Next Note Type Treatment Note Next Visit Plan Continue progression of land- based exercises as tolerated.
--- NOTE | 2022-12-24 10:29 | PT.OTN ---
Current Diagnoses Spondylosis without myelopathy or radiculopathy, cervical region (12/24/22) Spondylosis without myelopathy or radiculopathy, lumbar region (12/24/22) Physical Therapy Treatment Note PT-OP-A Visit Information Start: 08/20/22 17:49 Freq: Status: Active Protocol: Document 12/24/22 09:45 DCW (Rec: 12/24/22 10:29 DCW [id number]) Out-Patient Physical Therapy Visit Information Visit Information Visit Type Treatment Note Visit Start Time 09:45 Visit Stop Time 10:30 Total Visit Minutes 45 Visit Number 18 Number of REHABILITATION COUNSELLOR Visits 0 Evaluation Information Evaluation Date 08/20/22 PT-OP-B Current Condition Start: 08/20/22 17:49 Freq: Status: Active Protocol: Document 09/10/22 14:36 SAK (Rec: 09/10/22 14:43 SAK [id number]) Current Condition History of Current Condition Onset Date Multi-year history Current Complaints Lumbar pain, cervical pain, radicular symptoms History of Current Condition Pt is a 57 year old female well known to this clinic returning to skilled physical therapy with complaints of what is essentially full-body pain. Pt notes consistent pain in all of her joints, especially stiffness along her entire spine, as well as numbness and tingling in her hands and legs. Notes she feels that she has a lot of instability along her joints, and frequently holds her hands and arms in a contracted, protective posture, typically without even realizing she is doing it. Notes that she typically feels worse as the day progresses, the more I more, the more pain I'm in. Recently underwent a nerve conduction study, which she reports was WNL. Reports she will often have significantly increased pain after standing or sitting for more than ten minutes, and struggles to bend over or walk without pain. PT-OP-C Subjective Start: 08/20/22 17:49 Freq: Status: Active Protocol: Document 12/24/22 09:45 DCW (Rec: 12/24/22 10:29 DCW [id number]) OP-PT Subjective Patient Comments Patient Comments Pt notes she is feeling stiff this morning. Reports her knee has been worse. PT-OP-F Manual Assessment Start: 08/20/22 17:49 Freq: Status: Active Protocol: Document 08/20/22 15:15 DCW (Rec: 08/21/22 09:45 DCW [id number]) Manual Assessments Soft Tissue Assessment Soft Tissue Mobility Assessment Moderate-severe tone with tenderness to palpation 3/4: wincing and withdraw in C/T/L paraspinals, B upper traps, B QL PT-OP-K Range of Motion Start: 08/20/22 17:49 Freq: Status: Active Protocol: Document 10/31/22 15:15 DCW (Rec: 10/31/22 15:58 DCW [id number]) Lumbar Spine Range of Motion Lumbar Spine Active Degrees Testing Position Standing Flexion 45 Extension 25 Lateral Flexion Left 53 Lateral Flexion Right 52 Comments Lateral flexion measured in cm from fingertips to floor PT-OP-L Special Tests Start: 08/20/22 17:49 Freq: Status: Active Protocol: Document 08/20/22 15:15 DCW (Rec: 08/21/22 11:42 DCW [id number]) Special Tests Cervical Spine Special Tests Spurling's Test Test Results Negative Slump Test Results Negative Passive Neck Flexion Test Results Negative Foraminal Compression Test Results Negative Lumbar Spine Special Tests Prone Instability Test Test Results Positive LUIGI Test Results Pain at SI Comments Bilaterally Straight Leg Raise Test Results Negative PT-OP-M Strength Start: 08/20/22 17:49 Freq: Status: Active Protocol: Document 10/31/22 15:15 DCW (Rec: 10/31/22 15:58 DCW [id number]) Hip Strength Hip Manual Muscle Testing Right Flexion (L2) 4- Good- Extension (S1) 4 Good Abduction 4 Good Adduction 4 Good External Rotation 4 Good Internal Rotation 4 Good Left Flexion (L2) 4- Good- Extension (S1) 4- Good- Abduction 4- Good- Adduction 4- Good- External Rotation 4- Good- Internal Rotation 4- Good- Knee Strength Knee Manual Muscle Testing Right Flexion (S2) 4+ Good+ Extension (L3) 4+ Good+ Left Flexion (S2) 4+ Good+ Extension (L3) 4+ Good+ PT-OP-Q Treatments Start: 08/20/22 17:49 Freq: Status: Active Protocol: Document 12/24/22 09:45 DCW (Rec: 12/24/22 10:29 DCW [id number]) Gym Equipment Therapeutic Ball 3 Exercise Details Resisted Trunk Rotation Ball Size/Color Green - 65 cm Lv 3 Resistance Body Position Sitting 2 Exercise Details Pelvic circles/tilts Ball Size/Color Green - 65 cm Body Position Sitting Therapeutic Exercises Standing Exercises Rows Standing Exercise Name Rows Side bilateral Resistance Lv 3 Reps/Minutes x15 Shoulder Extension Standing Exercise Name Extension Side bilateral Resistance Lv 3 Reps/Minutes x15 Manual Therapy Treatment Soft Tissue Mobilization Thoracic Paraspinals Body Location B Lumbar/Thoracic Paraspinals Mobilization Type Sustained Pressure,Trigger Point Release Body Position Sidelying PT-OP-S Aquatic Treatment Start: 09/01/22 14:15 Freq: Status: Active Protocol: Document 10/22/22 15:50 LJ (Rec: 10/22/22 16:07 LJ [id number]) Aquatics Treatment Pool Entry/Exit Pool Entry/Exit Method Stairs Assistance Independent Water Walking forward with arms for drag Water Level Chest Level Comments cues for posture forward with reverse breast stroke Water Level Chest Level Comments cues for core involvement [place] March Water Level Waist Level Sideways Water Level Chest Level Backwards Water Level Chest Level Comments cues to stand tall forward Water Level Chest Level Comments 2 laps holding lg BB slightly submerged in front and both sides Lower Extremity Exercises free the hip Reps/Duration 8x bilat heel toe raises Body Position Standing Water Level Chest Level Reps/Duration 20 circumduction Body Position Standing Water Level Chest Level Equipment Ankle Floats Reps/Duration 10x 2 bilat ab/ad Water Level Chest Level Equipment Ankle Floats Reps/Duration 10x 2 bilat Comments no UE support flex/ext Water Level Chest Level Equipment Ankle Floats Reps/Duration 10x2 bilat Lower Extremity Stretches hip flexor and quads Body Position Standing Water Level Chest Level Equipment Small Noodle Reps/Duration 2x30 Comments cueing for standing upright piriformis Details on wall Reps/Duration 45 sec bilat spider on wall Comments with body swing HS Details against wall Reps/Duration 2x30 gastroc, soleus Body Position Standing Water Level Waist Level Reps/Duration 45x2 Comments rocking foot side to side HC Body Position Standing Water Level Chest Level Reps/Duration 45x3 bilat Upper Extremity Exercises scapular retraction, shoulder shrugs Body Position Standing Water Level Chest Level Reps/Duration 15 ea flex,ext, abd, add, Body Position Standing Water Level Chest Level Reps/Duration 10x each bilat Comments cues for core activation and stabilization Spinal Exercises trunk rotation Body Position Supine Water Level Neck Level Equipment Large Noodle, Ankle floats Reps/Duration rocking side to side SKTC, DKTC Body Position Supine Water Level Waist Level Reps/Duration 2 min at wall Comments feet on wall, therapist assist Balance wonderboard Body Position Sitting Reps/Duration 5 min Comments static, dynamic, perturbations [place] Activities Drew Activities Bicycle,Bicycle Backwards, Cross Country,Hip Abduction/ Adduction Other Activities pendulum Prone extension gentle shoot through sustained time on side for lateral stretch Equipment flotation belt, med barbells Duration 12 Comments cues for alignment and core engagement PT-OP-T Assessment and Plan Start: 08/20/22 17:49 Freq: Status: Active Protocol: Document 12/24/22 09:45 DCW (Rec: 12/24/22 10:29 DCW [id number]) Physical Therapy Assessment Impairments Impairments Activity Tolerance,Functional Activities,Functional Mobility ,Pain,Posture,ROM,Soft Tissue Mobility,Strength,Tone Goals Three Impairment Pt unable to walk longer than 20 minutes without pain Assistant General Manager Goal (LTG) Pt to improve ambulation tolerance to at least 90 minutes to 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 LTG Duration 12/27/22 - improving One Impairment Pt does not have an appropriate home exercise program Short Term Goal (STG) Pt to be independent and compliant with an appropriate HEP STG Duration Met Assessment Summary Assessment Pt largely unchanged from last visit, flared up, complaining of feeling like her tendons are inflamed. Reassessment next visit. Physical Therapy Plan Frequency and Duration Frequency of Treatment 2x/Week Duration of treatment (weeks) 10 Plan of Care Start Date 10/31/22 Plan of Care End Date 12/27/22 Therapeutic Interventions Therapeutic Interventions Aquatic Therapy,Home Exercise Program,Joint Mobilizations, Manual Therapy,Neuromuscular Re-education,Patient/Caregiver Education,Self-Care/Home Management,Soft Tissue Mobilization,Therapeutic Activities,Therapeutic Exercises Modalities Cold Pack/Ice Massage,Electric Stimulation,Hot Packs, Ultrasound Next Visit Focus/Plan Next Note Type Progress Note Next Visit Plan Continue progression of land- based exercises as tolerated.
--- NOTE | 2022-12-31 17:36 | PT.OTN ---
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) Physical Therapy Treatment Note PT-OP-A Visit Information Start: 08/20/22 17:49 Freq: Status: Active Protocol: Document 12/31/22 16:45 DCW (Rec: 12/31/22 17:36 DCW [id number]) Out-Patient Physical Therapy Visit Information Visit Information Visit Type Progress Note Visit Start Time 16:45 Visit Stop Time 17:30 Total Visit Minutes 45 Visit Number 19 Number of GENERAL DENTIST/OWNER Visits 0 Evaluation Information Evaluation Date 08/20/22 PT-OP-B Current Condition Start: 08/20/22 17:49 Freq: Status: Active Protocol: Document 09/10/22 14:36 SAK (Rec: 09/10/22 14:43 SAK [id number]) Current Condition History of Current Condition Onset Date Multi-year history Current Complaints Lumbar pain, cervical pain, radicular symptoms History of Current Condition Pt is a 57 year old female well known to this clinic returning to skilled physical therapy with complaints of what is essentially full-body pain. Pt notes consistent pain in all of her joints, especially stiffness along her entire spine, as well as numbness and tingling in her hands and legs. Notes she feels that she has a lot of instability along her joints, and frequently holds her hands and arms in a contracted, protective posture, typically without even realizing she is doing it. Notes that she typically feels worse as the day progresses, the more I more, the more pain I'm in. Recently underwent a nerve conduction study, which she reports was WNL. Reports she will often have significantly increased pain after standing or sitting for more than ten minutes, and struggles to bend over or walk without pain. PT-OP-C Subjective Start: 08/20/22 17:49 Freq: Status: Active Protocol: Document 12/31/22 16:45 DCW (Rec: 12/31/22 17:36 DCW [id number]) OP-PT Subjective Patient Comments Patient Comments Pt still not noticing much effect from her Humira injections yet, but understands that it could be multiple weeks before she notices effects. PT-OP-F Manual Assessment Start: 08/20/22 17:49 Freq: Status: Active Protocol: Document 12/31/22 16:45 DCW (Rec: 12/31/22 17:00 DCW [id number]) Manual Assessments Soft Tissue Assessment Soft Tissue Mobility Assessment Moderate-severe tone with tenderness to palpation 2/4: pain with wincing in C/T/L paraspinals, B upper traps, B QL PT-OP-K Range of Motion Start: 08/20/22 17:49 Freq: Status: Active Protocol: Document 12/31/22 16:45 DCW (Rec: 12/31/22 17:00 DCW [id number]) Lumbar Spine Range of Motion Lumbar Spine Active Degrees Testing Position Standing Flexion 60 Extension 20 Lateral Flexion Left 55 Lateral Flexion Right 56 Comments Lateral flexion measured in cm from fingertips to floor PT-OP-L Special Tests Start: 08/20/22 17:49 Freq: Status: Active Protocol: Document 12/31/22 16:45 DCW (Rec: 12/31/22 17:00 DCW [id number]) Special Tests Cervical Spine Special Tests Spurling's Test Test Results Negative Slump Test Results Negative Passive Neck Flexion Test Results Negative Foraminal Compression Test Results Negative Lumbar Spine Special Tests Prone Instability Test Test Results Positive LUIGI Test Results Pain at SI Comments Bilaterally Straight Leg Raise Test Results Negative PT-OP-M Strength Start: 08/20/22 17:49 Freq: Status: Active Protocol: Document 12/31/22 16:45 DCW (Rec: 12/31/22 17:00 DCW [id number]) Hip Strength Hip Manual Muscle Testing Right Flexion (L2) 4 Good Extension (S1) 4 Good Abduction 4 Good Adduction 4 Good External Rotation 4+ Good+ Internal Rotation 4+ Good+ Left Flexion (L2) 4- Good- Extension (S1) 4 Good Abduction 4- Good- Adduction 4- Good- External Rotation 4 Good Internal Rotation 4+ Good+ Knee Strength Knee Manual Muscle Testing Right Flexion (S2) 4+ Good+ Extension (L3) 4+ Good+ Left Flexion (S2) 4+ Good+ Extension (L3) 4+ Good+ PT-OP-Q Treatments Start: 08/20/22 17:49 Freq: Status: Active Protocol: Document 12/31/22 16:45 DCW (Rec: 12/31/22 17:36 DCW [id number]) Gym Equipment Therapeutic Ball 2 Exercise Details Pelvic circles/tilts Ball Size/Color Green - 65 cm Body Position Sitting Therapeutic Exercises Standing Exercises Rows Standing Exercise Name Rows Side bilateral Resistance Lv 3 Reps/Minutes x15 Shoulder Extension Standing Exercise Name Extension Side bilateral Resistance Lv 3 Reps/Minutes x15 Manual Therapy Treatment Soft Tissue Mobilization Thoracic Paraspinals Body Location B Lumbar/Thoracic Paraspinals Mobilization Type Sustained Pressure,Trigger Point Release Body Position Sidelying PT-OP-S Aquatic Treatment Start: 09/01/22 14:15 Freq: Status: Active Protocol: Document 10/22/22 15:50 LJ (Rec: 10/22/22 16:07 [id number]) Aquatics Treatment Pool Entry/Exit Pool Entry/Exit Method Stairs Assistance Independent Water Walking forward with arms for drag Water Level Chest Level Comments cues for posture forward with reverse breast stroke Water Level Chest Level Comments cues for core involvement [place] March Water Level Waist Level Sideways Water Level Chest Level Backwards Water Level Chest Level Comments cues to stand tall forward Water Level Chest Level Comments 2 laps holding lg BB slightly submerged in front and both sides Lower Extremity Exercises free the hip Reps/Duration 8x bilat heel toe raises Body Position Standing Water Level Chest Level Reps/Duration 20 circumduction Body Position Standing Water Level Chest Level Equipment Ankle Floats Reps/Duration 10x 2 bilat ab/ad Water Level Chest Level Equipment Ankle Floats Reps/Duration 10x 2 bilat Comments no UE support flex/ext Water Level Chest Level Equipment Ankle Floats Reps/Duration 10x2 bilat Lower Extremity Stretches hip flexor and quads Body Position Standing Water Level Chest Level Equipment Small Noodle Reps/Duration 2x30 Comments cueing for standing upright piriformis Details on wall Reps/Duration 45 sec bilat spider on wall Comments with body swing HS Details against wall Reps/Duration 2x30 gastroc, soleus Body Position Standing Water Level Waist Level Reps/Duration 45x2 Comments rocking foot side to side HC Body Position Standing Water Level Chest Level Reps/Duration 45x3 bilat Upper Extremity Exercises scapular retraction, shoulder shrugs Body Position Standing Water Level Chest Level Reps/Duration 15 ea flex,ext, abd, add, Body Position Standing Water Level Chest Level Reps/Duration 10x each bilat Comments cues for core activation and stabilization Spinal Exercises trunk rotation Body Position Supine Water Level Neck Level Equipment Large Noodle, Ankle floats Reps/Duration rocking side to side SKTC, DKTC Body Position Supine Water Level Waist Level Reps/Duration 2 min at wall Comments feet on wall, therapist assist Balance wonderboard Body Position Sitting Reps/Duration 5 min Comments static, dynamic, perturbations [place] Activities [place] Activities Bicycle,Bicycle Backwards, Cross Country,Hip Abduction/ Adduction Other Activities pendulum Prone extension gentle shoot through sustained time on side for lateral stretch Equipment flotation belt, med barbells Duration 12 Comments cues for alignment and core engagement PT-OP-T Assessment and Plan Start: 08/20/22 17:49 Freq: Status: Active Protocol: Document 12/31/22 16:45 DCW (Rec: 12/31/22 17:36 DCW [id number]) Physical Therapy Assessment Impairments Impairments Activity Tolerance,Functional Activities,Functional Mobility ,Pain,Posture,ROM,Soft Tissue Mobility,Strength,Tone Goals Three Impairment Pt unable to walk longer than 20 minutes without pain Decaler Goal (LTG) Pt to improve ambulation tolerance to at least 90 minutes to 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 LTG Duration 12/27/22 - improving One Impairment Pt does not have an appropriate home exercise program Short Term Goal (STG) Pt to be independent and compliant with an appropriate HEP STG Duration Met Assessment Summary Assessment Pt showing improvement with overall LE strength. Additionally, lumbar flexion improved 20? since initial evaluation. Dur to progressive nature of pt's autoimmune disorder, most of the time, the best hope is to delay progression of symptoms, however pt is showing improvement with continued participation in skilled physical therapy. 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 Physical Therapy Plan Frequency and Duration Frequency of Treatment 1-2x/week Plan of Care Start Date 12/31/22 Plan of Care End Date 03/31/23 Therapeutic Interventions Therapeutic Interventions Home Exercise Program,Joint Mobilizations,Manual Therapy, Neuromuscular Re-education, Patient/Caregiver Education, Self-Care/Home Management,Soft Tissue Mobilization, Therapeutic Activities, Therapeutic Exercises Modalities Cold Pack/Ice Massage,Electric Stimulation,Hot Packs, Ultrasound Next Visit Focus/Plan Next Note Type Treatment Note Next Visit Plan Continue progression of land- based exercises as tolerated.
--- NOTE | 2022-12-31 17:36 | PT.OPPOC ---
Physical, Occupational & Speech Therapy At [facility] 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) Visit Care Team Role Provider Type Nikki Amos MD Family Provider Non-Staff Primary Care Provider Specialty: Pediatrics Address: [address] [place] [address], [id number] Email: Kenny Avelar MD Attending Provider Physician Referring Provider Specialty: Orthopedics Orthopedic Surgery Address: [address] [place] [address], [id number] Email: [email or web address] Plan Of Care PT-OP-T Assessment and Plan Start: 08/20/22 17:49 Freq: Status: Active Protocol: Document 12/31/22 16:45 DCW (Rec: 12/31/22 17:36 DCW [id number]) Physical Therapy Assessment Impairments Impairments Activity Tolerance,Functional Activities,Functional Mobility ,Pain,Posture,ROM,Soft Tissue Mobility,Strength,Tone Goals Three Impairment Pt unable to walk longer than 20 minutes without pain Correction Goal (LTG) Pt to improve ambulation tolerance to at least 90 minutes to 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 LTG Duration 12/27/22 - improving One Impairment Pt does not have an appropriate home exercise program Short Term Goal (STG) Pt to be independent and compliant with an appropriate HEP STG Duration Met Assessment Summary Assessment Pt showing improvement with overall LE strength. Additionally, lumbar flexion improved 20? since initial evaluation. Due to progressive nature of pt's autoimmune disorder, most of the time, the best hope is to delay progression of symptoms, however pt is showing improvement with continued participation in skilled physical therapy. 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 Physical Therapy Plan Frequency and Duration Frequency of Treatment 1-2x/week Plan of Care Start Date 12/31/22 Plan of Care End Date 03/31/23 Therapeutic Interventions Therapeutic Interventions Home Exercise Program,Joint Mobilizations,Manual Therapy, Neuromuscular Re-education, Patient/Caregiver Education, Self-Care/Home Management,Soft Tissue Mobilization, Therapeutic Activities, Therapeutic Exercises Modalities Cold Pack/Ice Massage,Electric Stimulation,Hot Packs, Ultrasound Next Visit Focus/Plan Next Note Type Treatment Note Next Visit Plan Continue progression of land- based exercises as tolerated. Plan of Care Dates Plan of Care Start Date 12/31/22 Plan of Care End Date 03/31/23 Electronically Signed by: Micky Dove, PT 12/31/22 0240 If you are in agreement with this Plan of Care, please return a signed and dated copy. I have reviewed this Plan of Care and certify that the skilled therapy services above are required to meet the patient?s needs. Physician Signature Date Printed Name and Credentials Clinical Instructor Signature Printed Name and Credentials
--- NOTE | 2023-08-10 14:11 | PT.OPDS ---
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) Visit Care Team Role Provider Type Nikki Amos MD Family Provider Non-Staff Primary Care Provider Specialty: Pediatrics Address: [address] [place], [address] Email: Kenny Avelar MD Attending Provider Physician Referring Provider Specialty: Orthopedics Orthopedic Surgery Address: [address] [place] [address], [id number] Email: [email or web address] Visit Number Visit Number 19 Discharge Summary PT-OP-B Current Condition Start: 08/20/22 17:49 Freq: Status: Active Protocol: Document 09/10/22 14:36 SAK (Rec: 09/10/22 14:43 SAK [id number]) Current Condition History of Current Condition Onset Date Multi-year history Current Complaints Lumbar pain, cervical pain, radicular symptoms History of Current Condition Pt is a 57 year old female well known to this clinic returning to skilled physical therapy with complaints of what is essentially full-body pain. Pt notes consistent pain in all of her joints, especially stiffness along her entire spine, as well as numbness and tingling in her hands and legs. Notes she feels that she has a lot of instability along her joints, and frequently holds her hands and arms in a contracted, protective posture, typically without even realizing she is doing it. Notes that she typically feels worse as the day progresses, the more I more, the more pain I'm in. Recently underwent a nerve conduction study, which she reports was WNL. Reports she will often have significantly increased pain after standing or sitting for more than ten minutes, and struggles to bend over or walk without pain. PT-OP-C Subjective Start: 08/20/22 17:49 Freq: Status: Active Protocol: Document 12/31/22 16:45 DCW (Rec: 12/31/22 17:36 DCW [id number]) OP-PT Subjective Patient Comments Patient Comments Pt still not noticing much effect from her Humira injections yet, but understands that it could be multiple weeks before she notices effects. PT-OP-F Manual Assessment Start: 08/20/22 17:49 Freq: Status: Active Protocol: Document 12/31/22 16:45 DCW (Rec: 12/31/22 17:00 DCW [id number]) Manual Assessments Soft Tissue Assessment Soft Tissue Mobility Assessment Moderate-severe tone with tenderness to palpation 2/4: pain with wincing in C/T/L paraspinals, B upper traps, B QL PT-OP-K Range of Motion Start: 08/20/22 17:49 Freq: Status: Active Protocol: Document 12/31/22 16:45 DCW (Rec: 12/31/22 17:00 DCW [id number]) Lumbar Spine Range of Motion Lumbar Spine Active Degrees Testing Position Standing Flexion 60 Extension 20 Lateral Flexion Left 55 Lateral Flexion Right 56 Comments Lateral flexion measured in cm from fingertips to floor PT-OP-L Special Tests Start: 08/20/22 17:49 Freq: Status: Active Protocol: Document 12/31/22 16:45 DCW (Rec: 12/31/22 17:00 DCW [id number]) Special Tests Cervical Spine Special Tests Spurling's Test Test Results Negative Slump Test Results Negative Passive Neck Flexion Test Results Negative Foraminal Compression Test Results Negative Lumbar Spine Special Tests Prone Instability Test Test Results Positive LUIGI Test Results Pain at SI Comments Bilaterally Straight Leg Raise Test Results Negative PT-OP-M Strength Start: 08/20/22 17:49 Freq: Status: Active Protocol: Document 12/31/22 16:45 DCW (Rec: 12/31/22 17:00 DCW [id number]) Hip Strength Hip Manual Muscle Testing Right Flexion (L2) 4 Good Extension (S1) 4 Good Abduction 4 Good Adduction 4 Good External Rotation 4+ Good+ Internal Rotation 4+ Good+ Left Flexion (L2) 4- Good- Extension (S1) 4 Good Abduction 4- Good- Adduction 4- Good- External Rotation 4 Good Internal Rotation 4+ Good+ Knee Strength Knee Manual Muscle Testing Right Flexion (S2) 4+ Good+ Extension (L3) 4+ Good+ Left Flexion (S2) 4+ Good+ Extension (L3) 4+ Good+ PT-OP-T Assessment and Plan Start: 08/20/22 17:49 Freq: Status: Active Protocol: Document 08/10/23 14:09 VANE (Rec: 08/10/23 14:11 [facility] [id number]) Physical Therapy Assessment Assessment Summary Assessment Pt has not been seen in seven months, has no follow-up visits scheduled. Pt will be discharged from skilled PT at this time, will require a new referral in order to return. Physical Therapy Plan Discharge Physical Therapy Discharge Reasons No Longer Attending PT Next Visit Focus/Plan Next Note Type Discharge Summary
== END 2023-08-13 08:09 | disposition home or self-care (01) ==
LOC: PHYS 16:45
PROVIDERS: Family Provider Internal Medicine; PCP Internal Medicine; Referring Provider Physical Medicine & Rehabilitation; Visit Provider Physical Medicine & Rehabilitation
DX: M47.812 Spondylosis without myelopathy or radiculopathy, cervical region (principal); M47.816 Spondylosis without myelopathy or radiculopathy, lumbar region
CPT/HCPCS: 97110; 97113; 97140; 97163

== ENCOUNTER → 2023-03-05 17:17 | Outpatient (CLI) | payer OTHER, SELFPAY | PROVIDERS: Family Provider Internal Medicine; PCP Internal Medicine; Visit Provider Nurse Practitioner Family | DX: N39.0 Urinary tract infection, site not specified (principal) | CPT/HCPCS: 87086 ==

== ENCOUNTER → 2023-03-16 11:23 | Outpatient (CLI) | payer OTHER, SELFPAY ==
[2023-03-17 03:10] LABS: x Labcorp Estim. Avg Glu (eAG) 114 mg/dL (.); x Labcorp Hemoglobin A1c 5.6 % (4.8-5.6)
== END ==
PROVIDERS: Family Provider Internal Medicine; PCP Internal Medicine; Referring Provider Internal Medicine; Visit Provider Internal Medicine
DX: R73.01 Impaired fasting glucose (principal)
CPT/HCPCS: 36415; 83036

== ENCOUNTER → 2023-06-24 16:10 | Outpatient (CLI) | payer OTHER, SELFPAY ==
[2023-06-25 07:40] LABS: Thyroid Peroxidase Antibodies <9 IU/mL (0-34)
== END ==
PROVIDERS: Family Provider Internal Medicine; PCP Internal Medicine; Referring Provider Internal Medicine; Visit Provider Internal Medicine
DX: E04.1 Nontoxic single thyroid nodule (principal)
CPT/HCPCS: 36415; 86376

== ENCOUNTER → 2023-09-29 09:15 | Outpatient (CLI) | payer OTHER, SELFPAY ==
[2023-09-29 10:44] LABS: Alanine Aminotransferase 25 IU/L (<35); Albumin 4.1 g/dL (3.5-5.0); Albumin Globulin Ratio 1.2 (1.0-2.8); Alkaline Phosphatase 64 U/L (38-126); Aspartate Aminotransferase 25 IU/L (14-36); BUN Creatinine Ratio 15.5 (6-22); Bilirubin Total 0.7 mg/dL (0.2-1.3); Blood Urea Nitrogen 13 mg/dL (7-17); Calcium 9.9 mg/dL (8.4-10.2); Carbon Dioxide 29 mmol/L (22-32); Chloride 103 mmol/L (98-107); Cholesterol 297 mg/dL (140-199); Estimated Glomerular Filt Rate > 60 mL/min (>60); Globulin 3.4 g/dL (1.7-4.1); Glucose 103 mg/dL (70-100); HEMOLYSIS < 15 (0-50); Magnesium 2.2 mg/dL (1.6-2.3); Potassium 4.5 mmol/L (3.4-5.1); Sodium 138 mmol/L (137-145); Total Protein 7.5 g/dL (6.3-8.2); Triglycerides 101 mg/dL (35-150)
[2023-09-29 11:39] LABS: HDL Cholesterol 65 mg/dL (40-60); LDL Cholesterol Calculated 212 mg/dL (<100)
== END ==
PROVIDERS: Family Provider Internal Medicine; PCP Internal Medicine; Referring Provider Specialist; Visit Provider Specialist
DX: R07.9 Chest pain, unspecified (principal); Z82.49 Family history of ischemic heart disease and other diseases of the circulatory system; R00.2 Palpitations
CPT/HCPCS: 36415; 80053; 80061; 83735